=== PATIENT | female | born 1935 | race Caucasian/White ===

== ENCOUNTER 2020-07-12 15:54 | Inpatient (IN) | payer MEDICARE, BC ==
--- NOTE | 2020-07-12 17:02 | ED ---
General Adult HPI - General Chief complaint: Neuro Symptoms/Deficit Stated complaint: slurred speech Time Seen by Provider: 07/12/20 15:54 Source: patient, EMS, RN notes reviewed, old records reviewed Mode of arrival: EMS Limitations: no limitations - History of Present Illness Initial comments: This is an 85-year-old female who was transferred to us from [facility] emergency department. Patient states she had slurred speech for 3 days and went to [facility] after that. She was worked up for stroke there and her CAT scan and lab work came back essentially normal. Patient's family did not want to be admitted to [facility] they wanted her admitted at [facility] so she was closer to home and so she was transferred our facility. Patient states she's had no new symptoms since 3 days ago and she's not having any pain she denies chest pain difficulty breathing shortness of breath per patient denies abdominal pain patient denies nausea vomiting diarrhea. Patient denies any new neurologic deficits. - Related Data Home Medications Medication Instructions Recorded Confirmed Atenolol [Tenormin] 50 mg PO DAILY 07/12/20 07/12/20 Betamethasone Dipropionate 1 applic TOPICAL DAILY 07/12/20 07/12/20 [Diprolene AF 0.05% Cream] Bismuth Subsalicylate 524 mg PO Q4H PRN 07/12/20 07/12/20 [Pepto-Bismol] Calcium Carbonate [Tums] 1,000 mg PO Q6H PRN 07/12/20 07/12/20 Cholecalciferol [Vitamin D3 (25 50 mcg PO DAILY 07/12/20 07/12/20 Mcg = 1000 Iu)] Collagenase [Santyl] 1 applic TOPICAL DAILY 07/12/20 07/12/20 Furosemide [Lasix] 40 mg PO MOTUWETHFR 07/12/20 07/12/20 Heparin 10unit/Ml 50 unit IV DAILY 07/12/20 07/12/20 Insulin Glargine [Lantus] 30 unit SQ HS 07/12/20 07/12/20 Levothyroxine Sodium [Synthroid] 25 mcg PO DAILY 07/12/20 07/12/20 Losartan Potassium [Cozaar] 100 mg PO DAILY 07/12/20 07/12/20 Lovastatin [Mevacor] 10 mg PO HS 07/12/20 07/12/20 Meclizine HCl 12.5 mg PO TID 07/12/20 07/12/20 Nystatin/Triamcin 1 applic TOPICAL BID 07/12/20 07/12/20 [Nystatin-Triamcinolone Ointm] Omeprazole 20 mg PO BID 07/12/20 07/12/20 Ondansetron [Zofran] 4 mg PO Q6H PRN 07/12/20 07/12/20 Potassium Chloride ER [K-Dur 20] 40 meq PO DAILY 07/12/20 07/12/20 Vancomycin 750 mg IV DAILY 07/12/20 07/12/20 cefTRIAXone [Rocephin] 2 gm IV HS 07/12/20 07/12/20 diphenhydrAMINE HCL [Benadryl] 25 mg PO Q8H PRN 07/12/20 07/12/20 metroNIDAZOLE [Flagyl] 500 mg PO TID 07/12/20 07/12/20 Review of Systems ROS Statement: Those systems with pertinent positive or pertinent negative responses have been documented in the HPI. ROS Other: All systems not noted in ROS Statement are negative. Past Medical History History of Any Multi-Drug Resistant Organisms: None Reported Past Psychological History: No Psychological Hx Reported Smoking Status: Former smoker Past Alcohol Use History: None Reported Past Drug Use History: None Reported General Exam - General Exam Comments Initial Comments: GENERAL: Patient is well-developed and well-nourished. Patient is nontoxic and well-hydrated and is in no acute distress. ENT: Neck is soft and supple. No significant lymphadenopathy is noted. Oropharynx is clear. Moist mucous membranes. Neck has full range of motion without eliciting any pain. EYES: The sclera were anicteric and conjunctiva were pink and moist. Extraocular movements were intact and pupils were equal round and reactive to light. Eyelids were unremarkable. PULMONARY: Unlabored respirations. Good breath sounds bilaterally. No audible rales rhonchi or wheezing was noted. CARDIOVASCULAR: There is a regular rate and rhythm without any murmurs gallops or rubs. ABDOMEN: Soft and nontender with normal bowel sounds. SKIN: Skin is clear with no lesions or rashes and otherwise unremarkable. NEUROLOGIC: Patient is alert and oriented x3. Cranial nerves II through XII are grossly intact. Motor and sensory are also intact. Patient has significantly slurred speech and is difficult to understand. Symmetrical smile. MUSCULOSKELETAL: Normal extremities with adequate strength and full range of motion. No lower extremity swelling or edema. No calf tenderness. LYMPHATICS: No significant lymphadenopathy is noted PSYCHIATRIC: Normal psychiatric evaluation. Limitations: no limitations Course Vital Signs 07/12/20 15:55 Temperature 97.4 F L Pulse Rate 60 Respiratory 18 Rate Blood Pressure 140/67 O2 Sat by Pulse 94 L Oximetry Medical Decision Making - Medical Decision Making I spoke with the patient and reviewed the patient's chart from [facility] they did not send along the ER documentation however. I did look at the CAT scan results. With Dr. Pang he agreed to admit the patient admitted the patient I consult the neurology. Disposition Clinical Impression: Cerebrovascular accident (CVA) Disposition: ADMITTED IP TO THIS HOSP Referrals: Isiah Hernandez MD [Primary Care Provider] - 1-2 days Time of Disposition: 17:02
[2020-07-12] MEDS ORDERED: ASPIRIN 325 MG TAB PO STA (17:05)
[2020-07-12 20:30] LABS: Glucose,Whole Blood 122 mg/dL (75-99)
[2020-07-12 22:55] LABS: Albumin 3.4 g/dL (3.5-5.0); Calcium 9.6 mg/dL (8.4-10.2); Potassium 4.9 mmol/L (3.5-5.1); Total Bilirubin 0.9 mg/dL (0.2-1.3); Total Protein 7.3 g/dL (6.3-8.2)
[2020-07-12 22:56] LABS: Anisocytosis Slight; Basophils # (A) 0.1 k/uL (0-0.2); Basophils % (A) 2 %; Eosinophils % (A) 0 %; HCT 46.8 % (34.0-46.0); HGB 15.2 gm/dL (11.4-16.0); Lymphocytes # (A) 0.9 k/uL (1.0-4.8); Lymphocytes % (A) 11 %; MCH 27.3 pg (25.0-35.0); MCHC 32.6 g/dL (31.0-37.0); MCV 83.8 fL (80.0-100.0); Mean Platelet Volume 6.9; Monocytes # (A) 0.7 k/uL (0-1.0); Monocytes % (A) 9 %; Neutrophils # (A) 6.3 k/uL (1.3-7.7); Neutrophils % (A) 77 %; Platelet Count 249 k/uL (150-450); RBC 5.58 m/uL (3.80-5.40); RDW 17.6 % (11.5-15.5); WBC 8.2 k/uL (3.8-10.6)
[2020-07-12] MEDS ORDERED: BISMUTH SUBSALICYLATE 4,192 MG/240 ML BOTTLE PO PRN (23:00)
--- NOTE | 2020-07-12 23:23 | HP ---
HISTORY AND PHYSICAL This is an 85-year-old white female transferred from [facility] with slurred speech for 4 days. She went to [facility] for a stroke. There CT scan and lab work came back essentially normal. Did not go to [facility] after that. They sent her over to [facility]. She was admitted. She can move all 4 extremities. She is giving appropriate answers. She states she had a dry mouth, was having difficulty swallowing. Denied abdominal pain, nausea, vomiting, diarrhea. HOME MEDICINES: 1. Tenormin 50 daily. 2. Betamethasone propionate. 3. Pepto-Bismol 524 mg p.o. q.4. 4. Tums 1000 q.6. 5. Santyl topically daily. 6. Lasix 40 mg daily. 7. Heparin IV daily. She was on vancomycin, Rocephin and Flagyl over at [place]. Mevacor 10 daily, meclizine 12.5 t.i.d., mg daily, Synthroid 25 mcg daily, Lantus 30 units daily. REVIEW OF SYSTEMS: Fourteen-point review of systems negative except for mentioned in HPI. PHYSICAL EXAMINATION: Well-developed, well-nourished white female, nontoxic, well hydrated. NECK: Supple. Full range of motion. Pupils equal, round, reactive. LUNGS: Clear. CARDIOVASCULAR: Regular rate and rhythm. ABDOMEN: Soft. Skin clear. Cranial nerves appear to be intact. PSYCH: Fair mood and affect. Admit blood pressure is 140 over 60s, oxygen saturation 94%, pulse 60, respiratory rate 16-18, temperature 97.4. ASSESSMENT: Cerebrovascular accident. Will contact Neurology, work her up while here. Prognosis guarded. Condition stable. Continue home medicines. MMODL / IJN: [id number] /
[2020-07-12] MEDS: HEPARIN SODIUM,PORCINE 5,000 UNIT/ML 1 ML VIAL SQ SCH (23:37)
[2020-07-13] MEDS ORDERED: CALCIUM CARBONATE 500 MG CHEWABLE PO PRN
[2020-07-13] MEDS ORDERED: ONDANSETRON 4 MG TAB PO PRN
[2020-07-13 01:14] LABS: T4, Free (Free Thyroxine) 1.67 ng/dL (0.78-2.19)
[2020-07-13 06:02] LABS: Appearance,Urine Clear (Clear); Bacteria,Urine Occasional /hpf; Bilirubin,Urine Negative (Negative); Blood,Urine Negative (Negative); Color,Urine Yellow; Glucose,Urine (UA) Negative (Negative); Granular Casts,Urine 1 /lpf (0); Hyaline Casts,Urine 107 /lpf (0-2); Ketones,Urine Trace (Negative); Leukocyte Esterase,Urine Trace (Negative); Mucus,Urine Occasional /hpf; Nitrite,Urine Negative (Negative); PH, Urine 5.5 (5.0-8.0); Protein,Urine Trace (Negative); RBC,Urine <1 /hpf (0-5); Specific Gravity,Urine 1.015 (1.001-1.035); Squamous Epithelial Cell,Urine <1 /hpf (0-4); Urobilinogen,Urine <2.0 mg/dL (<2.0); WBC,Urine 6 /hpf (0-5)
[2020-07-13 06:29] LABS: Glucose,Whole Blood 93 mg/dL (75-99)
[2020-07-13] MEDS: LEVOTHYROXINE 25 MCG TAB PO SCH (06:33)
[2020-07-13 07:02] LABS: Glucose,Whole Blood 99 mg/dL (75-99)
[2020-07-13] MEDS: atenoloL 50 MG TAB PO SCH (08:57)
[2020-07-13] MEDS: PANTOPRAZOLE 40 MG TABLET PO SCH ×2 (08:57→20:55)
[2020-07-13] MEDS: CHOLECALCIFEROL 25 MCG (1000 IU) TABLET PO SCH (08:57)
[2020-07-13] MEDS: ASPIRIN 325 MG TAB PO SCH (08:57)
[2020-07-13] MEDS: BETAMETHASONE DIPROPIONATE 0.05% CREAM 15 GM TUBE TOPICAL SCH (08:57)
[2020-07-13] MEDS: POTASSIUM CHLORIDE ER 20 MEQ TAB.ER PO SCH (08:57)
[2020-07-13] MEDS: LOSARTAN 50 MG TAB PO SCH (08:57)
[2020-07-13] MEDS: HEPARIN SODIUM,PORCINE 5,000 UNIT/ML 1 ML VIAL SQ SCH ×3 (08:58→23:45)
[2020-07-13 09:23] LABS: Albumin 3.4 g/dL (3.5-5.0); Calcium 9.5 mg/dL (8.4-10.2); Potassium 4.9 mmol/L (3.5-5.1); Total Bilirubin 0.9 mg/dL (0.2-1.3); Total Protein 7.1 g/dL (6.3-8.2)
[2020-07-13 09:30] LABS: Anisocytosis Slight; Basophils % (A) 0 %; Eosinophils % (A) 0 %; HCT 45.2 % (34.0-46.0); HGB 14.3 gm/dL (11.4-16.0); Lymphocytes # (A) 1.5 k/uL (1.0-4.8); Lymphocytes % (A) 18 %; MCH 26.5 pg (25.0-35.0); MCHC 31.6 g/dL (31.0-37.0); MCV 83.9 fL (80.0-100.0); Mean Platelet Volume 7.3; Monocytes # (A) 0.8 k/uL (0-1.0); Monocytes % (A) 10 %; Neutrophils # (A) 5.8 k/uL (1.3-7.7); Neutrophils % (A) 70 %; Platelet Count 315 k/uL (150-450); RBC 5.39 m/uL (3.80-5.40); RDW 17.7 % (11.5-15.5); WBC 8.3 k/uL (3.8-10.6)
--- NOTE | 2020-07-13 10:10 | XR ---
EXAMINATION TYPE: XR chest 1V DATE OF EXAM: 07/13/2020 COMPARISON: NONE HISTORY: Dyspnea, shortness of breath TECHNIQUE: Single frontal view of the chest is obtained. FINDINGS: There is a left-sided PICC line, distal tip is overlying the cavoatrial junction, overlying artifacts are present, here clips and leads. There is no evident pneumothorax. Patchy basilar densit y is noted. Aorta is dense. Heart size within normal limits accounting for technique, rotation. No si zable effusion. Arthropathy is noted within the acromioclavicular joints, there may be chondrocalcin osis right shoulder. IMPRESSION: Correlate for basilar pneumonia, atelectasis, follow-up suggested
--- NOTE | 2020-07-13 11:03 | US ---
EXAMINATION TYPE: US carotid duplex BILAT DATE OF EXAM: 07/13/2020 COMPARISON: NONE CLINICAL HISTORY: stroke. EXAM MEASUREMENTS: RIGHT: Peak Systolic Velocity (PSV) cm/sec ----- Right CCA: 67.6 ----- Right ICA: 91.3 ----- Right ECA: 61.5 ICA/CCA ratio: 1.4 RIGHT: End Diastole cm/sec ----- Right CCA: 9.0 ----- Right ICA: 17.7 ----- Right ECA: 0.0 LEFT: Peak Systolic Velocity (PSV) cm/sec ----- Left CCA: 73.2 ----- Left ICA: 75.4 ----- Left ECA: 50.4 ICA/CCA ratio: 1.0 LEFT: End Diastole cm/sec ----- Left CCA: 8.4 ----- Left ICA: 17.9 ----- Left ECA: 0.0 VERTEBRALS (direction of flow): Right Vertebral: Antegrade Left Vertebral: Antegrade Rhythm: Normal Bilateral intimal thickening, no elevated velocities, no significant stenosis. Grayscale, color Doppl er, spectral Doppler imaging performed of the carotid arteries. Waveform analysis does not show signi ficant stenosis of the internal carotid arteries. IMPRESSION: No hemodynamic significant stenosis of the proximal internal carotid arteries by Doppler criteria, an indirect measurement of carotid stenosis Criteria for Assigning % of Stenosis / Diameter reduction (Estimation based on the indirect measurements of the internal carotid artery velocities (ICA PSV). 1. Normal (no stenosis)=ICA PSV < 125 cm/s: ratio < 2.0: ICA EDV<40 cm/s. 2. Less than 50% stenosis=ICA PSV < 125 cm/s: ratio < 2.0: ICA EDV<40 cm/s. 3. 50 to 69% stenosis=ICA PSV of 125 to 230 cm/s: ration 2.0 ? 4.0: ICA EDV 40-100 cm/s. 4. Greater than 70% stenosis to near occlusion= ICA PSV > 230 cm/s: ratio > 4.0: ICA EDV > 100 cm/s. 5. Near occlusion= ICA PSV velocities may be low or undetectable: variable ratio and ICA EDV. 6. Total occlusion=unable to detect flow.
[2020-07-13 11:30] LABS: Glucose,Whole Blood 117 mg/dL (75-99)
--- NOTE | 2020-07-13 11:34 | P.CNNES ---
History of Present Illness Consult date: 07/13/20 Requesting physician: Jesús Espinoza Reason for Consult: slurring speech History of Present Illness: This is a 85-year-old woman that was transferred to [facility] emergency department on 07/12/2020 for slurring the speech for the last 3 days. She denied of any focal weakness. Some of the history was obtained from medical records since patient was unable to provide with all the history. Patient went to [facility] and she was worked up for stroke which she had a CAT scan of head and some blood work which were normal according to the patient. [facility] want to admit the patient but the patient refused and she wanted that to be closer to home and as a result the she was transferred to our facility. She denied of any visual disturbance, any difficulty swallowing. She stated that the regarding her speech difficulty she said that she was jumbled words as well as having difficulty getting her words out. Currently she stated that she is back to baseline. She denies of any history of strokes in the past or TIAs according the patient. Upon asking her if she is on antiplatelets or statin she said that the iron no all my medications. Upon if she is on aspirin she said I don't know. She said that she lives by herself and after getting discharged from a this hospital visit that she is will be moving with her daughter. At home she uses a walker or cane. She did state that the her lower extremities are swollen but mostly it's the right lower extremity as well as red but could not tell me for how long but she stated that it was the recent period. She is hard of hearing and has hearing aid. Upon reviewing the patient's home medication looks like the patient was on lovastatin 10 mg but was not on any antiplatelet or anticoagulation. Workup in our facility consisted of: Vital signs: His blood pressure of 140/67 with a heart rate of 60, respiratory of 18, temperature of 97.4 Fahrenheit oral and pulse ox of 94 L at room air. The pulse ox is 95% room air. Initial POC glucose facility is 122. initial sodium is 1:30 in the repeated is 131. tsh is 11.2 which is high but the free t4 is 1.67 which is considered normal. Lipid panel is a triglyceride is 153, cholesterol is 126, LDL is 66 and HDL is 29. Coronavirus PCR is not detected. Review of Systems Review of system: The 12 point system was reviewed and apparent positive and negative per HPI. Past Medical History Past Medical History: Coronary Artery Disease (CAD), Heart Failure, Diabetes Mellitus, Hyperlipidemia, Hypertension History of Any Multi-Drug Resistant Organisms: None Reported Past Surgical History: Unable to Obtain Past Psychological History: No Psychological Hx Reported Smoking Status: Former smoker Past Alcohol Use History: None Reported Past Drug Use History: None Reported Medications and Allergies Home Medications Medication Instructions Recorded Confirmed Type Atenolol [Tenormin] 50 mg PO DAILY 07/12/20 07/12/20 History Betamethasone Dipropionate 1 applic TOPICAL DAILY 07/12/20 07/12/20 History [Diprolene AF 0.05% Cream] Bismuth Subsalicylate 524 mg PO Q4H PRN 07/12/20 07/12/20 History [Pepto-Bismol] Calcium Carbonate [Tums] 1,000 mg PO Q6H PRN 07/12/20 07/12/20 History Cholecalciferol [Vitamin D3 (25 50 mcg PO DAILY 07/12/20 07/12/20 History Mcg = 1000 Iu)] Collagenase [Santyl] 1 applic TOPICAL DAILY 07/12/20 07/12/20 History Furosemide [Lasix] 40 mg PO MOTUWETHFR 07/12/20 07/12/20 History Heparin 10unit/Ml 50 unit IV DAILY 07/12/20 07/12/20 History Insulin Glargine [Lantus] 30 unit SQ HS 07/12/20 07/12/20 History Levothyroxine Sodium [Synthroid] 25 mcg PO DAILY 07/12/20 07/12/20 History Losartan Potassium [Cozaar] 100 mg PO DAILY 07/12/20 07/12/20 History Lovastatin [Mevacor] 10 mg PO HS 07/12/20 07/12/20 History Meclizine HCl 12.5 mg PO TID 07/12/20 07/12/20 History Nystatin/Triamcin 1 applic TOPICAL BID 07/12/20 07/12/20 History [Nystatin-Triamcinolone Ointm] Omeprazole 20 mg PO BID 07/12/20 07/12/20 History Ondansetron [Zofran] 4 mg PO Q6H PRN 07/12/20 07/12/20 History Potassium Chloride ER [K-Dur 20] 40 meq PO DAILY 07/12/20 07/12/20 History Vancomycin 750 mg IV DAILY 07/12/20 07/12/20 History cefTRIAXone [Rocephin] 2 gm IV HS 07/12/20 07/12/20 History diphenhydrAMINE HCL [Benadryl] 25 mg PO Q8H PRN 07/12/20 07/12/20 History metroNIDAZOLE [Flagyl] 500 mg PO TID 07/12/20 07/12/20 History Allergies Allergy/AdvReac Type Severity Reaction Status Date / Time ampicillin [From Polycillin] Allergy Unknown Verified 07/12/20 19:11 cefaclor [From Ceclor] Allergy Unknown Verified 07/12/20 19:11 hydrocortisone Allergy Unknown Verified 07/12/20 19:11 Iodinated Contrast Media Allergy Unknown Verified 07/12/20 19:11 nitroglycerin Allergy Unknown Verified 07/12/20 19:11 NSAIDS (Non-Steroidal Allergy Unknown Verified 07/12/20 19:11 Anti-Inflamma sulfur dioxide Allergy Unknown Verified 07/12/20 19:11 Physical Examination - Vital Signs Vital Signs: Vital Signs Temp Pulse Pulse Resp BP BP Pulse Ox 07/13/20 04:50 97.7 F 54 L 17 113/56 94 L 07/13/20 00:00 97.3 F L 54 L 18 111/56 96 07/12/20 20:30 59 L 07/12/20 20:01 97.5 F L 59 L 18 114/69 94 L 07/12/20 19:20 61 16 102/87 95 07/12/20 18:46 62 16 119/65 95 07/12/20 17:50 97.5 F L 64 18 142/67 96 07/12/20 17:05 55 L 18 119/65 95 07/12/20 15:55 97.4 F L 60 18 140/67 94 L Intake and Output 07/12/20 07/13/20 07/13/20 22:59 06:59 14:59 Output Total 350 Balance -350 Output: Urine 350 Other: Voiding Method Diaper Diaper Incontinent Incontinent # Voids 1 1 Weight 90.718 kg 83.1 kg GENERAL: The patient is lying in bed and is not in acute distress. CHEST: The heart rate is regular rate rhythm. No murmurs to auscultation. No carotid bruit bilaterally. LUNG: Clear to auscultation bilaterally no wheezing noted throughout. Not labored breathing. ABDOMEN/GI: Bowel sounds present in all 4 quadrants. No tenderness to palpation throughout. INTEGUMENTARY: Bilateral lower extremities lymphedema with eyrthema predominately distal lower extremities. RIght lower extremity is wrapped. NEUROLOGICAL: Higher mental function: The patient is awake, alert, oriented to self, place (with option correctly chose Brian) and time. Patient is following simple commands. No aphasia and no neglect. Cranial nerves: The pupils are round, equal and reactive to light and accommodation. Visual john are full to confrontation throughout. Extraocular movement is intact no nystagmus is noted. Facial sensation is normal to touch throughout. The facial strength is normal throughout. Hearing is moderately decreased bilaterally to hand rub. Tongue is midline and moved [id number] without any difficulty. No dysarthria is noted. Shoulder shrug is normal bilaterally. Motor: Gait is deferred because of patient lower extremity pain and swelling. The strength is hard to assess because of patient cooperation but had no focality on raising both arms and legs. 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 Normal tone and bulk. Cerebellum: Normal finger to nose bilaterally. Sensation: Sensation is normal to touch except tender to touch from mid-calf to all way down to ankles (edema and erythema). . Reflexes (right/left): 2+ bilateral upper extremities while 1+ bilateral lower extremities but limited because of patient pain. Bilateral ankles unable to assess since had her right ankle wrapped in gauge while was in pain in left ankle. Plantars are downgoing bilaterally. Results Urinalysis shows the urine appears clear, nitrates negative, leukocyte esterase is trace, urine white blood cell is 6 and the patient has occasional bacteria. Repeated creatinine is 1.10 and the BUN is 23. - Laboratory Findings CBC and BMP: 07/13/20 08:31 07/13/20 08:31 Abnormal Lab Findings: Abnormal Labs 07/12/20 07/12/20 07/12/20 20:29 22:35 22:35 RBC 5.58 H Hct 46.8 H RDW 17.6 H Lymphocytes # 0.9 L Sodium 130 L Chloride 96 L BUN 19 H Creatinine Glucose 128 H POC Glucose (mg/dL) 122 H Alkaline Phosphatase 182 H Albumin 3.4 L Triglycerides HDL Cholesterol TSH 11.200 H Urine Protein Urine Ketones Ur Leukocyte Esterase Urine WBC Urine Bacteria Hyaline Casts Urine Mucus 07/13/20 07/13/20 07/13/20 05:37 08:31 08:31 RBC Hct RDW 17.7 H Lymphocytes # Sodium 131 L Chloride 93 L BUN 23 H Creatinine 1.10 H Glucose 109 H POC Glucose (mg/dL) Alkaline Phosphatase 182 H Albumin 3.4 L Triglycerides 153 H HDL Cholesterol 29 L TSH Urine Protein Trace H Urine Ketones Trace H Ur Leukocyte Esterase Trace H Urine WBC 6 H Urine Bacteria Occasional H Hyaline Casts 107 H Urine Mucus Occasional H Assessment and Plan Assessment: Transient ischemic attack (broca aphasia symptoms with slurring speech and difficulty getting her words out). Mild hyponatremia Cellulitis of right lower extremity Acute kidney insuffiency Plan: I ordered MRI the brain, 2-D echo, carotid duplex The patient was started on aspirin 325 daily and Lipitor 10 mg daily. Increased Lipitor from 10 mg to 40 mg daily for secondary stroke prophylaxis. Ordered Neuro-checks Q4 hours. Ordered Cardiac monitoring. PT, OT and DEPARTMENTAL SHIPPING CLERK are consulted. Infection disease is consulted for the cellulitis of lower extremity. I will Defer the rest of the medical management to the primary team. Thank you for the consultation. Peyman Ledezma MD Neuro-Hospitalist Time with Patient: Greater than 30
--- NOTE | 2020-07-13 11:55 | ECHOF ---
Referral Reason:stroke MEASUREMENTS -------- HEIGHT: 165.1 cm WEIGHT: 83.0 kg BP: RVIDd: 2.4 cm (< 3.3) IVSd: 1.5 cm (0.6 - 1.1) LVIDd: 3.7 cm (3.9 - 5.3) LVPWd: 1.6 cm (0.6 - 1.1) IVSs: 2.2 cm LVIDs: 1.6 cm LVPWs: 2.0 cm LAESV Index (A-L): 14.39 ml/m Ao Diam: 1.8 cm (2.0 - 3.7) AV Cusp: 0.9 cm (1.5 - 2.6) LA Diam: 2.9 cm (2.7 - 3.8) MV EXCURSION: 15.488 mm (> 18.000) MV EF SLOPE: 41 mm/s (70 - 150) EPSS: 0.8 cm MV E Sterling: 0.61 m/s MV DecT: 244 ms MV A Sterling: 0.57 m/s MV E/A Ratio: 1.08 AV maxP.66 mmHg AV meanP.50 mmHg AR PHT: 726 ms RAP: 5.00 mmHg RVSP: 28.79 mmHg FINDINGS -------- Sinus rhythm. This was a technically adequate study. The left ventricular size is normal. There is moderate concentric left ventricular hypertrophy. O verall left ventricular systolic function is normal with, an EF between 55 - 60 %. The diastolic fi lling pattern is normal for the age of the patient 13.24. The right ventricle is normal in size. Normal LA size by volume 22+/-6 ml/m2. The right atrial size is normal. Aortic valve is trileaflet and is severely thickened. There is [id number] aortic regurgitatio n. There is moderate aortic stenosis present. Peak/mean gradient across the Aortic Valve is 43.66 mmHg / 26.50mmHg. The mitral valve is normal. Mild mitral annular calcification present. Mild mitral regurgitation is present. The tricuspid valve appears structurally normal. Mild tricuspid regurgitation present. Right vent ricular systolic pressure is normal at < 35 mmHg. There is no pulmonic regurgitation present. The aortic root size is normal. Normal inferior vena cava with normal inspiratory collapse consistent with estimated right atrial pre ssure of 5 mmHg. There is no pericardial effusion. CONCLUSIONS -------- 1. There is moderate concentric left ventricular hypertrophy. 2. Overall left ventricular systolic function is normal with, an EF between 55 - 60 %. 3. The diastolic filling pattern is normal for the age of the patient 13.24 4. Aortic valve is trileaflet and is severely thickened. 5. There is [id number] aortic regurgitation. 6. There is moderate aortic stenosis present. 7. Peak/mean gradient across the Aortic Valve is 43.66mmHg / 26.50mmHg. 8. Mild mitral annular calcification present. 9. Mild mitral regurgitation is present. 10. Mild tricuspid regurgitation present. 11. There is no pericardial effusion. ADDICTIONS RECOVERY SPECIALIST: Theresa Rivera RDCS
[2020-07-13] MEDS: COLLAGENASE 250 UNIT/GM OINTMENT 30 GM TUBE TOPICAL SCH ×2 (13:24→17:03)
--- NOTE | 2020-07-13 15:57 | XR ---
Right foot HISTORY: Heel wound, osteomyelitis 3 views of the right foot There is extensive soft tissue swelling. Bone mineralization is reduced which may limit sensitivity. No dislocation. Arthropathy changes are noted in the foot, tarsometatarsal joints, intertarsal joints . There is a healing fracture in the distal metaphyseal right fibula, there is callus formation. Soft t issue calcifications are also present. There is loss of soft tissue at the level of the posterior calcaneus. Suspect there is some bone eros ion. IMPRESSION: Healing fracture distal fibula. Findings a be indicative of osteomyelitis in the posterio r calcaneus. Additional findings above.
[2020-07-13 16:32] LABS: Glucose,Whole Blood 90 mg/dL (75-99)
--- NOTE | 2020-07-13 18:59 | MR ---
EXAMINATION TYPE: MR brain wo con DATE OF EXAM: 07/13/2020 COMPARISON: None HISTORY: Slurred speech, CVA Multiplanar multiecho imaging of the brain was performed without contrast. FINDINGS: There is diffuse cerebral cortical atrophy. There is no mass effect nor midline shift. There is no si gn of intracranial hemorrhage. The diffusion images show no evidence of an acute infarct. There is mild white matter increased signal in multiple small foci in the ascencion that measure less than 5 mm. There is also slight increased signal in the white matter of both cerebral hemispheres. There is patchy abnormal increased signal in the white matter around the lateral ventricles and watkins-white matter junction of both cerebral hemispheres. Sella turcica is intact. Corpus callosum appears intact. IMPRESSION: Cerebral atrophy. White matter signal changes as above are nonspecific. I would consider both chronic small vessel isch emia and demyelinating disease. No evidence of a cortical infarct.
[2020-07-13 20:24] LABS: Glucose,Whole Blood 95 mg/dL (75-99)
[2020-07-13] MEDS: ATORVASTATIN 40 MG TAB PO SCH (20:55)
[2020-07-13] MEDS ORDERED: ATORVASTATIN 10 MG TAB PO SCH (21:00)
--- NOTE | 2020-07-13 22:55 | PN ---
PROGRESS NOTE This patient was transferred here from [place], an 85-year-old, for possible stroke. She is on 3 antibiotics at home for osteomyelitis of the foot which will be started back today. She has had Neurology work her up for stroke today. She is sitting up, giving appropriate answers. She has a hearing aid. Medications will be addressed. Pulse ox 95% on room air, O2 94, temperature 97.4, respiratory rate 16-18, heart rate 80, blood pressure 140 over 70s. Negative coronavirus. Cholesterol 126, LDL 66. Medications were reviewed. Neurologic exam is normal. Psych: Fair mood and affect. ASSESSMENT: 1. Transient ischemic attack, stroke aphasia symptoms, slurred speech, difficulty getting her words out. 2. Hyponatremia. 3. Cellulitis. 4. Acute kidney injury. MRI of the brain, echo, carotid have been ordered. Aspirin been given. Neuro checks q.4 hours. Cardiac monitoring. PT/OT. Start her on antibiotics for osteomyelitis. MMODL / IJN: [id number] /
--- NOTE | 2020-07-13 23:49 | CONS ---
CONSULTATION DATE OF SERVICE: 07/13/2020 REASON FOR CONSULTATION: Right heel ulcer and antibiotic usage. HISTORY OF PRESENT ILLNESS: The patient is an 85-year-old female who was transferred from [facility] for further management in this patient who presented with slurred speech for 3 days. The patient did have a CT of the brain and blood work, which was essentially normal. The patient did not want to be admitted at that facility and the patient was transferred here. The patient currently denies having any headache. The patient's speech has improved. Denies having any chest pain. No shortness of breath or cough. No abdominal pain or diarrhea. The patient did have a chronic nonhealing wound to the right heel area. The patient is not sure exactly for how she has had it. She did have mild dull aching pain to the area 3 to 4 out of 10 with no radiation. Denies any foul smelling drainage. On admission to the hospital, the patient has been afebrile. The patient did have a normal white count. Infectious Disease was consulted for further management for the right heel wound and need for antibiotic therapy. REVIEW OF SYSTEMS: Positive points have been mentioned in HPI. Rest of systems are negative. Her chest x- ray with evidence of some basilar atelectasis versus pneumonia. The patient did not have any respiratory symptoms and no hypoxia. No fever has been noticed. PAST MEDICAL HISTORY: Diabetes mellitus, heart failure, hypertension, hyperlipidemia, coronary disease. PAST SURGICAL HISTORY: No major surgery reported. SOCIAL HISTORY: Remote history of smoking. No drinking or drug use. FAMILY HISTORY: No pertinent findings noticed. ALLERGIES: AMPICILLIN, IODINATED CONTRAST, HYDROCORTISONE. MEDICATIONS: Include the patient is currently on aspirin, Tenormin, Lipitor, , heparin, Synthroid, Zofran and Protonix. K-Dur. PHYSICAL EXAMINATION: Blood pressure 118/61 with a pulse of 74, temperature 96.4. She is 94% on room air. General description is an elderly female lying in bed in no distress. No tachypnea or accessory muscles of respiration use. HEENT: Examination shows no pallor or scleral icterus. Oral mucous membranes dry. No pharyngeal erythema or thrush. NECK: Trachea central. No thyromegaly. LUNGS: Unlabored breathing. Clear to auscultation anteriorly. No wheeze or crackles. HEART S1, S2. Regular rate and rhythm. ABDOMEN: Soft, no tenderness. No guarding. No rigidity. EXTREMITIES: Diffuse swelling of the legs. No significant redness. The patient did have a wound to the right heel area, stage III pressure ulcer with some slough tissue. No significant surrounding swelling and redness noticed or any drainage. NEUROLOGICAL: The patient is awake, alert, oriented times two. Mood and affect normal. LABS: Hemoglobin is 14.2, white count 8.3, BUN of 23, creatinine 1.10. Liver enzymes are normal. DIAGNOSTIC IMPRESSION AND PLAN: Patient admitted to the hospital with slurred speech, mental status changes and concern for possible cerebrovascular accident in this patient also noticed to have pressure ulcer to the right heel, which seemed to have been chronic with some slough tissue at the base. We will need to rule out to make sure no evidence of any underlying osteomyelitis in this patient with underlying diabetes mellitus. PLAN: 1. We will obtain x-rays of the right heel area. 2. We will check a CRP and a sedimentation rate and local wound culture. 3. Local wound care with Santyl followed by moist dressing, keep the area off the pressure. 4. We will follow her clinical condition and recent investigation to further adjust medication if needed. Thank you for this consultation. Will follow this patient along with you. MMODL / IJN: [id number] /
[2020-07-14 06:17] LABS: Glucose,Whole Blood 73 mg/dL (75-99)
[2020-07-14] MEDS: LEVOTHYROXINE 25 MCG TAB PO SCH (06:33)
[2020-07-14] MEDS: ASPIRIN 325 MG TAB PO SCH (09:45)
[2020-07-14] MEDS: POTASSIUM CHLORIDE ER 20 MEQ TAB.ER PO SCH (09:45)
[2020-07-14] MEDS: LOSARTAN 50 MG TAB PO SCH (09:46)
[2020-07-14] MEDS: PANTOPRAZOLE 40 MG TABLET PO SCH ×2 (09:46→20:23)
[2020-07-14] MEDS: HEPARIN SODIUM,PORCINE 5,000 UNIT/ML 1 ML VIAL SQ SCH ×3 (09:46→22:33)
[2020-07-14] MEDS: atenoloL 50 MG TAB PO SCH (09:46)
[2020-07-14] MEDS: CHOLECALCIFEROL 25 MCG (1000 IU) TABLET PO SCH (09:46)
[2020-07-14] MEDS: COLLAGENASE 250 UNIT/GM OINTMENT 30 GM TUBE TOPICAL SCH ×2 (10:36→14:29)
[2020-07-14 11:54] LABS: Glucose,Whole Blood 123 mg/dL (75-99)
[2020-07-14] MEDS ORDERED: VANCOMYCIN IV PER PHARMACY 1 EACH MISC MISCELLANE PRN (13:29)
[2020-07-14] MEDS ORDERED: VANCOMYCIN 1,500 MG in SODIUM CHLORIDE 0.9% 250 ML IVPB ONE (14:15)
[2020-07-14] MEDS: BETAMETHASONE DIPROPIONATE 0.05% CREAM 15 GM TUBE TOPICAL SCH (14:29)
[2020-07-14] MEDS ORDERED: VANCOMYCIN 1,000 MG in SODIUM CHLORIDE 0.9% 250 ML IVPB ONE (14:30)
[2020-07-14 16:45] LABS: Glucose,Whole Blood 178 mg/dL (75-99)
--- NOTE | 2020-07-14 17:05 | CDI ---
Documentation Clarification Form Date: 07/14/2020 04:43:56 PM From: Trna Escobar RN CCDS Admit Date: 07/13/2020 10:51:00 AM Patient Name: Rachel Wilson Visit Number: [id number] Discharge Date: ATTENTION: The Clinical Documentation Specialists (CDI) and [facility] Coding Staff appreciate your assistance in clarifying documentation. Please respond to the clarification below the line at the bottom and electronically sign. The CDI & [facility] Coding staff will review the response and follow-up if needed. Please note: Queries are made part of the Legal Health Record. If you have any questions, please contact the author of this message via ITS. Dr. Sari Flores A pressure ulcer to the right heel was documented in the infectious disease consult 07/13. History/Risk Factors: 85-year-old female presents to the ED as a transfer from [facility] with slurred speech for three days. She was worked up for a stroke and the CT and lab work came back essentially normal. Medical history: Osteomyelitis, CAD, Heart Failure, DM, HTN and HLD. Clinical Indicators: Location: Right heel Wound description: some slough tissue at the base. 07/13 Right foot Xray: Healing fracture distal fibular findings a be indicative of osteomyelitis in the posterior calcaneus. Treatment: 07/14 Rocephin Ivpb Q24HR; 07/14 Vancomycin IVPB x1; 07/15 Vancomycin IVPB Q24HR; Elements for accurate and compliant documentation of an ulcer: *The location/laterality of the ulcer *Etiology (decubitus/pressure, diabetic, PVD) *Stage I-IV, Unstageable, Suspected Deep Tissue Injury (To the deepest stage) *If the ulcer was present at admission (POA) or occurred after admission In your professional opinion, can you please clarify the diagnosis, location, laterality and whether present on admission (POA): Stage 1 Pressure/Decubitus Ulcer (intact skin, non-blanching redness of local area) Stage 2 Pressure/Decubitus Ulcer (Partial thickness, loss of dermis, pink wound bed) Stage 3 Pressure/Decubitus Ulcer (Full thickness tissue loss) Stage 4 Pressure/Decubitus Ulcer (Full thickness tissue loss with exposed bone, tendon, or muscle. May have slough or eschar present) Unstageable Other condition, please specify Unable to determine Please indicate etiology of pressure ulcer (if known). Stage IV right heel pressure ulcer (Last Revision: March 2017) MTDD
--- NOTE | 2020-07-14 17:15 | CDI ---
Documentation Clarification Form Date: 07/14/2020 05:07:29 PM From: Tran Escobar Admit Date: 07/13/2020 10:51:00 AM Patient Name: Rachel Wilson Visit Number: [id number] Discharge Date: ATTENTION: The Clinical Documentation Specialists (CDI) and [facility] Coding Staff appreciate your assistance in clarifying documentation. Please respond to the clarification below the line at the bottom and electronically sign. The CDI & [facility] Coding staff will review the response and follow-up if needed. Please note: Queries are made part of the Legal Health Record. If you have any questions, please contact the author of this message via ITS. Dr. Sari Flores Bilateral Buttock Stage II pressure ulcer is documented in the Nursing Physical Assessment 07/13. History/Risk Factors: 85-year-old female presents to the ED as a transfer from [facility] with slurred speech for three days. She was worked up for a stroke and the CT and lab work came back essentially normal. Medical history: Osteomyelitis, CAD, Heart Failure, DM, HTN and HLD. Clinical Indicators: Location: Bilateral Buttock Wound description: Warm, Fragile, Erythema. Area is erythematous: non blanchable. Treatment: Collagenase Ointment Topical Daily Elements for accurate and compliant documentation of an ulcer: *The location/laterality of the ulcer *Etiology (decubitus/pressure, diabetic, PVD) *Stage I-IV, Unstageable, Suspected Deep Tissue Injury (To the deepest stage) *If the ulcer was present at admission (POA) or occurred after admission In your professional opinion, can you please clarify the diagnosis, location, laterality and whether present on admission (POA): Stage 1 Pressure/Decubitus Ulcer (intact skin, non-blanching redness of local area) Stage 2 Pressure/Decubitus Ulcer (Partial thickness, loss of dermis, pink wound bed) Unstageable Other condition, please specify Unable to determine Please indicate etiology of pressure ulcer (if known). Stage II bilateral gluteal pressure ulcer (Last Revision: March 2017) MTDD
--- NOTE | 2020-07-14 18:23 | P.PN ---
Subjective Progress Note Date: 07/14/20 The patient was seen at bedside and she stated that she's doing well and she feels about the same as yesterday. She has no further episodes of weakness, numbness or difficulty getting words out. Per the patient's nurse she has been at baseline. Objective - Vital Signs Vital signs: Vital Signs Temp 97.1 F L 07/14/20 16:00 Pulse 52 L 07/14/20 16:00 Resp 18 07/14/20 16:00 BP 107/56 07/14/20 16:00 Pulse Ox 98 07/14/20 16:00 Intake & Output 07/13/20 07/14/20 07/14/20 18:59 06:59 18:59 Intake Total 480 Balance 480 Weight 83.1 kg 86.4 kg Intake: Oral 480 Other: Voiding Method Diaper Diaper Diaper Incontinent Incontinent Incontinent # Voids 2 1 1 - Exam GENERAL: The patient is lying in bed and is not in acute distress. NEUROLOGICAL: Higher mental function: The patient is awake, alert, oriented to self, place and time. Patient is following simple commands. No aphasia and no neglect. Cranial nerves: The pupils are round, equal and reactive to light and accommodation. Visual john are full to confrontation throughout. Extraocular movement is intact no nystagmus is noted. Facial sensation is normal to touch throughout. The facial strength is normal throughout. Hearing is moderately decreased bilaterally to hand rub. Tongue is midline and moved [id number] without any difficulty. No dysarthria is noted. Shoulder shrug is normal bilaterally. Motor: Gait is deferred because of patient lower extremity pain and swelling. The strength is hard to assess because of patient cooperation but had no focality on raising both arms and legs. Bilateral hand sagger maker are 5/5. Normal tone and bulk. Cerebellum: Normal finger to nose bilaterally. Sensation: Sensation is normal to touch except tender to touch from mid-calf to all way down to ankles (edema and erythema). . Reflexes (right/left): 2+ bilateral upper extremities while 1+ bilateral lower extremities but limited because of patient pain. Bilateral ankles unable to assess since had her right ankle wrapped in gauge while was in pain in left ankle. Plantars are downgoing bilaterally. - Labs CBC & Chem 7: 07/13/20 08:31 07/13/20 08:31 Labs: Abnormal Lab Results - Last 24 Hours (Table) 07/13/20 07/14/20 07/14/20 Range/Units 15:43 06:15 11:53 ESR 22 H (0-20) mm/hr POC Glucose (mg/dL) 73 L 123 H (75-99) mg/dL 07/14/20 Range/Units 16:43 ESR (0-20) mm/hr POC Glucose (mg/dL) 178 H (75-99) mg/dL Assessment and Plan Assessment: Transient ischemic attack (broca aphasia symptoms with slurring speech and difficulty getting her words out). Mild hyponatremia Cellulitis of right lower extremity Acute kidney insuffiency Plan: MRI the brain: It is reported as cerebral atrophy. White matter signal changes as above are nonspecific. I would consider both chronic small vessel ischemia and the mind disease. No evidence of focal cortical infarct. I reviewed the MRI the brain and I do agree there is no acute ischemia. Also elect the patient has more small vessel disease. 2-D echo: Was reported as overall left ventricular systolic function is normal with ejection fraction 55-60%. There is mild to moderate aortic regurgitation. There is a moderate aortic stenosis present. Normal left atrial size by volume. carotid duplex: Is reported as no hemodynamic significant stenosis of the proximal internal carotid arteries by Doppler criteria, and in direct measurement of carotid stenosis. Lipid profile is cholesterol is 126, triglycerides 53, LDL 66 and HDL is 29. For strokes the LDL goal is less than 970 which she's within the goal of. The patient was started on aspirin 325 daily (was not on ASA or Plavix at home). Conintue Lipitor 40 mg daily for secondary stroke prophylaxis. Ordered Neuro-checks Q4 hours. Ordered Cardiac monitoring. PT, OT and APARTMENT COORDINATOR are consulted. Infection disease is consulted for the cellulitis of lower extremity. I will Defer the rest of the medical management to the primary team. The patient needs to follow-up with a neurologist within 2 weeks as an outpatient upon discharge. Patient stated that she be living with her daughter upon discharge. There is no further neurological work-up. Peyman Ledezma MD Neuro-Hospitalist Time with Patient: Less than 30
[2020-07-14] MEDS: ATORVASTATIN 40 MG TAB PO SCH (20:23)
[2020-07-14 20:36] LABS: Glucose,Whole Blood 138 mg/dL (75-99)
--- NOTE | 2020-07-14 21:54 | PN ---
PROGRESS NOTE DATE OF SERVICE: 07/14/2020 REASON FOR FOLLOWUP: Right heel infected pressure ulcer with underlying osteomyelitis. INTERVAL HISTORY: The patient is currently afebrile. The patient is breathing comfortably. She seems to be more awake and alert. The patient denies having any chest pain or cough. No abdominal pain or pain to the right lower extremity. PHYSICAL EXAMINATION: Blood pressure 127/59, pulse of 54, temperature 97. She is 98% on 2 L nasal cannula. General description is an elderly female up in the chair in no distress. RESPIRATORY SYSTEM: Unlabored breathing. Clear to auscultation anteriorly. HEART: S1, S2. Regular rate and rhythm. ABDOMEN: Soft. No tenderness. LABS: No new labs have been obtained today. DIAGNOSTIC IMPRESSION AND PLAN: Patient with right heel pressure ulcer with underlying osteomyelitis in this patient who apparently did have a history of and was getting treatment with Rocephin and vancomycin that has been restarted. We will try to obtain culture data from her previous admission. Patient to continue with Rocephin and vancomycin and continue with supportive care. MMODL / IJN: [id number] /
[2020-07-15 05:12] VITALS: RESP 18
[2020-07-15 06:09] LABS: Glucose,Whole Blood 95 mg/dL (75-99)
[2020-07-15] MEDS: LEVOTHYROXINE 25 MCG TAB PO SCH (06:35)
[2020-07-15] MEDS: ASPIRIN 325 MG TAB PO SCH (09:00)
[2020-07-15] MEDS: POTASSIUM CHLORIDE ER 20 MEQ TAB.ER PO SCH (09:00)
[2020-07-15] MEDS ORDERED: VANCOMYCIN 750 MG in SODIUM CHLORIDE 0.9% 250 ML IVPB SCH (09:00)
[2020-07-15] MEDS: CHOLECALCIFEROL 25 MCG (1000 IU) TABLET PO SCH (09:00)
[2020-07-15] MEDS ORDERED: VANCOMYCIN 1,500 MG in SODIUM CHLORIDE 0.9% 250 ML IVPB SCH (09:00)
[2020-07-15] MEDS: PANTOPRAZOLE 40 MG TABLET PO SCH (09:00)
[2020-07-15] MEDS: atenoloL 50 MG TAB PO SCH (09:00)
[2020-07-15] MEDS: HEPARIN SODIUM,PORCINE 5,000 UNIT/ML 1 ML VIAL SQ SCH ×2 (09:00→15:21)
[2020-07-15] MEDS: LOSARTAN 50 MG TAB PO SCH (09:00)
[2020-07-15] MEDS: COLLAGENASE 250 UNIT/GM OINTMENT 30 GM TUBE TOPICAL SCH ×2 (09:06→15:21)
[2020-07-15 11:55] LABS: Glucose,Whole Blood 116 mg/dL (75-99)
[2020-07-15 12:55] VITALS: BMI 32.2
[2020-07-15 13:51] VITALS: PULSE 56; TEMP 96.8
[2020-07-15] MEDS: BETAMETHASONE DIPROPIONATE 0.05% CREAM 15 GM TUBE TOPICAL SCH (15:21)
--- NOTE | 2020-07-15 15:38 | P.DS ---
Providers Date of admission: 07/13/20 10:51 Expected date of discharge: 07/15/20 Attending physician: Jackson Benjamin Consults: 07/12/20 17:06 Consult Physician Routine Consulting Provider: Peyman Ledezma Consult Reason/Comments: CVA Do you want consulting provider notified?: Yes 07/12/20 22:21 Consult Physician Routine Consulting Provider: Sari Flores Consult Reason/Comments: antibiotic uysage Do you want consulting provider notified?: Yes Primary care physician: Isiah Hernandez MD Plan - Discharge Summary Discharge Rx Participant: No New Discharge Prescriptions: New Aspirin 325 mg PO DAILY tab Continue Vancomycin 750 mg IV DAILY Ondansetron [Zofran] 4 mg PO Q6H PRN PRN Reason: Nausea Collagenase [Santyl] 1 applic TOPICAL DAILY Calcium Carbonate [Tums] 1,000 mg PO Q6H PRN PRN Reason: Gi Upset Potassium Chloride ER [K-Dur 20] 40 meq PO DAILY Bismuth Subsalicylate [Pepto-Bismol] 524 mg PO Q4H PRN PRN Reason: Gi Upset Omeprazole 20 mg PO BID Nystatin/Triamcin [Nystatin-Triamcinolone Ointm] 1 applic TOPICAL BID metroNIDAZOLE [Flagyl] 500 mg PO TID Meclizine HCl 12.5 mg PO TID Lovastatin [Mevacor] 10 mg PO HS Losartan Potassium [Cozaar] 100 mg PO DAILY Levothyroxine Sodium [Synthroid] 25 mcg PO DAILY Heparin 10unit/Ml 50 unit IV DAILY Furosemide [Lasix] 40 mg PO MOTUWETHFR Betamethasone Dipropionate [Diprolene AF 0.05% Cream] 1 applic TOPICAL DAILY cefTRIAXone [Rocephin] 2 gm IV HS Cholecalciferol [Vitamin D3 (25 Mcg = 1000 Iu)] 50 mcg PO DAILY diphenhydrAMINE HCL [Benadryl] 25 mg PO Q8H PRN PRN Reason: Itching Atenolol [Tenormin] 50 mg PO DAILY Discontinued Insulin Glargine [Lantus] 30 unit SQ HS Discharge Medication List Atenolol [Tenormin] 50 mg PO DAILY 07/12/20 [History] Betamethasone Dipropionate [Diprolene AF 0.05% Cream] 1 applic TOPICAL DAILY 07/12/20 [History] Bismuth Subsalicylate [Pepto-Bismol] 524 mg PO Q4H PRN 07/12/20 [History] Calcium Carbonate [Tums] 1,000 mg PO Q6H PRN 07/12/20 [History] Cholecalciferol [Vitamin D3 (25 Mcg = 1000 Iu)] 50 mcg PO DAILY 07/12/20 [History] Collagenase [Santyl] 1 applic TOPICAL DAILY 07/12/20 [History] Furosemide [Lasix] 40 mg PO MOTUWETHFR 07/12/20 [History] Heparin 10unit/Ml 50 unit IV DAILY 07/12/20 [History] Levothyroxine Sodium [Synthroid] 25 mcg PO DAILY 07/12/20 [History] Losartan Potassium [Cozaar] 100 mg PO DAILY 07/12/20 [History] Lovastatin [Mevacor] 10 mg PO HS 07/12/20 [History] Meclizine HCl 12.5 mg PO TID 07/12/20 [History] Nystatin/Triamcin [Nystatin-Triamcinolone Ointm] 1 applic TOPICAL BID 07/12/20 [History] Omeprazole 20 mg PO BID 07/12/20 [History] Ondansetron [Zofran] 4 mg PO Q6H PRN 07/12/20 [History] Potassium Chloride ER [K-Dur 20] 40 meq PO DAILY 07/12/20 [History] Vancomycin 750 mg IV DAILY 07/12/20 [History] cefTRIAXone [Rocephin] 2 gm IV HS 07/12/20 [History] diphenhydrAMINE HCL [Benadryl] 25 mg PO Q8H PRN 07/12/20 [History] metroNIDAZOLE [Flagyl] 500 mg PO TID 07/12/20 [History] Aspirin 325 mg PO DAILY tab 07/15/20 [Rx] Follow up Appointment(s)/Referral(s): Fior Chamberlain MD [REFERRING] - 1 Week Isiah Hernandez MD [Primary Care Provider] - 1 Week () Activity/Diet/Wound Care/Special Instructions: [place] Discharge Disposition: TRANSFER TO SNF/F
[2020-07-15 15:57] VITALS: BP 109/54
--- NOTE | 2020-07-15 16:43 | PN ---
PROGRESS NOTE DATE OF SERVICE: 07/15/2020 REASON FOR FOLLOWUP: Right heel osteomyelitis. INTERVAL HISTORY: The patient is currently afebrile. She has been complaining of feeling nauseous after eating her lunch. No vomiting. No chest pain. No shortness of breath or cough and no worsening pain to the right heel area. PHYSICAL EXAMINATION: Blood pressure 109/54 with a pulse of 55, temperature 96.8. She is 98% on 2 L nasal cannula. General description is an elderly female lying in bed in no distress. RESPIRATORY SYSTEM: Unlabored breathing. Clear to auscultation anteriorly. HEART: S1, S2. Regular rate and rhythm. ABDOMEN: Soft. No tenderness. Right heel is currently dressed. LABS: Creatinine is 1.12. Local cultures are currently pending. DIAGNOSTIC IMPRESSION AND PLAN: Patient with right heel osteomyelitis in this patient who apparently was getting vancomycin and Rocephin in the outpatient setting. Culture her so far pending. Patient to continue current antibiotic, local wound care with Santyl. Keep the area off pressure. Continue supportive care. MMODL / IJN: [id number] /
== END 2020-07-15 16:41 | DRG 69 ==
LOC: EC 15:54 → 3SCARD 17:06 → OBSVTOIN 07-13 10:51
PROVIDERS: ADMIT Internal Medicine; ATTEND Internal Medicine
DX: G45.9 Transient cerebral ischemic attack, unspecified (principal); L89.614 Pressure ulcer of right heel, stage 4; M86.9 Osteomyelitis, unspecified; E87.1 Hypo-osmolality and hyponatremia; L03.115 Cellulitis of right lower limb; N17.9 Acute kidney failure, unspecified; R47.01 Aphasia; E11.69 Type 2 diabetes mellitus with other specified complication; E78.5 Hyperlipidemia, unspecified; H91.90 Unspecified hearing loss, unspecified ear; Z97.4 Presence of external hearing-aid; I11.0 Hypertensive heart disease with heart failure; I25.10 Atherosclerotic heart disease of native coronary artery without angina pectoris; L89.322 Pressure ulcer of left buttock, stage 2; L89.312 Pressure ulcer of right buttock, stage 2; I50.9 Heart failure, unspecified; Z79.4 Long term (current) use of insulin; Z79.890 Hormone replacement therapy; Z79.899 Other long term (current) drug therapy; Z87.891 Personal history of nicotine dependence; Z20.822 Contact with and (suspected) exposure to COVID-19; Z88.5 Allergy status to narcotic agent; Z88.0 Allergy status to penicillin; Z88.8 Allergy status to other drugs, medicaments and biological substances; Z88.6 Allergy status to analgesic agent; Z88.1 Allergy status to other antibiotic agents; Z91.041 Radiographic dye allergy status
CPT/HCPCS: 70551; 71045; 80053; 80061; 81001; 82565; 83605; 84439; 84443; 85025; 85652; 86140; 87040; 87070; 87075; 87077; 87186; 87205; 87635; 93306; 93880; 99285

== ENCOUNTER 2021-03-19 09:19 | Inpatient (IN) | payer MEDICARE, BC ==
--- NOTE | 2021-03-19 09:51 | ED ---
General Adult HPI - General Chief complaint: Chest Pain Stated complaint: chest discomfort Time Seen by Provider: 03/19/21 09:21 Source: EMS Mode of arrival: EMS Limitations: no limitations - History of Present Illness Initial comments: Dictation was produced using [employer] dictation software. please excuse any grammatical, word or spelling errors. Chief Complaint: Patient is a 85-year-old female she presents to the emergency department for episode of chest pain and palpitations. History of Present Illness: Patient is an 85-year-old female she has no history of coronary artery disease per she has a history of angina. Patient states that this morning she woke up around 6 AM started having feelings of palpitations. Shortly after she had some chest pain. She states that she felt like she had to belch. She was given a dose of atenolol by the daughter for the palpitations. She also takes 81 mg of aspirin. No associated shortness of breath. The ROS documented in this emergency department record has been reviewed and con firmed by me. Those systems with pertinent positive or negative responses have been documented in the HPI. All other systems are other negative and/or noncontributory. PHYSICAL EXAM: General Impression: Alert and oriented x3, not in acute distress HEENT: Normocephalic atraumatic, extra-ocular movements intact, pupils equal and reactive to light bilaterally, mucous membranes moist. Cardiovascular: Heart regular rate and rhythm Chest: Able to complete full sentences, no retractions, no tachypnea Abdomen: abdomen soft, non-tender, non-distended, no organomegaly Musculoskeletal: Pulses present and equal in all extremities, no peripheral edema Motor: no focal deficits noted Neurological: CN II-XII grossly intact, no focal motor or sensory deficits noted Skin: Intact with no visualized rashes Psych: Normal affect and mood ED course: 85-year-old female presents to the emergency department for chest pain. Vital signs upon arrival are within acceptable limits. Patient is well- appearing at bedside. She reports no symptoms currently. EKG interpretation: Ventricular rate 55, sinus bradycardia, CA interval 212, QRS 92, QTc 441. No CA prolongation, no QTC prolongation. No old EKG for comparison. There are T-wave inversions in lateral leads. Overall This EKG is nonspecific. EKG was performed at 1008 which is approximately 40 minutes after initial EKG. There is dynamic changes noted showing deeper T waves and T-wave spreading to V2 to V3. Patient reevaluated at bedside she is having some fairly mild chest discomfort and she denies any associated clamminess or diaphoresis patient is well-appearing at the bedside. There is concern of unstable angina versus non- ST segment elevation MO. Patient given full dose of aspirin and started on heparin. Third EKG was obtained showing stable findings. Patient reports no symptoms at 10:35 AM. She was evaluated at bedside by Dr. Ortiz at 10:40 AM. Did not recommend slabber light activation at this time. At the time of his evaluation patient was asymptomatic. Recommends medical treatment. 12:25 PM: patient found to be in stable medical condition. She denies any active symptoms at this time.He is resting of vital at the bedside and does not appear to be in any acute distress. Laboratory evaluation obtained. Findings within acceptable limits. Troponin is 0.027. Chest x-ray shows tiny effusion. Patient will be admitted for serial troponins, cardiac monitoring. - Related Data Home Medications Medication Instructions Recorded Confirmed Levothyroxine Sodium [Synthroid] 25 mcg PO DAILY 07/12/20 03/19/21 Lovastatin [Mevacor] 10 mg PO HS 07/12/20 03/19/21 Ammonium Lactate Lotion 1 applic TOPICAL BID PRN 03/19/21 03/19/21 [Lac-Hydrin 12% Lotion] Apixaban [Eliquis] 5 mg PO DAILY 03/19/21 03/19/21 Dapagliflozin Propanediol [Farxiga] 5 mg PO DAILY 03/19/21 03/19/21 Losartan Potassium [Cozaar] 25 mg PO DAILY 03/19/21 03/19/21 Metoclopramide [Reglan] 10 mg PO TID PRN 03/19/21 03/19/21 Omeprazole [PriLOSEC] 20 mg PO BID 03/19/21 03/19/21 atenoloL [Tenormin] 25 mg PO DAILY 03/19/21 03/19/21 Previous Rx's Medication Instructions Recorded Aspirin 325 mg PO DAILY tab 07/15/20 Allergies Allergy/AdvReac Type Severity Reaction Status Date / Time ampicillin [From Polycillin] Allergy Unknown Verified 03/19/21 10:42 cefaclor [From Ceclor] Allergy Unknown Verified 03/19/21 10:42 hydrocortisone Allergy Unknown Verified 03/19/21 10:42 Iodinated Contrast Media Allergy Unknown Verified 03/19/21 10:42 nitroglycerin Allergy Unknown Verified 03/19/21 10:42 NSAIDS (Non-Steroidal Allergy Unknown Verified 03/19/21 10:42 Anti-Inflamma sulfur dioxide Allergy Unknown Verified 03/19/21 10:42 Review of Systems ROS Statement: Those systems with pertinent positive or pertinent negative responses have been documented in the HPI. ROS Other: All systems not noted in ROS Statement are negative. Past Medical History Past Medical History: Coronary Artery Disease (CAD), Heart Failure, Diabetes Mellitus, Hyperlipidemia, Hypertension History of Any Multi-Drug Resistant Organisms: MRSA Date of last positivie culture/infection: 07/14/20 MDRO Source:: RIGHT FOOT Past Surgical History: Unable to Obtain Past Psychological History: No Psychological Hx Reported Smoking Status: Former smoker Past Alcohol Use History: None Reported Past Drug Use History: None Reported General Exam Limitations: no limitations Course Vital Signs 03/19/21 03/19/21 03/19/21 09:20 10:16 11:15 Temperature 97.4 F L Pulse Rate 60 55 L 62 Respiratory 18 18 18 Rate Blood Pressure 119/55 123/57 O2 Sat by Pulse 93 L 97 98 Oximetry 03/19/21 11:16 Temperature Pulse Rate Respiratory Rate Blood Pressure 114/51 O2 Sat by Pulse Oximetry Medical Decision Making - Lab Data Result diagrams: 03/19/21 09:35 03/19/21 09:35 Lab Results 03/19/21 03/19/21 03/19/21 Range/Units 09:35 09:35 09:35 WBC 5.6 (3.8-10.6) k/uL RBC 4.44 (3.80-5.40) m/uL Hgb 12.4 (11.4-16.0) gm/dL Hct 39.4 (34.0-46.0) % MCV 88.6 (80.0-100.0) fL MCH 28.0 (25.0-35.0) pg MCHC 31.6 (31.0-37.0) g/dL RDW 15.6 H (11.5-15.5) % Plt Count 247 (150-450) k/uL MPV 6.9 Neutrophils % 54 % Lymphocytes % 36 % Monocytes % 5 % Eosinophils % 3 % Basophils % 1 % Neutrophils # 3.0 (1.3-7.7) k/uL Lymphocytes # 2.0 (1.0-4.8) k/uL Monocytes # 0.3 (0-1.0) k/uL Eosinophils # 0.1 (0-0.7) k/uL Basophils # 0.0 (0-0.2) k/uL PT 10.5 (9.0-12.0) sec INR 1.0 (<1.2) APTT 18.8 L (22.0-30.0) sec Sodium 136 L (137-145) mmol/L Potassium 3.9 (3.5-5.1) mmol/L Chloride 105 (98-107) mmol/L Carbon Dioxide 22 (22-30) mmol/L Anion Gap 9 mmol/L BUN 20 H (7-17) mg/dL Creatinine 1.12 H (0.52-1.04) mg/dL Est GFR (CKD-EPI)AfAm 51 (>60 ml/min/1.73 sqM) Est GFR (CKD-EPI)NonAf 45 (>60 ml/min/1.73 sqM) Glucose 206 H (74-99) mg/dL Calcium 9.4 (8.4-10.2) mg/dL Magnesium 1.6 (1.6-2.3) mg/dL Total Bilirubin 0.6 (0.2-1.3) mg/dL AST 36 (14-36) U/L ALT 17 (4-34) U/L Alkaline Phosphatase 122 (38-126) U/L Troponin I (0.000-0.034) ng/mL Total Protein 6.9 (6.3-8.2) g/dL Albumin 3.4 L (3.5-5.0) g/dL TSH (0.465-4.680) mIU/L 03/19/21 03/19/21 Range/Units 09:35 09:35 WBC (3.8-10.6) k/uL RBC (3.80-5.40) m/uL Hgb (11.4-16.0) gm/dL Hct (34.0-46.0) % MCV (80.0-100.0) fL MCH (25.0-35.0) pg MCHC (31.0-37.0) g/dL RDW (11.5-15.5) % Plt Count (150-450) k/uL MPV Neutrophils % % Lymphocytes % % Monocytes % % Eosinophils % % Basophils % % Neutrophils # (1.3-7.7) k/uL Lymphocytes # (1.0-4.8) k/uL Monocytes # (0-1.0) k/uL Eosinophils # (0-0.7) k/uL Basophils # (0-0.2) k/uL PT (9.0-12.0) sec INR (<1.2) APTT (22.0-30.0) sec Sodium (137-145) mmol/L Potassium (3.5-5.1) mmol/L Chloride (98-107) mmol/L Carbon Dioxide (22-30) mmol/L Anion Gap mmol/L BUN (7-17) mg/dL Creatinine (0.52-1.04) mg/dL Est GFR (CKD-EPI)AfAm (>60 ml/min/1.73 sqM) Est GFR (CKD-EPI)NonAf (>60 ml/min/1.73 sqM) Glucose (74-99) mg/dL Calcium (8.4-10.2) mg/dL Magnesium (1.6-2.3) mg/dL Total Bilirubin (0.2-1.3) mg/dL AST (14-36) U/L ALT (4-34) U/L Alkaline Phosphatase (38-126) U/L Troponin I 0.027 (0.000-0.034) ng/mL Total Protein (6.3-8.2) g/dL Albumin (3.5-5.0) g/dL TSH 21.500 H (0.465-4.680) mIU/L Disposition Clinical Impression: Unstable angina Disposition: ADMITTED IP TO THIS HOSP Condition: Fair Referrals: Jackson Benjamin MD [Primary Care Provider] - 1-2 days
--- NOTE | 2021-03-19 09:59 | XR ---
EXAMINATION TYPE: XR chest 2V DATE OF EXAM: 03/19/2021 COMPARISON: 07/13/2020 HISTORY: Chest pain TECHNIQUE: Frontal and lateral views of the chest are obtained. FINDINGS: The lungs are clear of consolidative, interstitial or masslike opacity. There is no pneumothorax. The heart and pulmonary vasculature are normal. There is blunting of the left costophrenic angle on the lateral view. IMPRESSION: Pleural parenchymal scarring in the left lung base versus tiny effusion with no other significant abn ormality seen. I
[2021-03-19 10:08] LABS: Basophils % (A) 1 %; Eosinophils # (A) 0.1 k/uL (0-0.7); Eosinophils % (A) 3 %; HCT 39.4 % (34.0-46.0); HGB 12.4 gm/dL (11.4-16.0); Lymphocytes % (A) 36 %; MCHC 31.6 g/dL (31.0-37.0); MCV 88.6 fL (80.0-100.0); Mean Platelet Volume 6.9; Monocytes # (A) 0.3 k/uL (0-1.0); Monocytes % (A) 5 %; Neutrophils % (A) 54 %; Platelet Count 247 k/uL (150-450); RBC 4.44 m/uL (3.80-5.40); RDW 15.6 % (11.5-15.5); WBC 5.6 k/uL (3.8-10.6)
[2021-03-19] MEDS ORDERED: ASPIRIN 81 MG PO STA (10:14)
[2021-03-19] MEDS ORDERED: HEPARIN SODIUM 1,000 UN/ML (10ML VL) IV ONE (10:14)
[2021-03-19] MEDS ORDERED: HEPARIN SODIUM 1,000 UN/ML (10ML VL) IV PRN (10:14)
[2021-03-19 10:19] LABS: Prothrombin Time 10.5 sec (9.0-12.0)
[2021-03-19 10:22] LABS: Albumin 3.4 g/dL (3.5-5.0); Calcium 9.4 mg/dL (8.4-10.2); Magnesium 1.6 mg/dL (1.6-2.3); Potassium 3.9 mmol/L (3.5-5.1); Total Bilirubin 0.6 mg/dL (0.2-1.3); Total Protein 6.9 g/dL (6.3-8.2)
[2021-03-19 10:44] LABS: Partial Thromboplastin Time 18.8 sec (22.0-30.0)
[2021-03-19] MEDS ORDERED: METOPROLOL TARTRATE 12.5 MG TAB PO STA (10:47)
[2021-03-19] MEDS: HEPARIN SOD,PORK IN 0.45% NACL 25,000 UNIT in 0.45% NACL 1 250ML.BAG IV SCH (11:10)
[2021-03-19] MEDS ORDERED: NITROGLYCERIN SL TABS 0.4 MG TAB SUBLINGUAL PRN (12:23)
[2021-03-19 12:32] LABS: T4, Free (Free Thyroxine) 1.08 ng/dL (0.78-2.19)
[2021-03-19] MEDS ORDERED: AMMONIUM LACTATE 12% LOTION 225 GM BTL TOPICAL PRN (13:09)
[2021-03-19] MEDS ORDERED: METOCLOPRAMIDE 10 MG TAB PO PRN (13:09)
--- NOTE | 2021-03-19 13:09 | P.HPIM ---
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 that was treated in June of this year, patient was in her usual state of health until about yesterday when she developed to have a significant jaw aches for about an hour and a half while she was laying down in bed, she didn't do anything about it, she went to bed and woke up in the morning and she developed to have a significant palpitation in her chest associated with increased shortness of breath, and right-sided chest pain this was followed by increased jaw pain that lasted for longer period of time, patient was burping quite a bit she felt nauseated, she thought that she is having and indigestion, she burped a bit but she did not get better so EMS was called and the patient was brought into the emergency department at [facility] where she had a twelve-lead EKG that showed significant ST wave depression in the anterolateral leads suggestive of ischemia her troponin was 0.027 but because of the presentation patient was admitted to the hospital she was started on aspirin 325 mg once every day, heparin drip, cardiology consul tation will be obtained for possible left heart catheterization tomorrow morning. REVIEW OF SYSTEMS: Constitutional: No documented fever, no chills, no night sweats. No weight change. No weakness, fatigue or lethargy. No daytime sleepiness. HEENT: No headache. No blurred vision or double vision, no loss of vision. No loss of Hearing, no ringing in the ears, no dizziness. No nasal drainage or congestion. No epistaxis. No sore throat. Lungs: positive for shortness of breath, no cough, no sputum production. No wheezing. Reports dyspnea with activity. Cardiovascular: positive for right sided chest pain, no lower extremity edema. positive for palpitations. No paroxysmal nocturnal dyspnea. No orthopnea. No lightheadedness or dizziness. No syncopal episodes. Abdominal: Reports abdominal pain. positive for nausea, no vomiting. No diarrhea. No constipation. No bloody or tarry stools reports loss of appetite. Genitourinary: No dysuria, increased frequency, urgency. No urinary retention. Musculoskeletal: No myalgias. No muscle weakness, gait dysfunction, no frequent falls. No back pain. No neck pain. Integumentary: Right heel scab and dry skin in both legs and feet, no lesions. No rash or pruritus. No unusual bruising. No change in hair or nails. Neurologic: No aphasia. No facial droop. No change in mentation. No head injury. No headache. No paralysis. No paresthesia. Psychiatric: No depression. No anxiety. No mood swings. Endocrine: No abnormal blood sugars. No weight change. PAST MEDICAL HISTORY: Coronary artery disease. Hypertension and hypertensive cardiovascular disease. Hyperlipidemia. Diabetes mellitus type 2. Osteoarthritis. Aortic valve stenosis. Aortic regurgitation. Chronic diastolic heart failure. History of osteomyelitis of the right heel Hypothyroidism. Paroxysmal atrial fibrillation. PAST SURGICAL HISTORY: Bilateral cataract surgery. SOCIAL HISTORY: Patient used to smoke about pack every day but she quit many years ago, she denies any drug use or abuse, she has no alcohol ingestion, she lives with her daughter. FAMILY HISTORY: Mother at age of 77 from myocardial infarction, father at age 44 from a massive heart attack, patient had 4 brothers her oldest brothers at the age of 87 after coronary artery bypass graft the other one at age of 86 from Alzheimer dementia, she still have 2 living brothers one of them with coronary artery bypass graft as well as [place] status post PCI with idiopathic pul monary fibrosis of diabetes mellitus type 2 her fourth brother is healthy patient also had 6 sisters one of them from the pulmonary medicine and significant blood clots the other one in the hospital after she did have a shoulder surgery and she ended up with sepsis, patient also has one sister with TIA without CVA 1 is bedridden about 89-year-old she is bed ridden due to multiple strokes, and one is alive with Alzheimer PHYSICAL EXAMINATION: General: 85-year-old female who is laying down in bed in no acute distress. HEENT: Head is atraumatic, normocephalic, pupils were equal round reactive to light and recommendation, extraocular muscle movement were intact, sclera n onicteric, conjunctivae were pale, mucous membranes of the mouth are somewhat dry. Neck: Supple, no JVP, normal carotid upstroke bilaterally, no lymphadenopathy. Chest: Decreased breath sounds at the bases, few rhonchi, no expiratory wheezes, no chest wall tenderness, no intercostal retractions. Heart: First heart sound is normal, second heart sounds normal there is systolic ejection murmur 3/6 located in the right second intercostal space related to the base of the neck Abdomen: Soft, nontender, nondistended, positive bowel sounds, there is no hepatosplenomegaly. Extremities: There is no edema no calf tenderness DP +1 bilaterally, chronic skin changes with thick skin to the feet and a scab to the right heel Neurologic examination: Patient is awake alert and oriented X 3, cranial nerves II-12 appear grossly intact, muscle power were 5 out of 5 in upper extremities and 5 out of 5 in bilateral lower extremities, deep tendon reflexes normal bilaterally. ASSESSMENT AND PLAN: 1. Unstable angina with possible acute coronary syndrome. Start the patient on aspirin 325 g once every day, start the patient on heparin drip, continue atenolol 25 mg once every day, continue atorvastatin 10 mg orally once every day,cardiac enzymes every 4 hours 2, cardiology consultation, patient did have an echocardiogram at the beginning of the year that showed normal ejection fraction with moderate aortic stenosis and moderate aortic regurgitation. Patient will likely need to go for left heart catheterization in AM. 2. Hypertension and hypertensive cardiovascular disease. Continue patient on losartan 25 mg once every day, continue with atenolol 25 mg orally once every day, monitor the patient blood pressure very closely. 3. Hyperlipidemia. Start the patient on atorvastatin 10 mg orally once every day. 4. Hypothyroidism. Continue patient on Synthroid 25 MCG orally once every day. 5. Diabetes mellitus type 2. Continue patient on Farxiga 5 mg orally once every day. 6. Paroxysmal atrial for ablation. Currently on Eliquis will discontinue that start the patient on heparin drip 7. Osteoarthritis. Clinically stable. 8. GERD. Continue with Protonix 40 mg orally once every day. 9. history of CVA in the past. Continue aspirin as well as atorvastatin for secondary prevention. 10. DVT prophylaxis. Continue heparin drip. 11. GI prophylaxis. Continue Protonix 40 mg orally once every day. 12. Admit to inpatient. Estimate a length of stay 2 midnights. 13. Full code. Past Medical History Past Medical History: Coronary Artery Disease (CAD), Heart Failure, Diabetes Mellitus, Hyperlipidemia, Hypertension History of Any Multi-Drug Resistant Organisms: MRSA Date of last positivie culture/infection: 07/14/20 MDRO Source:: RIGHT FOOT Past Surgical History: Unable to Obtain Past Psychological History: No Psychological Hx Reported Smoking Status: Former smoker Past Alcohol Use History: None Reported Past Drug Use History: None Reported Medications and Allergies Home Medications Medication Instructions Recorded Confirmed Type Levothyroxine Sodium [Synthroid] 25 mcg PO DAILY 07/12/20 03/19/21 History Lovastatin [Mevacor] 10 mg PO HS 07/12/20 03/19/21 History Aspirin 325 mg PO DAILY tab 07/15/20 03/19/21 Rx Ammonium Lactate Lotion 1 applic TOPICAL BID PRN 03/19/21 03/19/21 History [Lac-Hydrin 12% Lotion] Apixaban [Eliquis] 5 mg PO DAILY 03/19/21 03/19/21 History Dapagliflozin Propanediol [Farxiga] 5 mg PO DAILY 03/19/21 03/19/21 History Losartan Potassium [Cozaar] 25 mg PO DAILY 03/19/21 03/19/21 History Metoclopramide [Reglan] 10 mg PO TID PRN 03/19/21 03/19/21 History Omeprazole [PriLOSEC] 20 mg PO BID 03/19/21 03/19/21 History atenoloL [Tenormin] 25 mg PO DAILY 03/19/21 03/19/21 History Allergies Allergy/AdvReac Type Severity Reaction Status Date / Time ampicillin [From Polycillin] Allergy Unknown Verified 03/19/21 10:42 cefaclor [From Ceclor] Allergy Unknown Verified 03/19/21 10:42 hydrocortisone Allergy Unknown Verified 03/19/21 10:42 Iodinated Contrast Media Allergy Unknown Verified 03/19/21 10:42 nitroglycerin Allergy Unknown Verified 03/19/21 10:42 NSAIDS (Non-Steroidal Allergy Unknown Verified 03/19/21 10:42 Anti-Inflamma sulfur dioxide Allergy Unknown Verified 03/19/21 10:42 Physical Exam Vitals: Vital Signs Temp Pulse Resp BP Pulse Ox 03/19/21 11:16 114/51 03/19/21 11:15 62 18 98 03/19/21 10:16 55 L 18 123/57 97 03/19/21 09:20 97.4 F L 60 18 119/55 93 L Intake and Output 03/18/21 03/19/21 03/19/21 22:59 06:59 14:59 Other: Weight 72.575 kg Results CBC & Chem 7: 03/19/21 09:35 03/19/21 09:35 Labs: Abnormal Lab Results - Last 24 Hours (Table) 03/19/21 03/19/21 03/19/21 Range/Units 09:35 09:35 09:35 RDW 15.6 H (11.5-15.5) % APTT 18.8 L (22.0-30.0) sec Sodium 136 L (137-145) mmol/L BUN 20 H (7-17) mg/dL Creatinine 1.12 H (0.52-1.04) mg/dL Glucose 206 H (74-99) mg/dL Albumin 3.4 L (3.5-5.0) g/dL TSH (0.465-4.680) mIU/L 03/19/21 Range/Units 09:35 RDW (11.5-15.5) % APTT (22.0-30.0) sec Sodium (137-145) mmol/L BUN (7-17) mg/dL Creatinine (0.52-1.04) mg/dL Glucose (74-99) mg/dL Albumin (3.5-5.0) g/dL TSH 21.500 H (0.465-4.680) mIU/L
--- NOTE | 2021-03-19 13:09 | P.CRDCN ---
History of Present Illness Consult date: 03/19/21 History of present illness: This is a 85-year-old female with history of diabetes, hypertension and also possibly coronary artery disease who is to be followed by a marine service manager out of town. About several months ago patient moved to the town to be close to her daughter. Patient has history of angina. Around 6:00 this morning patient started having some palpitations followed by a feeling of indigestion. This followed by some tight feeling in the middle of the chest. No psoas or nausea or vomiting. In view of ongoing symptoms patient came to the emergency room. Her EKG showed sinus rhythm, some T-wave inversions in the anterolateral leads. We don't have any old EKGs to compare. In June of this year. Patient was admitted to this hospital with symptoms of TIA. At the time. She had an echocardiogram which showed evidence of moderate aortic stenosis. Clinically patient does have systolic murmur consistent with aortic stenosis. By the time I examined the patient, patient's symptoms have abated and she seemed to be comfortable. She is on nasal oxygen. Apparently she is ALLERGIC to nitrates. We'll going to treat her with small dose of beta yasir. Will get echocardiogram and continue to monitor her troponins. First troponin is within normal limits. Review of Systems As per the chart Past Medical History Past Medical History: Coronary Artery Disease (CAD), Heart Failure, Diabetes Mellitus, Hyperlipidemia, Hypertension History of Any Multi-Drug Resistant Organisms: MRSA Date of last positivie culture/infection: 07/14/20 MDRO Source:: RIGHT FOOT Past Surgical History: Unable to Obtain Past Psychological History: No Psychological Hx Reported Smoking Status: Former smoker Past Alcohol Use History: None Reported Past Drug Use History: None Reported Medications and Allergies Home Medications Medication Instructions Recorded Confirmed Type Levothyroxine Sodium [Synthroid] 25 mcg PO DAILY 07/12/20 03/19/21 History Lovastatin [Mevacor] 10 mg PO HS 07/12/20 03/19/21 History Aspirin 325 mg PO DAILY tab 07/15/20 03/19/21 Rx Ammonium Lactate Lotion 1 applic TOPICAL BID PRN 03/19/21 03/19/21 History [Lac-Hydrin 12% Lotion] Apixaban [Eliquis] 5 mg PO DAILY 03/19/21 03/19/21 History Dapagliflozin Propanediol [Farxiga] 5 mg PO DAILY 03/19/21 03/19/21 History Losartan Potassium [Cozaar] 25 mg PO DAILY 03/19/21 03/19/21 History Metoclopramide [Reglan] 10 mg PO TID PRN 03/19/21 03/19/21 History Omeprazole [PriLOSEC] 20 mg PO BID 03/19/21 03/19/21 History atenoloL [Tenormin] 25 mg PO DAILY 03/19/21 03/19/21 History Allergies Allergy/AdvReac Type Severity Reaction Status Date / Time ampicillin [From Polycillin] Allergy Unknown Verified 03/19/21 10:42 cefaclor [From Ceclor] Allergy Unknown Verified 03/19/21 10:42 hydrocortisone Allergy Unknown Verified 03/19/21 10:42 Iodinated Contrast Media Allergy Unknown Verified 03/19/21 10:42 nitroglycerin Allergy Unknown Verified 03/19/21 10:42 NSAIDS (Non-Steroidal Allergy Unknown Verified 03/19/21 10:42 Anti-Inflamma sulfur dioxide Allergy Unknown Verified 03/19/21 10:42 Physical Exam Vitals: Vital Signs Temp Pulse Resp BP Pulse Ox 03/19/21 11:16 114/51 03/19/21 11:15 62 18 98 03/19/21 10:16 55 L 18 123/57 97 03/19/21 09:20 97.4 F L 60 18 119/55 93 L Intake and Output 03/18/21 03/19/21 03/19/21 22:59 06:59 14:59 Other: Weight 72.575 kg GENERAL EXAM: Patient is alert and oriented and doesn't appear to be in any acute distress HEENT: Normocephalic. Normal reaction of pupils, equal size, normal range of extraocular motion. No erythema or exudates in the throat. NECK: No masses, no nuchal rigidity. CHEST: No chest wall deformity. LUNGS: Equal air entry with no crackles or wheeze. HEART: S1 and S2 normal . Systolic murmur in the aortic area consistent with aortic stenosis ABDOMEN: No hepatosplenomegaly, normal bowel sounds, no guarding or rigidity. SKIN: No rashes CENTRAL NERVOUS SYSTEM: No focal deficits. EXTREMITIES: No cyanosis, clubbing or edema. Results 03/19/21 09:35 09/26/21 09:35 Cardiac Enzymes 03/19/21 03/19/21 Range/Units 09:35 09:35 AST 36 (14-36) U/L Troponin I 0.027 (0.000-0.034) ng/mL Coagulation 03/19/21 Range/Units 09:35 PT 10.5 (9.0-12.0) sec APTT 18.8 L (22.0-30.0) sec CBC 03/19/21 Range/Units 09:35 WBC 5.6 (3.8-10.6) k/uL RBC 4.44 (3.80-5.40) m/uL Hgb 12.4 (11.4-16.0) gm/dL Hct 39.4 (34.0-46.0) % Plt Count 247 (150-450) k/uL Comprehensive Metabolic Panel 03/19/21 Range/Units 09:35 Sodium 136 L (137-145) mmol/L Potassium 3.9 (3.5-5.1) mmol/L Chloride 105 (98-107) mmol/L Carbon Dioxide 22 (22-30) mmol/L BUN 20 H (7-17) mg/dL Creatinine 1.12 H (0.52-1.04) mg/dL Glucose 206 H (74-99) mg/dL Calcium 9.4 (8.4-10.2) mg/dL AST 36 (14-36) U/L ALT 17 (4-34) U/L Alkaline Phosphatase 122 (38-126) U/L Total Protein 6.9 (6.3-8.2) g/dL Albumin 3.4 L (3.5-5.0) g/dL Current Medications Generic Name Dose Route Start Last Admin Trade Name Freq PRN Reason Stop Dose Admin Aspirin 325 mg 03/20/21 09:00 Aspirin 325 Mg Tab PO DAILY [facility] Atorvastatin Calcium 10 mg 03/19/21 21:00 Atorvastatin 10 Mg Tab PO HS [facility] Heparin Sodium (Porcine) 0 unit 03/19/21 10:14 Heparin Sodium 1,000 Un/Ml (10ml Vl) IV PER PROTOCOL PRN Low PTT Protocol Heparin Sodium/Sodium Chloride 250 mls @ 8.709 mls/hr 03/19/21 10:15 03/19/21 11:10 25,000 unit/ Sodium Chloride IV 12 units/kg/hr .Q24H OSIEL 8.709 mls/hr Administration Protocol 12 UNITS/KG/HR Levothyroxine Sodium 25 mcg 03/20/21 06:30 Levothyroxine 25 Mcg Tab PO DAILY@0630 [facility] Nitroglycerin 0.4 mg 03/19/21 12:23 Nitroglycerin Sl Tabs 0.4 Mg Tab SUBLINGUAL Q5M PRN Chest Pain Intake and Output 03/18/21 03/19/21 03/19/21 22:59 06:59 14:59 Other: Weight 72.575 kg Patient Weight 03/20/21 06:59 Weight 72.575 kg 03/19/21 09:35 03/19/21 09:35 EKG Interpretations (text) Sinus rhythm with T-wave inversions in anterolateral leads Assessment and Plan Assessment: This patient is admitted with symptoms of palpitations and chest pain. EKG shows some T-wave inversions but the first troponin is normal. The symptoms have abated by the time we saw the patient. We'll continue to monitor her. Patient is on heparin and beta yasir. She is intolerant of nitrates. We will repeat the echocardiogram. Further recommendations depend upon the clinical course. Patient had a cardiac catheterization several years ago and had ALLERGIC serious reaction. This seemed to be some reluctance for cardiac cath. Further recommendations will depend upon the clinical course
[2021-03-19] MEDS ORDERED: ATORVASTATIN 10 MG TAB PO SCH (21:00)
[2021-03-20] MEDS ORDERED: LEVOTHYROXINE 25 MCG TAB PO SCH (06:30)
[2021-03-20] MEDS ORDERED: LOSARTAN 25 MG TAB PO SCH (09:00)
[2021-03-20] MEDS ORDERED: ASPIRIN 325 MG TAB PO SCH (09:00)
[2021-03-20] MEDS ORDERED: FAMOTIDINE 20 MG TAB PO SCH (09:15)
[2021-03-20] MEDS: NON FORMULARY DRUG (Dapagliflozin Propanediol [Farxiga] 5 MG Tablet) PO SCH (09:33)
[2021-03-20] MEDS ORDERED: ALPRAZolam 0.5 MG TAB PO PRN (09:39)
[2021-03-20] MEDS ORDERED: NITROGLYCERIN SL TABS 0.4 MG TAB SUBLINGUAL PRN (09:39)
[2021-03-20] MEDS ORDERED: ALPRAZolam 0.25 MG TAB PO PRN (09:39)
[2021-03-20] MEDS: LEVOTHYROXINE 50 MCG TAB PO SCH (09:44)
[2021-03-20] MEDS: PANTOPRAZOLE 40 MG TABLET PO SCH (09:44)
[2021-03-20] MEDS: ASPIRIN 81 MG PO SCH (09:44)
[2021-03-20] MEDS: diphenhydrAMINE 25 MG CAP PO SCH ×2 (09:45→20:51)
[2021-03-20] MEDS: atenoloL 25 MG TAB PO SCH (09:45)
[2021-03-20] MEDS: predniSONE 20 MG TAB PO SCH ×3 (09:45→20:51)
[2021-03-20 10:51] LABS: Chol/HDL Ratio 4.11
--- NOTE | 2021-03-20 12:19 | ECHOF ---
Referral Reason: MEASUREMENTS -------- HEIGHT: 175.3 cm WEIGHT: 72.6 kg BP: RVIDd: 2.0 cm (< 3.3) IVSd: 1.5 cm (0.6 - 1.1) LVIDd: 3.7 cm (3.9 - 5.3) LVPWd: 1.5 cm (0.6 - 1.1) IVSs: 2.6 cm LVIDs: 1.3 cm LVPWs: 1.8 cm LAESV Index (A-L): 20.84 ml/m Ao Diam: 2.5 cm (2.0 - 3.7) AV Cusp: 1.0 cm (1.5 - 2.6) LA Diam: 3.8 cm (2.7 - 3.8) MV EXCURSION: 9.718 mm (> 18.000) MV EF SLOPE: 50 mm/s (70 - 150) EPSS: 0.3 cm MV E Sterling: 0.70 m/s MV DecT: 229 ms MV A Sterling: 0.62 m/s MV E/A Ratio: 1.13 AV maxP.20 mmHg AV meanP.02 mmHg AR PHT: 760 ms RAP: 5.00 mmHg RVSP: 35.26 mmHg FINDINGS -------- This was a technically good study. The left ventricular size is normal. There is moderate concentric left ventricular hypertrophy. O verall left ventricular systolic function is normal with, an EF between 55 - 60 %. The diastolic fi lling pattern is normal for the age of the patient 12.07. The right ventricle is normal in size. The left atrial size is normal. Normal LA size by volume 22+/-6 ml/m2. The right atrial size is normal. Aortic valve is trileaflet and is severely thickened. There is tauf-ux-cmlbkery aortic regurgitatio n. There is severe aortic stenosis present. Peak/mean gradient across the Aortic Valve is 65.20mm Hg / 40.02mmHg. The mitral valve is normal. The mitral valve leaflets are mildly thickened. Mild mitral regurgita tion is present. The tricuspid valve appears structurally normal. Mild tricuspid regurgitation present. There is b orderline pulmonary hypertension. The right ventricular systolic pressure, as measured by Doppler, is 35.26mmHg. There is no pulmonic regurgitation present. The aortic root size is normal. Normal inferior vena cava with normal inspiratory collapse consistent with estimated right atrial pre ssure of 5 mmHg. There is no pericardial effusion. CONCLUSIONS -------- 1. The left ventricular size is normal. 2. There is moderate concentric left ventricular hypertrophy. 3. Overall left ventricular systolic function is normal with, an EF between 55 - 60 %. 4. The diastolic filling pattern is normal for the age of the patient 12.07 5. Aortic valve is trileaflet and is severely thickened. 6. There is rjog-mj-dultsyen aortic regurgitation. 7. There is severe aortic stenosis present. 8. Peak/mean gradient across the Aortic Valve is 65.20mmHg / 40.02mmHg. 9. The mitral valve leaflets are mildly thickened. 10. Mild mitral regurgitation is present. 11. Mild tricuspid regurgitation present. 12. There is borderline pulmonary hypertension. 13. The right ventricular systolic pressure, as measured by Doppler, is 35.26mmHg. 14. There is no pericardial effusion. [employer] COUNSEL: Theresa Rivera RDCS
--- NOTE | 2021-03-20 12:19 | PN ---
PROGRESS NOTE Mrs. Wilson came in yesterday with chest pain. She has history of paroxysmal atrial fibrillation, on Eliquis. She had chest pain and troponin elevation and EKG changes to suggest vyc-IV-ljobxjpxq SC. However, she had some issues with contrast allergy. I will continue IV heparin for now, hold Eliquis and pre-treat her for contrast allergy with Pepcid, Benadryl and prednisone. I explained to her the rationale, risks and benefits related to cardiac cath. Procedure will be performed by Dr. Ortiz and I will speak to him. Vitals are stable. No JVD. S1, S2 with ejection systolic murmur audible. Second heart sound is preserved. Lungs are clear. Abdomen is soft, non-tender. Lower extremities reveal diminished pulses. Central nervous system is grossly within normal limits. IMPRESSION: 1. Ief-HU-izedqowje myocardial infarction. 2. Probable mild to moderate aortic stenosis. 3. Paroxysmal atrial fibrillation, maintaining sinus rhythm. RECOMMENDATIONS: Same medical regimen. IV heparin. Hold Eliquis. Proceed with cardiac cath tomorrow. Assess the LV function by echo. Same medical regimen. MMODL / IJN: [id number] /
[2021-03-20] MEDS: HEPARIN SOD,PORK IN 0.45% NACL 25,000 UNIT in 0.45% NACL 1 250ML.BAG IV SCH (17:02)
[2021-03-20 17:21] LABS: Glucose,Whole Blood 218 mg/dL (75-99)
[2021-03-20 20:12] LABS: Glucose,Whole Blood 241 mg/dL (75-99)
[2021-03-20] MEDS: ATORVASTATIN 40 MG TAB PO SCH (20:51)
[2021-03-20] MEDS: LOSARTAN 50 MG TAB PO SCH (20:51)
[2021-03-20] MEDS ORDERED: SODIUM CHLORIDE 0.9% 1,000 ML in EMPTY BAG 1 BAG IV ONE (23:00)
[2021-03-21] MEDS: ASPIRIN 81 MG PO SCH (04:49)
[2021-03-21] MEDS: atenoloL 25 MG TAB PO SCH (05:50)
[2021-03-21] MEDS: LEVOTHYROXINE 50 MCG TAB PO SCH (05:52)
[2021-03-21 06:23] LABS: Glucose,Whole Blood 242 mg/dL (75-99)
[2021-03-21] MEDS ORDERED: ASPIRIN 325 MG TAB PO ONE (07:00)
[2021-03-21] MEDS ORDERED: HEPARIN SODIUM,PORCINE 10,000 UNIT in SODIUM CHLORIDE 0.9% 1,000 ML IRRIGATION PRN (07:00)
[2021-03-21] MEDS ORDERED: HEPARIN SODIUM,PORCINE 2,500 UNIT in SODIUM CHLORIDE 0.9% 250 ML IRRIGATION PRN (07:00)
[2021-03-21] MEDS ORDERED: ATORVASTATIN 80 MG TAB PO ONE (07:00)
[2021-03-21] MEDS ORDERED: MENTHOL-ZINC OXIDE OINT 113 GM TUBE TOPICAL PRN ×2 (08:14→14:34)
[2021-03-21] MEDS: NON FORMULARY DRUG (Dapagliflozin Propanediol [Farxiga] 5 MG Tablet) PO SCH (08:57)
[2021-03-21] MEDS ORDERED: FAMOTIDINE 20 MG TAB PO SCH (09:00)
[2021-03-21] MEDS: predniSONE 20 MG TAB PO SCH ×3 (10:52→21:07)
[2021-03-21] MEDS: FAMOTIDINE 20 MG TAB PO SCH ×2 (10:53→20:59)
[2021-03-21] MEDS: PANTOPRAZOLE 40 MG TABLET PO SCH (10:53)
[2021-03-21] MEDS: diphenhydrAMINE 25 MG CAP PO SCH ×2 (10:53→21:00)
[2021-03-21 11:48] LABS: Glucose,Whole Blood 223 mg/dL (75-99)
[2021-03-21] MEDS ORDERED: fentaNYL (PF) 50 MCG/ML 2 ML AMP ONE (12:07)
[2021-03-21] MEDS ORDERED: LIDOCAINE 1% INJ 10MG/ML (20 ML MDV) SQ ONE (12:13)
[2021-03-21] MEDS ORDERED: fentaNYL (PF) 50 MCG/ML 2 ML AMP IV ONE (12:15)
[2021-03-21] MEDS ORDERED: MIDAZOLAM 2 MG/2 ML VIAL IV ONE (12:15)
[2021-03-21] MEDS ORDERED: SODIUM CHLORIDE 0.9% 500 ML 500 ML IV ONE (12:16)
[2021-03-21] MEDS ORDERED: HEPARIN SODIUM 1,000 UN/ML (10ML VL) ONE (12:28)
[2021-03-21] MEDS ORDERED: HEPARIN SODIUM 1,000 UN/ML (10ML VL) IV ONE (12:34)
[2021-03-21] MEDS ORDERED: HYDROmorphone 0.5 MG/0.5 ML SYRINGE IVP ONE (12:55)
[2021-03-21] MEDS ORDERED: IOPAMIDOL-370 125ML BTL INJ ONE ×2 (13:05)
[2021-03-21] MEDS ORDERED: niCARdipine 25 MG/10 ML VIAL ONE (13:06)
[2021-03-21] MEDS ORDERED: CLOPIDOGREL 75 MG TAB ONE (13:19)
[2021-03-21] MEDS: NITROGLYCERIN 1000MCG/10ML SYRINGE INTRACORON ONE ×2 (13:24→13:52)
[2021-03-21] MEDS ORDERED: niCARdipine Syringe (1,000 mcg/10 mL) INTRACORON ONE (13:24)
[2021-03-21] MEDS ORDERED: SODIUM CHLORIDE 0.9% 1,000 ML IV ONE (13:44)
[2021-03-21] MEDS ORDERED: IOPAMIDOL-370 100ML BTL INJ ONE ×2 (13:53)
[2021-03-21] MEDS ORDERED: CLOPIDOGREL 75 MG TAB PO ONE (13:53)
[2021-03-21] MEDS ORDERED: ATROPINE SULFATE 0.1 MG/ML 10ML SYRINGE IV PRN (14:00)
[2021-03-21] MEDS ORDERED: MAG HYDROX/AL HYDROX/SIMETH 30 ML CUP PO PRN (14:00)
[2021-03-21] MEDS ORDERED: RX INFO: IV CONTRAST WAS GIVEN 1 EACH MISC MISCELLANE PRN (14:00)
[2021-03-21] MEDS ORDERED: ZOLPIDEM 5 MG TAB PO PRN (14:00)
[2021-03-21] MEDS: HEPARIN SOD,PORK IN 0.45% NACL 25,000 UNIT in 0.45% NACL 1 250ML.BAG IV SCH (14:38)
[2021-03-21] MEDS: SODIUM CHLORIDE 0.9% 1,000 ML IV SCH (14:38)
--- NOTE | 2021-03-21 14:51 | P.PN ---
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 that was treated in June of this year, patient was in her usual state of health until about yesterday when she developed to have a significant jaw aches for about an hour and a half while she was laying down in bed, she didn't do anything about it, she went to bed and woke up in the morning and she developed to have a significant palpitation in her chest associated with increased shortness of breath, and right-sided chest pain this was followed by increased jaw pain that lasted for longer period of time, patient was burping quite a bit she felt nauseated, she thought that she is having and indigestion, she burped a bit but she did not get better so EMS was called and the patient was brought into the emergency department at [facility] where she had a twelve-lead EKG that showed significant ST wave depression in the anterolateral leads suggestive of ischemia her troponin was 0.027 but because of the presentation patient was admitted to the hospital she was started on aspirin 325 mg once every day, heparin drip, cardiology consultation will be obtained for possible left heart catheterization tomorrow morning. 03/20: Patient has been seen by cardiology with plan to continue medical management, IV heparin, hold Ahlquist and she is scheduled for heart catheterization tomorrow, catheterization postponed due to contrast ALLERGY and need for pretreatment. Echocardiogram reveals EF of 55-60% with moderate concentric left ventricular hypertrophy, mild to moderate aortic regurgitation, severe aortic stenosis, mild mitral regurgitation, mild tricuspid regurgitation, borderline pulmonary hypertension. REVIEW OF SYSTEMS: Constitutional: No documented fever, no chills, no night sweats. No weight [place]. No weakness, fatigue or lethargy. No daytime sleepiness. HEENT: No headache. No blurred vision or double vision, no loss of vision. No dizziness. No nasal drainage or congestion. No epistaxis. No sore throat. Lungs: positive for shortness of breath, no cough, no sputum production. No wh eezing. Reports dyspnea with activity. Cardiovascular: Reports for right sided chest pain, no lower extremity edema. positive for palpitations. No paroxysmal nocturnal dyspnea. No orthopnea. No lightheadedness or dizziness. No syncopal episodes. Abdominal: Reports abdominal pain. positive for nausea, no vomiting. No diarrhea. No constipation. No bloody or tarry stools reports loss of appetite. Genitourinary: No dysuria, increased frequency, urgency. No urinary retention. Musculoskeletal: No myalgias. No muscle weakness, gait dysfunction, no frequent falls. No back pain. No neck pain. Integumentary: Right heel scab and dry skin in both legs and feet, no lesions. No rash or pruritus. No unusual bruising. No change in hair or nails. Neurologic: No aphasia. No facial droop. No change in mentation. No head injury. No headache. No paralysis. No paresthesia. Psychiatric: No depression. No anxiety. No mood swings. Endocrine: No abnormal blood sugars. No weight change. PHYSICAL EXAMINATION: General: 85-year-old female who is laying down in bed in no acute distress. HEENT: Head is atraumatic, normocephalic, pupils were equal round reactive to light and recommendation, extraocular muscle movement were intact, sclera nonicteric, conjunctivae were pale, mucous membranes of the mouth are somewhat dry. Neck: Supple, no JVP, normal carotid upstroke bilaterally, no lymphadenopathy. Chest: Decreased breath sounds at the bases, few rhonchi, no expiratory wheezes, no chest wall tenderness, no intercostal retractions. Heart: First heart sound is normal, second heart sounds normal there is systolic ejection murmur 3/6 located in the right second intercostal space related to the base of the neck Abdomen: Soft, nontender, nondistended, positive bowel sounds, there is no hepatosplenomegaly. Extremities: There is no edema no calf tenderness DP +1 bilaterally, chronic skin changes with thick skin to the feet and a scab to the right heel Neurologic examination: Patient is awake alert and oriented X 3, cranial nerves II-12 appear grossly intact, muscle power were 5 out of 5 in upper extremities and 5 out of 5 in bilateral lower extremities. ASSESSMENT AND PLAN: 1. Non-ST elevated myocardial infarction. Continue patient on aspirin 81 mg once every day, start the patient on heparin drip, continue atenolol 25 mg once every day, continue atorvastatin 40 mg orally once every day, cardiology consultation appreciated, patient did have an echocardiogram at the beginning of the year that showed normal ejection fraction with moderate aortic stenosis and moderate aortic regurgitation. Left heart catheterization in AM. 2. Hypertension and hypertensive cardiovascular disease. Continue patient on losartan 50 mg once every day, continue with atenolol 25 mg orally once every day, monitor the patient blood pressure very closely. 3. Hyperlipidemia. Start the patient on atorvastatin 40 mg orally once every day. 4. Hypothyroidism. Continue patient on Synthroid 50 MCG orally once every day. 5. Diabetes mellitus type 2. Continue patient on Farxiga 5 mg orally once every day. 6. Paroxysmal atrial fibrillation. Currently on Eliquis will discontinue that start the patient on heparin drip 7. Osteoarthritis. Clinically stable. 8. GERD. Continue with Protonix 40 mg orally once every day. 9. history of CVA in the past. Continue aspirin as well as atorvastatin for secondary prevention. 10. DVT prophylaxis. Continue heparin drip. 11. GI prophylaxis. Continue Protonix 40 mg orally once every day. Objective - Vital Signs Vital signs: Vital Signs Temp 99.0 F 03/19/21 23:56 Pulse 61 03/20/21 09:45 Resp 18 03/20/21 09:45 BP 135/52 03/20/21 09:45 Pulse Ox 97 03/20/21 09:45 Intake & Output 03/19/21 03/20/21 03/20/21 18:59 06:59 18:59 Intake Total 94.057 Balance 94.057 Weight 72.575 kg Intake: Intake, IV Titration 94.057 Amount Heparin Sod,Pork in 0.45% 94.057 NaCl 25,000 unit In 0.45 % NaCl 1 250ml.bag @ 12 UNITS/KG/HR 8.709 mls/hr IV .Q24H [facility] Rx#: [id number] - Labs CBC & Chem 7: 03/19/21 09:35 03/19/21 09:35 Labs: Abnormal Lab Results - Last 24 Hours (Table) 03/19/21 03/19/21 03/19/21 Range/Units 13:00 16:01 20:32 APTT >200.0 H* (22.0-30.0) sec Troponin I 0.125 H* 0.189 H* (0.000-0.034) ng/mL Triglycerides (0.0-149.0) mg/dL VLDL Cholesterol, Calc (5.00-40.00) mg/dL HDL Cholesterol (40.0-60.0) mg/dL 03/20/21 03/20/21 Range/Units 04:40 04:40 APTT 58.5 H (22.0-30.0) sec Troponin I (0.000-0.034) ng/mL Triglycerides 205.0 H (0.0-149.0) mg/dL VLDL Cholesterol, Calc 41.00 H (5.00-40.00) mg/dL HDL Cholesterol 38.0 L (40.0-60.0) mg/dL
[2021-03-21 17:02] LABS: Glucose,Whole Blood 173 mg/dL (75-99)
[2021-03-21] MEDS: INSULIN ASPART (NovoLOG) 100 UNIT/ML VIAL SQ SCH ×2 (17:35→21:00)
--- NOTE | 2021-03-21 19:14 | PTCA ---
PERCUTANEOUSTRANS CORORONARY ANGIOGRAPHY DATE OF SERVICE: March 19, 2021. PERFORMING PHYSICIAN: Atilio Montelongo MD. PROCEDURE PERFORMED: 1. Atherectomy of the left anterior descending artery using the orbital atherectomy device and using the standard coronary catheter. 2. Successful stenting of the mid left anterior descending artery using 2.75 x 28 mm Xience EUGENIA with an excellent angiographic results. 3. Successful stenting of the distal left anterior descending artery using 2.5 x 12 mm Xience EUGENIA with an excellent angiographic results. 4. Successful stenting of the proximal left anterior descending artery using 3.75 x 12 mm Xience EUGENIA with excellent angiographic results. INDICATION: This is a pleasant 85-year-old female patient who was admitted to the hospital with chest discomfort and ruled in for acute coronary syndrome. She underwent a heart catheterization by Dr. Ortiz and was found to have extremely calcified left coronary system with critical disease involving the mid LAD and intermediate disease involving the proximal LAD. APPROACH: Right common femoral artery. COMPLICATION: None. LEVEL OF SEDATION: Moderate with sedation length of 85 minutes. Please note that the procedure was extremely complex. PROCEDURE DESCRIPTION: Please refer to the diagnostic heart catheterization that was performed by Dr. Ortiz earlier today. Anticoagulation was achieved using heparin with continuous ACT monitoring throughout the procedure. Given the above anatomy and the extremely calcified and tortuous LAD, I started with extra backup support guide. I engaged the left main using an EBU 0.75 guiding catheter. I wired the LAD using 2 wires from the get go and that was a run-through wire and whisper wire. Attempting advancing 2.5 mm balloon by 12 mm balloon was unsuccessful because the balloon will not make the turn to the mid LAD. Attempting advancing 2.0 balloon was unsuccessful and attempting advancing 1.5 and then 1.0 balloon was unsuccessful. At that point, I decided to perform an atherectomy of the LAD. Please note that before the atherectomy, I attempted advancing the balloon using adjunctive use of GuideLiner and that was also unsuccessful. I did exchange my whisper wire into ViperWire using Super Cross catheter. Atherectomy of the LAD was performed and the catheter was run at least 12 times to cross the lesion in the LAD. During the procedure, the patient was experiencing chest discomfort and ST changes concerning for ischemia. By the end, I was able to cross the lesion with the atherectomy. Subsequently, I did balloon angioplasty and that was using 2.5 x 12 mm balloon. I did atherectomy of the mid and proximal left anterior descending artery. Finally, I was able to get 2.5 x 28 mm Xience drug-eluting stent to the mid LAD. The stent was positioned under fluoroscopy guidance and deployed under 12 atmospheres for 20 seconds. The following angiogram showed the lesion just distal to the stent seems to be concerning for edge dissection. I decided to cover the lesion with another stent because giving nitroglycerin intracoronary was unsuccessful in opening the artery up. So I attempted to advance two 5 x 12 mm Xience stent but the stent will not go inside the old stent. Double wire did not help. At that point, I decided to post-dilate the old stent, so I postdilated the stent using 3.5 mm balloon. With that, I was able to get the second stent just distal to the old one with about 2 mm overlap between the two. The second stent was deployed under 12 atmospheres for 20 seconds and the area of overlap was dilated using the stent balloon. Finally, an NOE caudal view was performed and showed that the lesion in the proximal LAD was concerning, so I decided to cover that with a stent so I deployed a 3.5 x 12 mm another Xience EUGENIA. The last stent was deployed with about 1 mm between this stent and the first stent. The stent was deployed under 16 atmospheres for 20 seconds with the following angiogram was performed after giving the patient nitroglycerin showed ELIU-3 flow with excellent angiographic results and without any complication. Finally, right common femoral artery angiogram was performed and the Angio-Seal device was deployed successfully. POSTPROCEDURE MANAGEMENT: 1. Dual anti-platelet therapy. 2. Aggressive cholesterol control. 3. Risk factor modifications. 4. Follow up with the patient. MMODL / IJN: [id number] /
[2021-03-21 19:40] LABS: Glucose,Whole Blood 214 mg/dL (75-99)
[2021-03-21] MEDS: LOSARTAN 50 MG TAB PO SCH (21:00)
[2021-03-21] MEDS: ATORVASTATIN 40 MG TAB PO SCH (21:00)
[2021-03-22] MEDS: SODIUM CHLORIDE 0.9% 1,000 ML IV SCH (05:11)
[2021-03-22 06:08] LABS: Glucose,Whole Blood 204 mg/dL (75-99)
[2021-03-22] MEDS: INSULIN ASPART (NovoLOG) 100 UNIT/ML VIAL SQ SCH ×6 (06:27→21:45)
[2021-03-22] MEDS: LEVOTHYROXINE 50 MCG TAB PO SCH (06:27)
[2021-03-22 07:48] LABS: Basophils % (A) 0 %; Eosinophils % (A) 0 %; HCT 36.2 % (34.0-46.0); HGB 11.3 gm/dL (11.4-16.0); Lymphocytes # (A) 1.4 k/uL (1.0-4.8); Lymphocytes % (A) 13 %; MCH 27.6 pg (25.0-35.0); MCHC 31.3 g/dL (31.0-37.0); MCV 88.3 fL (80.0-100.0); Mean Platelet Volume 7.3; Monocytes # (A) 0.3 k/uL (0-1.0); Monocytes % (A) 3 %; Neutrophils # (A) 8.6 k/uL (1.3-7.7); Neutrophils % (A) 83 %; Platelet Count 266 k/uL (150-450); RDW 15.8 % (11.5-15.5); WBC 10.4 k/uL (3.8-10.6)
[2021-03-22] MEDS: atenoloL 25 MG TAB PO SCH (08:13)
[2021-03-22 08:16] LABS: Calcium 9.6 mg/dL (8.4-10.2); Potassium 4.4 mmol/L (3.5-5.1)
[2021-03-22] MEDS: ASPIRIN 81 MG PO SCH (08:16)
[2021-03-22] MEDS: FAMOTIDINE 20 MG TAB PO SCH ×2 (08:17→21:44)
[2021-03-22] MEDS: CLOPIDOGREL 75 MG TAB PO SCH (08:17)
[2021-03-22] MEDS: NON FORMULARY DRUG (Dapagliflozin Propanediol [Farxiga] 5 MG Tablet) PO SCH (08:17)
[2021-03-22] MEDS: PANTOPRAZOLE 40 MG TABLET PO SCH (08:17)
[2021-03-22] MEDS: predniSONE 20 MG TAB PO SCH ×3 (08:17→21:45)
[2021-03-22] MEDS: diphenhydrAMINE 25 MG CAP PO SCH ×2 (08:17→21:45)
--- NOTE | 2021-03-22 09:00 | P.PN ---
Subjective Progress Note Date: 03/21/21 HISTORY OF PRESENT ILLNESS: This is an 85-year-old female one of my patient with a previous [facility] history significant for hypertension and hypertensive cardiovascular disease, hyperlipidemia, diabetes mellitus type 2, osteoarthritis, coronary artery disease, history of CVA, history of 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 that was treated in June of this year, patient was in her usual state of health until about yesterday when she developed to have a significant jaw aches for about an hour and a half while she was laying down in bed, she didn't do anything about it, she went to bed and woke up in the morning and she developed to have a significant palpitation in her chest associated with increased shortness of breath, and right-sided chest pain this was followed by increased jaw pain that lasted for longer period of time, patient was burping quite a bit she felt nauseated, she thought that she is having and indigestion, she burped a bit but she did not get better so EMS was called and the patient was brought into the emergency department at [facility] where she had a twelve-lead EKG that showed significant ST wave depression in the anterolateral leads suggestive of ischemia her troponin was 0.027 but because of the presentation patient was admitted to the hospital she was started on aspirin 325 mg once every day, heparin drip, cardiology consultation will be obtained for possible left heart catheterization tomorrow morning. 03/20: Patient has been seen by cardiology with plan to continue medical management, IV heparin, hold Ahlquist and she is scheduled for heart catheterization tomorrow, catheterization postponed due to contrast ALLERGY and need for pretreatment. Echocardiogram reveals EF of 55-60% with moderate concentric left ventricular hypertrophy, mild to moderate aortic regurgitation, severe aortic stenosis, mild mitral regurgitation, mild tricuspid regurgitation, borderline pulmonary hypertension. 03/21: Patient states that she is feeling well today. She still has cough with a little phlegm production but lungs are clear. She denies having any fever or chills. She is complaining of some sinus drainage. Patient is scheduled for heart catheterization today. She does have excoriation on bilateral buttocks and calmoseptine ointment added. Her last bowel movement was either Saturday or Saturday the patient denies constipation. Patient is afebrile, heart rate in the 50s, blood pressure 139/65, pulse ox 95% on room air. Monitor is sinus bradycardia. Blood sugars are running in the low 200s. REVIEW OF SYSTEMS: Constitutional: No documented fever, no chills, no night sweats. No weight ch natalie. No weakness, fatigue or lethargy. No daytime sleepiness. HEENT: No headache. No blurred vision or double vision, no loss of vision. No dizziness. No nasal drainage or congestion. No epistaxis. No sore throat. Lungs: positive for shortness of breath, no cough, no sputum production. No wheezing. Reports dyspnea with activity. Cardiovascular: Reports for right sided chest pain, no lower extremity edema. positive for palpitations. No paroxysmal nocturnal dyspnea. No orthopnea. No lightheadedness or dizziness. No syncopal episodes. Abdominal: Reports abdominal pain. positive for nausea, no vomiting. No diarrhea. No constipation. No bloody or tarry stools reports loss of appetite. Genitourinary: No dysuria, increased frequency, urgency. No urinary retention. Musculoskeletal: No myalgias. No muscle weakness, gait dysfunction, no frequent falls. No back pain. No neck pain. Integumentary: Right heel scab and dry skin in both legs and feet, no lesions. No rash or pruritus. No unusual bruising. No change in hair or nails. Neurologic: No aphasia. No facial droop. No change in mentation. No head injury. No headache. No paralysis. No paresthesia. Psychiatric: No depression. No anxiety. No mood swings. Endocrine: Noted abnormal blood sugars. No weight change. PHYSICAL EXAMINATION: General: 85-year-old female who is laying down in bed in no acute distress. HEENT: Head is atraumatic, normocephalic, pupils were equal round reactive to light and recommendation, extraocular muscle movement were intact, sclera nonicteric, conjunctivae were pale. Neck: Supple, no JVP, normal carotid upstroke bilaterally, no lymphadenopathy. Chest: Decreased breath sounds at the bases, few rhonchi, no expiratory wheezes, no chest wall tenderness, no intercostal retractions. Heart: First heart sound is normal, second heart sounds normal there is systolic ejection murmur 3/6 located in the right second intercostal space related to the base of the neck Abdomen: Soft, nontender, nondistended, positive bowel sounds, there is no hepatosplenomegaly. Extremities: There is no edema no calf tenderness DP +1 bilaterally, chronic skin changes with thick skin to the feet and a scab to the right heel Neurologic examination: Patient is awake alert and oriented X 3, cranial nerves II-12 appear grossly intact, muscle power were 5 out of 5 in upper extremities and 5 out of 5 in bilateral lower extremities. ASSESSMENT AND PLAN: 1. Non-ST elevated myocardial infarction. Continue patient on aspirin 81 mg once every day, start the patient on heparin drip, continue atenolol 25 mg once every day, continue atorvastatin 40 mg orally once every day, cardiology consultation appreciated, patient did have an echocardiogram at the beginning of the year that showed normal ejection fraction with moderate aortic stenosis and moderate aortic regurgitation. Left heart catheterization today. 2. Hypertension and hypertensive cardiovascular disease. Continue patient on losartan 50 mg once every day, continue with atenolol 25 mg orally once every day, monitor the patient blood pressure very closely. 3. Hyperlipidemia. Start the patient on atorvastatin 40 mg orally once every day. 4. Hypothyroidism. Continue patient on Synthroid 50 MCG orally once every day. 5. Diabetes mellitus type 2. Continue patient on Farxiga 5 mg orally once every day. 6. Paroxysmal atrial fibrillation. Currently on Eliquis will discontinue that start the patient on heparin drip and resume eliquis after heart catheterization. 7. Osteoarthritis. Clinically stable. 8. GERD. Continue with Protonix 40 mg orally once every day. 9. history of CVA in the past. Continue aspirin as well as atorvastatin for secondary prevention. 10. DVT prophylaxis. Continue heparin drip. 11. GI prophylaxis. Continue Protonix 40 mg orally once every day. DISCHARGE PLAN Home Impression and plan of care have been directed as dictated by the signing physician. Esther Limon nurse practitioner acting as scribe for signing physician. Objective - Vital Signs Vital signs: Vital Signs Temp 97.7 F 03/21/21 07:42 Pulse 51 L 03/21/21 07:42 Resp 18 03/21/21 07:42 BP 139/65 03/21/21 07:42 Pulse Ox 95 03/21/21 07:42 Intake & Output 03/20/21 03/21/21 03/21/21 18:59 06:59 18:59 Intake Total 234.923 Balance 234.923 Weight 72.575 kg 69.3 kg Intake: Intake, IV Titration 116.923 Amount Heparin Sod,Pork in 0.45% 116.923 NaCl 25,000 unit In 0.45 % NaCl 1 250ml.bag @ 12 UNITS/KG/HR 8.709 mls/hr IV .[facility]H [facility] Rx#: [id number] Oral 118 Other: Voiding Method Toilet Toilet # Voids 1 - Labs CBC & Chem 7: 03/22/21 07:06 03/22/21 07:06 Labs: Abnormal Lab Results - Last 24 Hours (Table) 03/20/21 03/20/21 03/20/21 Range/Units 04:40 17:16 20:11 APTT (22.0-30.0) sec POC Glucose (mg/dL) 218 H 241 H (75-99) mg/dL Triglycerides 205.0 H (0.0-149.0) mg/dL VLDL Cholesterol, Calc 41.00 H (5.00-40.00) mg/dL HDL Cholesterol 38.0 L (40.0-60.0) mg/dL 03/21/21 03/21/21 Range/Units 06:22 07:23 APTT 44.6 H (22.0-30.0) sec POC Glucose (mg/dL) 242 H (75-99) mg/dL Triglycerides (0.0-149.0) mg/dL VLDL Cholesterol, Calc (5.00-40.00) mg/dL HDL Cholesterol (40.0-60.0) mg/dL
--- NOTE | 2021-03-22 09:08 | P.PN ---
Subjective Progress Note Date: 03/22/21 HISTORY OF PRESENT ILLNESS: This is an 85-year-old female one of my patient with a previous [facility] history significant for hypertension and hypertensive cardiovascular disease, hyperlipidemia, diabetes mellitus type 2, osteoarthritis, coronary artery disease, history of CVA, history of 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 that was treated in June of this year, patient was in her usual state of health until about yesterday when she developed to have a significant jaw aches for about an hour and a half while she was laying down in bed, she didn't do anything about it, she went to bed and woke up in the morning and she developed to have a significant palpitation in her chest associated with increased shortness of breath, and right-sided chest pain this was followed by increased jaw pain that lasted for longer period of time, patient was burping quite a bit she felt nauseated, she thought that she is having and indigestion, she burped a bit but she did not get better so EMS was called and the patient was brought into the emergency department at [facility] where she had a twelve-lead EKG that showed significant ST wave depression in the anterolateral leads suggestive of ischemia her troponin was 0.027 but because of the presentation patient was admitted to the hospital she was started on aspirin 325 mg once every day, heparin drip, cardiology consultation will be obtained for possible left heart catheterization tomorrow morning. 03/20: Patient has been seen by cardiology with plan to continue medical management, IV heparin, hold Ahlquist and she is scheduled for heart catheterization tomorrow, catheterization postponed due to contrast ALLERGY and need for pretreatment. Echocardiogram reveals EF of 55-60% with moderate concentric left ventricular hypertrophy, mild to moderate aortic regurgitation, severe aortic stenosis, mild mitral regurgitation, mild tricuspid regurgitation, borderline pulmonary hypertension. 03/21: Patient states that she is feeling well today. She still has cough with a little phlegm production but lungs are clear. She denies having any fever or chills. She is complaining of some sinus drainage. Patient is scheduled for heart catheterization today. She does have excoriation on bilateral buttocks and calmoseptine ointment added. Her last bowel movement was either Saturday or Saturday the patient denies constipation. Patient is afebrile, heart rate in the 50s, blood pressure 139/65, pulse ox 95% on room air. Monitor is sinus bradycardia. Blood sugars are running in the low 200s. 03/22: Patient underwent heart catheterization with Dr. Ortiz that found extremely calcified left coronary artery system with critical disease in the mid LAD and intermediate disease involving the proximal LAD. She subsequently underwent successful stenting of the mid LAD, distal LAD, proximal LAD with Dr. Montelongo with recommendations for dual antiplatelet therapy, aggressive cholesterol control, risk factor modification. Patient denies having any chest pain or shortness of breath. She continues to have cough with phlegm production. Right groin is soft. Blood sugars remain elevated and scheduled NovoLog added. Consult with PT added. Patient is normally ambulatory with walker at home. Discharge plan is to return home, plan to monitor patient overnight and discharge home tomorrow. REVIEW OF SYSTEMS: Constitutional: No documented fever, no chills, no night sweats. No weight c hange. No weakness, fatigue or lethargy. No daytime sleepiness. HEENT: No headache. No blurred vision or double vision, no loss of vision. No dizziness. No nasal drainage or congestion. No epistaxis. No sore throat. Lungs: Denies shortness of breath, reports cough, reports sputum production. No wheezing. Reports dyspnea with activity. Cardiovascular: Denies chest pain, no lower extremity edema. positive for palpitations. No paroxysmal nocturnal dyspnea. No orthopnea. No lightheadedn ess or dizziness. No syncopal episodes. Abdominal: Denies abdominal pain. positive for nausea, no vomiting. No diarrhea. No constipation. No bloody or tarry stools reports loss of appetite. Genitourinary: No dysuria, increased frequency, urgency. No urinary retention. Musculoskeletal: No myalgias. No muscle weakness, gait dysfunction, no frequent falls. No back pain. No neck pain. Integumentary: Right heel scab and dry skin in both legs and feet, no lesions. No rash or pruritus. No unusual bruising. No change in hair or nails. Neurologic: No aphasia. No facial droop. No change in mentation. No head injury. No headache. No paralysis. No paresthesia. Psychiatric: No depression. No anxiety. No mood swings. Endocrine: Noted abnormal blood sugars. No weight change. PHYSICAL EXAMINATION: General: 85-year-old female who is laying down in bed in no acute distress. HEENT: Head is atraumatic, normocephalic, pupils were equal round reactive to light and recommendation, extraocular muscle movement were intact, sclera nonicteric, conjunctivae were pale. Neck: Supple, no JVP, normal carotid upstroke bilaterally, no lymphadenopathy. Chest: Decreased breath sounds at the bases, few rhonchi, no expiratory wheezes, no chest wall tenderness, no intercostal retractions. Heart: First heart sound is normal, second heart sounds normal there is systolic ejection murmur 3/6 located in the right second intercostal space related to the base of the neck Abdomen: Soft, nontender, nondistended, positive bowel sounds, there is no hepatosplenomegaly. Extremities: There is no edema no calf tenderness DP +1 bilaterally, chronic skin changes with thick skin to the feet and a scab to the right heel. Right groin soft. Neurologic examination: Patient is awake alert and oriented X 3, cranial nerves II-12 appear grossly intact, muscle power were 5 out of 5 in upper extremities and 5 out of 5 in bilateral lower extremities. ASSESSMENT AND PLAN: 1. Non-ST elevated myocardial infarction status post heart catheterization and stenting of the mid LAD, distal LAD and proximal LAD, 03/21. Continue patient on aspirin 81 mg once every day, continue atenolol 25 mg once every day, continue atorvastatin 40 mg orally once every day, cardiology consultation appreciated. 2. Hypertension and hypertensive cardiovascular disease. Continue patient on losartan 50 mg once every day, continue with atenolol 25 mg orally once every day, monitor the patient blood pressure very closely. 3. Hyperlipidemia. Start the patient on atorvastatin 40 mg orally once every day. 4. Hypothyroidism. Continue patient on Synthroid 50 MCG orally once every day. 5. Diabetes mellitus type 2. Continue patient on Farxiga 5 mg orally once every day. 6. Paroxysmal atrial fibrillation. Currently on Eliquis will be resumed. 7. Osteoarthritis. Clinically stable. 8. GERD. Continue with Protonix 40 mg orally once every day. 9. history of CVA in the past. Continue aspirin as well as atorvastatin for secondary prevention. 10. DVT prophylaxis. Eliquis 5 mg twice daily. 11. GI prophylaxis. Continue Protonix 40 mg orally once every day. DISCHARGE PLAN Home on Impression and plan of care have been directed as dictated by the signing physician. Esther Limon nurse practitioner acting as scribe for signing physician. Objective - Vital Signs Vital signs: Vital Signs Temp 97.5 F L 03/22/21 04:00 Pulse 53 L 03/22/21 04:00 Resp 16 03/22/21 04:00 BP 125/63 03/22/21 04:00 Pulse Ox 95 03/22/21 07:24 Intake & Output 03/21/21 03/22/21 03/22/21 18:59 06:59 18:59 Intake Total 1316.596 20 Output Total 400 Balance 916.596 20 Weight 70 kg Intake: IV 500 20 Invasive Line 2 20 Intake, IV Titration 816.596 Amount Heparin Sod,Pork in 0.45% 116.596 NaCl 25,000 unit In 0.45 % NaCl 1 250ml.bag @ 12 UNITS/KG/HR 8.709 mls/hr IV .Q24H [facility] Rx#: [id number] Sodium Chloride 0.9% 1, 700 000 ml In Empty Bag 1 bag @ 1 ML/KG/HR 72.575 mls/ hr IV .[id number] ONE Rx#: [id number] Output: Urine 400 Other: Voiding Method Toilet Toilet # Voids 1 1 - Labs CBC & Chem 7: 03/22/21 07:06 03/22/21 07:06 Labs: Abnormal Lab Results - Last 24 Hours (Table) 03/21/21 03/21/21 03/21/21 Range/Units 11:46 17:01 19:37 Hgb (11.4-16.0) gm/dL RDW (11.5-15.5) % Neutrophils # (1.3-7.7) k/uL POC Glucose (mg/dL) 223 H 173 H 214 H (75-99) mg/dL 03/22/21 03/22/21 Range/Units 06:07 07:06 Hgb 11.3 L (11.4-16.0) gm/dL RDW 15.8 H (11.5-15.5) % Neutrophils # 8.6 H (1.3-7.7) k/uL POC Glucose (mg/dL) 204 H (75-99) mg/dL
--- NOTE | 2021-03-22 10:23 | P.PN ---
Subjective This is a pleasant 85 showed female past medical history significant for diabetes mellitus, hypertension, dyslipidemia and coronary artery disease. She underwent cardiac catheterization yesterday revealing extremely calcified left coronary system with critical disease involving the mid LAD and intermediate disease involving the proximal LAD. She underwent successful atherectomy of the LAD, PCI of the mid LAD, PCI of the distal LAD and PCI of the proximal LAD. She is seen and examined sitting up in bed in no acute distress. She has no symptoms of chest discomfort, shortness of breath, dizziness or palpitations. Blood pressure 129/58 heart rate 95 afebrile maintaining oxygen saturation on room air. Laboratory data reviewed, WBC 10.4, hemoglobin 11.3, platelets 266, sodium 136, potassium 4.4 and creatinine 1.10. Telemetry tracings reviewed, she is maintaining sinus rhythm heart rate in the 50s. Currently maintained on aspirin 81 mg daily, atenolol 25 mg daily, atorvastatin 40 mg daily, Plavix 75 mg daily and losartan 50 mg at bedtime. GENERAL: Well-appearing, well-nourished and in no acute distress. NECK: Supple without JVD or thyromegaly. LUNGS: Breath sounds clear to auscultation bilaterally. Respiration equal and unlabored. No wheezes, rales or rhonchi. HEART: Regular rate and rhythm with systolic ejection murmur at the base, no rubs or gallops. S1 and S2 heard. EXTREMITIES: Normal range of motion, no edema. No clubbing or cyanosis. Peripheral pulses intact. Right femoral access site soft, nontender with ecchymosis noted. There is a small hard nodule noted at the site of injection. Nontender. ASSESSMENT Unstable angina NSTEMI Hypertension Dyslipidemia Diabetes mellitus Paroxysmal atrial fibrillation, currently in sinus rhythm maintained on Eliquis Aortic stenosis Coronary artery disease PLAN Continue triple therapy for one month. Then aspirin can be discontinued and she'll be continued on Eliquis and Plavix for 1 year. Increase activity and ambulation. If she remains stable she can likely be discharged this evening. Nurse Practitioner note has been reviewed, I agree with a documented findings and plan of care. Patient was seen and examined. Objective - Vital Signs Vital signs: Vital Signs Temp 97.7 F 03/22/21 08:00 Pulse 95 03/22/21 08:00 Resp 16 03/22/21 08:00 BP 129/58 03/22/21 08:00 Pulse Ox 95 03/22/21 08:00 Intake & Output 03/21/21 03/22/21 03/22/21 18:59 06:59 18:59 Intake Total 1316.596 20 236 Output Total 400 Balance 916.596 20 236 Weight 70 kg Intake: IV 500 20 Invasive Line 2 20 Intake, IV Titration 816.596 Amount Heparin Sod,Pork in 0.45% 116.596 NaCl 25,000 unit In 0.45 % NaCl 1 250ml.bag @ 12 UNITS/KG/HR 8.709 mls/hr IV .Q24H COUNTS [facility]CLUDE 234 BEDS AT [facility] Rx#: [id number] Sodium Chloride 0.9% 1, 700 000 ml In Empty Bag 1 bag @ 1 ML/KG/HR 72.575 mls/ hr IV .[id number] ONE Rx#: [id number] Oral 236 Output: Urine 400 Other: Voiding Method Toilet Toilet Toilet # Voids 1 1 - Labs CBC & Chem 7: 03/22/21 07:06 03/22/21 07:06 Labs: Abnormal Lab Results - Last 24 Hours (Table) 03/21/21 03/21/21 03/21/21 Range/Units 11:46 17:01 19:37 Hgb (11.4-16.0) gm/dL RDW (11.5-15.5) % Neutrophils # (1.3-7.7) k/uL Sodium (137-145) mmol/L BUN (7-17) mg/dL Creatinine (0.52-1.04) mg/dL Glucose (74-99) mg/dL POC Glucose (mg/dL) 223 H 173 H 214 H (75-99) mg/dL 03/22/21 03/22/21 03/22/21 Range/Units 06:07 07:06 07:06 Hgb 11.3 L (11.4-16.0) gm/dL RDW 15.8 H (11.5-15.5) % Neutrophils # 8.6 H (1.3-7.7) k/uL Sodium 136 L (137-145) mmol/L BUN 22 H (7-17) mg/dL Creatinine 1.10 H (0.52-1.04) mg/dL Glucose 197 H (74-99) mg/dL POC Glucose (mg/dL) 204 H (75-99) mg/dL
[2021-03-22 12:05] LABS: Glucose,Whole Blood 218 mg/dL (75-99)
[2021-03-22 13:39] VITALS: BMI 33.3
[2021-03-22 16:25] LABS: Glucose,Whole Blood 243 mg/dL (75-99)
[2021-03-22] MEDS: FUROSEMIDE 20 MG TAB PO SCH (16:45)
[2021-03-22 19:59] LABS: Glucose,Whole Blood 203 mg/dL (75-99)
[2021-03-22] MEDS ORDERED: APIXABAN 5 MG TAB PO SCH (21:00)
[2021-03-22] MEDS: LOSARTAN 50 MG TAB PO SCH (21:44)
[2021-03-22] MEDS: ATORVASTATIN 40 MG TAB PO SCH (21:45)
[2021-03-23 07:02] LABS: Glucose,Whole Blood 242 mg/dL (75-99)
[2021-03-23] MEDS: INSULIN ASPART (NovoLOG) 100 UNIT/ML VIAL SQ SCH ×6 (07:07→17:23)
[2021-03-23] MEDS: LEVOTHYROXINE 50 MCG TAB PO SCH (07:07)
--- NOTE | 2021-03-23 08:17 | P.DS ---
Providers Date of admission: 03/20/21 13:44 Expected date of discharge: 03/23/21 Attending physician: Jackson Benjamin Consults: 03/19/21 10:40 Consult Physician Routine Consulting Provider: Mary Ortiz Consult Reason/Comments: chest pain, ekg changes Do you want consulting provider notified?: Already Contacted 03/21/21 14:00 Consult Physician Routine Consulting Provider: [facility] Consult Reason/Comments: Post Interventional patient Do you want consulting provider notified?: Already Contacted Primary care physician: Jackson Benjamin Hospital Course: HISTORY OF PRESENT ILLNESS: This is an 85-year-old female one of my patient with a previous medical history significant for hypertension and hypertensive cardiovascular disease, hyperlipidemia, diabetes mellitus type 2, osteoarthritis, coronary artery disease, history of CVA, history of 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 that was treated in June of this year, patient was in her usual state of health until about yesterday when she developed to have a significant jaw aches for about an hour and a half while she was laying down in bed, she didn't do anything about it, she went to bed and woke up in the morning and she developed to have a significant palpitation in her chest associated with increased shortness of breath, and right-sided chest pain this was followed by increased jaw pain that lasted for longer period of time, patient was burping quite a bit she felt nauseated, she thought that she is having and indigestion, she burped a bit but she did not get better so EMS was called and the patient was brought into the emergency department at [facility] where she had a twelve-lead EKG that showed significant ST wave depression in the anterolateral leads suggestive of ischemia her troponin was 0.027 but because of the presentation patient was admitted to the hospital she was started on aspirin 325 mg once every day, heparin drip, cardiology consultation will be obtained for possible left heart catheterization tomorrow morning. 03/20: Patient has been seen by cardiology with plan to continue medical management, IV heparin, hold Ahlquist and she is scheduled for heart catheterization tomorrow, catheterization postponed due to contrast ALLERGY and need for pretreatment. Echocardiogram reveals EF of 55-60% with moderate concentric left ventricular hypertrophy, mild to moderate aortic regurgitation, severe aortic stenosis, mild mitral regurgitation, mild tricuspid regurgitation, borderline pulmonary hypertension. 03/21: Patient states that she is feeling well today. She still has cough with a little phlegm production but lungs are clear. She denies having any fever or chills. She is complaining of some sinus drainage. Patient is scheduled for heart catheterization today. She does have excoriation on bilateral buttocks and calmoseptine ointment added. Her last bowel movement was either Saturday or Saturday the patient denies constipation. Patient is afebrile, heart rate in the 50s, blood pressure 139/65, pulse ox 95% on room air. Monitor is sinus bradycardia. Blood sugars are running in the low 200s. 03/22: Patient underwent heart catheterization with Dr. Ortiz that found extremely calcified left coronary artery system with critical disease in the mid LAD and intermediate disease involving the proximal LAD. She subsequently underwent successful stenting of the mid LAD, distal LAD, proximal LAD with Dr. Montelongo with recommendations for dual antiplatelet therapy, aggressive cholesterol control, risk factor modification. Patient denies having any chest pain or shortness of breath. She continues to have cough with phlegm production. Right groin is soft. Blood sugars remain elevated and scheduled NovoLog added. Consult with PT added. Patient is normally ambulatory with walker at home. Discharge plan is to return home, plan to monitor patient overnight and discharge home tomorrow. 03/23: She states that she is feeling much better today. Heart rate was running in the 40s to 50s overnight and cardiology has decreased atenolol to 12.5 mg daily. Patient is cleared for discharge today. She denies having any chest pain or shortness of breath. She has been afebrile, heart rate 55, blood pressure 120/69, pulse ox 96% on room air. Capillary blood glucose running between 203 and 243. Patient will be discharged today in stable condition. ASSESSMENT AND PLAN: 1. Non-ST elevated myocardial infarction status post heart catheterization and stenting of the mid LAD, distal LAD and proximal LAD, 03/21. 2. Hypertension and hypertensive cardiovascular disease. 3. Hyperlipidemia. 4. Hypothyroidism. 5. Diabetes mellitus type 2, uncontrolled with hyperglycemia. 6. Paroxysmal atrial fibrillation. 7. Osteoarthritis, generalized. 8. GERD. 9. history of CVA in the past. DISCHARGE PLAN Home Impression and plan of care have been directed as dictated by the signing physician. Esther Limon nurse practitioner acting as scribe for signing physician. Patient Condition at Discharge: Good Plan - Discharge Summary Discharge Rx Participant: Yes New Discharge Prescriptions: New Clopidogrel [Plavix] 75 mg PO DAILY #90 tab Nitroglycerin Sl Tabs [Nitrostat] 0.4 mg SUBLINGUAL Q5M PRN #25 tab PRN Reason: Chest Pain Atorvastatin [Lipitor] 40 mg PO HS #90 tab Losartan [Cozaar] 50 mg PO HS #30 tab Furosemide [Lasix] 20 mg PO DAILY #30 tab Continue Levothyroxine Sodium [Synthroid] 25 mcg PO DAILY Dapagliflozin Propanediol [Farxiga] 5 mg PO DAILY Apixaban [Eliquis] 5 mg PO DAILY Omeprazole [PriLOSEC] 20 mg PO BID Metoclopramide [Reglan] 10 mg PO TID PRN PRN Reason: Nausea Ammonium Lactate Lotion [Lac-Hydrin 12% Lotion] 1 applic TOPICAL BID PRN PRN Reason: Dry Skin Changed atenoloL [Tenormin] 12.5 mg PO DAILY #0 Discontinued Lovastatin [Mevacor] 10 mg PO HS Aspirin 325 mg PO DAILY tab Losartan Potassium [Cozaar] 25 mg PO DAILY Discharge Medication List Levothyroxine Sodium [Synthroid] 25 mcg PO DAILY 07/12/20 [History] Ammonium Lactate Lotion [Lac-Hydrin 12% Lotion] 1 applic TOPICAL BID PRN 03/19/21 [History] Apixaban [Eliquis] 5 mg PO DAILY 03/19/21 [History] Dapagliflozin Propanediol [Farxiga] 5 mg PO DAILY 03/19/21 [History] Metoclopramide [Reglan] 10 mg PO TID PRN 03/19/21 [History] Omeprazole [PriLOSEC] 20 mg PO BID 03/19/21 [History] Atorvastatin [Lipitor] 40 mg PO HS #90 tab 03/22/21 [Rx] Clopidogrel [Plavix] 75 mg PO DAILY #90 tab 03/22/21 [Rx] Furosemide [Lasix] 20 mg PO DAILY #30 tab 03/23/21 [Rx] Losartan [Cozaar] 50 mg PO HS #30 tab 03/23/21 [Rx] Nitroglycerin Sl Tabs [Nitrostat] 0.4 mg SUBLINGUAL Q5M PRN #25 tab 03/23/21 [Rx] atenoloL [Tenormin] 12.5 mg PO DAILY #0 03/23/21 [Rx] Follow up Appointment(s)/Referral(s): Mary Ortiz MD [STAFF PHYSICIAN] - 1 Week Jackson Benjamin MD [Primary Care Provider] - 1 Week Patient Instructions/Handouts: Acute Coronary Syndrome (DC), Safe Use of Antiplatelet Medication (DC), Heart Catheterization (DC), Angio-Seal (DC) Activity/Diet/Wound Care/Special Instructions: CARDIAC CATH Support your puncture site by applying firm, steady pressure whenever you cough, laugh, sneeze or bear down to have a bowel movement (2-day restriction). Watch for any excessive bruising, active bleeding, a firm knot forming under your skin, extreme tenderness and signs of infection (redness, swelling, fever). Shower daily, do not soak puncture in a tub bath, jacuzzi, pool, [place] etc. for 1 week. This is to prevent risk of infection. Drink plenty of fluids the day of and day after your procedure to flush contrast dye out of your kidneys. Take all medications as directed. Never stop any new medication without your physicians OK. No driving for 2 days after procedure. 10- pound weight lifting restriction for 1 week. Low sodium/low fat diet. Activity limited until follow up appointment with your textile colorist dyer. In case of any problems, please call [facility] [place] @ [phone]
[2021-03-23] MEDS: FAMOTIDINE 20 MG TAB PO SCH (08:34)
[2021-03-23] MEDS: PANTOPRAZOLE 40 MG TABLET PO SCH (08:34)
[2021-03-23] MEDS: diphenhydrAMINE 25 MG CAP PO SCH (08:35)
[2021-03-23] MEDS: CLOPIDOGREL 75 MG TAB PO SCH (08:35)
[2021-03-23] MEDS: predniSONE 20 MG TAB PO SCH ×2 (08:35→17:23)
[2021-03-23 08:41] VITALS: RESP 17
[2021-03-23] MEDS: NON FORMULARY DRUG (Dapagliflozin Propanediol [Farxiga] 5 MG Tablet) PO SCH (08:47)
[2021-03-23 12:03] LABS: Glucose,Whole Blood 189 mg/dL (75-99)
--- NOTE | 2021-03-23 12:58 | P.PN ---
Subjective This is a pleasant 85 showed female past medical history significant for diabetes mellitus, hypertension, dyslipidemia and coronary artery disease. She underwent cardiac catheterization yesterday revealing extremely calcified left coronary system with critical disease involving the mid LAD and intermediate disease involving the proximal LAD. She underwent successful atherectomy of the LAD, PCI of the mid LAD, PCI of the distal LAD and PCI of the proximal LAD. She is seen and examined sitting up in bed in no acute distress. She has no symptoms of chest discomfort, shortness of breath, dizziness or palpitations. Blood pressure 129/58 heart rate 95 afebrile maintaining oxygen saturation on room air. Laboratory data reviewed, WBC 10.4, hemoglobin 11.3, platelets 266, sodium 136, potassium 4.4 and creatinine 1.10. Telemetry tracings reviewed, she is maintaining sinus rhythm heart rate in the 50s. Currently maintained on aspirin 81 mg daily, atenolol 25 mg daily, atorvastatin 40 mg daily, Plavix 75 mg daily and losartan 50 mg at bedtime. Repeat EKG reveals SR with no ischemic changes. 03/23/2021 Pt seen and examined getting up working with physical therapy. She has no symptoms of chest pain or shortness of breath. Blood pressure 128/69 heart rate 55 afebrile and maintaining oxygen saturation on room air. Nursing has been holding her atenolol due to heart rate in the low 50s. Telemetry tracings reviewed, she contniues to have intermittent pauses around 2 seconds in length. Her last dose of atenolol was yesterday morning. GENERAL: Well-appearing, well-nourished and in no acute distress. NECK: Supple without JVD or thyromegaly. LUNGS: Breath sounds clear to auscultation bilaterally. Respiration equal and u nlabored. No wheezes, rales or rhonchi. HEART: Regular rate and rhythm with systolic ejection murmur at the base, no rubs or gallops. S1 and S2 heard. EXTREMITIES: Normal range of motion, no edema. No clubbing or cyanosis. Peripheral pulses intact. Right femoral access site soft, nontender with ecchymosis noted. There is a small hard nodule noted at the site of injection. Nontender. ASSESSMENT Unstable angina NSTEMI Hypertension Dyslipidemia Diabetes mellitus Paroxysmal atrial fibrillation, currently in sinus rhythm maintained on Eliquis Aortic stenosis Coronary artery disease PLAN Discontinue atenolol secondary to persistent bradycardia. Stable for discharge home on current medical regimen. No aspirin, only plavix and eliquis. Follow up with Dr. Ortiz in 1 week. Nurse Practitioner note has been reviewed, I agree with a documented findings and plan of care. Patient was seen and examined. Objective - Vital Signs Vital signs: Vital Signs Temp 98.0 F 03/23/21 08:00 Pulse 55 L 03/23/21 08:00 Resp 17 03/23/21 08:00 BP 128/69 03/23/21 08:00 Pulse Ox 96 03/23/21 08:00 Intake & Output 03/22/21 03/23/21 03/23/21 18:59 06:59 18:59 Intake Total 476 10 240 Balance 476 10 240 Weight 70 kg 70 kg Intake: IV 10 Invasive Line 2 10 Oral 476 240 Other: Voiding Method Toilet Toilet Toilet # Voids 1 1 1 - Labs CBC & Chem 7: 03/22/21 07:06 03/22/21 07:06 Labs: Abnormal Lab Results - Last 24 Hours (Table) 03/22/21 03/22/21 03/23/21 Range/Units 16:22 19:57 07:00 POC Glucose (mg/dL) 243 H 203 H 242 H (75-99) mg/dL 03/23/21 Range/Units 12:01 POC Glucose (mg/dL) 189 H (75-99) mg/dL
[2021-03-23 16:03] VITALS: BP 133/67; PULSE 51; TEMP 98
[2021-03-23 16:29] LABS: Glucose,Whole Blood 235 mg/dL (75-99)
[2021-03-23] MEDS: FUROSEMIDE 20 MG TAB PO SCH (17:23)
[2021-03-24] MEDS ORDERED: FAMOTIDINE 20 MG TAB PO SCH (09:00)
== END 2021-03-23 17:25 | disposition home or self-care (01) | DRG 247 ==
LOC: EC 09:19 → 3SCARD 12:23 → OBSVTOIN 03-20 13:44 → 3SCARD 03-20 15:22
PROVIDERS: ADMIT Internal Medicine; ATTEND Internal Medicine
PROC: 4A023N7 Measurement of Cardiac Sampling and Pressure, Left Heart, Percutaneous Approach (ICD-10-PCS; 2021-03-21)
PROC: B2111ZZ Fluoroscopy of Multiple Coronary Arteries using Low Osmolar Contrast (ICD-10-PCS; 2021-03-21)
PROC: 027036Z Dilation of Coronary Artery, One Artery with Three Drug-eluting Intraluminal Devices, Percutaneous Approach (ICD-10-PCS; principal; 2021-03-21 12:00)
PROC: 02C03ZZ Extirpation of Matter from Coronary Artery, One Artery, Percutaneous Approach (ICD-10-PCS; 2021-03-21 12:00)
DX: I21.4 Non-ST elevation (NSTEMI) myocardial infarction (principal); I50.32 Chronic diastolic (congestive) heart failure; E03.9 Hypothyroidism, unspecified; E11.65 Type 2 diabetes mellitus with hyperglycemia; E78.5 Hyperlipidemia, unspecified; I11.0 Hypertensive heart disease with heart failure; I25.110 Atherosclerotic heart disease of native coronary artery with unstable angina pectoris; I27.20 Pulmonary hypertension, unspecified; I35.2 Nonrheumatic aortic (valve) stenosis with insufficiency; I48.0 Paroxysmal atrial fibrillation; K21.9 Gastro-esophageal reflux disease without esophagitis; M19.90 Unspecified osteoarthritis, unspecified site; Z20.822 Contact with and (suspected) exposure to COVID-19; R05 Cough; Z79.01 Long term (current) use of anticoagulants; Z79.02 Long term (current) use of antithrombotics/antiplatelets; Z79.82 Long term (current) use of aspirin; Z79.84 Long term (current) use of oral hypoglycemic drugs; Z79.890 Hormone replacement therapy; Z79.899 Other long term (current) drug therapy; Z82.0 Family history of epilepsy and other diseases of the nervous system; Z82.49 Family history of ischemic heart disease and other diseases of the circulatory system; Z83.3 Family history of diabetes mellitus; Z86.73 Personal history of transient ischemic attack (TIA), and cerebral infarction without residual deficits; Z87.891 Personal history of nicotine dependence; Z91.041 Radiographic dye allergy status; Z74.01 Bed confinement status
CPT/HCPCS: 36415; 71046; 80048; 80053; 80061; 83735; 84439; 84443; 84484; 85025; 85610; 85730; 87635; 93005; 93306; 93458; 94760; 96374; 99285

== ENCOUNTER 2021-04-26 15:37 | Inpatient (IN) | payer MEDICARE, BC ==
--- NOTE | 2021-04-26 16:45 | ED ---
General Adult HPI - General Chief complaint: Shortness of Breath Stated complaint: VLAD Time Seen by Provider: 04/26/21 15:44 Source: patient, EMS, RN notes reviewed Mode of arrival: EMS Limitations: no limitations - History of Present Illness Initial comments: 85-year-old female presents to the emergency department via EMS from home, where she lives with her daughter, for evaluation of increasing shortness of breath that worsens with activity. Patient states she was seen by her primary care provider yesterday who ordered outpatient labs, then called her today encouraging her to go to the ER for oxygen therapy and further evaluation. Patient states she has had a congested, productive cough for the past 2 weeks. Reports that her daughter was tested for Covid yesterday, however the result is pending. Also states she was hospitalized a month ago related to chest pain and had a heart catheterization with 3 stents placed. States she has had a decreased appetite and increasing weakness since then. Patient denies fever, chills, headache, chest pain, abdominal pain, nausea, vomiting, constipation, diarrhea, dysuria, hematuria, and lower extremity edema. - Related Data Home Medications Medication Instructions Recorded Confirmed Levothyroxine Sodium [Synthroid] 25 mcg PO DAILY 07/12/20 04/26/21 Dapagliflozin Propanediol [Farxiga] 5 mg PO DAILY 03/19/21 04/26/21 Omeprazole [PriLOSEC] 20 mg PO BID 03/19/21 04/26/21 atenoloL [Tenormin] 25 mg PO DAILY 04/26/21 04/26/21 Previous Rx's Medication Instructions Recorded Atorvastatin [Lipitor] 40 mg PO HS #90 tab 03/22/21 Clopidogrel [Plavix] 75 mg PO DAILY #90 tab 03/22/21 Furosemide [Lasix] 20 mg PO DAILY #30 tab 03/23/21 Losartan [Cozaar] 50 mg PO HS #30 tab 03/23/21 Nitroglycerin Sl Tabs [Nitrostat] 0.4 mg SUBLINGUAL Q5M PRN #25 tab 03/23/21 Apixaban [Eliquis] 5 mg PO BID #60 tab 03/24/21 Allergies Allergy/AdvReac Type Severity Reaction Status Date / Time Iodinated Contrast Media Allergy Severe Rash/Hives Verified 04/26/21 16:11 hydrocortisone Allergy Intermediate Rash/Hives Verified 04/26/21 16:11 ampicillin [From Polycillin] Allergy Mild Rash/Hives Verified 04/26/21 16:11 cefaclor [From Ceclor] Allergy Mild Rash/Hives Verified 04/26/21 16:11 nitroglycerin Allergy Mild Unknown Verified 04/26/21 16:11 NSAIDS (Non-Steroidal Allergy Mild Unknown Verified 04/26/21 16:11 Anti-Inflamma sulfur dioxide Allergy Mild Unknown Verified 04/26/21 16:11 Review of Systems ROS Statement: Those systems with pertinent positive or pertinent negative responses have been documented in the HPI. ROS Other: All systems not noted in ROS Statement are negative. Past Medical History Past Medical History: Coronary Artery Disease (CAD), Heart Failure, Diabetes Mellitus, Hyperlipidemia, Hypertension Additional Past Medical History / Comment(s): LYMPHEDEMA History of Any Multi-Drug Resistant Organisms: MRSA Date of last positivie culture/infection: 07/14/20 MDRO Source:: RIGHT FOOT Past Surgical History: Unable to Obtain Past Anesthesia/Blood Transfusion Reactions: No Reported Reaction Additional Past Anesthesia/Blood Transfusion Reaction / Comment(s): PATIENT STATES THAT LAST HEART CATH SHE HAD A REACTION-SWOLLEN FACE-RED FACE-ITCHY SKIN Past Psychological History: No Psychological Hx Reported Smoking Status: Former smoker Past Alcohol Use History: None Reported Past Drug Use History: None Reported - Past Family History Father Family Medical History: Myocardial Infarction ([place]) Additional Family Medical History / Comment(s): AT 45 OF HEART ATTACK Mother Family Medical History: Congestive Heart Failure (CHF) Additional Family Medical History / Comment(s): MOTHER IN 1985 FOUR MONTHS WITH THE 11TH CHILD. CARDIOMYOPATHY General Exam Limitations: no limitations General appearance: alert, in no apparent distress, other (Patient appears to be resting comfortably on 3 L via nasal cannula; no acute distress. Initial temperature 100.1, pulse 65, respirations 18, blood pressure 107/59, pulse ox 90% on room air (oxygen via NC resumed after room air sat obtained).) Eye exam: Present: normal appearance, PERRL, EOMI ENT exam: Present: normal exam, normal oropharynx, mucous membranes moist Neck exam: Present: normal inspection. Absent: tenderness, meningismus, l ymphadenopathy Respiratory exam: Present: normal lung sounds bilaterally, other (Able to converse without shortness of breath- oxygen via nasal cannula at 3 L.). Absent: respiratory distress, wheezes, rales, rhonchi, chest wall tenderness Cardiovascular Exam: Present: regular rate, normal rhythm, systolic murmur GI/Abdominal exam: Present: soft, normal bowel sounds. Absent: distended, tenderness, guarding, rebound Left Lower Leg exam: Present: swelling (Trace pitting edema). Absent: tenderness, erythema Neurovascular tendon exam: Present: no vascular compromise Right Lower Leg exam: Present: swelling (Trace pitting edema). Absent: tenderness, erythema Neurovascular tendon exam: Present: no vascular compromise Neurological exam: Present: alert, oriented X3, CN II-XII intact Psychiatric exam: Present: normal affect, normal mood Skin exam: Present: warm, dry, intact, pallor. Absent: rash Course Vital Signs 04/26/21 04/26/21 04/26/21 16:07 17:09 18:25 Temperature 100.1 F H Pulse Rate 65 72 Pulse Rate [ Pulse Oximetery ] Respiratory 18 18 18 Rate Blood Pressure 107/59 130/82 Blood Pressure [Right Arm] O2 Sat by Pulse 90 L 96 Oximetry 04/26/21 04/26/21 21:00 23:07 Temperature 98.2 F 97.0 F L Pulse Rate 61 Pulse Rate [ 60 Pulse Oximetery ] Respiratory 18 18 Rate Blood Pressure 100/61 Blood Pressure 93/58 [Right Arm] O2 Sat by Pulse 96 97 Oximetry - Reevaluation(s) Reevaluation #1: 04/26/21 17:16 Patient resting comfortably at this time. Continues on 3 L oxygen via nasal cannula with no distress. SpO2 maintains in the mid 90s. Recheck of temperature is 99. Patient updated on plan of care including pending labs. Medical Decision Making - Medical Decision Making 85-year-old female with a history of heart disease and diabetes presents to the emergency room for evaluation of increasing shortness of breath, weakness, and congested cough. Upon exam, patient is slightly pale with a congested cough but is in no acute distress. Initial room air sat was 90%, which improved to 95% with 3 L oxygen via nasal cannula. Initial temperature was elevated at 100.1 and has since come down to 99. Laboratory studies were reviewed. Patient is mildly dehydrated with sodium 136, potassium 3.4, creatinine 1.16. Evidence of hypomagnesemia-magnesium 1.4. Initial troponin is elevated at 0.068 which is somewhat elevated from discharge a month ago, though could also be reactive. Patient denies any chest pain at this time. Covid test is positive; she does not meet criteria for monoclonal antibody infusion nor antiviral therapy. Chest x- ray shows mild cardiomegaly and small pleural effusion. Spoke with Dr. Benjamin regarding hospital admission for further evaluation and treatment of this patient. This patient's case was also discussed with my attending Dr. Amaya. Patient is agreeable to admission. - Lab Data Result diagrams: 04/26/21 16:21 04/26/21 16:21 Lab Results 04/26/21 04/26/21 04/26/21 Range/Units 16: 16: 16:21 WBC 3.6 L (3.8-10.6) k/uL RBC 5.03 (3.80-5.40) m/uL Hgb 14.0 (11.4-16.0) gm/dL Hct 41.8 (34.0-46.0) % MCV 83.1 (80.0-100.0) fL MCH 27.9 (25.0-35.0) pg MCHC 33.6 (31.0-37.0) g/dL RDW 15.1 (11.5-15.5) % Plt Count 156 (150-450) k/uL MPV 7.4 Neutrophils % 62 % Lymphocytes % 31 % Monocytes % 3 % Eosinophils % 0 % Basophils % 1 % Neutrophils # 2.3 (1.3-7.7) k/uL Lymphocytes # 1.1 (1.0-4.8) k/uL Monocytes # 0.1 (0-1.0) k/uL Eosinophils # 0.0 (0-0.7) k/uL Basophils # 0.0 (0-0.2) k/uL Poikilocytosis Slight PT 11.2 (9.0-12.0) sec INR 1.1 (<1.2) APTT 29.8 (22.0-30.0) sec Sodium 136 L (137-145) mmol/L Potassium 3.4 L (3.5-5.1) mmol/L Chloride 103 (98-107) mmol/L Carbon Dioxide 24 (22-30) mmol/L Anion Gap 9 mmol/L BUN 17 (7-17) mg/dL Creatinine 1.16 H (0.52-1.04) mg/dL Est GFR (CKD-EPI)AfAm 50 (>60 ml/min/1.73 sqM) Est GFR (CKD-EPI)NonAf 43 (>60 ml/min/1.73 sqM) Glucose 180 H (74-99) mg/dL Calcium 9.0 (8.4-10.2) mg/dL Magnesium 1.4 L (1.6-2.3) mg/dL Total Bilirubin 0.7 (0.2-1.3) mg/dL AST 47 H (14-36) U/L ALT 17 (4-34) U/L Alkaline Phosphatase 100 (38-126) U/L Troponin I (0.000-0.034) ng/mL NT-Pro-B Natriuret Pep pg/mL Total Protein 7.1 (6.3-8.2) g/dL Albumin 3.5 (3.5-5.0) g/dL Urine Color Urine Appearance (Clear) Urine pH (5.0-8.0) Ur Specific [place] (1.001-1.035) Urine Protein (Negative) Urine Glucose (UA) (Negative) Urine Ketones (Negative) Urine Blood (Negative) Urine Nitrite (Negative) Urine Bilirubin (Negative) Urine Urobilinogen (<2.0) mg/dL Ur Leukocyte Esterase (Negative) Urine RBC (0-5) /hpf Urine WBC (0-5) /hpf Ur Squamous Epith Cells (0-4) /hpf Hyaline Casts (0-2) /lpf Urine Mucus (None) /hpf Coronavirus (PCR) (Not Detectd) 04/26/21 04/26/21 04/26/21 Range/Units 16:21 16:21 16:21 WBC (3.8-10.6) k/uL RBC (3.80-5.40) m/uL Hgb (11.4-16.0) gm/dL Hct (34.0-46.0) % MCV (80.0-100.0) fL MCH (25.0-35.0) pg MCHC (31.0-37.0) g/dL RDW (11.5-15.5) % Plt Count (150-450) k/uL MPV Neutrophils % % Lymphocytes % % Monocytes % % Eosinophils % % Basophils % % Neutrophils # (1.3-7.7) k/uL Lymphocytes # (1.0-4.8) k/uL Monocytes # (0-1.0) k/uL Eosinophils # (0-0.7) k/uL Basophils # (0-0.2) k/uL Poikilocytosis PT (9.0-12.0) sec INR (<1.2) APTT (22.0-30.0) sec Sodium (137-145) mmol/L Potassium (3.5-5.1) mmol/L Chloride (98-107) mmol/L Carbon Dioxide (22-30) mmol/L Anion Gap mmol/L BUN (7-17) mg/dL Creatinine (0.52-1.04) mg/dL Est GFR (CKD-EPI)AfAm (>60 ml/min/1.73 sqM) Est GFR (CKD-EPI)NonAf (>60 ml/min/1.73 sqM) Glucose (74-99) mg/dL Calcium (8.4-10.2) mg/dL Magnesium (1.6-2.3) mg/dL Total Bilirubin (0.2-1.3) mg/dL AST (14-36) U/L ALT (4-34) U/L Alkaline Phosphatase (38-126) U/L Troponin I 0.068 H* (0.000-0.034) ng/mL NT-Pro-B Natriuret Pep 391 pg/mL Total Protein (6.3-8.2) g/dL Albumin (3.5-5.0) g/dL Urine Color Yellow Urine Appearance Clear (Clear) Urine pH 5.5 (5.0-8.0) Ur Specific [place] 1.029 (1.001-1.035) Urine Protein 1+ H (Negative) Urine Glucose (UA) 4+ H (Negative) Urine Ketones Negative (Negative) Urine Blood Negative (Negative) Urine Nitrite Negative (Negative) Urine Bilirubin Negative (Negative) Urine Urobilinogen <2.0 (<2.0) mg/dL Ur Leukocyte Esterase Small H (Negative) Urine RBC 5 (0-5) /hpf Urine WBC 15 H (0-5) /hpf Ur Squamous Epith Cells 4 (0-4) /hpf Hyaline Casts 3 H (0-2) /lpf Urine Mucus Rare H (None) /hpf Coronavirus (PCR) (Not Detectd) 04/26/21 Range/Units 16:21 WBC (3.8-10.6) k/uL RBC (3.80-5.40) m/uL Hgb (11.4-16.0) gm/dL Hct (34.0-46.0) % MCV (80.0-100.0) fL MCH (25.0-35.0) pg MCHC (31.0-37.0) g/dL RDW (11.5-15.5) % Plt Count (150-450) k/uL MPV Neutrophils % % Lymphocytes % % Monocytes % % Eosinophils % % Basophils % % Neutrophils # (1.3-7.7) k/uL Lymphocytes # (1.0-4.8) k/uL Monocytes # (0-1.0) k/uL Eosinophils # (0-0.7) k/uL Basophils # (0-0.2) k/uL Poikilocytosis PT (9.0-12.0) sec INR (<1.2) APTT (22.0-30.0) sec Sodium (137-145) mmol/L Potassium (3.5-5.1) mmol/L Chloride (98-107) mmol/L Carbon Dioxide (22-30) mmol/L Anion Gap mmol/L BUN (7-17) mg/dL Creatinine (0.52-1.04) mg/dL Est GFR (CKD-EPI)AfAm (>60 ml/min/1.73 sqM) Est GFR (CKD-EPI)NonAf (>60 ml/min/1.73 sqM) Glucose (74-99) mg/dL Calcium (8.4-10.2) mg/dL Magnesium (1.6-2.3) mg/dL Total Bilirubin (0.2-1.3) mg/dL AST (14-36) U/L ALT (4-34) U/L Alkaline Phosphatase (38-126) U/L Troponin I (0.000-0.034) ng/mL NT-Pro-B Natriuret Pep pg/mL Total Protein (6.3-8.2) g/dL Albumin (3.5-5.0) g/dL Urine Color Urine Appearance (Clear) Urine pH (5.0-8.0) Ur Specific [place] (1.001-1.035) Urine Protein (Negative) Urine Glucose (UA) (Negative) Urine Ketones (Negative) Urine Blood (Negative) Urine Nitrite (Negative) Urine Bilirubin (Negative) Urine Urobilinogen (<2.0) mg/dL Ur Leukocyte Esterase (Negative) Urine RBC (0-5) /hpf Urine WBC (0-5) /hpf Ur Squamous Epith Cells (0-4) /hpf Hyaline Casts (0-2) /lpf Urine Mucus (None) /hpf Coronavirus (PCR) Detected A (Not Detectd) - EKG Data EKG shows normal: sinus rhythm Rate: normal EKG Comments: EKG was obtained at 1621 and shows normal sinus rhythm with sinus arrhythmia. Ventricular rate 65, VA interval 186, QRS duration 88, QT/QTC 426/443. ST and T-wave abnormalities noted. - Radiology Data Radiology results: report reviewed, image reviewed Two-view chest x-ray was obtained. Report was reviewed in its entirety. Impression per Dr. Austin is mild cardiomegaly and small posterior pleural effusion Disposition Clinical Impression: COVID-19, Elevated troponin, Hypoxia, Hypomagnesemia Disposition: ADMITTED IP TO THIS HOSP Condition: Serious Decision Date: 04/26/21
--- NOTE | 2021-04-26 16:55 | XR ---
EXAMINATION TYPE: XR chest 2V DATE OF EXAM: 04/26/2021 COMPARISON: 03/19/2021 INDICATION: Dyspnea with exertion TECHNIQUE: Frontal and lateral views of the chest are obtained. FINDINGS: The heart size is slightly prominent. The pulmonary vasculature is normal. Small posterior pleural effusion is present.. IMPRESSION: 1. Mild cardiomegaly. 2. Small posterior pleural effusion
[2021-04-26 16:59] LABS: Basophils % (A) 1 %; Eosinophils % (A) 0 %; HCT 41.8 % (34.0-46.0); INR 1.1 (<1.2); Lymphocytes # (A) 1.1 k/uL (1.0-4.8); Lymphocytes % (A) 31 %; MCH 27.9 pg (25.0-35.0); MCHC 33.6 g/dL (31.0-37.0); MCV 83.1 fL (80.0-100.0); Mean Platelet Volume 7.4; Monocytes # (A) 0.1 k/uL (0-1.0); Monocytes % (A) 3 %; Neutrophils # (A) 2.3 k/uL (1.3-7.7); Neutrophils % (A) 62 %; Partial Thromboplastin Time 29.8 sec (22.0-30.0); Platelet Count 156 k/uL (150-450); Poikilocytosis Slight; Prothrombin Time 11.2 sec (9.0-12.0); RBC 5.03 m/uL (3.80-5.40); RDW 15.1 % (11.5-15.5); WBC 3.6 k/uL (3.8-10.6)
[2021-04-26 17:02] LABS: Albumin 3.5 g/dL (3.5-5.0); Magnesium 1.4 mg/dL (1.6-2.3); Potassium 3.4 mmol/L (3.5-5.1); Total Bilirubin 0.7 mg/dL (0.2-1.3); Total Protein 7.1 g/dL (6.3-8.2)
[2021-04-26] MEDS ORDERED: ACETAMINOPHEN TAB 325 MG TAB PO STA (18:03)
[2021-04-26] MEDS ORDERED: ACETAMINOPHEN TAB 325 MG TAB PO PRN (18:09)
[2021-04-26] MEDS ORDERED: MAGNESIUM OXIDE 400 MG TAB PO STA (18:16)
[2021-04-26] MEDS: SODIUM CHLORIDE 0.9% 1,000 ML IV SCH (18:19)
[2021-04-26] MEDS: DEXAMETHASONE SOD PHOSPHATE 10 MG/ML 1 ML VIAL IVP SCH (18:51)
[2021-04-26] MEDS ORDERED: NITROGLYCERIN SL TABS 0.4 MG TAB SUBLINGUAL PRN (19:14)
[2021-04-26] MEDS ORDERED: POTASSIUM CHLORIDE ER 20 MEQ TAB.ER PO STA (20:04)
[2021-04-26 22:14] LABS: Appearance,Urine Clear (Clear); Bilirubin,Urine Negative (Negative); Blood,Urine Negative (Negative); Color,Urine Yellow; Glucose,Urine (UA) 4+ (Negative); Hyaline Casts,Urine 3 /lpf (0-2); Ketones,Urine Negative (Negative); Leukocyte Esterase,Urine Small (Negative); Mucus,Urine Rare /hpf; Nitrite,Urine Negative (Negative); PH, Urine 5.5 (5.0-8.0); Protein,Urine 1+ (Negative); RBC,Urine 5 /hpf (0-5); Specific Gravity,Urine 1.029 (1.001-1.035); Squamous Epithelial Cell,Urine 4 /hpf (0-4); Urobilinogen,Urine <2.0 mg/dL (<2.0); WBC,Urine 15 /hpf (0-5)
[2021-04-26] MEDS: ATORVASTATIN 40 MG TAB PO SCH (22:30)
[2021-04-26] MEDS: APIXABAN 5 MG TAB PO SCH (22:30)
[2021-04-26] MEDS: LOSARTAN 25 MG TAB PO SCH (22:30)
[2021-04-26] MEDS: PANTOPRAZOLE 40 MG TABLET PO SCH (22:30)
[2021-04-27] MEDS ORDERED: LEVOTHYROXINE 25 MCG TAB PO SCH (06:30)
[2021-04-27] MEDS: SODIUM CHLORIDE 0.9% 1,000 ML IV SCH ×2 (06:57→20:31)
[2021-04-27 07:00] LABS: Glucose,Whole Blood 185 mg/dL (75-99)
[2021-04-27] MEDS: NON FORMULARY DRUG (Dapagliflozin Propanediol [Farxiga] 5 MG Tablet) PO SCH (09:02)
[2021-04-27] MEDS: atenoloL 25 MG TAB PO SCH (09:21)
[2021-04-27] MEDS: CHOLECALCIFEROL 25 MCG (1000 IU) TABLET PO SCH (09:21)
[2021-04-27] MEDS: ZINC SULFATE 220 MG CAP PO SCH (09:22)
[2021-04-27] MEDS: CLOPIDOGREL 75 MG TAB PO SCH (09:22)
[2021-04-27] MEDS: ASCORBIC ACID 500 MG TAB PO SCH (09:22)
[2021-04-27] MEDS: DEXAMETHASONE SOD PHOSPHATE 10 MG/ML 1 ML VIAL IVP SCH (09:22)
[2021-04-27] MEDS: APIXABAN 5 MG TAB PO SCH ×2 (09:22→20:31)
[2021-04-27] MEDS: DOXYCYCLINE 100 MG CAP PO SCH (10:16)
[2021-04-27] MEDS: PANTOPRAZOLE 40 MG TABLET PO SCH (10:17)
[2021-04-27 10:31] LABS: C Reactive Protein 4.3 mg/dL (<1.0)
--- NOTE | 2021-04-27 11:34 | P.CNPUL ---
History of Present Illness Consult date: 04/27/21 Requesting physician: Jackson Benjamin Reason for consult: dyspnea, cough, hypoxemia, pneumonia, abnormal CXR/CT Chief complaint: Shortness of breath. History of present illness: Pulmonary/critical care consult, 04/27/2021. 85-year-old female, poor historian, seen in the emergency department. The pa krystian is in room 19. The patient apparently presented to the emergency department, via EMS, from home, for increasing shortness of breath, and congested cough. The patient hasn't been feeling well for about 2 weeks according to the ER cyn. The patient was hospitalized 1 month ago for chest pain, and had a heart catheterization, with 3 stents being placed. Also, she had decreased appetite, and weakness. There is no fever or chills or headache. No nausea, vomiting, diarrhea, or abdominal pain. The patient's on 3 L nasal cannula. The patient is not receiving any IV fluids. The patient is very frail appearing. No francheska respiratory distress at this time. Labs are reviewed. White count 3.6, hemoglobin 14, hematocrit 41.8, platelet count 156,000. PT, INR, PTT, and d-dimer were all normal. Sodium 136, potassium 3.4, chlorides 103, CO2 24, anion gap 9, BUN 17, creatinine 1.16. Troponins were 0.068 and 0.076. Chest x-ray shows some cardiomegaly, small effusions, and minimal bila teral infiltrates. Review of Systems REVIEW OF SYSTEMS: CONSTITUTIONAL: Weakness, with decreased appetite. NEUROLOGIC: [ Negative.] HEENT: [ Negative.] CARDIAC: [Negative.] PULMONARY: Shortness of breath, chest congestion, and cough. GI: [Negative.] : [Negative.] RHEUMATOLOGIC: [ Negative.] IMMUNOLOGIC: [ Negative.] ENDOCRINE: [Negative. ] DERMATOLOGIC: [Negative.] Past Medical History Past Medical History: Coronary Artery Disease (CAD), Heart Failure, Diabetes Mellitus, Hyperlipidemia, Hypertension Additional Past Medical History / Comment(s): LYMPHEDEMA History of Any Multi-Drug Resistant Organisms: MRSA Date of last positivie culture/infection: 07/14/20 MDRO Source:: RIGHT FOOT Past Surgical History: Unable to Obtain Additional Past Surgical History / Comment(s): Heart cath x3 stents Past Anesthesia/Blood Transfusion Reactions: No Reported Reaction Additional Past Anesthesia/Blood Transfusion Reaction / Comment(s): PATIENT STATES THAT LAST HEART CATH SHE HAD A REACTION-SWOLLEN FACE-RED FACE-ITCHY SKIN Date of Last Stent Placement:: 03/2021 Past Psychological History: No Psychological Hx Reported Smoking Status: Former smoker Past Alcohol Use History: None Reported Past Drug Use History: None Reported - Past Family History Father Family Medical History: Myocardial Infarction ([place]) Additional Family Medical History / Comment(s): AT 45 OF HEART ATTACK Mother Family Medical History: Congestive Heart Failure (CHF) Additional Family Medical History / Comment(s): MOTHER IN 1985 FOUR MONTHS WITH THE 11TH CHILD. CARDIOMYOPATHY Medications and Allergies Home Medications Medication Instructions Recorded Confirmed Type Levothyroxine Sodium [Synthroid] 25 mcg PO DAILY 07/12/20 04/26/21 History Dapagliflozin Propanediol [Farxiga] 5 mg PO DAILY 03/19/21 04/26/21 History Omeprazole [PriLOSEC] 20 mg PO BID 03/19/21 04/26/21 History Atorvastatin [Lipitor] 40 mg PO HS #90 tab 03/22/21 04/26/21 Rx Clopidogrel [Plavix] 75 mg PO DAILY #90 tab 03/22/21 04/26/21 Rx Furosemide [Lasix] 20 mg PO DAILY #30 tab 03/23/21 04/26/21 Rx Losartan [Cozaar] 50 mg PO HS #30 tab 03/23/21 04/26/21 Rx Nitroglycerin Sl Tabs [Nitrostat] 0.4 mg SUBLINGUAL Q5M PRN #25 tab 03/23/21 04/26/21 Rx Apixaban [Eliquis] 5 mg PO BID #60 tab 03/24/21 04/26/21 Rx atenoloL [Tenormin] 25 mg PO DAILY 04/26/21 04/26/21 History Allergies Allergy/AdvReac Type Severity Reaction Status Date / Time Iodinated Contrast Media Allergy Severe Rash/Hives Verified 04/26/21 16:11 hydrocortisone Allergy Intermediate Rash/Hives Verified 04/26/21 16:11 ampicillin [From Polycillin] Allergy Mild Rash/Hives Verified 04/26/21 16:11 cefaclor [From Ceclor] Allergy Mild Rash/Hives Verified 04/26/21 16:11 nitroglycerin Allergy Mild Unknown Verified 04/26/21 16:11 NSAIDS (Non-Steroidal Allergy Mild Unknown Verified 04/26/21 16:11 Anti-Inflamma sulfur dioxide Allergy Mild Unknown Verified 04/26/21 16:11 Physical Exam Osteopathic Statement: *. No significant issues noted on an osteopathic structural exam other than those noted in the History and Physical/Consult. Vitals: Vital Signs Temp Pulse Pulse Resp BP BP Pulse Ox 04/27/21 09:18 51 L 16 117/58 98 04/27/21 04:00 97.4 F L 51 L 16 104/45 96 04/26/21 23:07 97.0 F L 60 18 93/58 97 04/26/21 21:00 98.2 F 61 18 100/61 96 04/26/21 18:25 72 18 130/82 96 04/26/21 17:09 18 04/26/21 16:07 100.1 F H 65 18 107/59 90 L Intake and Output 04/26/21 04/27/21 04/27/21 22:59 06:59 14:59 Other: Voiding Method Bedside Commode Bedside Commode # Voids 2 Weight 68.039 kg Mild tachypnea, currently on nasal O2 at 3 L. Patient is a very poor historian. HEENT examination is grossly unremarkable. Neck supple. Full range of motion. No adenopathy thyromegaly or neck vein distention. Cardiovascular examination reveals regular rhythm rate. S1-S2 normal. No S3 or S4. No discernible murmur noted. Heart sounds distant. Heart rate 61 bpm. Lungs reveal scattered bilateral rhonchi. No crackles. No wheezes. Breath sounds equal bilaterally. Abdomen soft bowel sounds are heard. No masses or tenderness. Extremities are intact. No cyanosis clubbing or edema. Skin is without rash or lesion. Neurologic examination is brief but nonfocal. Results - Laboratory Findings CBC and BMP: 04/26/21 16:21 04/26/21 16:21 PT/INR, D-dimer PT 11.2 sec (9.0-12.0) 04/26/21 16:21 INR 1.1 (<1.2) 04/26/21 16:21 D-Dimer 0.54 mg/L FEU (<0.60) 04/27/21 09:19 Abnormal lab findings: Abnormal Labs 04/26/21 04/26/21 04/26/21 16:21 16:21 16:21 WBC 3.6 L Sodium 136 L Potassium 3.4 L Creatinine 1.16 H Glucose 180 H POC Glucose (mg/dL) Magnesium 1.4 L AST 47 H Troponin I 0.068 H* C-Reactive Protein Urine Protein Urine Glucose (UA) Ur Leukocyte Esterase Urine WBC Hyaline Casts Urine Mucus Coronavirus (PCR) 04/26/21 04/26/21 04/26/21 16:21 16:21 21:17 WBC Sodium Potassium Creatinine Glucose POC Glucose (mg/dL) Magnesium AST Troponin I 0.076 H* C-Reactive Protein Urine Protein 1+ H Urine Glucose (UA) 4+ H Ur Leukocyte Esterase Small H Urine WBC 15 H Hyaline Casts 3 H Urine Mucus Rare H Coronavirus (PCR) Detected A 04/27/21 04/27/21 06:56 09:19 WBC Sodium Potassium Creatinine Glucose POC Glucose (mg/dL) 185 H Magnesium AST Troponin I C-Reactive Protein 4.3 H Urine Protein Urine Glucose (UA) Ur Leukocyte Esterase Urine WBC Hyaline Casts Urine Mucus Coronavirus (PCR) - Diagnostic Findings Chest x-ray: image reviewed Assessment and Plan Assessment: Acute hypoxemic respiratory failure secondary to coronavirus associated pneumonia. Recent admission to hospital for chest pain, status post PCI with 3 stents. History of hypothyroidism. History of diabetes mellitus. History of congestive heart failure. History of CAD. Hyperlipidemia. History of hypertension. Prior history of methicillin-resistant staph aureus infection. History of gastroesophageal reflux disease. Plan: Plan dated 04/27/2021. The patient will get Decadron 6 mg a day, vitamin C, vitamin D3, and zinc, and the patient is ready on Eliquis, as per her recent cardiovascular issues. The patient is a very poor historian, but apparently was having significant shortness of breath at home, as well as productive cough, chest congestion. We will continue to follow make recommendations where appropriate. Has been having symptoms for about 2 weeks, and therefore, is not a candidate for REM. Prognosis is very guarded. The patient is very frail appearing. Time with Patient: Greater than 30
[2021-04-27 12:11] LABS: Glucose,Whole Blood 191 mg/dL (75-99)
[2021-04-27] MEDS: INSULIN ASPART (NovoLOG) 100 UNIT/ML VIAL SQ SCH ×3 (12:17→21:56)
--- NOTE | 2021-04-27 13:01 | P.CRDCN ---
History of Present Illness Consult date: 04/27/21 History of present illness: CHIEF COMPLAINT: Abnormal troponins HISTORY OF PRESENT ILLNESS: This is a 85 year old female with a past medical history significant for hypertension, hyperlipidemia, former nicotine use, paroxysmal atrial fibrillation, diabetes, and coronary artery disease with previous stent placement to the LAD 3 in February 2021. Patient follows in the office with Dr. Ortiz. We have been asked to see the patient in consultation for abnormal troponins. Patient presented to the hospital with a chief complaint of shortness of breath. The patient denied having any chest pain or pressure. The patient was found to be positive for Covid. The patient is currently on 3 L nasal cannula with oxygen saturations greater than 92%. Blood pressure 114/62. The patient is afebrile. DIAGNOSTICS: EKG reveals sinus mechanism with diffuse T-wave inversions. T-wave inversions inferiorly appear to be new compared to old EKG Chest xray mild cardiomegaly. Small posterior pleural effusion. Laboratory data: WBC 3.6. Hemoglobin 14.0. Platelet count 156. D-dimer 0.54. Sodium 136. Potassium 3.4. BUN 17. Creatinine 1.16. Troponin 0.068. 0.076. ProBNP 391. Current home cardiac medications include atenolol 25 mg daily, losartan 50 mg daily, Lasix 20 mg daily, Plavix any 5 mg daily, Lipitor 40 mg daily, and Eliquis 5mg twice a day Echocardiogram completed in February 2021 revealed ejection fraction 55-60%, [id number] aortic regurgitation, severe aortic stenosis, mild mitral regurgitation, mild tricuspid regurgitation, and borderline pulmonary hypertension REVIEW OF SYSTEMS: Thorough review of systems not completed secondary to limited evaluat ion/examination due to Covid19 PHYSICAL EXAM: Thorough physical exam not completed secondary to limited evaluation/examination due to Covid19 ASSESSMENT: Covid 19 Abnormal troponins, secondary to above, no evidence of acute coronary syndrome Acute hypoxic respiratory failure Coronary artery disease with PCI to LAD x 3, February 2021 Paroxysmal atrial fibrillation Hypertension Hyperlipidemia Diabetes Valvular heart disease PLAN: No need to repeat echocardiogram as this was performed in February 2021 Resume home cardiac medications Continue anticoagulation with Eliquis No further inpatient recommendations from a cardiac standpoint We will sign off. Please reconsult if needed. Nurse practitioner note has been reviewed by physician. Signing provider agrees with the documented findings, assessment, and plan of care. Past Medical History Past Medical History: Coronary Artery Disease (CAD), Heart Failure, Diabetes Mellitus, Hyperlipidemia, Hypertension Additional Past Medical History / Comment(s): LYMPHEDEMA History of Any Multi-Drug Resistant Organisms: MRSA Date of last positivie culture/infection: 07/14/20 MDRO Source:: RIGHT FOOT Past Surgical History: Unable to Obtain Additional Past Surgical History / Comment(s): Heart cath x3 stents Past Anesthesia/Blood Transfusion Reactions: No Reported Reaction Additional Past Anesthesia/Blood Transfusion Reaction / Comment(s): PATIENT STATES THAT LAST HEART CATH SHE HAD A REACTION-SWOLLEN FACE-RED FACE-ITCHY SKIN Date of Last Stent Placement:: 03/2021 Past Psychological History: No Psychological Hx Reported Smoking Status: Former smoker Past Alcohol Use History: None Reported Past Drug Use History: None Reported - Past Family History Father Family Medical History: Myocardial Infarction ([place]) Additional Family Medical History / Comment(s): AT 45 OF HEART ATTACK Mother Family Medical History: Congestive Heart Failure (CHF) Additional Family Medical History / Comment(s): MOTHER IN 1985 FOUR MONTHS WITH THE 11TH CHILD. CARDIOMYOPATHY Medications and Allergies Home Medications Medication Instructions Recorded Confirmed Type Levothyroxine Sodium [Synthroid] 25 mcg PO DAILY 07/12/20 04/26/21 History Dapagliflozin Propanediol [Farxiga] 5 mg PO DAILY 03/19/21 04/26/21 History Omeprazole [PriLOSEC] 20 mg PO BID 03/19/21 04/26/21 History Atorvastatin [Lipitor] 40 mg PO HS #90 tab 03/22/21 04/26/21 Rx Clopidogrel [Plavix] 75 mg PO DAILY #90 tab 03/22/21 04/26/21 Rx Furosemide [Lasix] 20 mg PO DAILY #30 tab 03/23/21 04/26/21 Rx Losartan [Cozaar] 50 mg PO HS #30 tab 03/23/21 04/26/21 Rx Nitroglycerin Sl Tabs [Nitrostat] 0.4 mg SUBLINGUAL Q5M PRN #25 tab 03/23/21 04/26/21 Rx Apixaban [Eliquis] 5 mg PO BID #60 tab 03/24/21 04/26/21 Rx atenoloL [Tenormin] 25 mg PO DAILY 04/26/21 04/26/21 History Allergies Allergy/AdvReac Type Severity Reaction Status Date / Time Iodinated Contrast Media Allergy Severe Rash/Hives Verified 04/26/21 16:11 hydrocortisone Allergy Intermediate Rash/Hives Verified 04/26/21 16:11 ampicillin [From Polycillin] Allergy Mild Rash/Hives Verified 04/26/21 16:11 cefaclor [From Ceclor] Allergy Mild Rash/Hives Verified 04/26/21 16:11 nitroglycerin Allergy Mild Unknown Verified 04/26/21 16:11 NSAIDS (Non-Steroidal Allergy Mild Unknown Verified 04/26/21 16:11 Anti-Inflamma sulfur dioxide Allergy Mild Unknown Verified 04/26/21 16:11 Physical Exam Vitals: Vital Signs Temp Pulse Pulse Resp BP BP Pulse Ox 04/27/21 12:07 50 L 16 114/62 98 04/27/21 09:18 51 L 16 117/58 98 04/27/21 04:00 97.4 F L 51 L 16 104/45 96 04/26/21 23:07 97.0 F L 60 18 93/58 97 04/26/21 21:00 98.2 F 61 18 100/61 96 04/26/21 18:25 72 18 130/82 96 04/26/21 17:09 18 04/26/21 16:07 100.1 F H 65 18 107/59 90 L Intake and Output 04/26/21 04/27/21 04/27/21 22:59 06:59 14:59 Other: Voiding Method Bedside Commode Bedside Commode # Voids 2 Weight 68.039 kg Results 04/26/21 16:21 04/26/21 16:21 Cardiac Enzymes 04/26/21 04/26/21 04/26/21 Range/Units 16:21 16:21 21:17 AST 47 H (14-36) U/L Lactate Dehydrogenase (313-618) U/L Troponin I 0.068 H* 0.076 H* (0.000-0.034) ng/mL 04/27/21 Range/Units 09:19 AST (14-36) U/L Lactate Dehydrogenase 572 (313-618) U/L Troponin I (0.000-0.034) ng/mL Coagulation 04/26/21 Range/Units 16:21 PT 11.2 (9.0-12.0) sec APTT 29.8 (22.0-30.0) sec CBC 04/26/21 Range/Units 16:21 WBC 3.6 L (3.8-10.6) k/uL RBC 5.03 (3.80-5.40) m/uL Hgb 14.0 (11.4-16.0) gm/dL Hct 41.8 (34.0-46.0) % Plt Count 156 (150-450) k/uL Comprehensive Metabolic Panel 04/26/21 Range/Units 16:21 Sodium 136 L (137-145) mmol/L Potassium 3.4 L (3.5-5.1) mmol/L Chloride 103 (98-107) mmol/L Carbon Dioxide 24 (22-30) mmol/L BUN 17 (7-17) mg/dL Creatinine 1.16 H (0.52-1.04) mg/dL Glucose 180 H (74-99) mg/dL Calcium 9.0 (8.4-10.2) mg/dL AST 47 H (14-36) U/L ALT 17 (4-34) U/L Alkaline Phosphatase 100 (38-126) U/L Total Protein 7.1 (6.3-8.2) g/dL Albumin 3.5 (3.5-5.0) g/dL Current Medications Generic Name Dose Route Start Last Admin Trade Name Freq PRN Reason Stop Dose Admin Acetaminophen 650 mg 04/26/21 18:09 Acetaminophen Tab 325 Mg Tab PO Q6HR PRN Mild Pain or Fever > 100.5 Apixaban 5 mg 04/26/21 21:00 04/27/21 09:22 Apixaban 5 Mg Tab PO 5 mg BID OSIEL Administration Protocol Ascorbic Acid 500 mg 04/27/21 09:00 04/27/21 09:22 Ascorbic Acid 500 Mg Tab PO 500 mg DAILY OSIEL Administration Atenolol 25 mg 04/27/21 09:00 04/27/21 09:21 Atenolol 25 Mg Tab PO 25 mg DAILY OSIEL Administration Atorvastatin Calcium 40 mg 04/26/21 21:00 04/26/21 22:30 Atorvastatin 40 Mg Tab PO 40 mg HS OSIEL Administration Cholecalciferol 50 mcg 04/27/21 09:00 04/27/21 09:21 Cholecalciferol 25 Mcg (1000 Iu) Tablet PO 50 mcg DAILY OSIEL Administration Clopidogrel Bisulfate 75 mg 04/27/21 09:00 04/27/21 09:22 Clopidogrel 75 Mg Tab PO 75 mg DAILY OSIEL Administration Dexamethasone Sodium Phosphate 6 mg 04/26/21 18:30 04/27/21 09:22 Dexamethasone Sod Phosphate 10 Mg/Ml 1 Ml Vial IVP 6 mg DAILY OSIEL Administration Doxycycline Monohydrate 100 mg 04/27/21 09:15 04/27/21 10:16 Doxycycline 100 Mg Cap PO 100 mg BID OSIEL Administration Sodium Chloride 1,000 mls @ 75 mls/hr 04/26/21 18:15 04/27/21 06:57 Saline 0.9% IV 75 mls/hr .[id number] OSIEL Administration Insulin Aspart 0 unit 04/27/21 12:30 04/27/21 12:17 Insulin Aspart (Novolog) 100 Unit/Ml Vial SQ 2 unit ACHS OSIEL Administration Protocol Levothyroxine Sodium 50 mcg 04/28/21 06:30 Levothyroxine 50 Mcg Tab PO DAILY@0630 COUNTS INCLUDE 234 BEDS AT THE [facility] Losartan Potassium 25 mg 04/26/21 21:00 04/26/21 22:30 Losartan 25 Mg Tab PO 25 mg HS OSIEL Administration Nitroglycerin 0.4 mg 04/26/21 19:14 Nitroglycerin Sl Tabs 0.4 Mg Tab SUBLINGUAL Q5M PRN Chest Pain Non-Formulary Medication 5 mg 04/27/21 09:00 04/27/21 09:02 Dapagliflozin Propanediol [Farxiga] PO Not Given DAILY COUNTS INCLUDE 234 BEDS AT THE [facility] Pantoprazole Sodium 40 mg 04/26/21 21:00 04/27/21 10:17 Pantoprazole 40 Mg Tablet PO 40 mg DAILY OSIEL Administration Zinc Sulfate 220 mg 04/27/21 09:00 04/27/21 09:22 Zinc Sulfate 220 Mg Cap PO 220 mg DAILY OSIEL Administration Intake and Output 04/26/21 04/27/21 04/27/21 22:59 06:59 14:59 Other: Voiding Method Bedside Commode Bedside Commode # Voids 2 Weight 68.039 kg 04/26/21 16:21 04/26/21 16:21
[2021-04-27 17:12] LABS: Glucose,Whole Blood 171 mg/dL (75-99)
[2021-04-27] MEDS ORDERED: MAGNESIUM SULFATE-D5W PMX 1 GM in DEXTROSE/WATER 1 100ML.BAG IVPB SCH (19:30)
[2021-04-27] MEDS: ATORVASTATIN 40 MG TAB PO SCH (20:31)
[2021-04-27] MEDS: LOSARTAN 25 MG TAB PO SCH (20:31)
[2021-04-27 21:11] LABS: Glucose,Whole Blood 193 mg/dL (75-99)
[2021-04-27] MEDS ORDERED: POTASSIUM CHLORIDE ER 20 MEQ TAB.ER PO ONE (22:00)
[2021-04-28] MEDS: DOXYCYCLINE 100 MG CAP PO SCH ×3 (04:31→20:41)
[2021-04-28] MEDS: INSULIN ASPART (NovoLOG) 100 UNIT/ML VIAL SQ SCH ×4 (06:24→20:41)
[2021-04-28] MEDS: LEVOTHYROXINE 50 MCG TAB PO SCH (06:24)
[2021-04-28 06:36] LABS: Glucose,Whole Blood 187 mg/dL (75-99)
[2021-04-28] MEDS: atenoloL 25 MG TAB PO SCH (08:59)
[2021-04-28 09:58] LABS: Basophils % (A) 0 %; Eosinophils % (A) 0 %; HCT 44.8 % (34.0-46.0); HGB 13.9 gm/dL (11.4-16.0); Lymphocytes # (A) 1.3 k/uL (1.0-4.8); Lymphocytes % (A) 20 %; MCH 26.6 pg (25.0-35.0); MCHC 31.1 g/dL (31.0-37.0); MCV 85.4 fL (80.0-100.0); Mean Platelet Volume 8.8; Monocytes # (A) 0.3 k/uL (0-1.0); Monocytes % (A) 5 %; Neutrophils # (A) 4.6 k/uL (1.3-7.7); Neutrophils % (A) 72 %; Platelet Count 141 k/uL (150-450); RBC 5.24 m/uL (3.80-5.40); RDW 14.6 % (11.5-15.5); WBC 6.4 k/uL (3.8-10.6)
[2021-04-28 10:09] LABS: Calcium 9.3 mg/dL (8.4-10.2); Total Bilirubin 0.7 mg/dL (0.2-1.3)
[2021-04-28] MEDS: APIXABAN 5 MG TAB PO SCH ×2 (10:19→20:41)
[2021-04-28] MEDS: DEXAMETHASONE SOD PHOSPHATE 10 MG/ML 1 ML VIAL IVP SCH (10:19)
[2021-04-28] MEDS: ZINC SULFATE 220 MG CAP PO SCH (10:19)
[2021-04-28] MEDS: ASCORBIC ACID 500 MG TAB PO SCH (10:19)
[2021-04-28] MEDS: CHOLECALCIFEROL 25 MCG (1000 IU) TABLET PO SCH (10:19)
[2021-04-28] MEDS: CLOPIDOGREL 75 MG TAB PO SCH (10:19)
[2021-04-28] MEDS: PANTOPRAZOLE 40 MG TABLET PO SCH (10:20)
[2021-04-28 10:21] LABS: Albumin 3.3 g/dL (3.5-5.0); Magnesium 1.6 mg/dL (1.6-2.3); Potassium 4.1 mmol/L (3.5-5.1); Total Protein 7.1 g/dL (6.3-8.2)
[2021-04-28 12:01] LABS: Glucose,Whole Blood 217 mg/dL (75-99)
[2021-04-28] MEDS: NON FORMULARY DRUG (Dapagliflozin Propanediol [Farxiga] 5 MG Tablet) PO SCH (12:13)
--- NOTE | 2021-04-28 15:29 | P.PN ---
Subjective Progress Note Date: 04/28/21 Principal diagnosis: Shortness of breath 85-year-old female, poor historian, seen in the emergency department. The patient is in room 19. The patient apparently presented to the emergency department, via EMS, from home, for increasing shortness of breath, and congested cough. The patient hasn't been feeling well for about 2 weeks according to the ER cyn. The patient was hospitalized 1 month ago for chest pain, and had a heart catheterization, with 3 stents being placed. Also, she had decreased appetite, and weakness. There is no fever or chills or headache. No nausea, vomiting, diarrhea, or abdominal pain. The patient's on 3 L nasal cannula. The patient is not receiving any IV fluids. The patient is very frail appearing. No francheska respiratory distress at this time. Labs are reviewed. White count 3.6, hemoglobin 14, hematocrit 41.8, platelet count 156,000. PT, INR, PTT, and d-dimer were all normal. Sodium 136, potassium 3.4, chlorides 103, CO2 24, anion gap 9, BUN 17, creatinine 1.16. Troponins were 0.068 and 0.076. Chest x-ray shows some cardiomegaly, small effusions, and minimal bilateral infiltrates. On 04/28/2021 patient seen in follow-up on selective care unit, she is breathing comfortably, patient is very hard of hearing, its difficult to communicate with heart however she denies any dyspnea, no cough, she is on 3 L of oxygen, pulse o x is 93-98%, she is afebrile. Vital signs have been stable overnight. She states she is having some mild stomach upset, at times she feels slightly nauseous, she is trying to eat smaller meals to avoid gastric distention, and nausea. No vomiting. Patient is currently on Decadron 6 mg daily, she is on COVID-19 vitamins, she is on Eliquis. Her pro-calcitonin level was negative at 0.15. Urinalysis on admission was suggesting presence of urinary tract infection, urine culture is pending, no urinary symptoms. She remains on doxycycline which was started on outpatient basis. Today's labs have been reviewed showing white blood cell count of 6.4, hemoglobin 13.9, her d-dimer today has significantly increased and is up at 25.06, sodium is 136, potassium is 4.1, chloride is 107, B1 is 29, creatinine 0.9. LDH is 639, CRP is down to 2.0. Objective - Vital Signs Vital signs: Vital Signs Temp 96.3 F L 04/28/21 08:00 Pulse 54 L 04/28/21 08:00 Resp 18 04/28/21 08:00 BP 96/53 04/28/21 08:00 Pulse Ox 93 L 04/28/21 08:00 Intake & Output 04/27/21 04/28/21 04/28/21 18:59 06:59 18:59 Intake Total 480 240 Output Total 300 200 Balance 180 40 Weight 103 kg Intake: Oral 480 240 Output: Urine 300 200 Other: Voiding Method External Catheter # Voids 2 # Bowel Movements 0 1 - Exam GENERAL EXAM: Alert, very pleasant 85-year-old white female, on 3 L of oxygen with pulse ox of 93%, comfortable in no apparent distress. HEAD: Normocephalic/atraumatic. EYES: Normal reaction of pupils, equal size. Conjunctiva pink, sclera white. NOSE: Clear with pink turbinates. THROAT: No erythema or exudates. NECK: No masses, no JVD, no thyroid enlargement, no adenopathy. CHEST: No chest wall deformity. Symmetrical expansion. LUNGS: Equal air entry with diffuse crackles CVS: Regular rate and rhythm, normal S1 and S2, no gallops, no murmurs, no rubs ABDOMEN: Soft, nontender. No hepatosplenomegaly, normal bowel sounds, no guarding or rigidity. EXTREMITIES: No clubbing, no edema, no cyanosis, 2+ pulses and upper and lower extremities. MUSCULOSKELETAL: Muscle strength and tone normal. SPINE: No scoliosis or deformity SKIN: No rashes CENTRAL NERVOUS SYSTEM: Alert and oriented -3. No focal deficits, tone is normal in all 4 extremities. PSYCHIATRIC: Alert and oriented -3. Appropriate affect. Intact judgment and insight. - Labs CBC & Chem 7: 04/28/21 08:46 04/28/21 08:46 Labs: Abnormal Lab Results - Last 24 Hours (Table) 04/27/21 04/27/21 04/27/21 Range/Units 09:19 17:11 21:05 Plt Count (150-450) k/uL D-Dimer (<0.60) mg/L FEU Sodium (137-145) mmol/L Carbon Dioxide (22-30) mmol/L BUN (7-17) mg/dL Glucose (74-99) mg/dL POC Glucose (mg/dL) 171 H 193 H (75-99) mg/dL AST (14-36) U/L Lactate Dehydrogenase (313-618) U/L C-Reactive Protein (<1.0) mg/dL Albumin (3.5-5.0) g/dL Procalcitonin 0.15 H (0.02-0.09) ng/mL 04/28/21 04/28/21 04/28/21 Range/Units 06:18 08:46 08:46 Plt Count (150-450) k/uL D-Dimer 25.06 H (<0.60) mg/L FEU Sodium 136 L (137-145) mmol/L Carbon Dioxide 19 L (22-30) mmol/L BUN 29 H (7-17) mg/dL Glucose 187 H (74-99) mg/dL POC Glucose (mg/dL) 187 H (75-99) mg/dL AST 45 H (14-36) U/L Lactate Dehydrogenase 639 H (313-618) U/L C-Reactive Protein 2.0 H (<1.0) mg/dL Albumin 3.3 L (3.5-5.0) g/dL Procalcitonin (0.02-0.09) ng/mL 04/28/21 04/28/21 Range/Units 08:46 11:58 Plt Count 141 L (150-450) k/uL D-Dimer (<0.60) mg/L FEU Sodium (137-145) mmol/L Carbon Dioxide (22-30) mmol/L BUN (7-17) mg/dL Glucose (74-99) mg/dL POC Glucose (mg/dL) 217 H (75-99) mg/dL AST (14-36) U/L Lactate Dehydrogenase (313-618) U/L C-Reactive Protein (<1.0) mg/dL Albumin (3.5-5.0) g/dL Procalcitonin (0.02-0.09) ng/mL Assessment and Plan Plan: Assessment: #1. Acute hypoxic respiratory failure secondary to COVID-19, patient was outside the window for Remdesivir, patient presented 2 weeks after symptom onset, patient is currently on Decadron #2. History of paroxysmal atrial fibrillation on Eliquis #3. Abnormal troponins, please refer to cardiology consultation, not thought to be related to acute coronary syndrome #4. History of coronary artery disease status post PCI to the LAD 3 in February 2021 #5. Hypertension #6. Hyperlipidemia #7. Diabetes mellitus type 2 #8. Valvular heart disease, with history of mild to moderate aortic regurgitation, severe aortic stenosis, mild mitral regurgitation, and mild tricuspid regurgitation #9. Previous history of MRSA infection #10. Former smoker Plan: Continue current medical treatment Continue Decadron Breathing has been stable Antibiotics have been noted, not significantly elevated Today's d-dimer has been noted, patient is oriented on oral anticoagulation We'll continue to follow Monitor for worsening dyspnea or hypoxia So far no deterioration in work of breathing effort, or oxygen requirement since admission We'll follow I performed a history & physical examination of the patient and discussed their management with my nurse practitioner, Macy Leyva. I reviewed the nurse practitioner's note and agree with the documented findings and plan of care. Lung sounds are positive for diminished breath sounds throughout the lung john. The findings and the impression was discussed with the patient. I attest to the documentation by the nurse practitioner. Time with Patient: Less than 30
[2021-04-28 17:31] LABS: Glucose,Whole Blood 226 mg/dL (75-99)
[2021-04-28] MEDS: SODIUM CHLORIDE 0.9% 1,000 ML IV SCH ×2 (18:49→20:52)
[2021-04-28 20:07] LABS: Glucose,Whole Blood 244 mg/dL (75-99)
[2021-04-28] MEDS: ATORVASTATIN 40 MG TAB PO SCH (20:41)
[2021-04-28] MEDS: LOSARTAN 25 MG TAB PO SCH (20:50)
[2021-04-29] MEDS: LEVOTHYROXINE 50 MCG TAB PO SCH (06:36)
[2021-04-29] MEDS: INSULIN ASPART (NovoLOG) 100 UNIT/ML VIAL SQ SCH ×4 (06:36→20:36)
[2021-04-29 07:00] LABS: Glucose,Whole Blood 139 mg/dL (75-99)
[2021-04-29] MEDS: ASCORBIC ACID 500 MG TAB PO SCH (09:05)
[2021-04-29] MEDS: CLOPIDOGREL 75 MG TAB PO SCH (09:05)
[2021-04-29] MEDS: APIXABAN 5 MG TAB PO SCH ×2 (09:05→20:36)
[2021-04-29] MEDS: CHOLECALCIFEROL 25 MCG (1000 IU) TABLET PO SCH (09:05)
[2021-04-29] MEDS: ZINC SULFATE 220 MG CAP PO SCH (09:06)
[2021-04-29] MEDS: DEXAMETHASONE SOD PHOSPHATE 10 MG/ML 1 ML VIAL IVP SCH (09:06)
[2021-04-29] MEDS: PANTOPRAZOLE 40 MG TABLET PO SCH (09:06)
[2021-04-29] MEDS: DOXYCYCLINE 100 MG CAP PO SCH ×2 (09:06→20:36)
[2021-04-29] MEDS: NON FORMULARY DRUG (Dapagliflozin Propanediol [Farxiga] 5 MG Tablet) PO SCH (09:13)
--- NOTE | 2021-04-29 09:19 | P.HPIM ---
History of Present Illness H&P Date: 04/26/21 Chief Complaint: Difficulty in breathing COVID-19 non-ST elevation OK HISTORY OF PRESENT ILLNESS: This is an 85-year-old female one of my patient with a previous me dical history significant for hypertension and hypertensive cardiovascular disease, hyperlipidemia, diabetes mellitus type 2, osteoarthritis, coronary artery disease, history of CVA, history of the osteomyelitis of the right heel with multidrug resistant Acinetobacter that was treated in June of this year, patient developed to have a significant upper respiratory tract infection associated with sore throat as well as coughing and minimal from production with increased shortness with about a few weeks prior to her presentation, she stated that her daughter has been feeling extremely sick with increased abdominal pain nausea vomiting with upper respiratory tract infection, her granddaughter brought her to the office for evaluation and the patient was somewhat hypoxemic with an oxygen saturation between 90-91%, slightly hypotensive, with the significant upper respiratory tract infection, patient had the laboratory evaluation that showed an elevation of her troponin contacted the patient and she was sent to the ER for evaluation surprisingly her Covid 19 PCR came back positive and the patient was found to have slight elevation of the troponin secondary to type II OK due to her Covid 19 infection. Patient was seen in consultation by pulmonary medicine and we'll start the patient is out of the window for Remdesivir and that she was started on Decadron 6 mg IV push every 6 hours along with vitamin C and vitamin D along with zinc sulfate and she was placed on oxygen support, and the treatment was supportive care this point in time. Cardiology consultation was obtained as well as REVIEW OF SYSTEMS: Constitutional: No documented fever, no chills, no night sweats. No weight change. positive for weakness, fatigue no lethargy. No daytime sleepiness. HEENT: No headache. No blurred vision or double vision, no loss of vision. No loss of Hearing, no ringing in the ears, no dizziness. No nasal drainage or congestion. No epistaxis. No sore throat. Lungs: positive for shortness of breath, positive for cough, no sputum production. No wheezing. Reports dyspnea with activity. Cardiovascular: positive for right sided chest pain, no lower extremity edema. positive for palpitations. No paroxysmal nocturnal dyspnea. No orthopnea. No lightheadedness or dizziness. No syncopal episodes. Abdominal: Reports abdominal pain. positive for nausea, no vomiting. No d iarrhea. No constipation. No bloody or tarry stools reports loss of appetite. Genitourinary: No dysuria, increased frequency, urgency. No urinary retention. Musculoskeletal: No myalgias. positive for muscle weakness, gait dysfunction, no frequent falls. No back pain. No neck pain. Integumentary: Right heel scab and dry skin in both legs and feet, no lesions. No rash or pruritus. No unusual bruising. No change in hair or nails. Neurologic: No aphasia. No facial droop. No change in mentation. No head injury. No headache. No paralysis. No paresthesia. Psychiatric: No depression. No anxiety. No mood swings. Endocrine: No abnormal blood sugars. No weight change. PAST MEDICAL HISTORY: Coronary artery disease. Hypertension and hypertensive cardiovascular disease. Hyperlipidemia. Diabetes mellitus type 2. Osteoarthritis. Aortic valve stenosis. Aortic regurgitation. Chronic diastolic heart failure. History of osteomyelitis of the right heel Hypothyroidism. Paroxysmal atrial fibrillation. PAST SURGICAL HISTORY: Bilateral cataract surgery. SOCIAL HISTORY: Patient used to smoke about pack every day but she quit many years ago, she denies any drug use or abuse, she has no alcohol ingestion, she lives with her daughter. FAMILY HISTORY: Mother at age of 77 from myocardial infarction, father at age 44 from a massive heart attack, patient had 4 brothers her oldest brothers at the age of 87 after coronary artery bypass graft the other one at age of 86 from Alzheimer dementia, she still have 2 living brothers one of them with coronary artery bypass graft as well as OK status post PCI with idiopathic pulmonary fibrosis of diabetes mellitus type 2 her fourth brother is healthy patient also had 6 sisters one of them from the pulmonary medicine and significant blood clots the other one in the hospital after she did have a shoulder surgery and she ended up with sepsis, patient also has one sister with TIA without CVA 1 is bedridden about 89-year-old she is bed ridden due to multiple strokes, and one is alive with Alzheimer PHYSICAL EXAMINATION: General: 85-year-old female who is laying down in bed in mild acute distress. HEENT: Head is atraumatic, normocephalic, pupils were equal round reactive to light and recommendation, extraocular muscle movement were intact, sclera nonicteric, conjunctivae were pale, mucous membranes of the mouth are somewhat dry. Neck: Supple, no JVP, normal carotid upstroke bilaterally, no lymphadenopathy. Chest: Decreased breath sounds at the bases, few rhonchi, no expiratory wheezes, no chest wall tenderness, no intercostal retractions. Heart: First heart sound is normal, second heart sounds normal there is systolic ejection murmur 3/6 located in the right second intercostal space related to the base of the neck Abdomen: Soft, nontender, nondistended, positive bowel sounds, there is no hepatosplenomegaly. Extremities: There is no edema no calf tenderness DP +1 bilaterally, chronic skin changes with thick skin to the feet and a scab to the right heel Neurologic examination: Patient is awake alert and oriented X 3, cranial nerves II-12 appear grossly intact, muscle power were 5 out of 5 in upper extremities and 5 out of 5 in bilateral lower extremities, deep tendon reflexes normal bilaterally. ASSESSMENT AND PLAN: 1. COVID-19 without evidence of pneumonia. Continue patient on oxygen, continue patient on droplet precautions, continue vitamin C vitamin D and zinc sulfate, start Decadron 6 but gram IV push daily. pulmonary consultation appreciated. 2. Type II OK due to COVID-19 infection .no need for any further intervention patient did have a recent left heart catheterization with stent placed in the proximal and mid LAD that was done successfully by Dr. Montelongo continue patient on atenolol 25 mg orally once every day, continue patient on losartan 25 mg orally once every day, continue aspirin 81 mg once every day, continue also to monitor the patient very closely. 3. Hypertension and hypertensive cardiovascular disease. Continue patient on losartan 25 mg once every day, continue with atenolol 25 mg orally once every day, monitor the patient blood pressure very closely. 4. Hyperlipidemia. Continue patient on atorvastatin 40 mg once every day. 5. Hypothyroidism. Continue patient on Synthroid and increase to 50 MCG orally once every day. 6. Diabetes mellitus type 2. Continue patient on Farxiga 5 mg orally once every day start the patient on SSI. 7. Paroxysmal atrial for ablation. Currently on Eliquis 5 mg orally twice every day. 7. Osteoarthritis. Clinically stable. 8. GERD. Continue with Protonix 40 mg orally once every day. 9. history of CVA in the past. Continue aspirin as well as atorvastatin for secondary prevention. 10. DVT prophylaxis. continue Eliquis 5 mg po bid 11. GI prophylaxis. Continue Protonix 40 mg orally once every day. 12. Admit to inpatient. Estimate a length of stay 2 midnights. 13. Full code. Past Medical History Past Medical History: Coronary Artery Disease (CAD), Heart Failure, Diabetes Mellitus, Hyperlipidemia, Hypertension Additional Past Medical History / Comment(s): LYMPHEDEMA History of Any Multi-Drug Resistant Organisms: MRSA Date of last positivie culture/infection: 07/14/20 MDRO Source:: RIGHT FOOT Past Surgical History: Unable to Obtain Past Anesthesia/Blood Transfusion Reactions: No Reported Reaction Additional Past Anesthesia/Blood Transfusion Reaction / Comment(s): PATIENT STATES THAT LAST HEART CATH SHE HAD A REACTION-SWOLLEN FACE-RED FACE-ITCHY SKIN Past Psychological History: No Psychological Hx Reported Smoking Status: Former smoker Past Alcohol Use History: None Reported Past Drug Use History: None Reported - Past Family History Father Family Medical History: Myocardial Infarction (OK) Additional Family Medical History / Comment(s): AT 45 OF HEART ATTACK Mother Family Medical History: Congestive Heart Failure (CHF) Additional Family Medical History / Comment(s): MOTHER IN 1985 FOUR MONTHS WITH THE 11TH CHILD. CARDIOMYOPATHY Medications and Allergies Home Medications Medication Instructions Recorded Confirmed Type Levothyroxine Sodium [Synthroid] 25 mcg PO DAILY 07/12/20 04/26/21 History Dapagliflozin Propanediol [Farxiga] 5 mg PO DAILY 03/19/21 04/26/21 History Omeprazole [PriLOSEC] 20 mg PO BID 03/19/21 04/26/21 History Atorvastatin [Lipitor] 40 mg PO HS #90 tab 03/22/21 04/26/21 Rx Clopidogrel [Plavix] 75 mg PO DAILY #90 tab 03/22/21 04/26/21 Rx Furosemide [Lasix] 20 mg PO DAILY #30 tab 03/23/21 04/26/21 Rx Losartan [Cozaar] 50 mg PO HS #30 tab 03/23/21 04/26/21 Rx Nitroglycerin Sl Tabs [Nitrostat] 0.4 mg SUBLINGUAL Q5M PRN #25 tab 03/23/21 04/26/21 Rx Apixaban [Eliquis] 5 mg PO BID #60 tab 03/24/21 04/26/21 Rx atenoloL [Tenormin] 25 mg PO DAILY 04/26/21 04/26/21 History Allergies Allergy/AdvReac Type Severity Reaction Status Date / Time Iodinated Contrast Media Allergy Severe Rash/Hives Verified 04/26/21 16:11 hydrocortisone Allergy Intermediate Rash/Hives Verified 04/26/21 16:11 ampicillin [From Polycillin] Allergy Mild Rash/Hives Verified 04/26/21 16:11 cefaclor [From Ceclor] Allergy Mild Rash/Hives Verified 04/26/21 16:11 nitroglycerin Allergy Mild Unknown Verified 04/26/21 16:11 NSAIDS (Non-Steroidal Allergy Mild Unknown Verified 04/26/21 16:11 Anti-Inflamma sulfur dioxide Allergy Mild Unknown Verified 04/26/21 16:11 Physical Exam Vitals: Vital Signs Temp Pulse Resp BP Pulse Ox 04/26/21 18:25 72 18 130/82 96 04/26/21 17:09 18 04/26/21 16:07 100.1 F H 65 18 107/59 90 L Intake and Output 04/26/21 04/26/21 04/26/21 06:59 14:59 22:59 Other: Weight 68.039 kg Results CBC & Chem 7: 04/28/21 08:46 04/28/21 08:46 Labs: Abnormal Lab Results - Last 24 Hours (Table) 04/26/21 04/26/21 04/26/21 Range/Units 16:21 16:21 16:21 WBC 3.6 L (3.8-10.6) k/uL Sodium 136 L (137-145) mmol/L Potassium 3.4 L (3.5-5.1) mmol/L Creatinine 1.16 H (0.52-1.04) mg/dL Glucose 180 H (74-99) mg/dL Magnesium 1.4 L (1.6-2.3) mg/dL AST 47 H (14-36) U/L Troponin I 0.068 H* (0.000-0.034) ng/mL Coronavirus (PCR) (Not Detectd) 04/26/21 Range/Units 16:21 WBC (3.8-10.6) k/uL Sodium (137-145) mmol/L Potassium (3.5-5.1) mmol/L Creatinine (0.52-1.04) mg/dL Glucose (74-99) mg/dL Magnesium (1.6-2.3) mg/dL AST (14-36) U/L Troponin I (0.000-0.034) ng/mL Coronavirus (PCR) Detected A (Not Detectd)
--- NOTE | 2021-04-29 10:35 | P.PN ---
Subjective Progress Note Date: 04/29/21 HISTORY OF PRESENT ILLNESS: This is an 85-year-old female one of my patient with a previous med ica history significant for hypertension and hypertensive cardiovascular disease, hyperlipidemia, diabetes mellitus type 2, osteoarthritis, coronary artery disease, history of CVA, history of the osteomyelitis of the right heel with multidrug resistant Acinetobacter that was treated in June of this year, patient developed to have a significant upper respiratory tract infection associated with sore throat as well as coughing and minimal from production with increased shortness with about a few weeks prior to her presentation, she stated that her daughter has been feeling extremely sick with increased abdominal pain nausea vomiting with upper respiratory tract infection, her granddaughter brought her to the office for evaluation and the patient was somewhat hypoxemic with an oxygen saturation between 90-91%, slightly hypotensive, with the significant upper respiratory tract infection, patient had the laboratory evaluation that showed an elevation of her troponin contacted the patient and she was sent to the ER for evaluation surprisingly her Covid 19 PCR came back positive and the patient was found to have slight elevation of the troponin secondary to type II [place] due to her Covid 19 infection. Patient was seen in consultation by pulmonary medicine and we'll start the patient is out of the window for Remdesivir and that she was started on Decadron 6 mg IV push every 6 hours along with vitamin C and vitamin D along with zinc sulfate and she was placed on oxygen support, and the treatment was supportive care this point in time. Cardiology consultation was obtained as well as 04/27: Patient is seen today in the emergency center waiting for a cardiac stepdown bed. Temperature maximum 100.1, heart rate 51 and sinus rhythm, blood pressure 104/54, pulse ox 96% on 3 L. Patient will be started on doxycycline for UTI, urine culture is in progress. Patient has been seen by pulmonary medicine this morning and is outside the window for Remdesivir. Repeat inflammatory markers have been ordered. Patient is currently nothing by mouth for cardiology. Troponins are 0.040, 0.068, 0.076. 04/28: Patient has been seen by cardiology for abnormal troponin secondary to coated 19 and acute coronary syndrome has been ruled out. Recommendations are to resume home medications continue anticoagulation and cardiology has signed off and following on an as-needed basis. Patient is seen today on the cardiac stepdown unit. She's been afebrile, heart rate running in the high 40s through the night, blood pressure 118/72, pulse ox 90% on 3 L nasal cannula. Capillary blood glucose running between 171 and 193. Blood work obtained yesterday revealed pro-calcitonin 0.15, C-reactive protein 4.3, LDH 572, d-dimer 0.54. Urine culture is in progress. Patient has on oral doxycycline. Patient's heart rate during the night had dropped down to the high 30s and running 40s and low 50s during the day. She has not been receiving atenolol which will be discontinued. 04/29: Patient is sitting up in bed is in less distress she continues to have congested cough minimal from production, she had an episode of nosebleed yesterday, her appetite is about the same, she denies any abdominal pain, nausea vomiting or diarrhea she has no pleurisy or hemoptysis, she seems to be tolerating her treatment very well. REVIEW OF SYSTEMS: Constitutional: No documented fever, no chills, no night sweats. No weight change. positive for weakness, fatigue no lethargy. No daytime sleepiness. HEENT: No headache. No blurred vision or double vision, no loss of vision. No loss of Hearing, no ringing in the ears, no dizziness. No nasal drainage or congestion. No epistaxis. No sore throat. Lungs: positive for shortness of breath, positive for cough, no sputum production. No wheezing. Reports dyspnea with activity. Cardiovascular: positive for right sided chest pain, no lower extremity edema. positive for palpitations. No paroxysmal nocturnal dyspnea. No orthopnea. No lightheadedness or dizziness. No syncopal episodes. Abdominal: Reports abdominal pain. positive for nausea, no vomiting. No diarrhea. No constipation. No bloody or tarry stools reports loss of appetite. Genitourinary: No dysuria, increased frequency, urgency. No urinary retention. Musculoskeletal: No myalgias. positive for muscle weakness, gait dysfunction, no frequent falls. No back pain. No neck pain. Integumentary: Right heel scab and dry skin in both legs and feet, no lesions. No rash or pruritus. No unusual bruising. No change in hair or nails. Neurologic: No aphasia. No facial droop. No change in mentation. No head injury. No headache. No paralysis. No paresthesia. Psychiatric: No depression. No anxiety. No mood swings. Endocrine: No abnormal blood sugars. No weight change. PHYSICAL EXAMINATION: General: 85-year-old female who is laying down in bed in mild acute distress. HEENT: Head is atraumatic, normocephalic, pupils were equal round reactive to light and recommendation, extraocular muscle movement were intact, sclera nonicteric, conjunctivae were pale, mucous membranes of the mouth are somewhat dry. Neck: Supple, no JVP, normal carotid upstroke bilaterally, no lymphadenopathy. Chest: Decreased breath sounds at the bases, few rhonchi, no expiratory wheezes, no chest wall tenderness, no intercostal retractions. Heart: First heart sound is normal, second heart sounds normal there is systolic ejection murmur 3/6 located in the right second intercostal space related to the base of the neck Abdomen: Soft, nontender, nondistended, positive bowel sounds, there is no hepatosplenomegaly. Extremities: There is no edema no calf tenderness DP +1 bilaterally, chronic skin changes with thick skin to the feet and a scab to the right heel Neurologic examination: Patient is awake alert and oriented X 3, cranial nerves II-12 appear grossly intact, muscle power were 5 out of 5 in upper extremities and 5 out of 5 in bilateral lower extremities, deep tendon reflexes normal bilaterally. ASSESSMENT AND PLAN: 1. COVID-19 without evidence of pneumonia. Continue patient on oxygen, continue patient on droplet precautions, continue vitamin C vitamin D and zinc sulfate, start Decadron 6 but gram IV push daily, continue doxycycline 100 mg orally twice every day, pulmonary consultation appreciated. 2. Type II [place] due to COVID-19 infection .no need for any further intervention patient did have a recent left heart catheterization with stent placed in the proximal and mid LAD that was done successfully by Dr. Montelongo continue patient on atenolol 25 mg orally once every day, continue patient on losartan 25 mg orally once every day, continue Plavix 75 minute gram orally once every day and atorvastatin 40 mg orally once every day. 3. Hypertension and hypertensive cardiovascular disease. Continue patient on losartan 25 mg once every day, continue with atenolol 25 mg orally once every day, monitor the patient blood pressure very closely. 4. Hyperlipidemia. Continue patient on atorvastatin 40 mg once every day. 5. Hypothyroidism. Continue patient on Synthroid and increase to 50 MCG orally once every day. 6. Diabetes mellitus type 2. Continue patient on Farxiga 5 mg orally once every day start the patient on SSI. 7. Paroxysmal atrial for ablation. Currently on Eliquis 5 mg orally twice every day. 7. Osteoarthritis. Clinically stable. 8. GERD. Continue with Protonix 40 mg orally once every day. 9. history of CVA in the past. Continue aspirin as well as atorvastatin for secondary prevention. 10. DVT prophylaxis. continue Eliquis 5 mg po bid 11. GI prophylaxis. Continue Protonix 40 mg orally once every day. 12. Physical therapy evaluation. Objective - Vital Signs Vital signs: Vital Signs Temp 97.6 F 04/29/21 04:00 Pulse 54 L 04/29/21 04:00 Resp 16 04/29/21 04:00 BP 126/58 04/29/21 04:00 Pulse Ox 94 L 04/29/21 08:46 Intake & Output 04/28/21 04/29/21 04/29/21 18:59 06:59 18:59 Intake Total 360 240 Output Total 200 350 Balance 160 -110 Weight 102.1 kg Intake: Oral 360 240 Output: Urine 200 350 Other: Voiding Method Bedside Commode # Voids 1 # Bowel Movements 1 - Labs CBC & Chem 7: 04/28/21 08:46 04/28/21 08:46 Labs: Abnormal Lab Results - Last 24 Hours (Table) 04/28/21 04/28/21 04/28/21 Range/Units 08:46 08:46 08:46 Plt Count 141 L (150-450) k/uL D-Dimer 25.06 H (<0.60) mg/L FEU Sodium 136 L (137-145) mmol/L Carbon Dioxide 19 L (22-30) mmol/L BUN 29 H (7-17) mg/dL Glucose 187 H (74-99) mg/dL POC Glucose (mg/dL) (75-99) mg/dL AST 45 H (14-36) U/L Lactate Dehydrogenase 639 H (313-618) U/L C-Reactive Protein 2.0 H (<1.0) mg/dL Albumin 3.3 L (3.5-5.0) g/dL 04/28/21 04/28/21 04/28/21 Range/Units 11:58 17:30 19:42 Plt Count (150-450) k/uL D-Dimer (<0.60) mg/L FEU Sodium (137-145) mmol/L Carbon Dioxide (22-30) mmol/L BUN (7-17) mg/dL Glucose (74-99) mg/dL POC Glucose (mg/dL) 217 H 226 H 244 H (75-99) mg/dL AST (14-36) U/L Lactate Dehydrogenase (313-618) U/L C-Reactive Protein (<1.0) mg/dL Albumin (3.5-5.0) g/dL 04/29/21 Range/Units 06:33 Plt Count (150-450) k/uL D-Dimer (<0.60) mg/L FEU Sodium (137-145) mmol/L Carbon Dioxide (22-30) mmol/L BUN (7-17) mg/dL Glucose (74-99) mg/dL POC Glucose (mg/dL) 139 H (75-99) mg/dL AST (14-36) U/L Lactate Dehydrogenase (313-618) U/L C-Reactive Protein (<1.0) mg/dL Albumin (3.5-5.0) g/dL Microbiology - Last 24 Hours (Table) 04/26/21 16:21 Urine Culture - Preliminary Urine,Voided Gram Neg Bacilli
[2021-04-29 10:45] LABS: Basophils % (A) 0 %; Eosinophils % (A) 0 %; HCT 40.8 % (34.0-46.0); Hypochromasia Slight; Lymphocytes # (A) 1.2 k/uL (1.0-4.8); Lymphocytes % (A) 18 %; MCH 27.6 pg (25.0-35.0); MCHC 31.8 g/dL (31.0-37.0); MCV 86.7 fL (80.0-100.0); Mean Platelet Volume 8.5; Monocytes # (A) 0.3 k/uL (0-1.0); Monocytes % (A) 5 %; Neutrophils # (A) 4.9 k/uL (1.3-7.7); Neutrophils % (A) 76 %; Platelet Count 138 k/uL (150-450); RBC 4.71 m/uL (3.80-5.40); RDW 14.7 % (11.5-15.5); WBC 6.5 k/uL (3.8-10.6)
[2021-04-29 11:03] LABS: Calcium 9.1 mg/dL (8.4-10.2); Potassium 3.4 mmol/L (3.5-5.1); Total Bilirubin 0.4 mg/dL (0.2-1.3); Total Protein 6.2 g/dL (6.3-8.2)
[2021-04-29] MEDS ORDERED: Potassium Replacement Protocol 1 EACH MISC MISCELLANE PRN (11:41)
[2021-04-29 11:44] LABS: Glucose,Whole Blood 228 mg/dL (75-99)
[2021-04-29] MEDS: POTASSIUM CHLORIDE ER 20 MEQ TAB.ER PO SCH ×2 (12:08→14:38)
--- NOTE | 2021-04-29 14:30 | P.PN ---
Subjective Progress Note Date: 04/29/21 Principal diagnosis: Shortness of breath 85-year-old female, poor historian, seen in the emergency department. The patient is in room 19. The patient apparently presented to the emergency department, via EMS, from home, for increasing shortness of breath, and congested cough. The patient hasn't been feeling well for about 2 weeks according to the ER cyn. The patient was hospitalized 1 month ago for chest pain, and had a heart catheterization, with 3 stents being placed. Also, she had decreased appetite, and weakness. There is no fever or chills or headache. No nausea, vomiting, diarrhea, or abdominal pain. The patient's on 3 L nasal cannula. The patient is not receiving any IV fluids. The patient is very frail appearing. No francheska respiratory distress at this time. Labs are reviewed. White count 3.6, hemoglobin 14, hematocrit 41.8, platelet count 156,000. PT, INR, PTT, and d-dimer were all normal. Sodium 136, potassium 3.4, chlorides 103, CO2 24, anion gap 9, BUN 17, creatinine 1.16. Troponins were 0.068 and 0.076. Chest x-ray shows some cardiomegaly, small effusions, and minimal bilateral infiltrates. On 04/28/2021 patient seen in follow-up on selective care unit, she is breathing comfortably, patient is very hard of hearing, its difficult to communicate with heart however she denies any dyspnea, no cough, she is on 3 L of oxygen, pulse o x is 93-98%, she is afebrile. Vital signs have been stable overnight. She states she is having some mild stomach upset, at times she feels slightly nauseous, she is trying to eat smaller meals to avoid gastric distention, and nausea. No vomiting. Patient is currently on Decadron 6 mg daily, she is on COVID-19 vitamins, she is on Eliquis. Her pro-calcitonin level was negative at 0.15. Urinalysis on admission was suggesting presence of urinary tract infection, urine culture is pending, no urinary symptoms. She remains on doxycycline which was started on outpatient basis. Today's labs have been reviewed showing white blood cell count of 6.4, hemoglobin 13.9, her d-dimer today has significantly increased and is up at 25.06, sodium is 136, potassium is 4.1, chloride is 107, B1 is 29, creatinine 0.9. LDH is 639, CRP is down to 2.0. On 04/29/2021 patient seen in follow-up on selective care unit, she is resting comfortably in bed, she is currently down to 2 L of oxygen her pulse ox is 96%, breathing comfortably, lung sounds reveal diffuse coarse crackles at bilateral bases, occasional cough, no phlegm production, she's had no fever or chills, vital signs have been stable, no complaints of chest discomfort, cardiology has evaluated the patient. Patient is currently on Decadron 6 mg daily, she is on Eliquis 5 mg by mouth twice daily, and COVID-19 vitamins, continues on doxycyc line, appropriate calcium troponin level was low, this was started on outpatient basis. Labs have been reviewed, white blood cell count is 6.5, hemoglobin is 13, sodium is 137, potassium is 3.4, chloride is 107, B1 is 28 creatinine 0.9. Her inflammatory markers from yesterday were not significantly elevated with LDH at 639, and CRP of 2.0. 10 was outside the window for Remdesivir, however from pulmonary perspective she has remained stable, without worsening dyspnea or hypoxia Objective - Vital Signs Vital signs: Vital Signs Temp 97.8 F 04/29/21 12:00 Pulse 58 L 04/29/21 14:00 Resp 18 04/29/21 14:00 BP 125/59 04/29/21 12:00 Pulse Ox 96 04/29/21 12:00 Intake & Output 04/28/21 04/29/21 04/29/21 18:59 06:59 18:59 Intake Total 360 240 118 Output Total 200 350 Balance 160 -110 118 Weight 102.1 kg Intake: Oral 360 240 118 Output: Urine 200 350 Other: Voiding Method Bedside Commode Bedside Commode # Voids 1 # Bowel Movements 1 - Exam GENERAL EXAM: Alert, very pleasant 85-year-old white female, on 2 L of oxygen with pulse ox of 93%, comfortable in no apparent distress. HEAD: Normocephalic/atraumatic. EYES: Normal reaction of pupils, equal size. Conjunctiva pink, sclera white. NOSE: Clear with pink turbinates. THROAT: No erythema or exudates. NECK: No masses, no JVD, no thyroid enlargement, no adenopathy. CHEST: No chest wall deformity. Symmetrical expansion. LUNGS: Equal air entry with diffuse crackles CVS: Regular rate and rhythm, normal S1 and S2, no gallops, no murmurs, no rubs ABDOMEN: Soft, nontender. No hepatosplenomegaly, normal bowel sounds, no guarding or rigidity. EXTREMITIES: No clubbing, no edema, no cyanosis, 2+ pulses and upper and lower extremities. MUSCULOSKELETAL: Muscle strength and tone normal. SPINE: No scoliosis or deformity SKIN: No rashes CENTRAL NERVOUS SYSTEM: Alert and oriented -3. No focal deficits, tone is normal in all 4 extremities. PSYCHIATRIC: Alert and oriented -3. Appropriate affect. Intact judgment and insight. - Labs CBC & Chem 7: 04/29/21 10:11 04/29/21 10:11 Labs: Abnormal Lab Results - Last 24 Hours (Table) 04/28/21 04/28/21 04/29/21 Range/Units 17:30 19:42 06:33 Plt Count (150-450) k/uL Potassium (3.5-5.1) mmol/L Carbon Dioxide (22-30) mmol/L BUN (7-17) mg/dL Glucose (74-99) mg/dL POC Glucose (mg/dL) 226 H 244 H 139 H (75-99) mg/dL Total Protein (6.3-8.2) g/dL Albumin (3.5-5.0) g/dL 04/29/21 04/29/21 04/29/21 Range/Units 10:11 10:11 11:42 Plt Count 138 L (150-450) k/uL Potassium 3.4 L (3.5-5.1) mmol/L Carbon Dioxide 19 L (22-30) mmol/L BUN 28 H (7-17) mg/dL Glucose 204 H (74-99) mg/dL POC Glucose (mg/dL) 228 H (75-99) mg/dL Total Protein 6.2 L (6.3-8.2) g/dL Albumin 3.0 L (3.5-5.0) g/dL Microbiology - Last 24 Hours (Table) 04/26/21 16:21 Urine Culture - Final Urine,Voided Escherichia coli Assessment and Plan Plan: Assessment: #1. Acute hypoxic respiratory failure secondary to COVID-19, patient was outside the window for Remdesivir, patient presented 2 weeks after symptom onset, patient is currently on Decadron #2. History of paroxysmal atrial fibrillation on Eliquis #3. Abnormal troponins, please refer to cardiology consultation, not thought to be related to acute coronary syndrome #4. History of coronary artery disease status post PCI to the LAD 3 in February 2021 #5. Hypertension #6. Hyperlipidemia #7. Diabetes mellitus type 2 #8. Valvular heart disease, with history of mild to moderate aortic regurgitation, severe aortic stenosis, mild mitral regurgitation, and mild tricuspid regurgitation #9. Previous history of MRSA infection #10. Former smoker Plan: Clinically and from pulmonary perspective patient has remained stable since admission No worsening dyspnea or hypoxia Fio2 is being weaned down and is currently at 2 L Continue Decadron Breathing has been stable Generally patient is weak Continue encouraging the patient to sit up in the chair, Continue to follow patient's clinical course I performed a history & physical examination of the patient and discussed their management with my nurse practitioner, Macy Leyva. I reviewed the nurse practitioner's note and agree with the documented findings and plan of care. Lung sounds are positive for diminished breath sounds throughout the lung john. The findings and the impression was discussed with the patient. I attest to the documentation by the nurse practitioner. Time with Patient: Less than 30
[2021-04-29 16:21] LABS: Glucose,Whole Blood 253 mg/dL (75-99)
[2021-04-29 20:18] LABS: Glucose,Whole Blood 223 mg/dL (75-99)
[2021-04-29] MEDS: ATORVASTATIN 40 MG TAB PO SCH (20:36)
[2021-04-29] MEDS: SODIUM CHLORIDE 0.9% 1,000 ML IV SCH (20:36)
[2021-04-29] MEDS: LOSARTAN 25 MG TAB PO SCH (20:36)
[2021-04-30] MEDS: INSULIN ASPART (NovoLOG) 100 UNIT/ML VIAL SQ SCH ×4 (06:05→20:56)
[2021-04-30 06:06] LABS: Glucose,Whole Blood 125 mg/dL (75-99)
[2021-04-30] MEDS: LEVOTHYROXINE 50 MCG TAB PO SCH (06:07)
--- NOTE | 2021-04-30 06:55 | XR ---
EXAMINATION TYPE: XR chest 1V portable DATE OF EXAM: 04/30/2021 COMPARISON: 04/26/2021 HISTORY: Covid TECHNIQUE: Single frontal view of the chest is obtained. FINDINGS: There is no focal air space opacity, pleural effusion, or pneumothorax seen. The cardiac silhouette size is within normal limits. The osseous structures are intact. IMPRESSION: No acute cardiopulmonary disease with no interval change.
[2021-04-30] MEDS ORDERED: POTASSIUM CHLORIDE ER 20 MEQ TAB.ER PO STA (08:47)
[2021-04-30] MEDS: ASCORBIC ACID 500 MG TAB PO SCH (09:21)
[2021-04-30] MEDS: DOXYCYCLINE 100 MG CAP PO SCH ×2 (09:21→20:56)
[2021-04-30] MEDS: PANTOPRAZOLE 40 MG TABLET PO SCH (09:21)
[2021-04-30] MEDS: DEXAMETHASONE SOD PHOSPHATE 10 MG/ML 1 ML VIAL IVP SCH (09:21)
[2021-04-30] MEDS: ZINC SULFATE 220 MG CAP PO SCH (09:21)
[2021-04-30] MEDS: APIXABAN 5 MG TAB PO SCH ×2 (09:21→20:56)
[2021-04-30] MEDS: CLOPIDOGREL 75 MG TAB PO SCH (09:21)
[2021-04-30] MEDS: CHOLECALCIFEROL 25 MCG (1000 IU) TABLET PO SCH (09:21)
--- NOTE | 2021-04-30 09:37 | P.PN ---
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 that was treated in June of this year, patient developed to have a significant upper respiratory tract infection associated with sore throat as well as coughing and minimal from production with increased shortness with about a few weeks prior to her presentation, she stated that her daughter has been feeling extremely sick with increased abdominal pain nausea vomiting with upper respiratory tract infection, her granddaughter brought her to the office for evaluation and the patient was somewhat hypoxemic with an oxygen saturation between 90-91%, slightly hypotensive, with the significant upper respiratory tract infection, patient had the laboratory evaluation that showed an elevation of her troponin contacted the patient and she was sent to the ER for evaluation surprisingly her Covid 19 PCR came back positive and the patient was found to have slight elevation of the troponin secondary to type II WI due to her Covid 19 infection. Patient was seen in consultation by pulmonary medicine and we'll start the patient is out of the window for Remdesivir and that she was started on Decadron 6 mg IV push every 6 hours along with vitamin C and vitamin D along with zinc sulfate and she was placed on oxygen support, and the treatment was supportive care this point in time. Cardiology consultation was obtained as well as 04/27: Patient is seen today in the emergency center waiting for a cardiac stepdown bed. Temperature maximum 100.1, heart rate 51 and sinus rhythm, blood pressure 104/54, pulse ox 96% on 3 L. Patient will be started on doxycycline for UTI, urine culture is in progress. Patient has been seen by pulmonary medicine this morning and is outside the window for Remdesivir. Repeat inflammatory markers have been ordered. Patient is currently nothing by mouth for cardiology. Troponins are 0.040, 0.068, 0.076. 04/28: Patient has been seen by cardiology for abnormal troponin secondary to coated 19 and acute coronary syndrome has been ruled out. Recommendations are to resume home medications continue anticoagulation and cardiology has signed off and following on an as-needed basis. Patient is seen today on the cardiac stepdown unit. She's been afebrile, heart rate running in the high 40s through the night, blood pressure 118/72, pulse ox 90% on 3 L nasal cannula. Capillary blood glucose running between 171 and 193. Blood work obtained yesterday revealed pro-calcitonin 0.15, C-reactive protein 4.3, LDH 572, d-dimer 0.54. Urine culture is in progress. Patient has on oral doxycycline. Patient's heart rate during the night had dropped down to the high 30s and running 40s and low 50s during the day. She has not been receiving atenolol which will be discontinued. 04/29: Patient is sitting up in bed is in less distress she continues to have congested cough minimal from production, she had an episode of nosebleed yesterday, her appetite is about the same, she denies any abdominal pain, nausea vomiting or diarrhea she has no pleurisy or hemoptysis, she seems to be tolerating her treatment very well. 04/30: Patient continues to be bradycardic on the monitor, ranges between 38 and 42 bpm, she was off her yasir for the last 2 days, cardiology signed off, we'll continue to monitor the patient very closely, patient is completely astigmatic at this point in time, we'll continue to follow up with the patient for another 24 hours, hopefully she will be discharged home in the next 24 hours, patient denies any chest pain at this time, she continues to have some cough minimal from production, she has no pleurisy or hemoptysis, she has better appetite. She has no abdominal pain nausea vomiting or diarrhea. REVIEW OF SYSTEMS: Constitutional: No documented fever, no chills, no night sweats. No weight change. positive for weakness, fatigue no lethargy. No daytime sleepiness. HEENT: No headache. No blurred vision or double vision, no loss of vision. No loss of Hearing, no ringing in the ears, no dizziness. No nasal drainage or congestion. No epistaxis. No sore throat. Lungs: positive for shortness of breath, positive for cough, no sputum production. No wheezing. Reports dyspnea with activity. Cardiovascular: positive for right sided chest pain, no lower extremity edema. positive for palpitations. No paroxysmal nocturnal dyspnea. No orthopnea. No lightheadedness or dizziness. No syncopal episodes. Abdominal: Reports abdominal pain. positive for nausea, no vomiting. No diarrhea. No constipation. No bloody or tarry stools reports loss of appetite. Genitourinary: No dysuria, increased frequency, urgency. No urinary retention. Musculoskeletal: No myalgias. positive for muscle weakness, gait dysfunction, no frequent falls. No back pain. No neck pain. Integumentary: Right heel scab and dry skin in both legs and feet, no lesions. No rash or pruritus. No unusual bruising. No change in hair or nails. Neurologic: No aphasia. No facial droop. No change in mentation. No head injury. No headache. No paralysis. No paresthesia. Psychiatric: No depression. No anxiety. No mood swings. Endocrine: No abnormal blood sugars. No weight change. PHYSICAL EXAMINATION: General: 85-year-old female who is laying down in bed in mild acute distress. HEENT: Head is atraumatic, normocephalic, pupils were equal round reactive to light and recommendation, extraocular muscle movement were intact, sclera nonicteric, conjunctivae were pale, mucous membranes of the mouth are somewhat dry. Neck: Supple, no JVP, normal carotid upstroke bilaterally, no lymphadenopathy. Chest: Decreased breath sounds at the bases, few rhonchi, no expiratory wheezes, no chest wall tenderness, no intercostal retractions. Heart: First heart sound is normal, second heart sounds normal there is systolic ejection murmur 3/6 located in the right second intercostal space related to the base of the neck Abdomen: Soft, nontender, nondistended, positive bowel sounds, there is no hepatosplenomegaly. Extremities: There is no edema no calf tenderness DP +1 bilaterally, chronic skin changes with thick skin to the feet and a scab to the right heel Neurologic examination: Patient is awake alert and oriented X 3, cranial nerves II-12 appear grossly intact, muscle power were 5 out of 5 in upper extremities and 5 out of 5 in bilateral lower extremities, deep tendon reflexes normal bilaterally. ASSESSMENT AND PLAN: 1. COVID-19 without evidence of pneumonia. Continue patient on oxygen, continue patient on droplet precautions, continue vitamin C vitamin D and zinc sulfate, start Decadron 6 mg IV push daily, continue doxycycline 100 mg orally twice every day. 2. Type II WI due to COVID-19 infection .no need for any further intervention patient did have a recent left heart catheterization with stent placed in the proximal and mid LAD that was done successfully by Dr. Montelongo, continue patient on losartan 25 mg orally once every day, continue Plavix 75 mg orally once every day and atorvastatin 40 mg orally once every day, Patient was taken off atenolol due to significant bradycardia. 3. Hypertension and hypertensive cardiovascular disease. Continue patient on losartan 25 mg once every day hold for systolic blood pressure less than 100. 4. Hyperlipidemia. Continue patient on atorvastatin 40 mg once every day. 5. Hypothyroidism. Continue patient on Synthroid and increase to 50 MCG orally once every day. 6. Diabetes mellitus type 2. Continue patient on Farxiga 5 mg orally once every day start the patient on SSI. 7. Paroxysmal atrial for ablation. Currently on Eliquis 5 mg orally twice every day. 7. Osteoarthritis. Clinically stable. 8. GERD. Continue with Protonix 40 mg orally once every day. 9. history of CVA in the past. Continue aspirin as well as atorvastatin for secondary prevention. 10. DVT prophylaxis. continue Eliquis 5 mg po bid 11. GI prophylaxis. Continue Protonix 40 mg orally once every day. 12. Physical therapy evaluation. 13. Home in Am Objective - Vital Signs Vital signs: Vital Signs Temp 97.4 F L 04/30/21 03:46 Pulse 50 L 04/30/21 03:46 Resp 16 04/30/21 03:46 BP 112/56 04/30/21 03:46 Pulse Ox 93 L 04/30/21 03:46 Intake & Output 04/29/21 04/30/21 04/30/21 19:59 06:59 18:59 Intake Total Output Total Balance Weight Intake: Oral Output: Urine Other: Voiding Method # Voids - Labs CBC & Chem 7: 04/29/21 10:11 04/29/21 10:11 Labs: Abnormal Lab Results - Last 24 Hours (Table) 04/29/21 04/29/21 04/29/21 Range/Units 10:11 10:11 11:42 Plt Count 138 L (150-450) k/uL Potassium 3.4 L (3.5-5.1) mmol/L Carbon Dioxide 19 L (22-30) mmol/L BUN 28 H (7-17) mg/dL Glucose 204 H (74-99) mg/dL POC Glucose (mg/dL) 228 H (75-99) mg/dL Total Protein 6.2 L (6.3-8.2) g/dL Albumin 3.0 L (3.5-5.0) g/dL 04/29/21 04/29/21 04/30/21 Range/Units 16:20 20:15 06:04 Plt Count (150-450) k/uL Potassium (3.5-5.1) mmol/L Carbon Dioxide (22-30) mmol/L BUN (7-17) mg/dL Glucose (74-99) mg/dL POC Glucose (mg/dL) 253 H 223 H 125 H (75-99) mg/dL Total Protein (6.3-8.2) g/dL Albumin (3.5-5.0) g/dL Microbiology - Last 24 Hours (Table) 04/26/21 16:21 Urine Culture - Final Urine,Voided Escherichia coli
[2021-04-30] MEDS: MAGNESIUM SULFATE-D5W PMX 1 GM in DEXTROSE/WATER 1 100ML.BAG IVPB SCH ×2 (09:41→11:42)
[2021-04-30] MEDS: NON FORMULARY DRUG (Dapagliflozin Propanediol [Farxiga] 5 MG Tablet) PO SCH (09:42)
[2021-04-30 11:21] LABS: C Reactive Protein 1.1 mg/dL (<1.0); Calcium 9.2 mg/dL (8.4-10.2); Magnesium 1.4 mg/dL (1.6-2.3); Potassium 4.4 mmol/L (3.5-5.1)
[2021-04-30 11:28] LABS: Glucose,Whole Blood 162 mg/dL (75-99)
[2021-04-30 16:15] LABS: Glucose,Whole Blood 251 mg/dL (75-99)
[2021-04-30 20:29] LABS: Glucose,Whole Blood 258 mg/dL (75-99)
[2021-04-30] MEDS: ATORVASTATIN 40 MG TAB PO SCH (20:56)
[2021-04-30] MEDS: LOSARTAN 25 MG TAB PO SCH (20:56)
[2021-05-01] MEDS: LEVOTHYROXINE 50 MCG TAB PO SCH (06:04)
[2021-05-01] MEDS: INSULIN ASPART (NovoLOG) 100 UNIT/ML VIAL SQ SCH ×4 (06:04→21:35)
[2021-05-01] MEDS: NON FORMULARY DRUG (Dapagliflozin Propanediol [Farxiga] 5 MG Tablet) PO SCH (07:24)
[2021-05-01 08:33] LABS: Basophils % (A) 0 %; Eosinophils % (A) 0 %; HCT 41.2 % (34.0-46.0); HGB 13.2 gm/dL (11.4-16.0); Lymphocytes # (A) 1.7 k/uL (1.0-4.8); Lymphocytes % (A) 28 %; MCH 26.9 pg (25.0-35.0); MCHC 32.1 g/dL (31.0-37.0); Monocytes # (A) 0.3 k/uL (0-1.0); Monocytes % (A) 4 %; Neutrophils # (A) 3.9 k/uL (1.3-7.7); Neutrophils % (A) 66 %; Platelet Count 171 k/uL (150-450)
[2021-05-01 08:50] LABS: Calcium 9.4 mg/dL (8.4-10.2); Magnesium 1.7 mg/dL (1.6-2.3); Potassium 4.3 mmol/L (3.5-5.1); Total Bilirubin 0.6 mg/dL (0.2-1.3); Total Protein 6.5 g/dL (6.3-8.2)
[2021-05-01] MEDS: CHOLECALCIFEROL 25 MCG (1000 IU) TABLET PO SCH (09:25)
[2021-05-01] MEDS: DEXAMETHASONE SOD PHOSPHATE 10 MG/ML 1 ML VIAL IVP SCH (09:25)
[2021-05-01] MEDS: APIXABAN 5 MG TAB PO SCH ×2 (09:25→21:36)
[2021-05-01] MEDS: ASCORBIC ACID 500 MG TAB PO SCH (09:25)
[2021-05-01] MEDS: ZINC SULFATE 220 MG CAP PO SCH (09:25)
[2021-05-01] MEDS: DOXYCYCLINE 100 MG CAP PO SCH ×2 (09:26→22:13)
[2021-05-01] MEDS: PANTOPRAZOLE 40 MG TABLET PO SCH (09:26)
[2021-05-01] MEDS: CLOPIDOGREL 75 MG TAB PO SCH (09:26)
[2021-05-01 11:33] LABS: Glucose,Whole Blood 142 mg/dL (75-99)
--- NOTE | 2021-05-01 12:55 | P.DS ---
Providers Date of admission: 04/27/21 12:21 Expected date of discharge: 05/01/21 Attending physician: Jackson Benjamin Consults: 04/26/21 18:13 Consult Physician Urgent Consulting Provider: Taurus Ledezma Consult Reason/Comments: COVID-19, Dyspnea, Hypoxia Do you want consulting provider notified?: Yes Primary care physician: Jackson Benjamin Hospital Course: HISTORY OF PRESENT ILLNESS: This is an 85-year-old female one of my patient with a previous medical history significant for hypertension and hypertensive cardiovascular disease, hyperlipidemia, diabetes mellitus type 2, osteoarthritis, coronary artery disease, history of CVA, history of the osteomyelitis of the right heel with multidrug resistant Acinetobacter that was treated in June of this year, patient developed to have a significant upper respiratory tract infection associated with sore throat as well as coughing and minimal from production with increased shortness with about a few weeks prior to her presentation, she stated that her daughter has been feeling extremely sick with increased abdominal pain nausea vomiting with upper respiratory tract infection, her granddaughter brought her to the office for evaluation and the patient was somewhat hypoxemic with an oxygen saturation between 90-91%, slightly hypotensive, with the significant upper respiratory tract infection, patient had the laboratory evaluation that showed an elevation of her troponin contacted the patient and she was sent to the ER for evaluation surprisingly her Covid 19 PCR came back positive and the patient was found to have slight elevation of the troponin secondary to type II PR due to her Covid 19 infection. Patient was seen in consultation by pulmonary medicine and we'll start the patient is out of the window for Remdesivir and that she was started on Decadron 6 mg IV push every 6 hours along with vitamin C and vitamin D along with zinc sulfate and she was placed on oxygen support, and the treatment was supportive care this point in time. Cardiology consultation was obtained as well as 04/27: Patient is seen today in the emergency center waiting for a cardiac stepdown bed. Temperature maximum 100.1, heart rate 51 and sinus rhythm, blood pressure 104/54, pulse ox 96% on 3 L. Patient will be started on doxycycline for UTI, urine culture is in progress. Patient has been seen by pulmonary medicine this morning and is outside the window for Remdesivir. Repeat inflammatory markers have been ordered. Patient is currently nothing by mouth for cardiology. Troponins are 0.040, 0.068, 0.076. 04/28: Patient has been seen by cardiology for abnormal troponin secondary to coated 19 and acute coronary syndrome has been ruled out. Recommendations are to resume home medications continue anticoagulation and cardiology has signed off and following on an as-needed basis. Patient is seen today on the cardiac stepdown unit. She's been afebrile, heart rate running in the high 40s through the night, blood pressure 118/72, pulse ox 90% on 3 L nasal cannula. Capillary blood glucose running between 171 and 193. Blood work obtained yesterday revealed pro-calcitonin 0.15, C-reactive protein 4.3, LDH 572, d-dimer 0.54. Urine culture is in progress. Patient has on oral doxycycline. Patient's heart rate during the night had dropped down to the high 30s and running 40s and low 50s during the day. She has not been receiving atenolol which will be discontinued. 04/29: Patient is sitting up in bed is in less distress she continues to have congested cough minimal from production, she had an episode of nosebleed yesterday, her appetite is about the same, she denies any abdominal pain, nausea vomiting or diarrhea she has no pleurisy or hemoptysis, she seems to be tolerating her treatment very well. 04/30: Patient continues to be bradycardic on the monitor, ranges between 38 and 42 bpm, she was off her yasir for the last 2 days, cardiology signed off, we'll continue to monitor the patient very closely, patient is completely astigmatic at this point in time, we'll continue to follow up with the patient for another 24 hours, hopefully she will be discharged home in the next 24 hours, patient denies any chest pain at this time, she continues to have some cough minimal from production, she has no pleurisy or hemoptysis, she has better appetite. She has no abdominal pain nausea vomiting or diarrhea. 05/01: Patient denies any new complaints. There was a plan for patient to go to [facility] by due to positive Covid, patient would have to go to a Covid hub which pillowcase turner has contacted the daughter and she does not want her mother to go to hub. Home care has been arranged. Patient has been afebrile, heart rate 63, blood pressure 112/58, pulse ox 92% on room air. BUN 18 creatinine 0.77. Blood sugars are running between 142 and 258. Liver function tests normal. Patient will be discharged home today in stable condition. DISCHARGE DIAGNOSES: 1. COVID-19 without evidence of pneumonia. 2. 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 Recent left heart catheterization with stent placed in the proximal and mid LAD that was done successfully by Dr. Montelongo. 3. Hypertension and hypertensive cardiovascular disease. 4. Hyperlipidemia. 5. Hypothyroidism. 6. Diabetes mellitus type 2. 7. Paroxysmal atrial for ablation. 7. Osteoarthritis generalized. 8. GERD. 9. history of CVA in the past. DISCHARGE PLAN Home with [facility] Greater than 35 minutes was utilized and coordinating patient's discharge. Impression and plan of care have been directed as dictated by the signing physician. Esther Limon nurse practitioner acting as scribe for signing physician. Patient Condition at Discharge: Stable Plan - Discharge Summary Discharge Rx Participant: Yes New Discharge Prescriptions: No Action Levothyroxine Sodium [Synthroid] 25 mcg PO DAILY Dapagliflozin Propanediol [Farxiga] 5 mg PO DAILY Clopidogrel [Plavix] 75 mg PO DAILY #90 tab Nitroglycerin Sl Tabs [Nitrostat] 0.4 mg SUBLINGUAL Q5M PRN #25 tab PRN Reason: Chest Pain atenoloL [Tenormin] 25 mg PO DAILY Omeprazole [PriLOSEC] 20 mg PO BID Atorvastatin [Lipitor] 40 mg PO HS #90 tab Losartan [Cozaar] 50 mg PO HS #30 tab Furosemide [Lasix] 20 mg PO DAILY #30 tab Apixaban [Eliquis] 5 mg PO BID #60 tab Discharge Medication List Levothyroxine Sodium [Synthroid] 25 mcg PO DAILY 07/12/20 [History] Dapagliflozin Propanediol [Farxiga] 5 mg PO DAILY 03/19/21 [History] Omeprazole [PriLOSEC] 20 mg PO BID 03/19/21 [History] Atorvastatin [Lipitor] 40 mg PO HS #90 tab 03/22/21 [Rx] Clopidogrel [Plavix] 75 mg PO DAILY #90 tab 03/22/21 [Rx] Furosemide [Lasix] 20 mg PO DAILY #30 tab 03/23/21 [Rx] Losartan [Cozaar] 50 mg PO HS #30 tab 03/23/21 [Rx] Nitroglycerin Sl Tabs [Nitrostat] 0.4 mg SUBLINGUAL Q5M PRN #25 tab 03/23/21 [Rx] Apixaban [Eliquis] 5 mg PO BID #60 tab 03/24/21 [Rx] atenoloL [Tenormin] 25 mg PO DAILY 04/26/21 [History] Follow up Appointment(s)/Referral(s): Jackson Benjamin MD [Primary Care Provider] - 1-2 days Taurus Ledezma DO [Doctor of Osteopathic Medicine] - 2 Weeks [facility], [NON-STAFF] -
[2021-05-01 16:39] LABS: Glucose,Whole Blood 238 mg/dL (75-99)
[2021-05-01 20:48] LABS: Glucose,Whole Blood 165 mg/dL (75-99)
[2021-05-01] MEDS: LOSARTAN 25 MG TAB PO SCH (21:36)
[2021-05-01] MEDS: ATORVASTATIN 40 MG TAB PO SCH (21:36)
[2021-05-02 05:52] VITALS: BP 117/72; PULSE 68; RESP 17; TEMP 97.7
[2021-05-02] MEDS: LEVOTHYROXINE 50 MCG TAB PO SCH (06:12)
[2021-05-02 06:59] LABS: Glucose,Whole Blood 123 mg/dL (75-99)
--- NOTE | 2021-05-02 08:41 | P.PN ---
Subjective Progress Note Date: 05/01/21 HISTORY OF PRESENT ILLNESS: This is an 85-year-old female one of my patient with a previous med ica history significant for hypertension and hypertensive cardiovascular disease, hyperlipidemia, diabetes mellitus type 2, osteoarthritis, coronary artery disease, history of CVA, history of the osteomyelitis of the right heel with multidrug resistant Acinetobacter that was treated in June of this year, patient developed to have a significant upper respiratory tract infection associated with sore throat as well as coughing and minimal from production with increased shortness with about a few weeks prior to her presentation, she stated that her daughter has been feeling extremely sick with increased abdominal pain nausea vomiting with upper respiratory tract infection, her granddaughter brought her to the office for evaluation and the patient was somewhat hypoxemic with an oxygen saturation between 90-91%, slightly hypotensive, with the significant upper respiratory tract infection, patient had the laboratory evaluation that showed an elevation of her troponin contacted the patient and she was sent to the ER for evaluation surprisingly her Covid 19 PCR came back positive and the patient was found to have slight elevation of the troponin secondary to type II RI due to her Covid 19 infection. Patient was seen in consultation by pulmonary medicine and we'll start the patient is out of the window for Remdesivir and that she was started on Decadron 6 mg IV push every 6 hours along with vitamin C and vitamin D along with zinc sulfate and she was placed on oxygen support, and the treatment was supportive care this point in time. Cardiology consultation was obtained as well as 04/27: Patient is seen today in the emergency center waiting for a cardiac stepdown bed. Temperature maximum 100.1, heart rate 51 and sinus rhythm, blood pressure 104/54, pulse ox 96% on 3 L. Patient will be started on doxycycline for UTI, urine culture is in progress. Patient has been seen by pulmonary medicine this morning and is outside the window for Remdesivir. Repeat inflammatory markers have been ordered. Patient is currently nothing by mouth for cardiology. Troponins are 0.040, 0.068, 0.076. 04/28: Patient has been seen by cardiology for abnormal troponin secondary to coated 19 and acute coronary syndrome has been ruled out. Recommendations are to resume home medications continue anticoagulation and cardiology has signed off and following on an as-needed basis. Patient is seen today on the cardiac stepdown unit. She's been afebrile, heart rate running in the high 40s through the night, blood pressure 118/72, pulse ox 90% on 3 L nasal cannula. Capillary blood glucose running between 171 and 193. Blood work obtained yesterday revealed pro-calcitonin 0.15, C-reactive protein 4.3, LDH 572, d-dimer 0.54. Urine culture is in progress. Patient has on oral doxycycline. Patient's heart rate during the night had dropped down to the high 30s and running 40s and low 50s during the day. She has not been receiving atenolol which will be discontinued. 04/29: Patient is sitting up in bed is in less distress she continues to have congested cough minimal from production, she had an episode of nosebleed yesterday, her appetite is about the same, she denies any abdominal pain, nausea vomiting or diarrhea she has no pleurisy or hemoptysis, she seems to be tolerating her treatment very well. 04/30: Patient continues to be bradycardic on the monitor, ranges between 38 and 42 bpm, she was off her yasir for the last 2 days, cardiology signed off, we'll continue to monitor the patient very closely, patient is completely astigmatic at this point in time, we'll continue to follow up with the patient for another 24 hours, hopefully she will be discharged home in the next 24 hours, patient denies any chest pain at this time, she continues to have some cough minimal from production, she has no pleurisy or hemoptysis, she has better appetite. She has no abdominal pain nausea vomiting or diarrhea. 05/01: Patient denies any new complaints. There was a plan for patient to go to [facility] due to positive Covid, patient would have to go to a Covid hub which correctional case records supervisor has contacted the daughter and she does not want her mother to go to hub. Home care has been arranged. Patient has been afebrile, heart rate 63, blood pressure 112/58, pulse ox 92% on room air. BUN 18 creatinine 0.77. Blood sugars are running between 142 and 258. Liver function tests normal. Patient was prepared initially to go to subacute rehab and no local areas well except the patient so family has been contacted plan for discharge home, discharge was delayed for unknown reason. REVIEW OF SYSTEMS: Constitutional: No documented fever, no chills, no night sweats. No weight change. positive for weakness, fatigue no lethargy. No daytime sleepiness. HEENT: No headache. No blurred vision or double vision, no loss of vision. No loss of Hearing, no ringing in the ears, no dizziness. No nasal drainage or congestion. No epistaxis. No sore throat. Lungs: positive for shortness of breath, positive for cough, no sputum production. No wheezing. Reports dyspnea with activity. Cardiovascular: positive for right sided chest pain, no lower extremity edema. positive for palpitations. No paroxysmal nocturnal dyspnea. No orthopnea. No lightheadedness or dizziness. No syncopal episodes. Abdominal: Reports abdominal pain. positive for nausea, no vomiting. No diarrhea. No constipation. No bloody or tarry stools reports loss of appetite. Genitourinary: No dysuria, increased frequency, urgency. No urinary retention. Musculoskeletal: No myalgias. positive for muscle weakness, gait dysfunction, no frequent falls. No back pain. No neck pain. Integumentary: Right heel scab and dry skin in both legs and feet, no lesions. No rash or pruritus. No unusual bruising. No change in hair or nails. Neurologic: No aphasia. No facial droop. No change in mentation. No head injury. No headache. No paralysis. No paresthesia. Psychiatric: No depression. No anxiety. No mood swings. Endocrine: No abnormal blood sugars. No weight change. PHYSICAL EXAMINATION: General: 85-year-old female who is laying down in bed in mild acute distress. HEENT: Head is atraumatic, normocephalic, pupils were equal round reactive to light and recommendation, extraocular muscle movement were intact, sclera nonicteric, conjunctivae were pale, mucous membranes of the mouth are somewhat dry. Neck: Supple, no JVP, normal carotid upstroke bilaterally, no lymphadenopathy. Chest: Decreased breath sounds at the bases, few rhonchi, no expiratory wheezes, no chest wall tenderness, no intercostal retractions. Heart: First heart sound is normal, second heart sounds normal there is systolic ejection murmur 3/6 located in the right second intercostal space related to the base of the neck Abdomen: Soft, nontender, nondistended, positive bowel sounds, there is no hepatosplenomegaly. Extremities: There is no edema no calf tenderness DP +1 bilaterally, chronic skin changes with thick skin to the feet and a scab to the right heel Neurologic examination: Patient is awake alert and oriented X 3, cranial nerves II-12 appear grossly intact, muscle power were 5 out of 5 in upper extremities and 5 out of 5 in bilateral lower extremities, deep tendon reflexes normal bilaterally. ASSESSMENT AND PLAN: 1. COVID-19 without evidence of pneumonia. Continue patient on oxygen, continue patient on droplet precautions, continue vitamin C vitamin D and zinc sulfate, start Decadron 6 mg IV push daily, doxycycline 100 mg orally twice every day. 2. 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 Montelongo, continue patient on losartan 25 mg orally once every day, continue Plavix 75 mg orally once every day and atorvastatin 40 mg orally once every day, Patient was taken off atenolol due to significant bradycardia. 3. Hypertension and hypertensive cardiovascular disease. Continue patient on losartan 25 mg once every day hold for systolic blood pressure less than 100. 4. Hyperlipidemia. Continue patient on atorvastatin 40 mg once every day. 5. Hypothyroidism. Continue patient on Synthroid and increase to 50 MCG orally once every day. 6. Diabetes mellitus type 2. Continue patient on Farxiga 5 mg orally once every day start the patient on SSI. 7. Paroxysmal atrial for ablation. Currently on Eliquis 5 mg orally twice every day. 7. Osteoarthritis. Clinically stable. 8. GERD. Continue with Protonix 40 mg orally once every day. 9. history of CVA in the past. Continue aspirin as well as atorvastatin for secondary prevention. 10. DVT prophylaxis. continue Eliquis 5 mg po bid 11. GI prophylaxis. Continue Protonix 40 mg orally once every day. 12. Physical therapy evaluation. DISCHARGE PLAN home with home care Impression and plan of care have been directed as dictated by the signing physician. Esther Limon nurse practitioner acting as scribe for signing physician. Objective - Vital Signs Vital signs: Vital Signs Temp 98.1 F 05/01/21 04:00 Pulse 52 L 05/01/21 04:00 Resp 18 05/01/21 04:00 BP 128/60 05/01/21 04:00 Pulse Ox 94 L 05/01/21 04:00 Intake & Output 04/30/21 05/01/21 05/01/21 18:59 06:59 18:59 Intake Total 236 Output Total 250 100 Balance -14 -100 Weight 75.7 kg Intake: Oral 236 Output: Urine 250 100 Other: Voiding Method Bedside Commode # Voids 1 1 # Bowel Movements 1 1 - Labs CBC & Chem 7: 05/01/21 07:46 05/01/21 07:46 Labs: Abnormal Lab Results - Last 24 Hours (Table) 04/30/21 04/30/21 04/30/21 Range/Units 10:16 11:26 16:13 Chloride 113 H (98-107) mmol/L Carbon Dioxide 16 L (22-30) mmol/L BUN 22 H (7-17) mg/dL Glucose 136 H (74-99) mg/dL POC Glucose (mg/dL) 162 H 251 H (75-99) mg/dL Magnesium 1.4 L (1.6-2.3) mg/dL Lactate Dehydrogenase 772 H (313-618) U/L C-Reactive Protein 1.1 H (<1.0) mg/dL 04/30/21 Range/Units 20:13 Chloride (98-107) mmol/L Carbon Dioxide (22-30) mmol/L BUN (7-17) mg/dL Glucose (74-99) mg/dL POC Glucose (mg/dL) 258 H (75-99) mg/dL Magnesium (1.6-2.3) mg/dL Lactate Dehydrogenase (313-618) U/L C-Reactive Protein (<1.0) mg/dL
[2021-05-02] MEDS: INSULIN ASPART (NovoLOG) 100 UNIT/ML VIAL SQ SCH (08:45)
[2021-05-02] MEDS: DEXAMETHASONE SOD PHOSPHATE 10 MG/ML 1 ML VIAL IVP SCH (09:34)
[2021-05-02] MEDS: ZINC SULFATE 220 MG CAP PO SCH (09:36)
[2021-05-02] MEDS: CHOLECALCIFEROL 25 MCG (1000 IU) TABLET PO SCH (09:36)
[2021-05-02] MEDS: APIXABAN 5 MG TAB PO SCH (09:36)
[2021-05-02] MEDS: DOXYCYCLINE 100 MG CAP PO SCH (09:36)
[2021-05-02] MEDS: ASCORBIC ACID 500 MG TAB PO SCH (09:36)
[2021-05-02] MEDS: PANTOPRAZOLE 40 MG TABLET PO SCH (09:36)
[2021-05-02] MEDS: NON FORMULARY DRUG (Dapagliflozin Propanediol [Farxiga] 5 MG Tablet) PO SCH (09:36)
[2021-05-02] MEDS: CLOPIDOGREL 75 MG TAB PO SCH (09:36)
== END 2021-05-02 11:10 | disposition home health service (06) | DRG 177 ==
LOC: EC 15:37 → 3SCARD 18:20 → OBSVTOIN 04-27 12:21 → INTOOBSV 04-27 12:23 → 3SCARD 04-27 18:12 → 4SSUR 05-01 19:08
PROVIDERS: ADMIT Internal Medicine; ATTEND Internal Medicine
DX: U07.1 COVID-19 (principal); J12.82 Pneumonia due to coronavirus disease 2019; I21.A1 Myocardial infarction type 2; J96.01 Acute respiratory failure with hypoxia; I50.32 Chronic diastolic (congestive) heart failure; N39.0 Urinary tract infection, site not specified; E03.9 Hypothyroidism, unspecified; E11.9 Type 2 diabetes mellitus without complications; I48.0 Paroxysmal atrial fibrillation; E78.5 Hyperlipidemia, unspecified; E83.42 Hypomagnesemia; E86.0 Dehydration; I35.2 Nonrheumatic aortic (valve) stenosis with insufficiency; H91.90 Unspecified hearing loss, unspecified ear; I11.0 Hypertensive heart disease with heart failure; I25.10 Atherosclerotic heart disease of native coronary artery without angina pectoris; K21.9 Gastro-esophageal reflux disease without esophagitis; M19.90 Unspecified osteoarthritis, unspecified site; Z79.01 Long term (current) use of anticoagulants; Z95.5 Presence of coronary angioplasty implant and graft; Z79.02 Long term (current) use of antithrombotics/antiplatelets; Z79.84 Long term (current) use of oral hypoglycemic drugs; Z79.890 Hormone replacement therapy; Z79.899 Other long term (current) drug therapy; Z86.73 Personal history of transient ischemic attack (TIA), and cerebral infarction without residual deficits; Z86.14 Personal history of Methicillin resistant Staphylococcus aureus infection; Z87.891 Personal history of nicotine dependence; Z82.0 Family history of epilepsy and other diseases of the nervous system; Z82.49 Family history of ischemic heart disease and other diseases of the circulatory system; Z83.3 Family history of diabetes mellitus
CPT/HCPCS: 36415; 71045; 71046; 80048; 80053; 81001; 83036; 83615; 83735; 83880; 84145; 84439; 84443; 84484; 85025; 85379; 85610; 85730; 86140; 87077; 87086; 87186; 87635; 93005; 94760; 99285

== ENCOUNTER 2021-10-01 09:34 | Inpatient (IN) | payer MEDICARE, BC ==
[2021-10-01] MEDS ORDERED: ACETAMINOPHEN TAB 500 MG TAB PO STA (10:18)
[2021-10-01] MEDS ORDERED: ASPIRIN 81 MG PO STA (10:49)
--- NOTE | 2021-10-01 11:00 | XR ---
EXAMINATION TYPE: XR chest 2V DATE OF EXAM: 10/01/2021 COMPARISON: Chest x-ray May 10, 2021 HISTORY: Difficulty in breathing. TECHNIQUE: Frontal and lateral views of the chest are obtained. FINDINGS: There is chronic parenchymal change bilaterally without suspicious focal air space opacity , pleural effusion, or pneumothorax seen. Persistent cardiomegaly. The osseous structures are demin eralized. IMPRESSION: Chronic changes and cardiomegaly without acute pulmonary process.
[2021-10-01 11:18] LABS: Anisocytosis Slight; Basophils % (A) 0 %; Eosinophils % (A) 1 %; HCT 36.1 % (34.0-46.0); HGB 11.7 gm/dL (11.4-16.0); Hypochromasia Moderate; Lymphocytes # (A) 0.6 k/uL (1.0-4.8); Lymphocytes % (A) 12 %; MCH 24.1 pg (25.0-35.0); MCHC 32.4 g/dL (31.0-37.0); MCV 74.4 fL (80.0-100.0); Mean Platelet Volume 6.8; Microcytosis Moderate; Monocytes # (A) 0.3 k/uL (0-1.0); Monocytes % (A) 6 %; Neutrophils # (A) 3.9 k/uL (1.3-7.7); Neutrophils % (A) 78 %; Platelet Count 215 k/uL (150-450); RBC 4.86 m/uL (3.80-5.40); RDW 16.8 % (11.5-15.5)
[2021-10-01 11:34] LABS: Partial Thromboplastin Time 24.6 sec (22.0-30.0); Prothrombin Time 11.3 sec (9.0-12.0)
[2021-10-01 11:39] LABS: Total Bilirubin 1.5 mg/dL (0.2-1.3); Total Protein 8.4 g/dL (6.3-8.2)
[2021-10-01 11:41] LABS: Potassium 5.1 mmol/L (3.5-5.1)
[2021-10-01 11:42] LABS: Magnesium 1.4 mg/dL (1.6-2.3)
[2021-10-01] MEDS ORDERED: MAGNESIUM SULFATE-D5W PMX 1 GM in DEXTROSE/WATER 1 100ML.BAG IVPB ONE (11:49)
--- NOTE | 2021-10-01 12:26 | ED ---
General Adult HPI - General Chief complaint: Shortness of Breath Stated complaint: SOB Time Seen by Provider: 10/01/21 10:07 Source: patient, EMS, RN notes reviewed, old records reviewed Mode of arrival: EMS - History of Present Illness Initial comments: Patient is an 86-year-old female who presents emergency Department complaining of upper rest very symptoms. She is been having a cough, fevers that are subjective, as well as increased denies fatigue for the last few days. She was seen on Saturday and an urgent concern antibiotics for possible pneumonia or bronchitis. She does have a history of heart failure, diabetes, hypertension, CAD. Has not been taking her water pills at home. Denies any known sick contacts. Presents over concern for her current symptoms. Denies any nausea, vomiting, abdominal pain, chest pain. Denies shortness of breath. - Related Data Home Medications Medication Instructions Recorded Confirmed Levothyroxine Sodium [Synthroid] 25 mcg PO DAILY 07/12/20 10/01/21 Amoxic-Pot Clav 875-125Mg 1 tab PO BID 10/01/21 10/01/21 [Augmentin 875-125] Apixaban [Eliquis] 2.5 mg PO BID 10/01/21 10/01/21 Atenolol [Tenormin] 50 mg PO DAILY 10/01/21 10/01/21 Benzonatate [Tessalon Perles] 100 mg PO TID PRN 10/01/21 10/01/21 Budesonide/Glycopyr/Formoterol 1 puff INHALATION RT-BID 10/01/21 10/01/21 [Breztri Aerosphere Inhaler] Dapagliflozin Propanediol [Farxiga] 10 mg PO DAILY 10/01/21 10/01/21 Meclizine [Antivert] 25 mg PO TID PRN 10/01/21 10/01/21 Metoclopramide HCl [Reglan] 10 mg PO BID PRN 10/01/21 10/01/21 Omeprazole Magnesium [PriLOSEC OTC] 20 mg PO BID 10/01/21 10/01/21 Semaglutide [Rybelsus] 3 mg PO DAILY 10/01/21 10/01/21 Previous Rx's Medication Instructions Recorded Atorvastatin [Lipitor] 40 mg PO HS #90 tab 03/22/21 Clopidogrel [Plavix] 75 mg PO DAILY #90 tab 03/22/21 Furosemide [Lasix] 20 mg PO DAILY #30 tab 03/23/21 Nitroglycerin Sl Tabs [Nitrostat] 0.4 mg SUBLINGUAL Q5M PRN #25 tab 03/23/21 Allergies Allergy/AdvReac Type Severity Reaction Status Date / Time Iodinated Contrast Media Allergy Severe Rash/Hives Verified 10/01/21 13:47 hydrocortisone Allergy Intermediate Rash/Hives Verified 10/01/21 13:47 ampicillin [From Polycillin] Allergy Mild Rash/Hives Verified 10/01/21 13:47 cefaclor [From Ceclor] Allergy Mild Rash/Hives Verified 10/01/21 13:47 nitroglycerin Allergy Mild Unknown Verified 10/01/21 13:47 NSAIDS (Non-Steroidal Allergy Mild Unknown Verified 10/01/21 13:47 Anti-Inflamma sulfur dioxide Allergy Mild Unknown Verified 10/01/21 13:47 Review of Systems ROS Statement: Those systems with pertinent positive or pertinent negative responses have been documented in the HPI. Review of Systems: CONST: Denies fever EYES: Denies blurry vision ENT: Endorses nasal congestion C/V: Denies Chest pain RESP: Denies shortness of breath GI: Denies abdominal pain : Denies dysuria SKIN: Denies rash. MSK: Denies joint pain. NEURO: Denies headache ROS Other: All systems not noted in ROS Statement are negative. Past Medical History Past Medical History: Coronary Artery Disease (CAD), Heart Failure, Diabetes Mellitus, Hyperlipidemia, Hypertension Additional Past Medical History / Comment(s): LYMPHEDEMA History of Any Multi-Drug Resistant Organisms: MRSA Date of last positivie culture/infection: 07/14/20 MDRO Source:: RIGHT FOOT Past Surgical History: Unable to Obtain, Heart Catheterization With Stent Additional Past Surgical History / Comment(s): Heart cath x3 stents Past Anesthesia/Blood Transfusion Reactions: No Reported Reaction Additional Past Anesthesia/Blood Transfusion Reaction / Comment(s): PATIENT STATES THAT LAST HEART CATH SHE HAD A REACTION-SWOLLEN FACE-RED FACE-ITCHY SKIN Date of Last Stent Placement:: 03/2021 Past Psychological History: No Psychological Hx Reported Smoking Status: Former smoker Past Alcohol Use History: None Reported Past Drug Use History: None Reported - Past Family History Father Family Medical History: Myocardial Infarction ([place]) Additional Family Medical History / Comment(s): AT 45 OF HEART ATTACK Mother Family Medical History: Congestive Heart Failure (CHF) Additional Family Medical History / Comment(s): MOTHER IN 1985 FOUR MONTHS WITH THE 11TH CHILD. CARDIOMYOPATHY General Exam - General Exam Comments Initial Comments: General: Appears in no acute distress. Patient is febrile. HEAD: Normal with no signs of head trauma. EYES: PERRLA, EOMI, conjunctiva normal, no discharge. ENT: Hearing grossly intact, normal oropharynx. RESPIRATORY: Clear breath sounds bilaterally. No wheezes, rales, or rhonchi. Hypoxic on room air, however patient is on 2 L at home. No increased work of breathing. C/V: Regular rate and rhythm. S1 and S2 auscultated, mild 1+ pitting edema bilaterally., peripheral pulses 2+ and intact throughout ABD: Abd is soft, nontender, nondistended EXT: Normal range of motion, no obvious deformity SKIN: No rashes or lesions observed on exposed skin. NEURO: Alert and oriented 4. Course Vital Signs 10/01/21 10/01/21 10/01/21 09:37 10:50 10:57 Temperature 101.3 F H 100.6 F H Pulse Rate 67 62 Respiratory 18 18 Rate Blood Pressure 133/63 105/50 O2 Sat by Pulse 97 90 L 97 Oximetry Medical Decision Making - Medical Decision Making Based on the patient's presentation and physical exam, I'm concerned for possible cardiopulmonary etiology for the current symptoms. Likely infectious in nature. We will obtain flu, Covid swabs as well as a cardiac work up included BNP. She was in agreement this plan. She'll be continued on her home nasal cannula 2 L of oxygen. She was given an aspirin as well as Tylenol. She was in agreement this plan. EKG shows no signs of acute ischemia. Chest x-ray shows no acute cardio pulmonary process. Laboratory studies are remarkable for a troponin that is negative, patient is hypomagnesemic to 1.4, patient is a mild AK I with creatinine 1.19. Patient is flu positive the Covid negative. No other findings of labs. I spoke to patient regarding her symptoms which appears dehydrated, with full magnesium as well as influenza A positive. I believe based on her symptoms as well as age it is best to admit her to observation. She was in agreement this plan. I spoke with the patient's PCP and admitting physician Dr. Benjamin who was in agreement this plan. She'll be started on Tamiflu. She'll be given a small fluid bolus. Patient's fever is improved following Tylenol administration. - Lab Data Result diagrams: 10/01/21 10:51 10/01/21 10:51 Lab Results 10/01/21 10/01/21 10/01/21 Range/Units 10:35 10:35 10:51 WBC 5.0 (3.8-10.6) k/uL RBC 4.86 (3.80-5.40) m/uL Hgb 11.7 (11.4-16.0) gm/dL Hct 36.1 (34.0-46.0) % MCV 74.4 L (80.0-100.0) fL MCH 24.1 L (25.0-35.0) pg MCHC 32.4 (31.0-37.0) g/dL RDW 16.8 H (11.5-15.5) % Plt Count 215 (150-450) k/uL MPV 6.8 Neutrophils % 78 % Lymphocytes % 12 % Monocytes % 6 % Eosinophils % 1 % Basophils % 0 % Neutrophils # 3.9 (1.3-7.7) k/uL Lymphocytes # 0.6 L (1.0-4.8) k/uL Monocytes # 0.3 (0-1.0) k/uL Eosinophils # 0.0 (0-0.7) k/uL Basophils # 0.0 (0-0.2) k/uL Hypochromasia Moderate Anisocytosis Slight Microcytosis Moderate PT (9.0-12.0) sec INR (<1.2) APTT (22.0-30.0) sec Sodium (137-145) mmol/L Potassium (3.5-5.1) mmol/L Chloride (98-107) mmol/L Carbon Dioxide (22-30) mmol/L Anion Gap mmol/L BUN (7-17) mg/dL Creatinine (0.52-1.04) mg/dL Est GFR (CKD-EPI)AfAm (>60 ml/min/1.73 sqM) Est GFR (CKD-EPI)NonAf (>60 ml/min/1.73 sqM) Glucose (74-99) mg/dL Plasma Lactic Acid Tejas (0.7-2.0) mmol/L Calcium (8.4-10.2) mg/dL Magnesium (1.6-2.3) mg/dL Total Bilirubin (0.2-1.3) mg/dL AST (14-36) U/L ALT (4-34) U/L Alkaline Phosphatase (38-126) U/L Troponin I (0.000-0.034) ng/mL NT-Pro-B Natriuret Pep pg/mL Total Protein (6.3-8.2) g/dL Albumin (3.5-5.0) g/dL Coronavirus (PCR) Not Detected (Not Detectd) Influenza Type A RNA Detected H (Not Detectd) Influenza Type B (PCR) Not Detected (Not Detectd) 10/01/21 10/01/21 10/01/21 Range/Units 10:51 10:51 10:51 WBC (3.8-10.6) k/uL RBC (3.80-5.40) m/uL Hgb (11.4-16.0) gm/dL Hct (34.0-46.0) % MCV (80.0-100.0) fL MCH (25.0-35.0) pg MCHC (31.0-37.0) g/dL RDW (11.5-15.5) % Plt Count (150-450) k/uL MPV Neutrophils % % Lymphocytes % % Monocytes % % Eosinophils % % Basophils % % Neutrophils # (1.3-7.7) k/uL Lymphocytes # (1.0-4.8) k/uL Monocytes # (0-1.0) k/uL Eosinophils # (0-0.7) k/uL Basophils # (0-0.2) k/uL Hypochromasia Anisocytosis Microcytosis PT 11.3 (9.0-12.0) sec INR 1.0 (<1.2) APTT 24.6 (22.0-30.0) sec Sodium 134 L (137-145) mmol/L Potassium 5.1 (3.5-5.1) mmol/L Chloride 101 (98-107) mmol/L Carbon Dioxide 20 L (22-30) mmol/L Anion Gap 13 mmol/L BUN 23 H (7-17) mg/dL Creatinine 1.19 H (0.52-1.04) mg/dL Est GFR (CKD-EPI)AfAm 47 (>60 ml/min/1.73 sqM) Est GFR (CKD-EPI)NonAf 41 (>60 ml/min/1.73 sqM) Glucose 154 H (74-99) mg/dL Plasma Lactic Acid Tejas 1.4 (0.7-2.0) mmol/L Calcium 9.0 (8.4-10.2) mg/dL Magnesium 1.4 L (1.6-2.3) mg/dL Total Bilirubin 1.5 H (0.2-1.3) mg/dL AST 44 H (14-36) U/L ALT 16 (4-34) U/L Alkaline Phosphatase 106 (38-126) U/L Troponin I (0.000-0.034) ng/mL NT-Pro-B Natriuret Pep pg/mL Total Protein 8.4 H (6.3-8.2) g/dL Albumin 4.0 (3.5-5.0) g/dL Coronavirus (PCR) (Not Detectd) Influenza Type A RNA (Not Detectd) Influenza Type B (PCR) (Not Detectd) 10/01/21 10/01/21 Range/Units 10:51 10:51 WBC (3.8-10.6) k/uL RBC (3.80-5.40) m/uL Hgb (11.4-16.0) gm/dL Hct (34.0-46.0) % MCV (80.0-100.0) fL MCH (25.0-35.0) pg MCHC (31.0-37.0) g/dL RDW (11.5-15.5) % Plt Count (150-450) k/uL MPV Neutrophils % % Lymphocytes % % Monocytes % % Eosinophils % % Basophils % % Neutrophils # (1.3-7.7) k/uL Lymphocytes # (1.0-4.8) k/uL Monocytes # (0-1.0) k/uL Eosinophils # (0-0.7) k/uL Basophils # (0-0.2) k/uL Hypochromasia Anisocytosis Microcytosis PT (9.0-12.0) sec INR (<1.2) APTT (22.0-30.0) sec Sodium (137-145) mmol/L Potassium (3.5-5.1) mmol/L Chloride (98-107) mmol/L Carbon Dioxide (22-30) mmol/L Anion Gap mmol/L BUN (7-17) mg/dL Creatinine (0.52-1.04) mg/dL Est GFR (CKD-EPI)AfAm (>60 ml/min/1.73 sqM) Est GFR (CKD-EPI)NonAf (>60 ml/min/1.73 sqM) Glucose (74-99) mg/dL Plasma Lactic Acid Tejas (0.7-2.0) mmol/L Calcium (8.4-10.2) mg/dL Magnesium (1.6-2.3) mg/dL Total Bilirubin (0.2-1.3) mg/dL AST (14-36) U/L ALT (4-34) U/L Alkaline Phosphatase (38-126) U/L Troponin I <0.012 (0.000-0.034) ng/mL NT-Pro-B Natriuret Pep 729 pg/mL Total Protein (6.3-8.2) g/dL Albumin (3.5-5.0) g/dL Coronavirus (PCR) (Not Detectd) Influenza Type A RNA (Not Detectd) Influenza Type B (PCR) (Not Detectd) - EKG Data -: EKG Interpreted by Me EKG Comments: 12-lead Electrocardiogram Interpretation Note EKG was reviewed and interpreted by myself. 12-lead ECG performed at 0958 is interpreted by me as revealing normal sinus rhythm at a rate of 68 beats per minute. [place] is normal. TX interval is 197 ms, QRS duration is 96 ms, QTc is 376 ms.. There are T-wave inversions in the lateral precordial leads which are seen on prior EKGs. No acute ST segment T wave abnormalities... R wave progression across the precordium was satisfactory. By my interpretation this EKG is non-diagnostic for acute ischemia. Disposition Clinical Impression: Hypomagnesemia, Influenza A, Febrile Disposition: ADMITTED IP TO THIS HOSP Condition: Stable Time of Disposition: 12:00
[2021-10-01] MEDS ORDERED: NALOXONE 0.4 MG/ML 1 ML VIAL IV PRN (12:47)
[2021-10-01] MEDS ORDERED: ACETAMINOPHEN TAB 325 MG TAB PO PRN (12:47)
[2021-10-01] MEDS ORDERED: OSELTAMIVIR 60 MG/10 ML ORAL SYRINGE PO ONE (13:00)
[2021-10-02] MEDS ORDERED: NITROGLYCERIN SL TABS 0.4 MG TAB SUBLINGUAL PRN (12:35)
[2021-10-02] MEDS ORDERED: MECLIZINE 25 MG TAB PO PRN (12:35)
[2021-10-02] MEDS ORDERED: METOCLOPRAMIDE 10 MG TAB PO PRN (12:35)
[2021-10-02] MEDS ORDERED: BENZONATATE 100 MG CAP PO PRN (12:35)
[2021-10-02] MEDS: FUROSEMIDE 20 MG TAB PO SCH (13:12)
[2021-10-02] MEDS: atenoloL 50 MG TAB PO SCH (13:12)
[2021-10-02] MEDS: CLOPIDOGREL 75 MG TAB PO SCH (13:12)
[2021-10-02] MEDS: AZITHROMYCIN 500 MG in SODIUM CHLORIDE 0.9% 250 ML IVPB SCH (13:12)
--- NOTE | 2021-10-02 14:34 | P.HPIM ---
History of Present Illness H&P Date: 10/02/21 HISTORY OF PRESENT ILLNESS: This is an 86-year-old female one of my patient with a previous medical history significant for hypertension and hypertensive cardiovascular disease, hyperlipidemia, diabetes mellitus type 2, osteoarthritis, coronary artery disease, history of CVA, history of the osteomyelitis of the right heel with multidrug resistant Acinetobacter that was treated in June 2020, Covid 19 infection 05/13/2021. Patient was in her normal state of health until she started having significant cough, runny nose, fever chills, congestion. On Saturday evening she went to the outpatient clinic and was placed on Augmentin and Tessalon Perles. By Saturday she could barely stand up she was so weak and cough, congestion and fever continued. She has green sputum production. Temperature 101.3, heart rate 67, blood pressure 133/63, pulse ox 97% on 2 L nasal cannula. WBC 5.0, hemoglobin 11.7. Sodium 134, potassium 5.1, chloride 101, CO2 20, BUN 23 and creatinine 1.19. Blood sugar 154. Magnesium 1.4. Total bilirubin 1.5, AST 44, ALT 16, alkaline phosphatase 106. Troponin negative. ProBNP 729. Coronavirus PCR not detected. Influenza A detected. Influenza B not detected. Blood culture no growth at 24 hours. Chest x-ray reveals chronic changes and cardiomegaly without acute pulmonary process. REVIEW OF SYSTEMS: Constitutional: Reports fever, reports chills, no night sweats. No weight change. positive for weakness, fatigue no lethargy. No daytime sleepiness. HEENT: No headache. No blurred vision or double vision, no loss of vision. No loss of Hearing, no ringing in the ears, no dizziness. Reports nasal drainage or congestion. No epistaxis. No sore throat. Lungs: positive for shortness of breath, positive for cough, reports green sputum production. No wheezing. Reports dyspnea with activity. Cardiovascular: positive for right sided chest pain, no lower extremity edema. positive for palpitations. No paroxysmal nocturnal dyspnea. No orthopnea. No lightheadedness or dizziness. No syncopal episodes. Abdominal: No abdominal pain. positive for nausea, no vomiting. No diarrhea. No constipation. No bloody or tarry stools reports loss of appetite. Genitourinary: No dysuria, increased frequency, urgency. No urinary retention. Musculoskeletal: No myalgias. positive for muscle weakness, gait dysfunction, no frequent falls. No back pain. No neck pain. Integumentary: Right heel scab and dry skin in both legs and feet, no lesions. No rash or pruritus. No unusual bruising. No change in hair or nails. Neurologic: No aphasia. No facial droop. No change in mentation. No head injury. No headache. No paralysis. No paresthesia. Psychiatric: No depression. No anxiety. No mood swings. Endocrine: No abnormal blood sugars. No weight change. PAST MEDICAL HISTORY: Coronary artery disease. Hypertension and hypertensive cardiovascular disease. Hyperlipidemia. Diabetes mellitus type 2. Osteoarthritis. Aortic valve stenosis. Aortic regurgitation. Chronic diastolic heart failure. History of osteomyelitis of the right heel Hypothyroidism. Paroxysmal atrial fibrillation. PAST SURGICAL HISTORY: Bilateral cataract surgery. SOCIAL HISTORY: Patient used to smoke about pack every day but she quit many years ago, she denies any drug use or abuse, she has no alcohol ingestion, she lives with her daughter. FAMILY HISTORY: Mother at age of 77 from myocardial infarction, father at age 44 from a massive heart attack, patient had 4 brothers her oldest brothers at the age of 87 after coronary artery bypass graft the other one at age of 86 from Alzheimer dementia, she still have 2 living brothers one of them with cor onary artery bypass graft as well as NV status post PCI with idiopathic pulmonary fibrosis of diabetes mellitus type 2 her fourth brother is healthy patient also had 6 sisters one of them from the pulmonary medicine and significant blood clots the other one in the hospital after she did have a shoulder surgery and she ended up with sepsis, patient also has one sister with TIA without CVA 1 is bedridden about 89-year-old she is bed ridden due to multiple strokes, and one is alive with Alzheimer PHYSICAL EXAMINATION: General: 86-year-old female who is laying down in bed in mild acute distress. HEENT: Head is atraumatic, normocephalic, pupils were equal round reactive to light and recommendation, extraocular muscle movement were intact, sclera nonicteric, conjunctivae were pale, mucous membranes of the mouth are somewhat dry. Neck: Supple, no JVP, normal carotid upstroke bilaterally, no lymphadenopathy. Chest: Decreased breath sounds at the bases, few rhonchi, no expiratory wheezes, no chest wall tenderness, no intercostal retractions. Heart: First heart sound is normal, second heart sounds normal there is systolic ejection murmur 3/6 located in the right second intercostal space related to the base of the neck Abdomen: Soft, nontender, nondistended, positive bowel sounds, there is no hepatosplenomegaly. Extremities: There is no edema no calf tenderness DP +1 bilaterally, chronic skin changes with thick skin to the feet and a scab to the right heel Neurologic examination: Patient is awake alert and oriented X 3, cranial nerves II-12 appear grossly intact, muscle power were 5 out of 5 in upper extremities and 5 out of 5 in bilateral lower extremities, deep tendon reflexes normal bilaterally. ASSESSMENT AND PLAN: 1. Influenza A with concern for bacterial infection. Continue patient on oxygen, continue precautions, patient has been started on Tamiflu, start azithromycin for possible bacterial pneumonia, continue Tessalon Perles 3 times daily as needed for cough. 2. Paroxysmal atrial fibrillation. Patient resumed on eliquis 2.5 mg twice daily, atenolol 50 mg daily. 3. Hypertension and hypertensive cardiovascular disease. Continue patient on atenolol 50 mg orally once every day, monitor the patient blood pressure very closely. 4. Hyperlipidemia. Continue patient on atorvastatin 40 mg once every day. 5. Hypothyroidism. Continue patient on Synthroid 25 MCG orally once every day. 6. Diabetes mellitus type 2. Continue patient on Farxiga 5 mg orally once every day start the patient on SSI. 7. Patient placed as observation status Generalized Osteoarthritis. Clinically stable. 8. GERD. Continue with Protonix 40 mg orally once every day. 9. history of CVA in the past. Continue Plavix 75 mg daily and atorvastatin for secondary prevention. 10. DVT prophylaxis. continue Eliquis 2.5 mg po bid 11. GI prophylaxis. Continue Protonix 40 mg orally once every day. 12. Observation status. 13. Full code. DISCHARGE PLAN Home on Saturday Impression and plan of care have been directed as dictated by the signing physician. Esther Limon nurse practitioner acting as scribe for signing physician. Past Medical History Past Medical History: Coronary Artery Disease (CAD), Heart Failure, Diabetes Mellitus, Hyperlipidemia, Hypertension Additional Past Medical History / Comment(s): LYMPHEDEMA History of Any Multi-Drug Resistant Organisms: MRSA Date of last positivie culture/infection: 07/14/20 MDRO Source:: RIGHT FOOT Past Surgical History: Heart Catheterization With Stent Additional Past Surgical History / Comment(s): Heart cath x3 stents Past Anesthesia/Blood Transfusion Reactions: No Reported Reaction Additional Past Anesthesia/Blood Transfusion Reaction / Comment(s): PATIENT STATES THAT LAST HEART CATH SHE HAD A REACTION-SWOLLEN FACE-RED FACE-ITCHY SKIN Date of Last Stent Placement:: 03/2021 Past Psychological History: No Psychological Hx Reported Smoking Status: Former smoker Past Alcohol Use History: None Reported Past Drug Use History: None Reported - Past Family History Father Family Medical History: Myocardial Infarction ([place]) Additional Family Medical History / Comment(s): AT 45 OF HEART ATTACK Mother Family Medical History: Congestive Heart Failure (CHF) Additional Family Medical History / Comment(s): MOTHER IN 1985 FOUR MONTHS WITH THE 11TH CHILD. CARDIOMYOPATHY Medications and Allergies Home Medications Medication Instructions Recorded Confirmed Type Levothyroxine Sodium [Synthroid] 25 mcg PO DAILY 07/12/20 10/01/21 History Atorvastatin [Lipitor] 40 mg PO HS #90 tab 03/22/21 10/01/21 Rx Clopidogrel [Plavix] 75 mg PO DAILY #90 tab 03/22/21 10/01/21 Rx Furosemide [Lasix] 20 mg PO DAILY #30 tab 03/23/21 10/01/21 Rx Nitroglycerin Sl Tabs [Nitrostat] 0.4 mg SUBLINGUAL Q5M PRN #25 tab 03/23/21 10/01/21 Rx Amoxic-Pot Clav 875-125Mg 1 tab PO BID 10/01/21 10/01/21 History [Augmentin 875-125] Apixaban [Eliquis] 2.5 mg PO BID 10/01/21 10/01/21 History Atenolol [Tenormin] 50 mg PO DAILY 10/01/21 10/01/21 History Benzonatate [Tessalon Perles] 100 mg PO TID PRN 10/01/21 10/01/21 History Budesonide/Glycopyr/Formoterol 1 puff INHALATION RT-BID 10/01/21 10/01/21 History [Breztri Aerosphere Inhaler] Dapagliflozin Propanediol [Farxiga] 10 mg PO DAILY 10/01/21 10/01/21 History Meclizine [Antivert] 25 mg PO TID PRN 10/01/21 10/01/21 History Metoclopramide HCl [Reglan] 10 mg PO BID PRN 10/01/21 10/01/21 History Omeprazole Magnesium [PriLOSEC OTC] 20 mg PO BID 10/01/21 10/01/21 History Semaglutide [Rybelsus] 3 mg PO DAILY 10/01/21 10/01/21 History Allergies Allergy/AdvReac Type Severity Reaction Status Date / Time Iodinated Contrast Media Allergy Severe Rash/Hives Verified 10/01/21 13:47 hydrocortisone Allergy Intermediate Rash/Hives Verified 10/01/21 13:47 ampicillin [From Polycillin] Allergy Mild Rash/Hives Verified 10/01/21 13:47 cefaclor [From Ceclor] Allergy Mild Rash/Hives Verified 10/01/21 13:47 nitroglycerin Allergy Mild Unknown Verified 10/01/21 13:47 NSAIDS (Non-Steroidal Allergy Mild Unknown Verified 10/01/21 13:47 Anti-Inflamma sulfur dioxide Allergy Mild Unknown Verified 10/01/21 13:47 Physical Exam Vitals: Vital Signs Temp Pulse Pulse Resp BP BP Pulse Ox 10/02/21 07:00 97.6 F 63 16 122/70 97 10/02/21 02:29 98.3 F 51 L 18 121/54 99 10/02/21 01:14 98.3 F 61 18 129/54 100 10/01/21 23:49 54 L 18 110/50 97 10/01/21 21:45 98.8 F 57 L 14 113/44 98 10/01/21 19:55 51 L 12 118/53 99 10/01/21 15:02 97.3 F L 53 L 12 96/49 96 Intake and Output 10/01/21 10/02/21 10/02/21 22:59 06:59 14:59 Intake Total 118 Balance 118 Intake: Oral 118 Other: # Voids 1 1 Weight 72.575 kg Results CBC & Chem 7: 10/01/21 10:51 10/01/21 10:51
[2021-10-02] MEDS: OSELTAMIVIR 60 MG/10 ML ORAL SYRINGE PO SCH (16:00)
[2021-10-02 17:33] LABS: Glucose,Whole Blood 138 mg/dL (75-99)
--- NOTE | 2021-10-02 18:51 | XR ---
EXAMINATION TYPE: XR chest 2V DATE OF EXAM: 10/02/2021 COMPARISON: 10/01/2021 HISTORY: Bacterial pneumonia TECHNIQUE: 2 views FINDINGS: There is no heart failure nor confluent pneumonic infiltrate. Costophrenic angles are clear . There are chest leads. There are no hilar masses. Bony thorax is intact. IMPRESSION: No active cardiopulmonary disease. No change.
[2021-10-02 20:24] LABS: Glucose,Whole Blood 148 mg/dL (75-99)
[2021-10-02] MEDS: INSULIN ASPART (NovoLOG) 100 UNIT/ML VIAL SQ SCH ×2 (20:25→21:18)
[2021-10-02] MEDS: APIXABAN 2.5 MG TABLET PO SCH (20:57)
[2021-10-02] MEDS ORDERED: ATORVASTATIN 40 MG TAB PO SCH (21:00)
[2021-10-03] MEDS: NON FORMULARY DRUG (Budesonide/Glycopyr/Formoterol [Breztri Aerosphere Inhaler] 10.7 GM Gm INHALATION SCH ×2 (02:44→11:37)
[2021-10-03 03:57] VITALS: RESP 16
[2021-10-03] MEDS ORDERED: LEVOTHYROXINE 25 MCG TAB PO SCH (06:30)
[2021-10-03 07:00] LABS: Glucose,Whole Blood 116 mg/dL (75-99)
[2021-10-03] MEDS ORDERED: PANTOPRAZOLE 40 MG TABLET PO SCH (07:30)
[2021-10-03 07:34] VITALS: BP 112/67; PULSE 54; TEMP 97.4
[2021-10-03] MEDS: INSULIN ASPART (NovoLOG) 100 UNIT/ML VIAL SQ SCH ×2 (08:22→12:43)
[2021-10-03] MEDS: AZITHROMYCIN 500 MG in SODIUM CHLORIDE 0.9% 250 ML IVPB SCH (08:32)
[2021-10-03] MEDS: CLOPIDOGREL 75 MG TAB PO SCH (08:33)
[2021-10-03] MEDS: atenoloL 50 MG TAB PO SCH (08:33)
[2021-10-03] MEDS: FUROSEMIDE 20 MG TAB PO SCH (08:33)
[2021-10-03] MEDS: APIXABAN 2.5 MG TABLET PO SCH (08:40)
[2021-10-03] MEDS ORDERED: NON FORMULARY DRUG (Semaglutide [Rybelsus] 3 MG Tablet) PO SCH (09:00)
[2021-10-03] MEDS ORDERED: NON FORMULARY DRUG (Dapagliflozin Propanediol [Farxiga] 10 MG Tablet) PO SCH (09:00)
[2021-10-03 12:08] LABS: Glucose,Whole Blood 118 mg/dL (75-99)
--- NOTE | 2021-10-03 12:57 | P.DS ---
Providers Date of admission: 10/01/21 14:56 Expected date of discharge: 10/03/21 Attending physician: Jackson Benjamin Primary care physician: Jackson Benjamin Hospital Course: HISTORY OF PRESENT ILLNESS: This is an 86-year-old female one of my patient with a previous medical history significant for hypertension and hypertensive cardiovascular disease, hyperlipidemia, diabetes mellitus type 2, osteoarthritis, coronary artery disease, history of CVA, history of the osteomyelitis of the right heel with multidrug resistant Acinetobacter that was treated in June 2020, Covid 19 infection 05/13/2021. Patient was in her normal state of health until she started having significant cough, runny nose, fever chills, congestion. On Saturday evening she went to the outpatient clinic and was placed on Augmentin and Tessalon Perles. By Saturday she could barely stand up she was so weak and cough, congestion and fever continued. She has green sputum production. Temperature 101.3, heart rate 67, blood pressure 133/63, pulse ox 97% on 2 L nasal cannula. WBC 5.0, hemoglobin 11.7. Sodium 134, potassium 5.1, chloride 101, CO2 20, BUN 23 and creatinine 1.19. Blood sugar 154. Magnesium 1.4. Total bilirubin 1.5, AST 44, ALT 16, alkaline phosphatase 106. Troponin negative. ProBNP 729. Coronavirus PCR not detected. Influenza A detected. Influenza B not detected. Blood culture no growth at 24 hours. Chest x-ray reveals chronic changes and cardiomegaly without acute pulmonary process. 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 She has been on Tamiflu and azithromycin. She's been afebrile, heart rate 54, blood pressure 112/67, pulse ox 97% on 2 L. Patient is currently off oxygen. Patient will be discharged home today in stable condition with planned follow-up in the office next week. Repeat chest x-ray shows no active cardiac pulmonary disease. DISCHARGE DIAGNOSES 1. Influenza A with acute bacterial bronchitis. 2. Paroxysmal atrial fibrillation. 3. Hypertension and hypertensive cardiovascular disease. 4. Hyperlipidemia. 5. Hypothyroidism. 6. Diabetes mellitus type 2. 7. Generalized Osteoarthritis. 8. GERD. 9. history of CVA in the past. DISCHARGE PLAN Home Greater than 35 minutes was utilized and coordinating patient's discharge. Impression and plan of care have been directed as dictated by the signing physician. Esther Limon nurse practitioner acting as scribe for signing physician. Patient Condition at Discharge: Good Plan - Discharge Summary New Discharge Prescriptions: New Oseltamivir Phosphate [Tamiflu] 30 mg PO BID #8 capsule Azithromycin [Zithromax Z-pack (6 tabs)] 0 mg PO DIRECTED 5 Days #6 tab Continue Levothyroxine Sodium [Synthroid] 25 mcg PO DAILY Clopidogrel [Plavix] 75 mg PO DAILY #90 tab Nitroglycerin Sl Tabs [Nitrostat] 0.4 mg SUBLINGUAL Q5M PRN #25 tab PRN Reason: Chest Pain Apixaban [Eliquis] 2.5 mg PO BID Atenolol [Tenormin] 50 mg PO DAILY Benzonatate [Tessalon Perles] 100 mg PO TID PRN PRN Reason: Cough Budesonide/Glycopyr/Formoterol [Breztri Aerosphere Inhaler] 1 puff INHALATION RT-BID Dapagliflozin Propanediol [Farxiga] 10 mg PO DAILY Meclizine [Antivert] 25 mg PO TID PRN PRN Reason: Vertigo Omeprazole Magnesium [PriLOSEC OTC] 20 mg PO BID Semaglutide [Rybelsus] 3 mg PO DAILY Atorvastatin [Lipitor] 40 mg PO HS #90 tab Furosemide [Lasix] 20 mg PO DAILY #30 tab Metoclopramide HCl [Reglan] 10 mg PO BID PRN PRN Reason: Nausea Discontinued Amoxic-Pot Clav 875-125Mg [Augmentin 875-125] 1 tab PO BID Discharge Medication List Levothyroxine Sodium [Synthroid] 25 mcg PO DAILY 07/12/20 [History] Atorvastatin [Lipitor] 40 mg PO HS #90 tab 03/22/21 [Rx] Clopidogrel [Plavix] 75 mg PO DAILY #90 tab 03/22/21 [Rx] Furosemide [Lasix] 20 mg PO DAILY #30 tab 03/23/21 [Rx] Nitroglycerin Sl Tabs [Nitrostat] 0.4 mg SUBLINGUAL Q5M PRN #25 tab 03/23/21 [Rx] Apixaban [Eliquis] 2.5 mg PO BID 10/01/21 [History] Atenolol [Tenormin] 50 mg PO DAILY 10/01/21 [History] Benzonatate [Tessalon Perles] 100 mg PO TID PRN 10/01/21 [History] Budesonide/Glycopyr/Formoterol [Breztri Aerosphere Inhaler] 1 puff INHALATION RT-BID 10/01/21 [History] Dapagliflozin Propanediol [Farxiga] 10 mg PO DAILY 10/01/21 [History] Meclizine [Antivert] 25 mg PO TID PRN 10/01/21 [History] Metoclopramide HCl [Reglan] 10 mg PO BID PRN 10/01/21 [History] Omeprazole Magnesium [PriLOSEC OTC] 20 mg PO BID 10/01/21 [History] Semaglutide [Rybelsus] 3 mg PO DAILY 10/01/21 [History] Azithromycin [Zithromax Z-pack (6 tabs)] 0 mg PO DIRECTED 5 Days #6 tab 10/03/21 [Rx] Oseltamivir Phosphate [Tamiflu] 30 mg PO BID #8 capsule 10/03/21 [Rx] Follow up Appointment(s)/Referral(s): Jackson Benjamin MD [Primary Care Provider] - 1 Week Discharge/Stand Alone Forms: Who Do I Call?, Help In The Home, Personal Tissue Technician Discharge Disposition: HOME SELF-CARE
[2021-10-03] MEDS: OSELTAMIVIR 60 MG/10 ML ORAL SYRINGE PO SCH (16:03)
== END 2021-10-03 16:13 | disposition home or self-care (01) | DRG 194 ==
LOC: EC 09:34 → 6NMEDSUR 12:47 → OBSVTOIN 14:56 → 6NMEDSUR 15:26
PROVIDERS: ADMIT Internal Medicine; ATTEND Internal Medicine
DX: J10.1 Influenza due to other identified influenza virus with other respiratory manifestations (principal); I50.32 Chronic diastolic (congestive) heart failure; I35.2 Nonrheumatic aortic (valve) stenosis with insufficiency; I48.0 Paroxysmal atrial fibrillation; J20.9 Acute bronchitis, unspecified; K21.9 Gastro-esophageal reflux disease without esophagitis; M15.9 Polyosteoarthritis, unspecified; Z20.822 Contact with and (suspected) exposure to COVID-19; Z79.01 Long term (current) use of anticoagulants; Z79.02 Long term (current) use of antithrombotics/antiplatelets; Z79.84 Long term (current) use of oral hypoglycemic drugs; Z79.890 Hormone replacement therapy; E03.9 Hypothyroidism, unspecified; E11.9 Type 2 diabetes mellitus without complications; J84.10 Pulmonary fibrosis, unspecified; E78.5 Hyperlipidemia, unspecified; E83.42 Hypomagnesemia; E86.0 Dehydration; I11.0 Hypertensive heart disease with heart failure; I25.10 Atherosclerotic heart disease of native coronary artery without angina pectoris; Z79.899 Other long term (current) drug therapy; Z82.0 Family history of epilepsy and other diseases of the nervous system; Z82.49 Family history of ischemic heart disease and other diseases of the circulatory system; Z83.3 Family history of diabetes mellitus; Z86.73 Personal history of transient ischemic attack (TIA), and cerebral infarction without residual deficits; Z87.891 Personal history of nicotine dependence; Z98.42 Cataract extraction status, left eye; Z98.41 Cataract extraction status, right eye; Z88.0 Allergy status to penicillin; Z88.8 Allergy status to other drugs, medicaments and biological substances; Z88.1 Allergy status to other antibiotic agents; Z91.041 Radiographic dye allergy status; Z74.01 Bed confinement status
CPT/HCPCS: 36415; 71046; 80053; 83605; 83735; 83880; 84484; 85025; 85610; 85730; 87040; 87502; 87635; 93005; 96365; 99285

== ENCOUNTER 2022-02-03 07:18 | Observation (INO) | payer MEDICARE, BC ==
[2022-02-03] MEDS ORDERED: ASPIRIN 81 MG PO STA (07:42)
[2022-02-03] MEDS ORDERED: PANTOPRAZOLE 40 MG/10 ML VIAL IVP STA (07:43)
--- NOTE | 2022-02-03 07:46 | ED ---
General Adult HPI - General Chief complaint: Chest Pain Stated complaint: Chest pain Time Seen by Provider: 02/03/22 07:25 Source: patient, EMS, RN notes reviewed, old records reviewed Mode of arrival: EMS Limitations: no limitations - History of Present Illness Initial comments: This is an 86-year-old female with past medical history significant for coronary artery disease with 3 stents, high blood pressure, high cholesterol. Patient comes in today stating that she three-day history of which she thought to be heartburn but it's in her chest and radiates to her left shoulder and so her daughter was concerned and sent her in. Patient states she has been burping more and occasionally when she does feel better. The patient states is not consistent. Patient denies any vomiting. Patient denies shortness of breath or diaphoretic episodes. Patient states she does feel mildly nauseous. Patient denies any recent fever chills or cough per patient denies lightheadedness or dizziness. Patient denies any recent injury or trauma. - Related Data Home Medications Medication Instructions Recorded Confirmed Levothyroxine Sodium [Synthroid] 25 mcg PO DAILY 07/12/20 10/01/21 Apixaban [Eliquis] 2.5 mg PO BID 10/01/21 10/01/21 Benzonatate [Tessalon Perles] 100 mg PO TID PRN 10/01/21 10/01/21 Budesonide/Glycopyr/Formoterol 1 puff INHALATION RT-BID 10/01/21 10/01/21 [Breztri Aerosphere Inhaler] Dapagliflozin Propanediol [Farxiga] 10 mg PO DAILY 10/01/21 10/01/21 Meclizine [Antivert] 25 mg PO TID PRN 10/01/21 10/01/21 Metoclopramide HCl [Reglan] 10 mg PO BID PRN 10/01/21 10/01/21 Omeprazole Magnesium [PriLOSEC OTC] 20 mg PO BID 10/01/21 10/01/21 Semaglutide [Rybelsus] 3 mg PO DAILY 10/01/21 10/01/21 atenoloL [Tenormin] 50 mg PO DAILY 10/01/21 10/01/21 Previous Rx's Medication Instructions Recorded Atorvastatin [Lipitor] 40 mg PO HS #90 tab 03/22/21 Clopidogrel [Plavix] 75 mg PO DAILY #90 tab 03/22/21 Furosemide [Lasix] 20 mg PO DAILY #30 tab 03/23/21 Nitroglycerin Sl Tabs [Nitrostat] 0.4 mg SUBLINGUAL Q5M PRN #25 tab 03/23/21 Azithromycin [Zithromax Z-pack (6 0 mg PO DIRECTED 5 Days #6 tab 10/03/21 tabs)] Oseltamivir Phosphate [Tamiflu] 30 mg PO BID #8 capsule 10/03/21 Allergies Allergy/AdvReac Type Severity Reaction Status Date / Time Iodinated Contrast Media Allergy Severe Rash/Hives Verified 02/03/22 07:38 hydrocortisone Allergy Intermediate Rash/Hives Verified 02/03/22 07:38 ampicillin [From Polycillin] Allergy Mild Rash/Hives Verified 02/03/22 07:38 cefaclor [From Ceclor] Allergy Mild Rash/Hives Verified 02/03/22 07:38 nitroglycerin Allergy Mild Unknown Verified 02/03/22 07:38 NSAIDS (Non-Steroidal Allergy Mild Unknown Verified 02/03/22 07:38 Anti-Inflamma sulfur dioxide Allergy Mild Unknown Verified 02/03/22 07:38 Review of Systems ROS Statement: Those systems with pertinent positive or pertinent negative responses have been documented in the HPI. ROS Other: All systems not noted in ROS Statement are negative. Past Medical History Past Medical History: Coronary Artery Disease (CAD), Heart Failure, Diabetes Mellitus, Hyperlipidemia, Hypertension Additional Past Medical History / Comment(s): LYMPHEDEMA History of Any Multi-Drug Resistant Organisms: MRSA Date of last positivie culture/infection: 07/14/20 MDRO Source:: RIGHT FOOT Past Surgical History: Heart Catheterization With Stent Additional Past Surgical History / Comment(s): Heart cath x3 stents Past Anesthesia/Blood Transfusion Reactions: No Reported Reaction Additional Past Anesthesia/Blood Transfusion Reaction / Comment(s): PATIENT STATES THAT LAST HEART CATH SHE HAD A REACTION-SWOLLEN FACE-RED FACE-ITCHY SKIN Date of Last Stent Placement:: 03/2021 Past Psychological History: No Psychological Hx Reported Smoking Status: Former smoker Past Alcohol Use History: None Reported Past Drug Use History: None Reported - Past Family History Father Family Medical History: Myocardial Infarction ([place]) Additional Family Medical History / Comment(s): AT 45 OF HEART ATTACK Mother Family Medical History: Congestive Heart Failure (CHF) Additional Family Medical History / Comment(s): MOTHER IN 1985 FOUR MONTHS WITH THE 11TH CHILD. CARDIOMYOPATHY General Exam - General Exam Comments Initial Comments: GENERAL: Patient is well-developed and well-nourished. Patient is nontoxic and well- hydrated and is in mild distress. ENT: Neck is soft and supple. No significant lymphadenopathy is noted. Oropharynx is clear. Moist mucous membranes. Neck has full range of motion without eliciting any pain. EYES: The sclera were anicteric and conjunctiva were pink and moist. Extraocular movements were intact and pupils were equal round and reactive to light. Eyelids were unremarkable. PULMONARY: Unlabored respirations. Good breath sounds bilaterally. No audible rales rhonchi or wheezing was noted. CARDIOVASCULAR: Patient is a regular rate and rhythm with a 3/6 systolic murmur ABDOMEN: Soft and nontender with normal bowel sounds. SKIN: Skin is clear with no lesions or rashes and otherwise unremarkable. NEUROLOGIC: Patient is alert and oriented x3. Cranial nerves II through XII are grossly intact. Motor and sensory are also intact. Normal speech, volume and content. Symmetrical smile. MUSCULOSKELETAL: Normal extremities with adequate strength and full range of motion. Patient has bilateral leg swelling no edema. Patient states she has a history of lymphedema. LYMPHATICS: No significant lymphadenopathy is noted PSYCHIATRIC: Normal psychiatric evaluation. Limitations: no limitations Course Vital Signs 02/03/22 02/03/22 07:19 08:00 Pulse Rate 63 61 Respiratory 18 18 Rate Blood Pressure 162/86 146/63 O2 Sat by Pulse 94 L 94 L Oximetry Medical Decision Making - Medical Decision Making EKG shows sinus bradycardia 51 bpm NV interval 298 QRS is 90 QT interval 390 QTC is 377. Patient's EKG shows T-wave inversions in 1 and aVL. Chest x-ray shows no acute abnormality. I spoke with Dr. Benjamin he agreed to admit the patient admitted the patient I wrote admitting orders consult cardiology - Lab Data Result diagrams: 02/03/22 07:46 02/03/22 07:46 Lab Results 02/03/22 02/03/22 02/03/22 Range/Units 07:46 07:46 07:46 WBC 6.8 (3.8-10.6) k/uL RBC 4.96 (3.80-5.40) m/uL Hgb 11.9 (11.4-16.0) gm/dL Hct 38.6 (34.0-46.0) % MCV 77.7 L (80.0-100.0) fL MCH 24.1 L (25.0-35.0) pg MCHC 31.0 (31.0-37.0) g/dL RDW 17.3 H (11.5-15.5) % Plt Count 288 (150-450) k/uL MPV 7.8 Neutrophils % 61 % Lymphocytes % 26 % Monocytes % 6 % Eosinophils % 3 % Basophils % 0 % Neutrophils # 4.1 (1.3-7.7) k/uL Lymphocytes # 1.8 (1.0-4.8) k/uL Monocytes # 0.4 (0-1.0) k/uL Eosinophils # 0.2 (0-0.7) k/uL Basophils # 0.0 (0-0.2) k/uL Hypochromasia Moderate Anisocytosis Slight Microcytosis Slight PT 10.8 (9.0-12.0) sec INR 1.0 (<1.2) APTT 24.4 (22.0-30.0) sec Sodium 138 (137-145) mmol/L Potassium 4.1 (3.5-5.1) mmol/L Chloride 103 (98-107) mmol/L Carbon Dioxide 25 (22-30) mmol/L Anion Gap 10 mmol/L BUN 25 H (7-17) mg/dL Creatinine 1.04 (0.52-1.04) mg/dL Est GFR (CKD-EPI)AfAm 56 (>60 ml/min/1.73 sqM) Est GFR (CKD-EPI)NonAf 49 (>60 ml/min/1.73 sqM) Glucose 184 H (74-99) mg/dL Calcium 9.7 (8.4-10.2) mg/dL Magnesium 1.6 (1.6-2.3) mg/dL Total Bilirubin 0.7 (0.2-1.3) mg/dL AST 34 (14-36) U/L ALT 21 (4-34) U/L Alkaline Phosphatase 159 H (38-126) U/L Troponin I (0.000-0.034) ng/mL Total Protein 8.2 (6.3-8.2) g/dL Albumin 3.9 (3.5-5.0) g/dL 02/03/22 Range/Units 07:46 WBC (3.8-10.6) k/uL RBC (3.80-5.40) m/uL Hgb (11.4-16.0) gm/dL Hct (34.0-46.0) % MCV (80.0-100.0) fL MCH (25.0-35.0) pg MCHC (31.0-37.0) g/dL RDW (11.5-15.5) % Plt Count (150-450) k/uL MPV Neutrophils % % Lymphocytes % % Monocytes % % Eosinophils % % Basophils % % Neutrophils # (1.3-7.7) k/uL Lymphocytes # (1.0-4.8) k/uL Monocytes # (0-1.0) k/uL Eosinophils # (0-0.7) k/uL Basophils # (0-0.2) k/uL Hypochromasia Anisocytosis Microcytosis PT (9.0-12.0) sec INR (<1.2) APTT (22.0-30.0) sec Sodium (137-145) mmol/L Potassium (3.5-5.1) mmol/L Chloride (98-107) mmol/L Carbon Dioxide (22-30) mmol/L Anion Gap mmol/L BUN (7-17) mg/dL Creatinine (0.52-1.04) mg/dL Est GFR (CKD-EPI)AfAm (>60 ml/min/1.73 sqM) Est GFR (CKD-EPI)NonAf (>60 ml/min/1.73 sqM) Glucose (74-99) mg/dL Calcium (8.4-10.2) mg/dL Magnesium (1.6-2.3) mg/dL Total Bilirubin (0.2-1.3) mg/dL AST (14-36) U/L ALT (4-34) U/L Alkaline Phosphatase (38-126) U/L Troponin I <0.012 (0.000-0.034) ng/mL Total Protein (6.3-8.2) g/dL Albumin (3.5-5.0) g/dL Disposition Clinical Impression: Chest pain Disposition: ADMITTED IP TO THIS HOSP Referrals: Jackson Benjamin MD [Primary Care Provider] - 1-2 days Time of Disposition: 08:57
[2022-02-03 08:00] LABS: Anisocytosis Slight; Basophils % (A) 0 %; Eosinophils # (A) 0.2 k/uL (0-0.7); Eosinophils % (A) 3 %; HCT 38.6 % (34.0-46.0); HGB 11.9 gm/dL (11.4-16.0); Hypochromasia Moderate; Lymphocytes # (A) 1.8 k/uL (1.0-4.8); Lymphocytes % (A) 26 %; MCH 24.1 pg (25.0-35.0); MCV 77.7 fL (80.0-100.0); Mean Platelet Volume 7.8; Microcytosis Slight; Monocytes # (A) 0.4 k/uL (0-1.0); Monocytes % (A) 6 %; Neutrophils # (A) 4.1 k/uL (1.3-7.7); Neutrophils % (A) 61 %; Platelet Count 288 k/uL (150-450); RBC 4.96 m/uL (3.80-5.40); RDW 17.3 % (11.5-15.5); WBC 6.8 k/uL (3.8-10.6)
[2022-02-03 08:12] LABS: Albumin 3.9 g/dL (3.5-5.0); Calcium 9.7 mg/dL (8.4-10.2); Total Bilirubin 0.7 mg/dL (0.2-1.3); Total Protein 8.2 g/dL (6.3-8.2)
[2022-02-03 08:18] LABS: Partial Thromboplastin Time 24.4 sec (22.0-30.0); Prothrombin Time 10.8 sec (9.0-12.0)
[2022-02-03 08:22] LABS: Magnesium 1.6 mg/dL (1.6-2.3); Potassium 4.1 mmol/L (3.5-5.1)
--- NOTE | 2022-02-03 08:30 | XR ---
EXAMINATION TYPE: XR chest 2V DATE OF EXAM: 02/03/2022 COMPARISON: 10/02/2021, 10/26/2021 HISTORY: 86-year-old female with chest pain TECHNIQUE: AP and lateral views FINDINGS: Heart mildly enlarged. Aorta within normal limits. Hyperinflation. Mild interstitial prominence. Unch anged calcified granulomas left upper lobe. No francheska consolidation or pleural effusion. Coronary sten t noted. Possible subtle pulmonary nodule at the right upper lobe. IMPRESSION: Mild cardiomegaly, COPD, and evidence of prior granulomatous disease. Suspect summation artifact at t he right apex. No acute process is seen. Recommend outpatient CT for more detailed assessment of the lung parenchyma and to exclude an underlying right upper lobe pulmonary nodule.
[2022-02-03] MEDS ORDERED: APIXABAN 2.5 MG TABLET PO PRN (11:52)
--- NOTE | 2022-02-03 11:52 | P.CRDCN ---
History of Present Illness Consult date: 02/03/22 History of present illness: History of Present Illness: The patient is an 86-year-old female with known history of aortic stenosis, coronary artery disease status post stenting who presented with symptoms of left-sided chest discomfort and shoulder discomfort. She has underwent stenting of her LAD by Dr. Montelongo in February 2021 and a calcified vessel and received 3 stents in the proximal LAD and distal LAD. Her left shoulder discomfort and chest is worse in certain position. She has dyspnea on exertion and prior history of lymphedema. She denies any dizziness or palpitations. She feels that the symptoms of chest discomfort are different from what she had prior to her PCI. He had an echo in February of last year that showed a normal systolic function with severe aortic stenosis and a mean gradient of 40 mmHg was mild mitral and tricuspid regurgitation. She has occasional edema on the right side. Her activity is limited but unchanged. Her risk factors are positive for hyperlipidemia, diabetes and hypertension Medications: Januvia 50 mg daily, Lipitor 80 mg daily, Plavix 75 mg daily, furosemide 20 mg daily, atenolol 50 mg daily, Farxiga 10 mg daily, Eliquis 2.5 milligrams twice a day Review of Systems: Respiratory: She has dyspnea on exertion but no recent wheezing or cough GI: Occasional nausea but no vomiting . No history of peptic ulcer disease. No recent GI bleed. : No hematuria or dysuria. Nervous System: No recent stroke or seizure. She has a remote history of stroke Physical Examination: 86-year-old female, hard of hearing,Blood pressure 146/60, Heart rate 60 Head: Normocephalic. Eyes: Sclerae nonicteric. Neck: Good carotid upstroke, no bruit, no jugular venous distention. Lungs: Clear to auscultation. Heart: Regular rate and rhythm, S1-S2, no S3, no rub. Systolic ejection murmur, 3/6, late peaking. Abdomen: Soft nontender, positive bowel sounds no organomegaly. Extremities: No significant edema, intact distal pulses. Labs: Troponin less than 0.012, BUN 25, creatinine 1.04, potassium 4.1, hemoglobin 11.9 EKG: Sinus rhythm rate of 51 with nonspecific T wave changes laterally, cannot exclude ischemia, no changes Impression: 1. Left shoulder discomfort appears to be muscular skeletal 2. History of CAD status post stenting with no evidence of acute coronary syndrome 3. Severe aortic stenosis 4. History of hypertension 5. Paroxysmal atrial fibrillation, maintaining sinus mechanism 6. History of diabetes 7. History of hyperlipidemia Plan: 1. Resume home medication 2. Obtain an echocardiogram with Doppler 3. Depending on result of the apical the patient may require evaluation for aortic valve replacement 4. Depending on the results of the testing further recommendations will be made 5. Thank you for this consult we will follow with you Past Medical History Past Medical History: Coronary Artery Disease (CAD), Heart Failure, Diabetes Mellitus, Hyperlipidemia, Hypertension Additional Past Medical History / Comment(s): LYMPHEDEMA History of Any Multi-Drug Resistant Organisms: MRSA Date of last positivie culture/infection: 07/14/20 MDRO Source:: RIGHT FOOT Past Surgical History: Heart Catheterization With Stent Additional Past Surgical History / Comment(s): Heart cath x3 stents Past Anesthesia/Blood Transfusion Reactions: No Reported Reaction Additional Past Anesthesia/Blood Transfusion Reaction / Comment(s): PATIENT STATES THAT LAST HEART CATH SHE HAD A REACTION-SWOLLEN FACE-RED FACE-ITCHY SKIN Date of Last Stent Placement:: 03/2021 Past Psychological History: No Psychological Hx Reported Smoking Status: Former smoker Past Alcohol Use History: None Reported Past Drug Use History: None Reported - Past Family History Father Family Medical History: Myocardial Infarction ([place]) Additional Family Medical History / Comment(s): AT 45 OF HEART ATTACK Mother Family Medical History: Congestive Heart Failure (CHF) Additional Family Medical History / Comment(s): MOTHER IN 1985 FOUR MONTHS WITH THE 11TH CHILD. CARDIOMYOPATHY Medications and Allergies Home Medications Medication Instructions Recorded Confirmed Type Levothyroxine Sodium [Synthroid] 25 mcg PO DAILY 07/12/20 02/03/22 History Clopidogrel [Plavix] 75 mg PO DAILY #90 tab 03/22/21 02/03/22 Rx Furosemide [Lasix] 20 mg PO DAILY #30 tab 03/23/21 02/03/22 Rx Nitroglycerin Sl Tabs [Nitrostat] 0.4 mg SUBLINGUAL Q5M PRN #25 tab 03/23/21 02/03/22 Rx Apixaban [Eliquis] 2.5 mg PO BID PRN 10/01/21 02/03/22 History Dapagliflozin Propanediol [Farxiga] 10 mg PO DAILY 10/01/21 02/03/22 History Meclizine [Antivert] 25 mg PO TID PRN 10/01/21 02/03/22 History Metoclopramide HCl [Reglan] 10 mg PO BID PRN 10/01/21 02/03/22 History atenoloL [Tenormin] 50 mg PO DAILY 10/01/21 02/03/22 History Atorvastatin Calcium [Lipitor] 80 mg PO HS 02/03/22 02/03/22 History Omeprazole [PriLOSEC] 20 mg PO BID 02/03/22 02/03/22 History sitaGLIPtin [Januvia] 50 mg PO DAILY 02/03/22 02/03/22 History Allergies Allergy/AdvReac Type Severity Reaction Status Date / Time Iodinated Contrast Media Allergy Severe Rash/Hives Verified 02/03/22 10:53 hydrocortisone Allergy Intermediate Rash/Hives Verified 02/03/22 10:53 ampicillin [From Polycillin] Allergy Mild Rash/Hives Verified 02/03/22 10:53 cefaclor [From Ceclor] Allergy Mild Rash/Hives Verified 02/03/22 10:53 nitroglycerin Allergy Mild Unknown Verified 02/03/22 10:53 NSAIDS (Non-Steroidal Allergy Mild Unknown Verified 02/03/22 10:53 Anti-Inflamma sulfur dioxide Allergy Mild Unknown Verified 02/03/22 10:53 Physical Exam Vitals: Vital Signs Pulse Resp BP Pulse Ox 02/03/22 08:00 61 18 146/63 94 L 02/03/22 07:19 63 18 162/86 94 L Intake and Output 02/02/22 02/03/22 02/03/22 22:59 06:59 14:59 Other: Weight 75.6 kg Results 02/03/22 07:46 02/03/22 07:46 Cardiac Enzymes 02/03/22 02/03/22 02/03/22 Range/Units 07:46 07:46 10:32 AST 34 (14-36) U/L Troponin I <0.012 <0.012 (0.000-0.034) ng/mL Coagulation 02/03/22 Range/Units 07:46 PT 10.8 (9.0-12.0) sec APTT 24.4 (22.0-30.0) sec CBC 02/03/22 Range/Units 07:46 WBC 6.8 (3.8-10.6) k/uL RBC 4.96 (3.80-5.40) m/uL Hgb 11.9 (11.4-16.0) gm/dL Hct 38.6 (34.0-46.0) % Plt Count 288 (150-450) k/uL Comprehensive Metabolic Panel 02/03/22 Range/Units 07:46 Sodium 138 (137-145) mmol/L Potassium 4.1 (3.5-5.1) mmol/L Chloride 103 (98-107) mmol/L Carbon Dioxide 25 (22-30) mmol/L BUN 25 H (7-17) mg/dL Creatinine 1.04 (0.52-1.04) mg/dL Glucose 184 H (74-99) mg/dL Calcium 9.7 (8.4-10.2) mg/dL AST 34 (14-36) U/L ALT 21 (4-34) U/L Alkaline Phosphatase 159 H (38-126) U/L Total Protein 8.2 (6.3-8.2) g/dL Albumin 3.9 (3.5-5.0) g/dL Current Medications Generic Name Dose Route Start Last Admin Trade Name Freq PRN Reason Stop Dose Admin Aspirin 325 mg 02/04/22 09:00 Aspirin 325 Mg Tab PO DAILY OSIEL Intake and Output 02/02/22 02/03/22 02/03/22 22:59 06:59 14:59 Other: Weight 75.6 kg Patient Weight 02/04/22 06:59 Weight 75.6 kg 02/03/22 07:46 02/03/22 07:46
[2022-02-03] MEDS: CLOPIDOGREL 75 MG TAB PO SCH (12:09)
[2022-02-03] MEDS ORDERED: IOPAMIDOL CONTRAST (ORAL USE) VIAL PO PRN (14:39)
--- NOTE | 2022-02-03 15:41 | CA ---
Transthoracic Echo Report Name: Rachel Wilson Age: 86 Gender: F : 1935 Exam Date: 02/03/2022 13:41 Exam Location: [facility] Ht (in): 58 Wt (lb): 166 Ordering Physician: Alisson Haines MD ([id number]) Attending/Referring Phys: Child [employer] Att[employer] Patricia Guerrero RDCS Procedure CPT: Indications: Cardiac Hx: Technical Quality: Fair Contrast 1: Total Dose (mL): Contrast 2: Total Dose (mL): MEASUREMENTS (Male / Female) Normal Values 2D ECHO LV Diastolic Diameter PLAX 3.9 cm 4.2 - 5.9 / 3.9 - 5.3 cm LV Systolic Diameter PLAX 2.4 cm IVS Diastolic Thickness 1.5 cm 0.6 - 1.0 / 0.6 - 0.9 cm LVPW Diastolic Thickness 1.4 cm 0.6 - 1.0 / 0.6 - 0.9 cm LV Relative Wall Thickness 0.7 RV Internal Dim ED PLAX 2.4 cm LA Volume 40.2 cm??? 18 - 58 / 22 - 52 cm??? M-MODE Aortic Root Diameter MM 2.9 cm DOPPLER AV Peak Velocity 451.3 cm/s AV Peak Gradient 81.5 mmHg AV Mean Velocity 323.4 cm/s AV Mean Gradient 47.1 mmHg AV Velocity Time Integral 123.8 cm AI Peak Velocity 429.0 cm/s AI Peak Gradient 73.6 mmHg AI Pressure Half Time 517.7 ms LVOT Peak Velocity 115.9 cm/s LVOT Peak Gradient 5.4 mmHg MV Area PHT 2.4 cm??? Mitral E Point Velocity 67.0 cm/s Mitral A Point Velocity 66.4 cm/s Mitral E to A Ratio 1.0 MV Deceleration Time 321.4 ms MV E' Velocity 4.7 cm/s Mitral E to MV E' Ratio 14.1 TR Peak Velocity 261.2 cm/s TR Peak Gradient 27.3 mmHg Right Ventricular Systolic Press 32.3 mmHg FINDINGS Left Ventricle Moderately increased left ventricular wall thickness. Left ventricular cavity size normal. Normal left ventricular systolic function with no obvious regional wall motion abnormalities. Left ventricular ejection fraction is estimated at 55-60 %. Right Ventricle Normal right ventricular size and function. Right ventricular systolic pressure within normal limits. Right Atrium Normal right atrial size. Left Atrium Normal left atrial size. Mitral Valve Mild mitral regurgitation.mitral annular calcification. Aortic Valve Severe aortic stenosis with a peak velocity of 5 m/s, peak gradient 82 mmHg, mean gradient 47 mmHg. moderate aortic regurgitation. Tricuspid Valve Mild tricuspid regurgitation.structurally normal tricuspid valve. Pulmonic Valve Pulmonic valve not well visualized. Pericardium No pericardial effusion. Aorta Normal size aortic root and proximal ascending aorta. CONCLUSIONS 1. Normal left ventricular size and function 2. Severe aortic stenosis with moderate aortic regurgitation 3. Mild mitral and tricuspid regurgitation Previewed by: Dr. Alisson Haines MD (Electronically Signed) Final Date: 03 February 2022 15:40
--- NOTE | 2022-02-03 19:30 | CT ---
EXAMINATION TYPE: CT abdomen pelvis wo con CT DLP: 623.1 mGycm, Automated exposure control for dose reduction was used. DATE OF EXAM: 02/03/2022 7:13 PM COMPARISON: Chest x-ray 02/03/2022 CLINICAL INDICATION:Female, 86 years old with history of abdominal discomfort; abdominal pain TECHNIQUE: Axial CT of the abdomen and pelvis. Sagittal and coronal reformats were created on a [employer] workstation. Contrast used: None Oral contrast used: with Oral Contrast FINDINGS: LOWER CHEST: Unremarkable ABDOMEN LIVER: Hepatic steatosis. GALLBLADDER AND BILE DUCTS: Unremarkable. PANCREAS: Fatty infiltration of the pancreas. SPLEEN: Unremarkable. ADRENAL GLANDS: Unremarkable. KIDNEYS AND URETERS: No evidence of hydronephrosis. Bilateral nonobstructing renal calculi, largest i s in the left lower pole measuring 3 mm. The ureters are unremarkable. Right upper pole 3.0 cm renal cyst. PELVIS BLADDER: Unremarkable REPRODUCTIVE: Unremarkable. ABDOMEN & PELVIS STOMACH AND BOWEL: Distended stomach without evidence for wall thickening or acute inflammatory bourne es. Duodenum and small bowel are normal in caliber.. Scattered diverticula are noted throughout the c olon. Moderate fecal burden throughout the colon No evidence of bowel obstruction. Appendix is not we ll visualized. PERITONEUM: No evidence of pneumoperitoneum or free fluid. VASCULATURE: Moderate atherosclerotic calcifications are present throughout the abdominal aorta and i ts branches. No evidence of aortic aneurysm. MUSCULOSKELETAL: No acute osseous abnormalities LYMPH NODES: No gross evidence for lymphadenopathy. SOFT TISSUE/ABDOMINAL WALL: Unremarkable IMPRESSION: 1. No acute intra-abdominal or intrapelvic process. 2. Bilateral nonobstructing renal calculi. 3. Colonic diverticulosis without evidence for diverticulitis. 4. Moderate colonic stool burden without evidence for obstruction.
[2022-02-03] MEDS: ATORVASTATIN 80 MG TAB PO SCH (20:48)
[2022-02-03] MEDS ORDERED: SENNOSIDES 8.6 MG TAB PO PRN (23:05)
--- NOTE | 2022-02-03 23:35 | P.HPIM ---
History of Present Illness H&P Date: 02/03/22 Chief Complaint: Chest pain Patient is a 86-year-old female with a known history of coronary disease status post stent placement, aortic stenosis, hypertension, diabetes type 2 and previous history of smoking presents to ER with complaints of chest pain. Patient states that she has been having upper abdominal discomfort and indigestion for about 3 days and not getting better. Last night patient had pain in the middle of the left breast and radiating to the left shoulder. Patient states that she has been having aching feeling for the past 2 weeks. Today morning she felt the pain again and which is different from before and made her to come to ER. Denied any nausea or vomiting. No dizziness or lightheadedness. No cough or sputum production. No fever no chills. No new palpitations or leg swelling. Chest x-ray showed mild cardiomegaly, COPD and evidence of prior granulomatous disease. Suspect summation artifact in the right apex. No acute processes seen. Recommend outpatient CT for more detailed assessment of the lung parenchyma and to exclude the underlying right upper lobe pulmonary nodule. EKG showed sinus bradycardia with sinus arrhythmia Laboratory showed WBC 6.8 hemoglobin 11.9 and MCV 77.7 and platelets 288 Sodium 138 potassium 4.1 chloride 103 bicarb 25 BUN 25 creatinine 1.04 blood sugar is 184 and liver enzymes showed alk phos 159, troponin x3 negative and albumin 3.9 Review of Systems Constitutional: Patient denies any fever or chills . Generalized weakness. Abdomen: Patient denied any nausea or vomiting. Patient does have abdominal discomfort. Cardiovascular: Patient does complain of left retrosternal chest pain. No short of breath no palpitations. No leg swelling. Respiratory: patient denied any cough is from production. No shortness of breath Neurologic: Patient denied any numbness or tingling headache. Musculoskeletal: Patient denies any complaints of joint swelling or deformity. Skin: Negative Psychiatric: Negative Endocrine: No heat or cold intolerance. No recent weight gain. Genitourinary: No dysuria or hematuria. All other 14 point ROS negative except the above Past Medical History Past Medical History: Coronary Artery Disease (CAD), Heart Failure, Diabetes Mellitus, Hyperlipidemia, Hypertension Additional Past Medical History / Comment(s): LYMPHEDEMA History of Any Multi-Drug Resistant Organisms: MRSA Date of last positivie culture/infection: 07/14/20 MDRO Source:: RIGHT FOOT Past Surgical History: Heart Catheterization With Stent Additional Past Surgical History / Comment(s): Heart cath x3 stents Past Anesthesia/Blood Transfusion Reactions: No Reported Reaction Additional Past Anesthesia/Blood Transfusion Reaction / Comment(s): PATIENT STATES THAT LAST HEART CATH SHE HAD A REACTION-SWOLLEN FACE-RED FACE-ITCHY SKIN Date of Last Stent Placement:: 03/2021 Past Psychological History: No Psychological Hx Reported Smoking Status: Former smoker Past Alcohol Use History: None Reported Past Drug Use History: None Reported - Past Family History Father Family Medical History: Myocardial Infarction ([place]) Additional Family Medical History / Comment(s): AT 45 OF HEART ATTACK Mother Family Medical History: Congestive Heart Failure (CHF) Additional Family Medical History / Comment(s): MOTHER IN 1985 FOUR MONTHS WITH THE 11TH CHILD. CARDIOMYOPATHY Medications and Allergies Home Medications Medication Instructions Recorded Confirmed Type Levothyroxine Sodium [Synthroid] 25 mcg PO DAILY 07/12/20 02/03/22 History Clopidogrel [Plavix] 75 mg PO DAILY #90 tab 03/22/21 02/03/22 Rx Furosemide [Lasix] 20 mg PO DAILY #30 tab 03/23/21 02/03/22 Rx Nitroglycerin Sl Tabs [Nitrostat] 0.4 mg SUBLINGUAL Q5M PRN #25 tab 03/23/21 02/03/22 Rx Apixaban [Eliquis] 2.5 mg PO BID PRN 10/01/21 02/03/22 History Dapagliflozin Propanediol [Farxiga] 10 mg PO DAILY 10/01/21 02/03/22 History Meclizine [Antivert] 25 mg PO TID PRN 10/01/21 02/03/22 History Metoclopramide HCl [Reglan] 10 mg PO BID PRN 10/01/21 02/03/22 History atenoloL [Tenormin] 50 mg PO DAILY 10/01/21 02/03/22 History Atorvastatin Calcium [Lipitor] 80 mg PO HS 02/03/22 02/03/22 History Omeprazole [PriLOSEC] 20 mg PO BID 02/03/22 02/03/22 History sitaGLIPtin [Januvia] 50 mg PO DAILY 02/03/22 02/03/22 History Allergies Allergy/AdvReac Type Severity Reaction Status Date / Time Iodinated Contrast Media Allergy Severe Rash/Hives Verified 02/03/22 10:53 hydrocortisone Allergy Intermediate Rash/Hives Verified 02/03/22 10:53 ampicillin [From Polycillin] Allergy Mild Rash/Hives Verified 02/03/22 10:53 cefaclor [From Ceclor] Allergy Mild Rash/Hives Verified 02/03/22 10:53 nitroglycerin Allergy Mild Unknown Verified 02/03/22 10:53 NSAIDS (Non-Steroidal Allergy Mild Unknown Verified 02/03/22 10:53 Anti-Inflamma sulfur dioxide Allergy Mild Unknown Verified 02/03/22 10:53 Physical Exam Vitals: Vital Signs Pulse Resp BP Pulse Ox 02/03/22 08:00 61 18 146/63 94 L 02/03/22 07:19 63 18 162/86 94 L Intake and Output 02/03/22 02/03/22 02/03/22 06:59 14:59 22:59 Other: Weight 75.6 kg PHYSICAL EXAMINATION: Patient is lying in the bed comfortably, no acute distress, awake alert and oriented.. HEENT: Normocephalic. Neck is supple. Pupils reactive. Nostrils clear. Oral cavity is moist. Neck reveals no JVD, carotid bruits, or thyromegaly. CHEST EXAMINATION: Trachea is central. Symmetrical expansion. Lung john clear to auscultation and percussion. CARDIAC: Normal S1, S2 with no gallops. + murmur ABDOMEN: Soft. Bowel sounds present. Nontender. No organomegaly. No abdominal bruits. Extremities: reveal no edema. No clubbing or cyanosis Neurologically awake, alert, oriented x3 with well-coordinated movements. No focal deficits noted Skin: No rash or skin lesions. Psychiatric: Coperative. Nonsuicidal, anxious. Musculoskeletal: No joint swelling or deformity. Normal range of motion. Results CBC & Chem 7: 02/03/22 07:46 02/04/22 06:47 Labs: Abnormal Lab Results - Last 24 Hours (Table) 02/03/22 02/03/22 Range/Units 07:46 07:46 MCV 77.7 L (80.0-100.0) fL MCH 24.1 L (25.0-35.0) pg RDW 17.3 H (11.5-15.5) % BUN 25 H (7-17) mg/dL Glucose 184 H (74-99) mg/dL Alkaline Phosphatase 159 H (38-126) U/L Thrombosis Risk Factor Assmnt - DVT/VTE Prophylaxis DVT/VTE Prophylaxis: Pharmacologic Prophylaxis ordered Assessment and Plan Assessment: Left-sided chest discomfort and aching feeling in the left arm. Atypical chest pain. Rule out ACS Abdominal discomfort and indigestion Coronary artery disease history of stent placement Severe aortic stenosis Hypertension Problems atrial fibrillation on anticoagulation with Eliquis Diabetes type 2 [id number] Hyperlipidemia DVT prophylax on eliquis Plan: Patient with cardiac telemetry monitoring. Serial EKG and troponin x3. Troponin x3 negative. 2D echocardiogram was ordered to evaluate for aortic valve stenosis. CT of the abdomen pelvis was ordered due to indigestion and abdominal discomfort. Continue with home medications and insulin regimen insulin sliding scale and follow closely. GI and DVT prophylaxis. Continue with aspirin statins and Eliquis and other home medication including levothyroxine. Cardiology is on board. Time with Patient: Greater than 30
[2022-02-03] MEDS: DOCUSATE 100 MG CAP PO SCH (23:58)
[2022-02-04 04:53] LABS: Glucose,Whole Blood 182 mg/dL (70-110)
[2022-02-04] MEDS: LEVOTHYROXINE 25 MCG TAB PO SCH (05:58)
[2022-02-04 07:45] LABS: African American GFR (CKD) 56 (>60 ml/min/1.73 sqM); Anion Gap 11 mmol/L; Blood Urea Nitrogen 23 mg/dL (7-17); Calcium 9.1 mg/dL (8.4-10.2); Carbon Dioxide 23 mmol/L (22-30); Chloride 100 mmol/L (98-107); Glucose 234 mg/dL (74-99); Non-African American GFR(CKD) 49 (>60 ml/min/1.73 sqM); Potassium 3.8 mmol/L (3.5-5.1); Sodium 134 mmol/L (137-145)
[2022-02-04] MEDS: DOCUSATE 100 MG CAP PO SCH ×2 (08:41→22:52)
[2022-02-04] MEDS: NON FORMULARY DRUG (Dapagliflozin Propanediol [Farxiga] 10 MG Tablet) PO SCH (08:43)
[2022-02-04] MEDS: PANTOPRAZOLE 40 MG TABLET PO SCH (08:43)
[2022-02-04] MEDS: polyethylene glycoL 3350 17 GM POWD.PACK PO SCH (08:43)
[2022-02-04] MEDS: atenoloL 50 MG TAB PO SCH (08:43)
[2022-02-04] MEDS: FUROSEMIDE 20 MG TAB PO SCH (08:43)
[2022-02-04] MEDS: CLOPIDOGREL 75 MG TAB PO SCH (08:43)
[2022-02-04] MEDS: LINAGLIPTIN 5 MG TABLET PO SCH (08:45)
[2022-02-04] MEDS ORDERED: ASPIRIN 325 MG TAB PO SCH (09:00)
[2022-02-04 12:04] LABS: Glucose,Whole Blood 147 mg/dL (70-110)
[2022-02-04 12:41] LABS: LDL Cholesterol,Calculated 54.4 mg/dL (0.0-131.0); VLDL Calculation 15.72 mg/dL (5.00-40.00)
--- NOTE | 2022-02-04 15:38 | P.PN ---
Subjective Progress Note Date: 02/04/22 This is a pleasant 86-year-old female patient with a known history of aortic stenosis, CAD status post stenting who presented with symptoms of left-sided chest discomfort and shoulder discomfort. The discomfort was worse with certain positions and different from what she experienced prior to her PCI.. Has complaints of dyspnea on exertion prior history of lymphedema. She underwent echocardiogram done yesterday which showed normal LV systolic function with severe aortic stenosis with a mean gradient of 47 mmHg, previously 40 mmHg. Upon examination this morning she is resting comfortably in bed. She overall is feeling better. She denies any further complaints of chest discomfort or shoulder pain. Vital signs are stable. Objective - Vital Signs Vital signs: Vital Signs Temp 98 F 02/04/22 07:00 Pulse 54 L 02/04/22 07:00 Resp 14 02/04/22 07:00 BP 121/64 02/04/22 07:00 Pulse Ox 93 L 02/04/22 07:00 FiO2 Intake & Output 02/03/22 02/04/22 02/04/22 18:59 06:59 18:59 Weight 75.6 kg 75.6 kg Other: # Voids 2 # Bowel Movements 1 - Exam PHYSICAL EXAMINATION: HEENT: Head is atraumatic, normocephalic. Pupils equal, round. Neck is supple. There is no elevated jugular venous pressure. HEART EXAMINATION: Heart sounds regular, S1 and S2, no S3, no rub. Systolic ejection murmur, 3/6. CHEST EXAMINATION: Lungs are clear to auscultation and precussion. No chest wall tenderness is noted on palpation or with deep breathing. ABDOMEN: Soft, nontender. Bowel sounds are heard. No organomegaly noted. EXTREMITIES: 2+ peripheral pulses with no evidence of peripheral edema and no calf tenderness noted. NEUROLOGIC patient is awake, alert and oriented x3. - Labs CBC & Chem 7: 02/03/22 07:46 02/04/22 06:47 Labs: Abnormal Lab Results - Last 24 Hours (Table) 02/04/22 02/04/22 Range/Units 04:50 06:47 Sodium 134 L (137-145) mmol/L BUN 23 H (7-17) mg/dL Glucose 234 H (74-99) mg/dL POC Glucose (mg/dL) 182 H (70-110) mg/dL Assessment and Plan Assessment: 1. Left shoulder discomfort appears to be muscular skeletal 2. History of CAD status post stenting with no evidence of acute coronary syndrome 3. Severe aortic stenosis 4. History of hypertension 5. Paroxysmal atrial fibrillation, maintaining sinus mechanism 6. History of diabetes 7. History of hyperlipidemia Plan: From cardiology's perspective patient is stable for discharge home. She'll require workup as an outpatient in regards to the aortic valve. [employer] note has been reviewed, I agree with a documented findings and plan of care. Patient was seen and examined.
[2022-02-04 16:48] LABS: Glucose,Whole Blood 157 mg/dL (70-110)
[2022-02-04 21:05] LABS: Glucose,Whole Blood 183 mg/dL (70-110)
[2022-02-04] MEDS: ATORVASTATIN 80 MG TAB PO SCH (22:52)
--- NOTE | 2022-02-05 02:24 | P.PN ---
Subjective Progress Note Date: 02/04/22 Patient is a 86-year-old female with a known history of coronary disease status post stent placement, aortic stenosis, hypertension, diabetes type 2 and previous history of smoking presents to ER with complaints of chest pain. Patient states that she has been having upper abdominal discomfort and indiges tion for about 3 days and not getting better. Last night patient had pain in the middle of the left breast and radiating to the left shoulder. Patient states that she has been having aching feeling for the past 2 weeks. Today morning she felt the pain again and which is different from before and made her to come to ER. Denied any nausea or vomiting. No dizziness or lightheadedness. No cough or sputum production. No fever no chills. No new palpitations or leg swelling. Chest x-ray showed mild cardiomegaly, COPD and evidence of prior granulomatous disease. Suspect summation artifact in the right apex. No acute processes seen. Recommend outpatient CT for more detailed assessment of the lung parenchyma and to exclude the underlying right upper lobe pulmonary nodule. EKG showed sinus bradycardia with sinus arrhythmia Laboratory showed WBC 6.8 hemoglobin 11.9 and MCV 77.7 and platelets 288 Sodium 138 potassium 4.1 chloride 103 bicarb 25 BUN 25 creatinine 1.04 blood sugar is 184 and liver enzymes showed alk phos 159, troponin x3 negative and albumin 3.9 02/04/2022 Patient is currently lying in the bed awake) x3. Abdominal discomfort is better today. Patient did have a bowel movement last night. No complaints of chest pain. No shortness of breath. No headache or dizziness or lightheadedness. 2D echocardiogram showed normal ventricular size and function. Severe aortic st enosis with moderate aortic regurgitation. Mild mitral and tricuspid regurgitation. Cardiology recommends outpatient follow-up. Left shoulder pain improved with pain medications. Current medications reviewed. Objective - Vital Signs Vital signs: Vital Signs Temp 97.7 F 02/04/22 13:30 Pulse 57 L 02/04/22 13:30 Resp 16 02/04/22 13:30 BP 139/77 02/04/22 13:30 Pulse Ox 93 L 02/04/22 13:30 FiO2 Intake & Output 02/04/22 02/04/22 02/05/22 06:59 18:59 06:59 Intake Total 236 Output Total 1 Balance 235 Weight 75.6 kg Intake: Oral 236 Output: Urine 1 Other: # Voids 2 2 # Bowel Movements 1 - Exam PHYSICAL EXAMINATION: Patient is lying in the bed comfortably, no acute distress, awake alert and oriented.. HEENT: Normocephalic. Neck is supple. Pupils reactive. Nostrils clear. Oral cavity is moist. Neck reveals no JVD, carotid bruits, or thyromegaly. CHEST EXAMINATION: Trachea is central. Symmetrical expansion. Lung john clear to auscultation and percussion. CARDIAC: Normal S1, S2 with no gallops. systolic murmur ABDOMEN: Soft. Bowel sounds present. Nontender. No organomegaly. No abdominal bruits. Extremities: reveal no edema. No clubbing or cyanosis Neurologically awake, alert, oriented x3 with well-coordinated movements. No focal deficits noted Skin: No rash or skin lesions. Psychiatric: Coperative. Nonsuicidal, anxious. Musculoskeletal: No joint swelling or deformity. Normal range of motion. - Labs CBC & Chem 7: 02/03/22 07:46 02/04/22 06:47 Labs: Abnormal Lab Results - Last 24 Hours (Table) 02/04/22 02/04/22 02/04/22 Range/Units 04:50 06:47 12:03 Sodium 134 L (137-145) mmol/L BUN 23 H (7-17) mg/dL Glucose 234 H (74-99) mg/dL POC Glucose (mg/dL) 182 H 147 H (70-110) mg/dL 02/04/22 02/04/22 Range/Units 16:44 21:04 Sodium (137-145) mmol/L BUN (7-17) mg/dL Glucose (74-99) mg/dL POC Glucose (mg/dL) 157 H 183 H (70-110) mg/dL Assessment and Plan Assessment: Left-sided chest discomfort and aching feeling in the left arm. likely musculoskeltal and positional Atypical chest pain. Ruled out ACS Abdominal discomfort and indigestion. CT showed stool burden . improved with BM. s/w stool softners. Coronary artery disease history of stent placement Severe aortic stenosis Hypertension Problems atrial fibrillation on anticoagulation with Eliquis Diabetes type 2 civ-ksuagic-klyruyrrn Hyperlipidemia DVT prophylax on eliquis Plan: Patient with cardiac telemetry monitoring. Serial EKG and troponin x3. Troponin x3 negative. 2D echocardiogram was done report as above. CT of the abdomen pelvis was ordered due to indigestion and abdominal discomfort.Showed bilateral nonobstructing calculi. Moderate colonic stool burden without evidence for obstruction. Continue with stool softeners. Patient was given MiraLAX x1 today. Continue with home medications and insulin regimen insulin sliding scale and follow closely. GI and DVT prophylaxis. Continue with aspirin statins and Eliquis and other home medication including levothyroxine. Anticipate discharge in the next 24 hours. Time with Patient: Greater than 30
[2022-02-05 04:16] VITALS: TEMP 98.1
[2022-02-05 07:33] LABS: Glucose,Whole Blood 163 mg/dL (70-110)
[2022-02-05 07:58] VITALS: BP 108/56; PULSE 58; RESP 18
[2022-02-05] MEDS: polyethylene glycoL 3350 17 GM POWD.PACK PO SCH (07:58)
[2022-02-05] MEDS: CLOPIDOGREL 75 MG TAB PO SCH (07:58)
[2022-02-05] MEDS: LINAGLIPTIN 5 MG TABLET PO SCH (07:58)
[2022-02-05] MEDS: PANTOPRAZOLE 40 MG TABLET PO SCH (07:58)
[2022-02-05] MEDS: atenoloL 50 MG TAB PO SCH (07:58)
[2022-02-05] MEDS: DOCUSATE 100 MG CAP PO SCH (07:58)
[2022-02-05] MEDS: NON FORMULARY DRUG (Dapagliflozin Propanediol [Farxiga] 10 MG Tablet) PO SCH (07:58)
[2022-02-05] MEDS: FUROSEMIDE 20 MG TAB PO SCH (07:58)
[2022-02-05] MEDS: LEVOTHYROXINE 25 MCG TAB PO SCH (08:00)
--- NOTE | 2022-02-05 09:08 | P.DS ---
Providers Date of admission: 02/03/22 09:08 Expected date of discharge: 02/05/22 Attending physician: Jackson Benjamin Consults: 02/03/22 08:57 Consult Physician Urgent Consulting Provider: [facility] Consult Reason/Comments: Chest pain Do you want consulting provider notified?: Yes Primary care physician: Jackson Benjamin Hospital Course: Patient is a 86-year-old female with a known history of coronary disease status post stent placement, aortic stenosis, hypertension, diabetes type 2 and previous history of smoking presents to ER with complaints of chest pain. Patient states that she has been having upper abdominal discomfort and indigestion for about 3 days and not getting better. Last night patient had pain in the middle of the left breast and radiating to the left shoulder. Patient states that she has been having aching feeling for the past 2 weeks. Today morning she felt the pain again and which is different from before and made her to come to ER. Denied any nausea or vomiting. No dizziness or lightheadedness. No cough or sputum production. No fever no chills. No new palpitations or leg swelling. Chest x-ray showed mild cardiomegaly, COPD and evidence of prior granulomatous disease. Suspect summation artifact in the right apex. No acute processes seen. Recommend outpatient CT for more detailed assessment of the lung parenchyma and to exclude the underlying right upper lobe pulmonary nodule. EKG showed sinus bradycardia with sinus arrhythmia Laboratory showed WBC 6.8 hemoglobin 11.9 and MCV 77.7 and platelets 288 Sodium 138 potassium 4.1 chloride 103 bicarb 25 BUN 25 creatinine 1.04 blood sugar is 184 and liver enzymes showed alk phos 159, troponin x3 negative and albumin 3.9 02/04/2022 Patient is currently lying in the bed awake) x3. Abdominal discomfort is better today. Patient did have a bowel movement last night. No complaints of chest pain. No shortness of breath. No headache or dizziness or lightheadedness. 2D echocardiogram showed normal ventricular size and function. Severe aortic stenosis with moderate aortic regurgitation. Mild mitral and tricuspid regurgitation. Cardiology recommends outpatient follow-up. Left shoulder pain improved with pain medications. 11/05: Patient states that she did have a small bowel movement yesterday. She received MiraLAX and Senokot. Indigestion seems to be improved. She ate Azeri toast for breakfast and tolerated. She denies having any nausea or vomiting. Cardiology has cleared the patient for discharge yesterday with outpatient follow-up. Patient has been afebrile, heart rate 58, blood pressure 108/56, pulse ox 93% on room air. CBG running between 147 and 183. Patient will be discharged home today in stable condition. DISCHARGE DIAGNOSES Left-sided chest discomfort and aching feeling in the left arm. likely musculoskeltal and positional Atypical chest pain. Ruled out ACS Abdominal discomfort and indigestion. CT showed stool burden . improved with BM. s/w stool softners. Coronary artery disease history of stent placement Severe aortic stenosis, workup as outpatient Hypertension Paroxysmal atrial fibrillation on anticoagulation with Eliquis Diabetes type 2 [id number] Hyperlipidemia DISCHARGE PLAN Home Greater than 35 minutes was utilized and coordinating patient's discharge. Impression and plan of care have been directed as dictated by the signing physician. Esther Limon nurse practitioner acting as scribe for signing physician. Patient Condition at Discharge: Good Plan - Discharge Summary New Discharge Prescriptions: New polyethylene glycoL 3350 [Miralax] 17 gm PO DAILY packet Sennosides-Docusate Sodium [Senokot-S] 2 tab PO HS #60 tablet Continue Levothyroxine Sodium [Synthroid] 25 mcg PO DAILY Clopidogrel [Plavix] 75 mg PO DAILY #90 tab Nitroglycerin Sl Tabs [Nitrostat] 0.4 mg SUBLINGUAL Q5M PRN #25 tab PRN Reason: Chest Pain Apixaban [Eliquis] 2.5 mg PO BID PRN PRN Reason: STOP X3DAYS IF NOSEBLEEDS atenoloL [Tenormin] 50 mg PO DAILY Dapagliflozin Propanediol [Farxiga] 10 mg PO DAILY Meclizine [Antivert] 25 mg PO TID PRN PRN Reason: Vertigo Omeprazole [PriLOSEC] 20 mg PO BID Furosemide [Lasix] 20 mg PO DAILY #30 tab Metoclopramide HCl [Reglan] 10 mg PO BID PRN PRN Reason: Nausea sitaGLIPtin [Januvia] 50 mg PO DAILY Atorvastatin Calcium [Lipitor] 80 mg PO HS Discharge Medication List Levothyroxine Sodium [Synthroid] 25 mcg PO DAILY 07/12/20 [History] Clopidogrel [Plavix] 75 mg PO DAILY #90 tab 03/22/21 [Rx] Furosemide [Lasix] 20 mg PO DAILY #30 tab 03/23/21 [Rx] Nitroglycerin Sl Tabs [Nitrostat] 0.4 mg SUBLINGUAL Q5M PRN #25 tab 03/23/21 [Rx] Apixaban [Eliquis] 2.5 mg PO BID PRN 10/01/21 [History] Dapagliflozin Propanediol [Farxiga] 10 mg PO DAILY 10/01/21 [History] Meclizine [Antivert] 25 mg PO TID PRN 10/01/21 [History] Metoclopramide HCl [Reglan] 10 mg PO BID PRN 10/01/21 [History] atenoloL [Tenormin] 50 mg PO DAILY 10/01/21 [History] Atorvastatin Calcium [Lipitor] 80 mg PO HS 02/03/22 [History] Omeprazole [PriLOSEC] 20 mg PO BID 02/03/22 [History] sitaGLIPtin [Januvia] 50 mg PO DAILY 02/03/22 [History] Sennosides-Docusate Sodium [Senokot-S] 2 tab PO HS #60 tablet 02/05/22 [Rx] polyethylene glycoL 3350 [Miralax] 17 gm PO DAILY packet 02/05/22 [Rx] Follow up Appointment(s)/Referral(s): Jackson Benjamin MD [Primary Care Provider] - 1 Week Discharge Disposition: HOME SELF-CARE
[2022-02-05 09:30] LABS: Basophils # (A) 0.04 X 10*3/uL (0.00-0.10); Basophils % (A) 0.6 %; Eosinophils # (A) 0.17 X 10*3/uL (0.04-0.35); Eosinophils % (A) 2.7 %; HCT 34.6 % (37.2-46.3); HGB 10.6 g/dL (12.0-15.0); Immature Grans, Automated 1.1 %; Lymphocytes # (A) 2.31 X 10*3/uL (0.90-5.00); Lymphocytes % (A) 36.6 %; MCH 23.1 pg (27.0-32.0); MCHC 30.6 g/dL (32.0-37.0); MCV 75.5 fL (80.0-97.0); Mean Platelet Volume 9.6 fL (9.5-12.2); Monocytes # (A) 0.59 X 10*3/uL (0.20-1.00); Monocytes % (A) 9.4 %; NRBC Per 100 WBC 0 /100 WBCS (0.0-0.0); Neutrophils # (A) 3.13 X 10*3/uL (1.80-7.70); Neutrophils % (A) 49.6 %; Platelet Count 249 X 10*3/uL (140-440); RBC 4.58 X 10*6/uL (4.10-5.20); RDW 18.6 % (11.5-14.5); WBC 6.31 X 10*3/uL (4.50-10.00)
[2022-02-05 09:39] LABS: African American GFR (CKD) 42.7 (60.0-200.0); Anion Gap 12.1 mmol/L (10.00-18.00); BUN/Creat Ratio 19.08 Ratio (12.00-20.00); Blood Urea Nitrogen 24.8 mg/dL (9.0-27.0); Calcium 9.3 mg/dL (8.7-10.3); Carbon Dioxide 23.9 mmol/L (20.0-27.5); Non-African American GFR(CKD) 36.9 (60.0-200.0)
== END 2022-02-05 11:32 | disposition home or self-care (01) ==
LOC: EC 07:18 → 6NMEDSUR 09:08
PROVIDERS: ADMIT Internal Medicine; ATTEND Internal Medicine
DX: R07.89 Other chest pain (principal); E78.00 Pure hypercholesterolemia, unspecified; I25.10 Atherosclerotic heart disease of native coronary artery without angina pectoris; I11.0 Hypertensive heart disease with heart failure; I50.9 Heart failure, unspecified; E11.9 Type 2 diabetes mellitus without complications; I89.0 Lymphedema, not elsewhere classified; J84.10 Pulmonary fibrosis, unspecified; J44.9 Chronic obstructive pulmonary disease, unspecified; I08.3 Combined rheumatic disorders of mitral, aortic and tricuspid valves; I48.0 Paroxysmal atrial fibrillation; K76.0 Fatty (change of) liver, not elsewhere classified; Q61.01 Congenital single renal cyst; I70.0 Atherosclerosis of aorta; N20.0 Calculus of kidney; K57.30 Diverticulosis of large intestine without perforation or abscess without bleeding; Z95.5 Presence of coronary angioplasty implant and graft; Z79.890 Hormone replacement therapy; Z79.01 Long term (current) use of anticoagulants; Z79.84 Long term (current) use of oral hypoglycemic drugs; Z79.899 Other long term (current) drug therapy; Z87.891 Personal history of nicotine dependence; Z82.49 Family history of ischemic heart disease and other diseases of the circulatory system; Z86.73 Personal history of transient ischemic attack (TIA), and cerebral infarction without residual deficits; Z79.02 Long term (current) use of antithrombotics/antiplatelets
CPT/HCPCS: 96374; 99285; 36415; 93005; 93306; 80061; 80053; 80048 ×2; 83735; 84484; 85025 ×2; 85610; 85730; 71046; 74176; G0378 ×3; C9113

== ENCOUNTER 2022-05-30 21:11 | Emergency (ER) | payer MEDICARE, BC ==
[2022-05-30 21:20] VITALS: RESP 18; TEMP 98.7
[2022-05-30] MEDS ORDERED: SODIUM CHLORIDE 0.9% 1,000 ML IV STA (22:02)
--- NOTE | 2022-05-30 22:03 | ED ---
Weakness HPI - General Chief complaint: Weakness Stated complaint: flu-like symptoms Time Seen by Provider: 05/30/22 21:13 Source: patient, EMS, RN notes reviewed, old records reviewed Mode of arrival: EMS Limitations: no limitations - History of Present Illness Initial comments: This is an 86-year-old female to the emergency department for evaluation. Patient presents today for evaluation of weakness low states she feels better here in the emergency department she had to go to the bathroom and felt weak after going to the bathroom she returned to her bed and felt increasing weakness. Just generalized weakness and shortness of breath and difficulty with activity. No change in medications no fevers no nausea vomiting or diarrhea no cough or congestion no chest pain or abdominal pain MD Complaint: generalized weakness -: hour(s) Location: generalized Severity: moderate Severity scale (1-10): 4 Quality: tingling, numbness Consistency: constant Improves with: none Worsens with: none Context: recent illness, history of similar Associated Symptoms: denies other symptoms - Related Data Home Medications Medication Instructions Recorded Confirmed Levothyroxine Sodium [Synthroid] 25 mcg PO DAILY 07/12/20 02/03/22 Apixaban [Eliquis] 2.5 mg PO BID PRN 10/01/21 02/03/22 Dapagliflozin Propanediol [Farxiga] 10 mg PO DAILY 10/01/21 02/03/22 Meclizine [Antivert] 25 mg PO TID PRN 10/01/21 02/03/22 Metoclopramide HCl [Reglan] 10 mg PO BID PRN 10/01/21 02/03/22 atenoloL [Tenormin] 50 mg PO DAILY 10/01/21 02/03/22 Atorvastatin Calcium [Lipitor] 80 mg PO HS 02/03/22 02/03/22 Omeprazole [PriLOSEC] 20 mg PO BID 02/03/22 02/03/22 sitaGLIPtin [Januvia] 50 mg PO DAILY 02/03/22 02/03/22 Previous Rx's Medication Instructions Recorded Clopidogrel [Plavix] 75 mg PO DAILY #90 tab 03/22/21 Furosemide [Lasix] 20 mg PO DAILY #30 tab 03/23/21 Nitroglycerin Sl Tabs [Nitrostat] 0.4 mg SUBLINGUAL Q5M PRN #25 tab 03/23/21 Sennosides-Docusate Sodium 2 tab PO HS #60 tablet 02/05/22 [Senokot-S] polyethylene glycoL 3350 [Miralax] 17 gm PO DAILY packet 02/05/22 Allergies Allergy/AdvReac Type Severity Reaction Status Date / Time Iodinated Contrast Media Allergy Severe Rash/Hives Verified 02/03/22 10:53 hydrocortisone Allergy Intermediate Rash/Hives Verified 02/03/22 10:53 ampicillin [From Polycillin] Allergy Mild Rash/Hives Verified 02/03/22 10:53 cefaclor [From Ceclor] Allergy Mild Rash/Hives Verified 02/03/22 10:53 nitroglycerin Allergy Mild Unknown Verified 02/03/22 10:53 NSAIDS (Non-Steroidal Allergy Mild Unknown Verified 02/03/22 10:53 Anti-Inflamma sulfur dioxide Allergy Mild Unknown Verified 02/03/22 10:53 Review of Systems ROS Statement: Those systems with pertinent positive or pertinent negative responses have been documented in the HPI. ROS Other: All systems not noted in ROS Statement are negative. Past Medical History Past Medical History: Coronary Artery Disease (CAD), Heart Failure, Diabetes Me llitus, Hyperlipidemia, Hypertension Additional Past Medical History / Comment(s): LYMPHEDEMA History of Any Multi-Drug Resistant Organisms: MRSA Date of last positivie culture/infection: 07/14/20 MDRO Source:: RIGHT FOOT Past Surgical History: Heart Catheterization With Stent Additional Past Surgical History / Comment(s): Heart cath x3 stents Past Anesthesia/Blood Transfusion Reactions: No Reported Reaction Additional Past Anesthesia/Blood Transfusion Reaction / Comment(s): PATIENT STATES THAT LAST HEART CATH SHE HAD A REACTION-SWOLLEN FACE-RED FACE-ITCHY SKIN Date of Last Stent Placement:: 03/2021 Past Psychological History: No Psychological Hx Reported Smoking Status: Former smoker Past Alcohol Use History: None Reported Past Drug Use History: None Reported - Past Family History Father Family Medical History: Myocardial Infarction ([place]) Additional Family Medical History / Comment(s): AT 45 OF HEART ATTACK Mother Family Medical History: Congestive Heart Failure (CHF) Additional Family Medical History / Comment(s): MOTHER IN 1985 FOUR MONTHS WITH THE 11TH CHILD. CARDIOMYOPATHY General Exam Limitations: no limitations General appearance: alert, in no apparent distress Head exam: Present: atraumatic, normocephalic, normal inspection Eye exam: Present: normal appearance, PERRL, EOMI. Absent: scleral icterus, conjunctival injection, periorbital swelling ENT exam: Present: normal exam, mucous membranes moist Neck exam: Present: normal inspection. Absent: tenderness, meningismus, lymphadenopathy Respiratory exam: Present: normal lung sounds bilaterally. Absent: respiratory distress, wheezes, rales, rhonchi, stridor Cardiovascular Exam: Present: regular rate, normal rhythm, normal heart sounds. Absent: systolic murmur, diastolic murmur, rubs, gallop, clicks GI/Abdominal exam: Present: soft, normal bowel sounds. Absent: distended, tenderness, guarding, rebound, rigid Extremities exam: Present: normal inspection, full ROM, normal capillary refill. Absent: tenderness, pedal edema, joint swelling, calf tenderness Back exam: Present: normal inspection Neurological exam: Present: alert, oriented X3, CN II-XII intact Psychiatric exam: Present: normal affect, normal mood Skin exam: Present: warm, dry, intact, normal color. Absent: rash Course Vital Signs 05/30/22 05/30/22 05/30/22 21:15 22:45 23:30 Temperature 98.7 F Pulse Rate 63 60 65 Respiratory 18 18 18 Rate Blood Pressure 128/48 129/50 128/48 O2 Sat by Pulse 97 96 97 Oximetry 05/31/22 02:20 Temperature Pulse Rate 55 L Respiratory 18 Rate Blood Pressure 134/53 O2 Sat by Pulse 93 L Oximetry - Reevaluation(s) Reevaluation #1: 05/31/22 00:34 Medical record is reviewed Reevaluation #2: 05/31/22 00:34 Patient remains improved here in the ER Reevaluation #3: 05/31/22 00:34 Patient informed results and questions are answered - Consultations Consultation #1: Spoke with Dr. Benjamin does not feel like admitting this patient at this time will see her in the office EKG Findings - EKG Comments: EKG Findings:: EKG is sinus rhythm 64 [place] 28 QRS 98 QTC 420 Medical Decision Making - Medical Decision Making 86 female to the emergency department for evaluation of weakness. Patient has mild improvement, negative testing here in the ER patient can be discharged home - Lab Data Result diagrams: 05/30/22 22:34 05/30/22 22:34 Lab Results 05/30/22 05/30/22 05/30/22 Range/Units 22:34 22:34 22:34 WBC 10.3 (3.8-10.6) k/uL RBC 4.71 (3.80-5.40) m/uL Hgb 11.4 (11.4-16.0) gm/dL Hct 35.7 (34.0-46.0) % MCV 75.8 L (80.0-100.0) fL MCH 24.3 L (25.0-35.0) pg MCHC 32.0 (31.0-37.0) g/dL RDW 16.5 H (11.5-15.5) % Plt Count 211 (150-450) k/uL MPV 7.8 Neutrophils % 82 % Lymphocytes % 11 % Monocytes % 4 % Eosinophils % 0 % Basophils % 0 % Neutrophils # 8.4 H (1.3-7.7) k/uL Lymphocytes # 1.1 (1.0-4.8) k/uL Monocytes # 0.4 (0-1.0) k/uL Eosinophils # 0.0 (0-0.7) k/uL Basophils # 0.0 (0-0.2) k/uL Hypochromasia Moderate Anisocytosis Slight Microcytosis Slight PT 10.9 (9.0-12.0) sec INR 1.0 (<1.2) APTT 21.4 L (22.0-30.0) sec Sodium 135 L (137-145) mmol/L Potassium 4.1 (3.5-5.1) mmol/L Chloride 104 (98-107) mmol/L Carbon Dioxide 24 (22-30) mmol/L Anion Gap 7 mmol/L BUN 24 H (7-17) mg/dL Creatinine 1.20 H (0.52-1.04) mg/dL Est GFR (CKD-EPI)AfAm 47 (>60 ml/min/1.73 sqM) Est GFR (CKD-EPI)NonAf 41 (>60 ml/min/1.73 sqM) Glucose 210 H (74-99) mg/dL Plasma Lactic Acid Tejas (0.7-2.0) mmol/L Calcium 8.9 (8.4-10.2) mg/dL Phosphorus 3.1 (2.5-4.5) mg/dL Magnesium 1.6 (1.6-2.3) mg/dL Total Bilirubin 1.2 (0.2-1.3) mg/dL AST 20 (14-36) U/L ALT 13 (4-34) U/L Alkaline Phosphatase 109 (38-126) U/L Troponin I (0.000-0.034) ng/mL NT-Pro-B Natriuret Pep pg/mL Total Protein 7.2 (6.3-8.2) g/dL Albumin 3.7 (3.5-5.0) g/dL TSH 3.790 (0.465-4.680) mIU/L Urine Color Urine Appearance (Clear) Urine pH (5.0-8.0) Ur Specific [place] (1.001-1.035) Urine Protein (Negative) Urine Glucose (UA) (Negative) Urine Ketones (Negative) Urine Blood (Negative) Urine Nitrite (Negative) Urine Bilirubin (Negative) Urine Urobilinogen (<2.0) mg/dL Ur Leukocyte Esterase (Negative) Urine RBC (0-5) /hpf Urine WBC (0-5) /hpf Ur Squamous Epith Cells (0-4) /hpf Urine Bacteria (None) /hpf Influenza Type A RNA (Not Detectd) Influenza Type B (PCR) (Not Detectd) 05/30/22 05/30/22 05/30/22 Range/Units 22:34 22:34 22:34 WBC (3.8-10.6) k/uL RBC (3.80-5.40) m/uL Hgb (11.4-16.0) gm/dL Hct (34.0-46.0) % MCV (80.0-100.0) fL MCH (25.0-35.0) pg MCHC (31.0-37.0) g/dL RDW (11.5-15.5) % Plt Count (150-450) k/uL MPV Neutrophils % % Lymphocytes % % Monocytes % % Eosinophils % % Basophils % % Neutrophils # (1.3-7.7) k/uL Lymphocytes # (1.0-4.8) k/uL Monocytes # (0-1.0) k/uL Eosinophils # (0-0.7) k/uL Basophils # (0-0.2) k/uL Hypochromasia Anisocytosis Microcytosis PT (9.0-12.0) sec INR (<1.2) APTT (22.0-30.0) sec Sodium (137-145) mmol/L Potassium (3.5-5.1) mmol/L Chloride (98-107) mmol/L Carbon Dioxide (22-30) mmol/L Anion Gap mmol/L BUN (7-17) mg/dL Creatinine (0.52-1.04) mg/dL Est GFR (CKD-EPI)AfAm (>60 ml/min/1.73 sqM) Est GFR (CKD-EPI)NonAf (>60 ml/min/1.73 sqM) Glucose (74-99) mg/dL Plasma Lactic Acid Tejas 1.4 (0.7-2.0) mmol/L Calcium (8.4-10.2) mg/dL Phosphorus (2.5-4.5) mg/dL Magnesium (1.6-2.3) mg/dL Total Bilirubin (0.2-1.3) mg/dL AST (14-36) U/L ALT (4-34) U/L Alkaline Phosphatase (38-126) U/L Troponin I <0.012 (0.000-0.034) ng/mL NT-Pro-B Natriuret Pep 761 pg/mL Total Protein (6.3-8.2) g/dL Albumin (3.5-5.0) g/dL TSH (0.465-4.680) mIU/L Urine Color Urine Appearance (Clear) Urine pH (5.0-8.0) Ur Specific [place] (1.001-1.035) Urine Protein (Negative) Urine Glucose (UA) (Negative) Urine Ketones (Negative) Urine Blood (Negative) Urine Nitrite (Negative) Urine Bilirubin (Negative) Urine Urobilinogen (<2.0) mg/dL Ur Leukocyte Esterase (Negative) Urine RBC (0-5) /hpf Urine WBC (0-5) /hpf Ur Squamous Epith Cells (0-4) /hpf Urine Bacteria (None) /hpf Influenza Type A RNA (Not Detectd) Influenza Type B (PCR) (Not Detectd) 05/30/22 05/31/22 Range/Units 23:30 00:45 WBC (3.8-10.6) k/uL RBC (3.80-5.40) m/uL Hgb (11.4-16.0) gm/dL Hct (34.0-46.0) % MCV (80.0-100.0) fL MCH (25.0-35.0) pg MCHC (31.0-37.0) g/dL RDW (11.5-15.5) % Plt Count (150-450) k/uL MPV Neutrophils % % Lymphocytes % % Monocytes % % Eosinophils % % Basophils % % Neutrophils # (1.3-7.7) k/uL Lymphocytes # (1.0-4.8) k/uL Monocytes # (0-1.0) k/uL Eosinophils # (0-0.7) k/uL Basophils # (0-0.2) k/uL Hypochromasia Anisocytosis Microcytosis PT (9.0-12.0) sec INR (<1.2) APTT (22.0-30.0) sec Sodium (137-145) mmol/L Potassium (3.5-5.1) mmol/L Chloride (98-107) mmol/L Carbon Dioxide (22-30) mmol/L Anion Gap mmol/L BUN (7-17) mg/dL Creatinine (0.52-1.04) mg/dL Est GFR (CKD-EPI)AfAm (>60 ml/min/1.73 sqM) Est GFR (CKD-EPI)NonAf (>60 ml/min/1.73 sqM) Glucose (74-99) mg/dL Plasma Lactic Acid Te[place] (0.7-2.0) mmol/L Calcium (8.4-10.2) mg/dL Phosphorus (2.5-4.5) mg/dL Magnesium (1.6-2.3) mg/dL Total Bilirubin (0.2-1.3) mg/dL AST (14-36) U/L ALT (4-34) U/L Alkaline Phosphatase (38-126) U/L Troponin I (0.000-0.034) ng/mL NT-Pro-B Natriuret Pep pg/mL Total Protein (6.3-8.2) g/dL Albumin (3.5-5.0) g/dL TSH (0.465-4.680) mIU/L Urine Color Light Yellow Urine Appearance Cloudy H (Clear) Urine pH 5.5 (5.0-8.0) Ur Specific [place] 1.028 (1.001-1.035) Urine Protein Trace H (Negative) Urine Glucose (UA) 4+ H (Negative) Urine Ketones Negative (Negative) Urine Blood Negative (Negative) Urine Nitrite Negative (Negative) Urine Bilirubin Negative (Negative) Urine Urobilinogen <2.0 (<2.0) mg/dL Ur Leukocyte Esterase Negative (Negative) Urine RBC 1 (0-5) /hpf Urine WBC 2 (0-5) /hpf Ur Squamous Epith Cells 2 (0-4) /hpf Urine Bacteria Rare H (None) /hpf Influenza Type A RNA Not Detected (Not Detectd) Influenza Type B (PCR) Not Detected (Not Detectd) - Radiology Data Radiology results: report reviewed (Chest x-rays negative for acute disease), image reviewed Disposition Clinical Impression: Weakness, Dehydration Disposition: HOME SELF-CARE Condition: Good Instructions (If sedation given, give patient instructions): Weakness (ED) Is patient prescribed a controlled substance at d/c from ED?: No Referrals: Jackson Benjamin MD [Primary Care Provider] - 1-2 days Time of Disposition: 02:50
--- NOTE | 2022-05-30 22:45 | XR ---
EXAMINATION TYPE: XR chest 1V portable DATE OF EXAM: 05/30/2022 COMPARISON: 02/03/2022 HISTORY: Weakness TECHNIQUE: FINDINGS: There is no heart failure nor confluent pneumonic infiltrate. Costophrenic angles are clear . There are no hilar masses. Bony thorax is intact. IMPRESSION: No active cardiopulmonary disease. No change.
[2022-05-30 23:01] LABS: Anisocytosis Slight; Basophils % (A) 0 %; Eosinophils % (A) 0 %; HCT 35.7 % (34.0-46.0); HGB 11.4 gm/dL (11.4-16.0); Hypochromasia Moderate; Lymphocytes # (A) 1.1 k/uL (1.0-4.8); Lymphocytes % (A) 11 %; MCH 24.3 pg (25.0-35.0); MCV 75.8 fL (80.0-100.0); Mean Platelet Volume 7.8; Microcytosis Slight; Monocytes # (A) 0.4 k/uL (0-1.0); Monocytes % (A) 4 %; Neutrophils # (A) 8.4 k/uL (1.3-7.7); Neutrophils % (A) 82 %; Platelet Count 211 k/uL (150-450); RBC 4.71 m/uL (3.80-5.40); RDW 16.5 % (11.5-15.5); WBC 10.3 k/uL (3.8-10.6)
[2022-05-30 23:17] LABS: Albumin 3.7 g/dL (3.5-5.0); Calcium 8.9 mg/dL (8.4-10.2); Magnesium 1.6 mg/dL (1.6-2.3); Phosphorus 3.1 mg/dL (2.5-4.5); Potassium 4.1 mmol/L (3.5-5.1); Total Bilirubin 1.2 mg/dL (0.2-1.3); Total Protein 7.2 g/dL (6.3-8.2)
[2022-05-30 23:20] LABS: Prothrombin Time 10.9 sec (9.0-12.0)
[2022-05-30 23:37] LABS: Partial Thromboplastin Time 21.4 sec (22.0-30.0)
[2022-05-31 00:47] LABS: Appearance,Urine Cloudy (Clear); Bacteria,Urine Rare /hpf; Bilirubin,Urine Negative (Negative); Blood,Urine Negative (Negative); Color,Urine Light Yellow; Glucose,Urine (UA) 4+ (Negative); Ketones,Urine Negative (Negative); Leukocyte Esterase,Urine Negative (Negative); Nitrite,Urine Negative (Negative); PH, Urine 5.5 (5.0-8.0); Protein,Urine Trace (Negative); RBC,Urine 1 /hpf (0-5); Specific Gravity,Urine 1.028 (1.001-1.035); Squamous Epithelial Cell,Urine 2 /hpf (0-4); Urobilinogen,Urine <2.0 mg/dL (<2.0); WBC,Urine 2 /hpf (0-5)
[2022-05-31 02:21] VITALS: BP 134/53; PULSE 55
[2022-05-31] MEDS ORDERED: NALOXONE 0.4 MG/ML 1 ML VIAL IV PRN (02:48)
[2022-05-31] MEDS ORDERED: ACETAMINOPHEN TAB 325 MG TAB PO PRN (02:48)
[2022-05-31] MEDS ORDERED: MORPHINE SULFATE 4 MG/ML SYRINGE IV PRN (02:48)
[2022-05-31] MEDS ORDERED: ONDANSETRON 4 MG/2 ML VIAL IVP PRN (02:48)
[2022-05-31] MEDS ORDERED: PANTOPRAZOLE 40 MG/10 ML VIAL IV SCH (09:00)
== END 2022-05-31 07:54 | disposition home or self-care (01) ==
LOC: EC 21:11
DX: R53.1 Weakness (principal); E86.0 Dehydration; I25.10 Atherosclerotic heart disease of native coronary artery without angina pectoris; E11.9 Type 2 diabetes mellitus without complications; E78.5 Hyperlipidemia, unspecified; I11.0 Hypertensive heart disease with heart failure; I50.9 Heart failure, unspecified; Z87.891 Personal history of nicotine dependence; Z91.041 Radiographic dye allergy status; Z88.2 Allergy status to sulfonamides; Z88.6 Allergy status to analgesic agent; Z88.0 Allergy status to penicillin; Z79.899 Other long term (current) drug therapy
CPT/HCPCS: 36415; 71045; 80053; 81001; 83605; 83735; 83880; 84100; 84443; 84484; 85025; 85610; 85730; 87502; 93005; 96360; 99285

== ENCOUNTER 2023-01-03 16:04 | Emergency (ER) | payer MEDICARE, BC ==
[2023-01-03 16:26] VITALS: RESP 18; TEMP 98.9
--- NOTE | 2023-01-03 17:02 | ED ---
Recheck HPI - General Chief Complaint: Recheck/Abnormal Lab/Rx Stated Complaint: Recheck Time Seen by Provider: 01/03/23 16:38 Source: patient, family, RN/MD, RN notes reviewed Mode of arrival: ambulatory Limitations: no limitations - History of Present Illness Initial Comments: 79-year-old female history of heart disease or stenosis who was seen in her doctor's office today and complained of having indigestion all morning it lasted up until between 1 and 2 PM this afternoon chest tightness she states she has some radiation to her back which lasted just a few minutes she states that was achy-type discomfort. Somewhat different than her usual. Currently she has no discomfort. She was sent here for further evaluation there were apparently some T-wave changes seen on the office EKG. No other current complaints or modifying factors - Related Data Home Medications Medication Instructions Recorded Confirmed Dapagliflozin Propanediol [Farxiga] 10 mg PO DAILY 10/01/21 01/03/23 atenoloL [Tenormin] 50 mg PO DAILY 10/01/21 01/03/23 Omeprazole [PriLOSEC] 20 mg PO BID 02/03/22 01/03/23 Atorvastatin Calcium [Lipitor] 40 mg PO HS 01/03/23 01/03/23 Ezetimibe [Zetia] 10 mg PO DAILY 01/03/23 01/03/23 Insulin Glargine,Hum.rec.anlog 18 units SQ HS 01/03/23 01/03/23 [Toujeo Max Solostar] Levothyroxine Sodium [Synthroid] 50 mcg PO DAILY 01/03/23 01/03/23 Semaglutide [Rybelsus] 3 mg PO DAILY 01/03/23 01/03/23 Previous Rx's Medication Instructions Recorded Clopidogrel [Plavix] 75 mg PO DAILY #90 tab 03/22/21 Furosemide [Lasix] 20 mg PO DAILY #30 tab 03/23/21 Allergies Allergy/AdvReac Type Severity Reaction Status Date / Time Iodinated Contrast Media Allergy Severe Rash/Hives Verified 01/03/23 17:22 hydrocortisone Allergy Intermediate Rash/Hives Verified 01/03/23 17:22 ampicillin [From Polycillin] Allergy Mild Rash/Hives Verified 01/03/23 17:22 cefaclor [From Ceclor] Allergy Mild Rash/Hives Verified 01/03/23 17:22 nitroglycerin Allergy Mild Unknown Verified 01/03/23 17:22 NSAIDS (Non-Steroidal Allergy Mild Unknown Verified 01/03/23 17:22 Anti-Inflamma sulfur dioxide Allergy Mild Unknown Verified 01/03/23 17:22 Review of Systems ROS Statement: Those systems with pertinent positive or pertinent negative responses have been documented in the HPI. ROS Other: All systems not noted in ROS Statement are negative. Past Medical History Past Medical History: Coronary Artery Disease (CAD), Heart Failure, Diabetes Mellitus, Hyperlipidemia, Hypertension Additional Past Medical History / Comment(s): LYMPHEDEMA History of Any Multi-Drug Resistant Organisms: MRSA Date of last positivie culture/infection: 07/14/20 MDRO Source:: RIGHT FOOT Past Surgical History: Heart Catheterization With Stent Additional Past Surgical History / Comment(s): Heart cath x3 stents Past Anesthesia/Blood Transfusion Reactions: No Reported Reaction Additional Past Anesthesia/Blood Transfusion Reaction / Comment(s): PATIENT STATES THAT LAST HEART CATH SHE HAD A REACTION-SWOLLEN FACE-RED FACE-ITCHY SKIN Date of Last Stent Placement:: 03/2021 Past Psychological History: No Psychological Hx Reported Smoking Status: Former smoker Past Alcohol Use History: None Reported Past Drug Use History: None Reported - Past Family History Father Family Medical History: Myocardial Infarction (PA) Additional Family Medical History / Comment(s): AT 45 OF HEART ATTACK Mother Family Medical History: Congestive Heart Failure (CHF) Additional Family Medical History / Comment(s): MOTHER IN 1985 FOUR MONTHS WITH THE 11TH CHILD. CARDIOMYOPATHY General Exam - General Exam Comments Initial Comments: This a well-developed well-nourished awake alert oriented 4 female Limitations: no limitations General appearance: alert, in no apparent distress Head exam: Present: atraumatic, normocephalic, normal inspection Eye exam: Present: normal appearance, PERRL, EOMI. Absent: scleral icterus, conjunctival injection, periorbital swelling ENT exam: Present: normal exam, mucous membranes moist Neck exam: Present: normal inspection, full ROM, other (No sensory or bruits). Absent: tenderness, meningismus, lymphadenopathy Respiratory exam: Present: normal lung sounds bilaterally. Absent: respiratory distress, wheezes, rales, rhonchi, stridor Cardiovascular Exam: Present: normal rhythm, bradycardia, normal heart sounds. Absent: systolic murmur, diastolic murmur, rubs, gallop, clicks GI/Abdominal exam: Present: soft, normal bowel sounds. Absent: distended, tenderness, guarding, rebound, rigid Extremities exam: Present: normal inspection, full ROM, normal capillary refill. Absent: tenderness, pedal edema, joint swelling, calf tenderness Back exam: Present: normal inspection Neurological exam: Present: alert, oriented X3, CN II-XII intact Psychiatric exam: Present: normal affect, normal mood Skin exam: Present: warm, dry, intact, normal color. Absent: rash Course Vital Signs 01/03/23 01/03/23 01/03/23 16:23 16:48 18:00 Temperature 98.9 F Pulse Rate 58 L 54 L Pulse Rate [ 55 L Bone Worker ] Respiratory 18 18 Rate Blood Pressure 148/71 115/46 O2 Sat by Pulse 95 99 Oximetry 01/03/23 01/03/23 01/03/23 19:31 19:40 19:50 Temperature Pulse Rate 55 L 51 L 49 L Pulse Rate [ Bone Worker ] Respiratory 18 Rate Blood Pressure 130/57 141/55 O2 Sat by Pulse 97 98 Oximetry 01/03/23 01/03/23 01/03/23 20:00 20:10 20:20 Temperature Pulse Rate 47 L 52 L 51 L Pulse Rate [ Bone Worker ] Respiratory 18 Rate Blood Pressure 141/55 148/51 138/54 O2 Sat by Pulse 99 98 99 Oximetry 01/03/23 01/03/23 01/03/23 20:40 20:50 21:00 Temperature Pulse Rate 51 L 53 L Pulse Rate [ Bone Worker ] Respiratory 18 Rate Blood Pressure 123/53 134/58 134/58 O2 Sat by Pulse 97 96 Oximetry Medical Decision Making - Medical Decision Making I did discuss the findings with patient family the patient has had 2 negative troponins. Initially discussed with Dr. Payan that if the troponins were negative that the presentation was consistent with her chronic condition. Patient will follow up with Dr. Payan outpatient. I did have one discussed with patient family are comfortable going home and following up outpatient.Was pt. sent in by a medical professional or institution (, PA, HELICOPTER MECHANIC, urgent care, hospital, or [place] [facility] facility...) When possible be specific @ -[Dr. Payan] Did you speak to anyone other than the patient for history (EMS, parent, family, police, friend...)? What history was obtained from this source @ -[No] Did you review nursing and triage notes (agree or disagree)? Why? @ -[I reviewed and agree with nursing and triage notes] Were old charts reviewed (outside hosp., previous admission, EMS record, old EKG, old radiological studies, urgent care reports/EKG's, [place] [facility] facility records)? Report findings @ -[ old charts were reviewed] Differential Diagnosis (chest pain, altered mental status, abdominal pain women, abdominal pain men, vaginal bleeding, weakness, fever, dyspnea, syncope, headache, dizziness, GI bleed, back pain, seizure, CVA, palpatations, mental health, musculoskeletal)? @ -[Chest pain, dyspepsia] EKG interpreted by me (3pts min.). @ -[As above sinus rhythm with frequent PACs rate 61. Interval 206 QRS duration 90 QT since QTC 439/442] X-rays interpreted by me (1pt min.). @ -Interpreted by me no acute process seen] CT interpreted by me (1pt min.). @ -[None done] U/S interpreted by me (1pt. min.). @ -[None done] What testing was considered but not performed or refused? (CT, X-rays, U/S, labs)? Why? @ -[None] What meds were considered but not given or refused? Why? @ -[None] Did you discuss the management of the patient with other professionals (professionals i.e. , PA, HELICOPTER MECHANIC, lab, RT, psych nurse, social worker delinquency prevention, environmental lawyer, teacher, logistics officer, case fitter)? Give summary @ -[Dr. Payan prior to arrival] Was smoking cessation discussed for >3mins.? @ -[No] Was critical care preformed (if so, how long)? @ -[No] Were there social determinants of health that impacted care today? How? (Homelessness, low income, unemployed, alcoholism, drug addiction, transportation, low edu. Level, literacy, decrease access to med. care, residential, rehab)? @ -[No] Was there de-escalation of care discussed even if they declined (Discuss DNR or withdrawal of care, Hospice)? DNR status @ -[No] What co-morbidities impacted this encounter? (DM, HTN, Smoking, COPD, CAD, Cancer, CVA, ARF, Chemo, Hep., AIDS, mental health diagnosis, sleep apnea, morbid obesity)? @ -[Dyspepsia, hypertension, CAD] Was patient admitted / discharged? Hospital course, mention meds given and route, prescriptions, significant lab abnormalities, going to OR and other pertinent info. 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 @ -[No] Drug Therapy requiring intensive monitoring for toxicity (Heparin, Nitro, Insulin, Cardizem)? @ -[No] Were any procedures done? @ -[No] Diagnosis/symptom? @ -[Atypical chest pain] Acute, or Chronic, or Acute on Chronic? @ -[Acute on chronic] Uncomplicated (without systemic symptoms) or Complicated (systemic symptoms)? @ -[default] Side effects of treatment? @ -[No] Exacerbation, Progression, or Severe Exacerbation? @ -[No] Poses a threat to life or bodily function? How? (Chest pain, USA, PA, pneumonia, PE, COPD, DKA, ARF, appy, cholecystitis, CVA, Diverticulitis, Homicidal, Suicidal, threat to staff... and all critical care pts) @ -[Not applicable] - Lab Data Result diagrams: 01/03/23 17:37 01/03/23 17:37 Lab Results 01/03/23 01/03/23 01/03/23 Range/Units 17:37 17:37 17:37 WBC 6.8 (3.8-10.6) k/uL RBC 4.85 (3.80-5.40) m/uL Hgb 11.2 L (11.4-16.0) gm/dL Hct 35.9 (34.0-46.0) % MCV 74.0 L (80.0-100.0) fL MCH 23.0 L (25.0-35.0) pg MCHC 31.1 (31.0-37.0) g/dL RDW 17.8 H (11.5-15.5) % Plt Count 230 (150-450) k/uL MPV 8.2 Neutrophils % 63 % Lymphocytes % 28 % Monocytes % 5 % Eosinophils % 2 % Basophils % 0 % Neutrophils # 4.3 (1.3-7.7) k/uL Lymphocytes # 1.9 (1.0-4.8) k/uL Monocytes # 0.4 (0-1.0) k/uL Eosinophils # 0.1 (0-0.7) k/uL Basophils # 0.0 (0-0.2) k/uL Hypochromasia Marked Anisocytosis Slight Microcytosis Moderate PT 10.7 (9.0-12.0) sec INR 1.0 (<1.2) APTT 23.4 (22.0-30.0) sec Sodium 140 (137-145) mmol/L Potassium 4.0 (3.5-5.1) mmol/L Chloride 102 (98-107) mmol/L Carbon Dioxide 29 (22-30) mmol/L Anion Gap 9 mmol/L BUN 26 H (7-17) mg/dL Creatinine 1.24 H (0.52-1.04) mg/dL Est GFR (CKD-EPI)AfAm 45 (>60 ml/min/1.73 sqM) Est GFR (CKD-EPI)NonAf 39 (>60 ml/min/1.73 sqM) Glucose 172 H (74-99) mg/dL Calcium 9.8 (8.4-10.2) mg/dL Magnesium 1.8 (1.6-2.3) mg/dL Total Bilirubin 0.8 (0.2-1.3) mg/dL AST 24 (14-36) U/L ALT 17 (4-34) U/L Alkaline Phosphatase 89 (38-126) U/L Troponin I (0.000-0.034) ng/mL NT-Pro-B Natriuret Pep pg/mL Total Protein 7.2 (6.3-8.2) g/dL Albumin 3.8 (3.5-5.0) g/dL Lipase 82 (23-300) U/L 01/03/23 01/03/23 01/03/23 Range/Units 17:37 17:37 19:27 WBC (3.8-10.6) k/uL RBC (3.80-5.40) m/uL Hgb (11.4-16.0) gm/dL Hct (34.0-46.0) % MCV (80.0-100.0) fL MCH (25.0-35.0) pg MCHC (31.0-37.0) g/dL RDW (11.5-15.5) % Plt Count (150-450) k/uL MPV Neutrophils % % Lymphocytes % % Monocytes % % Eosinophils % % Basophils % % Neutrophils # (1.3-7.7) k/uL Lymphocytes # (1.0-4.8) k/uL Monocytes # (0-1.0) k/uL Eosinophils # (0-0.7) k/uL Basophils # (0-0.2) k/uL Hypochromasia Anisocytosis Microcytosis PT (9.0-12.0) sec INR (<1.2) APTT (22.0-30.0) sec Sodium (137-145) mmol/L Potassium (3.5-5.1) mmol/L Chloride (98-107) mmol/L Carbon Dioxide (22-30) mmol/L Anion Gap mmol/L BUN (7-17) mg/dL Creatinine (0.52-1.04) mg/dL Est GFR (CKD-EPI)AfAm (>60 ml/min/1.73 sqM) Est GFR (CKD-EPI)NonAf (>60 ml/min/1.73 sqM) Glucose (74-99) mg/dL Calcium (8.4-10.2) mg/dL Magnesium (1.6-2.3) mg/dL Total Bilirubin (0.2-1.3) mg/dL AST (14-36) U/L ALT (4-34) U/L Alkaline Phosphatase (38-126) U/L Troponin I <0.012 <0.012 (0.000-0.034) ng/mL NT-Pro-B Natriuret Pep 572 pg/mL Total Protein (6.3-8.2) g/dL Albumin (3.5-5.0) g/dL Lipase (23-300) U/L - EKG Data -: EKG Interpreted by Me EKG Comments: EKG interpreted by me sinus with rhythm with frequent supraventricular premature complexes rate 61 appear interval 206 QRS duration 99 daily since QTC 439/[address] Disposition Clinical Impression: Chest pain Disposition: HOME SELF-CARE Condition: Good Instructions (If sedation given, give patient instructions): Chest Pain (ED), Noncardiac Chest Pain (ED) Is patient prescribed a controlled substance at d/c from ED?: No Referrals: Jose David Benjamin MD [Primary Care Provider] - 1-2 days Giles Payan MD [STAFF PHYSICIAN] - 1-2 days Decision Date: 01/03/23 Decision Time: 21:23
--- NOTE | 2023-01-03 17:43 | XR ---
EXAMINATION: XR chest 2V: 01/03/2023 5:19 PM CLINICAL INDICATION: Chest Pain TECHNIQUE: AP and lateral COMPARISON: 05/30/2022 FINDINGS: The lungs are negative for acute process. Scattered pulmonary calcifications are noted, consistent wi th healed granulomas. The pleural spaces are negative. EKG leads. The cardiac silhouette is mildly enlarged, stable. The remainder of the mediastinal silhou ette is unremarkable. The skeletal structures and soft tissues are negative for acute findings. IMPRESSION: No acute radiographic process.
[2023-01-03 17:48] LABS: Anisocytosis Slight; Basophils % (A) 0 %; Eosinophils # (A) 0.1 k/uL (0-0.7); Eosinophils % (A) 2 %; HCT 35.9 % (34.0-46.0); HGB 11.2 gm/dL (11.4-16.0); Hypochromasia Marked; Lymphocytes # (A) 1.9 k/uL (1.0-4.8); Lymphocytes % (A) 28 %; MCHC 31.1 g/dL (31.0-37.0); Mean Platelet Volume 8.2; Microcytosis Moderate; Monocytes # (A) 0.4 k/uL (0-1.0); Monocytes % (A) 5 %; Neutrophils # (A) 4.3 k/uL (1.3-7.7); Neutrophils % (A) 63 %; Platelet Count 230 k/uL (150-450); RBC 4.85 m/uL (3.80-5.40); RDW 17.8 % (11.5-15.5); WBC 6.8 k/uL (3.8-10.6)
[2023-01-03 17:58] LABS: Partial Thromboplastin Time 23.4 sec (22.0-30.0); Prothrombin Time 10.7 sec (9.0-12.0)
[2023-01-03 18:01] LABS: ALT 17 U/L (4-34); AST 24 U/L (14-36); African American GFR (CKD) 45 (>60 ml/min/1.73 sqM); Albumin 3.8 g/dL (3.5-5.0); Alkaline Phosphatase 89 U/L (38-126); Anion Gap 9 mmol/L; Blood Urea Nitrogen 26 mg/dL (7-17); Calcium 9.8 mg/dL (8.4-10.2); Carbon Dioxide 29 mmol/L (22-30); Chloride 102 mmol/L (98-107); Glucose 172 mg/dL (74-99); Lipase 82 U/L (23-300); Magnesium 1.8 mg/dL (1.6-2.3); Non-African American GFR(CKD) 39 (>60 ml/min/1.73 sqM); Sodium 140 mmol/L (137-145); Total Bilirubin 0.8 mg/dL (0.2-1.3); Total Protein 7.2 g/dL (6.3-8.2)
[2023-01-03 21:14] VITALS: BP 134/58; PULSE 53
== END 2023-01-03 21:39 | disposition home or self-care (01) ==
LOC: EC 16:04
DX: R07.89 Other chest pain (principal); I25.10 Atherosclerotic heart disease of native coronary artery without angina pectoris; I11.0 Hypertensive heart disease with heart failure; I50.9 Heart failure, unspecified; E11.9 Type 2 diabetes mellitus without complications; E78.5 Hyperlipidemia, unspecified; Z87.891 Personal history of nicotine dependence; Z79.4 Long term (current) use of insulin; Z79.84 Long term (current) use of oral hypoglycemic drugs; Z79.899 Other long term (current) drug therapy; Z91.041 Radiographic dye allergy status; Z88.2 Allergy status to sulfonamides; Z88.6 Allergy status to analgesic agent; Z88.8 Allergy status to other drugs, medicaments and biological substances; Z79.02 Long term (current) use of antithrombotics/antiplatelets; Z88.0 Allergy status to penicillin; Z88.1 Allergy status to other antibiotic agents
CPT/HCPCS: 36415; 71046; 80053; 83690; 83735; 83880; 84484; 85025; 85610; 85730; 93005; 99284

== ENCOUNTER 2023-05-18 10:25 | Inpatient (IN) | payer MEDICARE, BC ==
[2023-05-18] MEDS ORDERED: ASPIRIN 81 MG PO STA (10:45)
--- NOTE | 2023-05-18 11:00 | ED ---
General Adult HPI - General Chief complaint: Chest Pain Stated complaint: Palpitations Time Seen by Provider: 05/18/23 10:38 Source: EMS, RN notes reviewed Mode of arrival: EMS Limitations: no limitations - History of Present Illness Initial comments: 87-year-old female with a past medical history of CAD status post multiple stents, heart failure, diabetes mellitus, hyperlipidemia, hypertension presents to the emergency room for chest pain. Patient developed left jaw pain this morning after taking her medications about an hour and a half prior to arrival. The pain would come and go. She then developed a pressure over the left side of her chest as well as nausea and a headache. She also felt a fluttering in her chest and felt like she had palpitations. Patient states she has heart problems and was told that she needs to be seen if she ever has any chest pain. Her wrestling coach is Dr. Payan. - Related Data Home Medications Medication Instructions Recorded Confirmed Dapagliflozin Propanediol [Farxiga] 10 mg PO DAILY 10/01/21 01/03/23 atenoloL [Tenormin] 50 mg PO DAILY 10/01/21 01/03/23 Omeprazole [PriLOSEC] 20 mg PO BID 02/03/22 01/03/23 Atorvastatin Calcium [Lipitor] 40 mg PO HS 01/03/23 01/03/23 Ezetimibe [Zetia] 10 mg PO DAILY 01/03/23 01/03/23 Insulin Glargine,Hum.rec.anlog 18 units SQ HS 01/03/23 01/03/23 [Toujeo Max Solostar] Levothyroxine Sodium [Synthroid] 50 mcg PO DAILY 01/03/23 01/03/23 Semaglutide [Rybelsus] 3 mg PO DAILY 01/03/23 01/03/23 Meclizine HCl 12.5 mg PO Q8H PRN 05/18/23 05/18/23 Previous Rx's Medication Instructions Recorded Clopidogrel [Plavix] 75 mg PO DAILY #90 tab 03/22/21 Furosemide [Lasix] 20 mg PO DAILY #30 tab 03/23/21 Allergies Allergy/AdvReac Type Severity Reaction Status Date / Time Iodinated Contrast Media Allergy Severe Rash/Hives Verified 05/18/23 13:27 hydrocortisone Allergy Intermediate Rash/Hives Verified 05/18/23 13:27 ampicillin [From Polycillin] Allergy Mild Rash/Hives Verified 05/18/23 13:27 cefaclor [From Ceclor] Allergy Mild Rash/Hives Verified 05/18/23 13:27 nitroglycerin Allergy Mild Unknown Verified 05/18/23 13:27 NSAIDS (Non-Steroidal Allergy Mild Unknown Verified 05/18/23 13:27 Anti-Inflamma sulfur dioxide Allergy Mild Unknown Verified 05/18/23 13:27 Review of Systems ROS Statement: Those systems with pertinent positive or pertinent negative responses have been documented in the HPI. ROS Other: All systems not noted in ROS Statement are negative. Past Medical History Past Medical History: Coronary Artery Disease (CAD), Heart Failure, Diabetes Mellitus, Hyperlipidemia, Hypertension Additional Past Medical History / Comment(s): LYMPHEDEMA History of Any Multi-Drug Resistant Organisms: MRSA Date of last positivie culture/infection: 07/14/20 MDRO Source:: RIGHT FOOT Past Surgical History: Heart Catheterization With Stent Additional Past Surgical History / Comment(s): Heart cath x3 stents Past Anesthesia/Blood Transfusion Reactions: No Reported Reaction Additional Past Anesthesia/Blood Transfusion Reaction / Comment(s): PATIENT STATES THAT LAST HEART CATH SHE HAD A REACTION-SWOLLEN FACE-RED FACE-ITCHY SKIN Date of Last Stent Placement:: 03/2021 Past Psychological History: No Psychological Hx Reported Smoking Status: Former smoker Past Alcohol Use History: None Reported Past Drug Use History: None Reported - Past Family History Father Family Medical History: Myocardial Infarction ([place]) Additional Family Medical History / Comment(s): AT 45 OF HEART ATTACK Mother Family Medical History: Congestive Heart Failure (CHF) Additional Family Medical History / Comment(s): MOTHER IN 1985 FOUR MONTHS WITH THE 11TH CHILD. CARDIOMYOPATHY General Exam Limitations: no limitations General appearance: alert, in no apparent distress Head exam: Present: atraumatic Eye exam: Present: normal appearance. Absent: scleral icterus ENT exam: Present: normal exam, mucous membranes moist Neck exam: Present: normal inspection, full ROM. Absent: tenderness Respiratory exam: Present: normal lung sounds bilaterally. Absent: respiratory distress, wheezes Cardiovascular Exam: Present: tachycardia, irregular rhythm GI/Abdominal exam: Present: soft, normal bowel sounds. Absent: distended, tenderness Neurological exam: Present: alert, oriented X3 Course Vital Signs 05/18/23 05/18/23 10:31 11:37 Temperature 98 F 97.6 F Pulse Rate 106 H 98 Respiratory 18 18 Rate Blood Pressure 123/76 98/58 O2 Sat by Pulse 96 94 L Oximetry Medical Decision Making - Medical Decision Making Was pt. sent in by a medical professional or institution (BHAVIN Marcus, [employer], urgent care, hospital, or snf...) When possible be specific @ -[No] Did you speak to anyone other than the patient for history (EMS, parent, family, police, friend...)? What history was obtained from this source @ -EMS Did you review nursing and triage notes (agree or disagree)? Why? @ -[I reviewed and agree with nursing and triage notes] Were old charts reviewed (outside hosp., previous admission, EMS record, old EKG, old radiological studies, urgent care reports/EKG's, snf records)? Report findings @ -previous admissions, EKGs were reviewed Differential Diagnosis (chest pain, altered mental status, abdominal pain women, abdominal pain men, vaginal bleeding, weakness, fever, dyspnea, syncope, he adache, dizziness, GI bleed, back pain, seizure, CVA, palpatations, mental health)? @ -Differential Chest Pain: Stable Angina, Unstable Angina, STEMI, NSTEMI Aortic Dissection, Pneumothorax, Musculoskeletal, Esophageal Spasm GERD, Cholecystitis, Pancreatitis, Zoster, this is not meant to be an all-inclusive list. EKG interpreted by me (3pts min.). @ -[As above] X-rays interpreted by me (1pt min.). @ - chest xray negative for fluid/pna CT interpreted by me (1pt min.). @ -[None done] U/S interpreted by me (1pt. min.). @ -[None done] What testing was considered but not performed or refused? (CT, X-rays, U/S, labs)? Why? @ -[None] What meds were considered but not given or refused? Why? @ -cardizem but rate mostly controlled (80-120) Did you discuss the management of the patient with other professionals (pr ofessionals i.e. BHAVIN Marcus, [employer], lab, RT, psych nurse, web content & social media manager, assurance associate, teacher, special assets officer, caser in)? Give summary @ -internal medicine Was smoking cessation discussed for >3mins.? @ -[No] Was critical care preformed (if so, how long)? @ -[No] Were there social determinants of health that impacted care today? How? (Homelessness, low income, unemployed, alcoholism, drug addiction, transportation, low edu. Level, literacy, decrease access to med. care, [facility], rehab)? @ -[No] Was there de-escalation of care discussed even if they declined (Discuss DNR or withdrawal of care, Hospice)? DNR status @ -[No] What co-morbidities impacted this encounter? (DM, HTN, Smoking, COPD, CAD, Cancer, CVA, ARF, Chemo, Hep., AIDS, mental health diagnosis, sleep apnea, morbid obesity)? @ -CAD Was patient admitted / discharged? Hospital course, mention meds given and rout e, prescriptions, significant lab abnormalities, going to OR and other pertinent info. @ -EKG was performed which showed new onset A. fib. Laboratory evaluation was obtained. Troponin negative at this time. Discussed case with Dr. Bloom- started patient on low-dose heparin and consulted cardiology. Will obtain repeat troponin. Undiagnosed new problem with uncertain prognosis? @ -yes Drug Therapy requiring intensive monitoring for toxicity (Heparin, Nitro, Insulin, Cardizem)? @ -[No] Were any procedures done? @ -[No] Diagnosis/symptom? @ -chest pain, new onset a fib Acute, or Chronic, or Acute on Chronic? @ -acute Uncomplicated (without systemic symptoms) or Complicated (systemic symptoms)? @ -complicated Side effects of treatment? @ -[No] Exacerbation, Progression, or Severe Exacerbation? @ -[No] Poses a threat to life or bodily function? How? (Chest pain, [place], [place], pneumonia, PE, COPD, DKA, ARF, appy, cholecystitis, CVA, Diverticulitis, Homicidal, Suicidal, threat to staff... and all critical care pts) @ -yes, chest pain could be related to ACS - Lab Data Result diagrams: 05/18/23 10:44 05/18/23 10:44 Lab Results 05/18/23 05/18/23 05/18/23 Range/Units 10:44 10:44 10:44 WBC 6.7 (3.8-10.6) k/uL RBC 4.77 (3.80-5.40) m/uL Hgb 10.4 L (11.4-16.0) gm/dL Hct 35.0 (34.0-46.0) % MCV 73.3 L (80.0-100.0) fL MCH 21.8 L (25.0-35.0) pg MCHC 29.8 L (31.0-37.0) g/dL RDW 18.0 H (11.5-15.5) % Plt Count 221 (150-450) k/uL MPV 7.0 Neutrophils % 62 % Lymphocytes % 25 % Monocytes % 7 % Eosinophils % 3 % Basophils % 0 % Neutrophils # 4.2 (1.3-7.7) k/uL Lymphocytes # 1.7 (1.0-4.8) k/uL Monocytes # 0.5 (0-1.0) k/uL Eosinophils # 0.2 (0-0.7) k/uL Basophils # 0.0 (0-0.2) k/uL Hypochromasia Marked Anisocytosis Slight Microcytosis Moderate PT 11.2 (10.0-12.5) sec INR 1.0 (<1.2) APTT 23.0 (22.0-30.0) sec Sodium 141 (137-145) mmol/L Potassium 3.4 L (3.5-5.1) mmol/L Chloride 105 (98-107) mmol/L Carbon Dioxide 24 (22-30) mmol/L Anion Gap 12 mmol/L BUN 25 H (7-17) mg/dL Creatinine 1.14 H (0.52-1.04) mg/dL Est GFR (CKD-EPI)AfAm 50 (>60 ml/min/1.73 sqM) Est GFR (CKD-EPI)NonAf 43 (>60 ml/min/1.73 sqM) Glucose 163 H (74-99) mg/dL Calcium 9.3 (8.4-10.2) mg/dL Magnesium 1.6 (1.6-2.3) mg/dL Total Bilirubin 0.9 (0.2-1.3) mg/dL AST 22 (14-36) U/L ALT 13 (4-34) U/L Alkaline Phosphatase 104 (38-126) U/L Troponin I (0.000-0.034) ng/mL NT-Pro-B Natriuret Pep 908 pg/mL Total Protein 6.8 (6.3-8.2) g/dL Albumin 3.4 L (3.5-5.0) g/dL Lipase 69 (23-300) U/L 05/18/23 Range/Units 10:44 WBC (3.8-10.6) k/uL RBC (3.80-5.40) m/uL Hgb (11.4-16.0) gm/dL Hct (34.0-46.0) % MCV (80.0-100.0) fL MCH (25.0-35.0) pg MCHC (31.0-37.0) g/dL RDW (11.5-15.5) % Plt Count (150-450) k/uL MPV Neutrophils % % Lymphocytes % % Monocytes % % Eosinophils % % Basophils % % Neutrophils # (1.3-7.7) k/uL Lymphocytes # (1.0-4.8) k/uL Monocytes # (0-1.0) k/uL Eosinophils # (0-0.7) k/uL Basophils # (0-0.2) k/uL Hypochromasia Anisocytosis Microcytosis PT (10.0-12.5) sec INR (<1.2) APTT (22.0-30.0) sec Sodium (137-145) mmol/L Potassium (3.5-5.1) mmol/L Chloride (98-107) mmol/L Carbon Dioxide (22-30) mmol/L Anion Gap mmol/L BUN (7-17) mg/dL Creatinine (0.52-1.04) mg/dL Est GFR (CKD-EPI)AfAm (>60 ml/min/1.73 sqM) Est GFR (CKD-EPI)NonAf (>60 ml/min/1.73 sqM) Glucose (74-99) mg/dL Calcium (8.4-10.2) mg/dL Magnesium (1.6-2.3) mg/dL Total Bilirubin (0.2-1.3) mg/dL AST (14-36) U/L ALT (4-34) U/L Alkaline Phosphatase (38-126) U/L Troponin I 0.015 (0.000-0.034) ng/mL NT-Pro-B Natriuret Pep pg/mL Total Protein (6.3-8.2) g/dL Albumin (3.5-5.0) g/dL Lipase (23-300) U/L Disposition Clinical Impression: Chest pain, A-fib Disposition: ADMITTED IP TO THIS HOSP Is patient prescribed a controlled substance at d/c from ED?: No Referrals: Jackson Benjamin MD [Primary Care Provider] - 1-2 days Time of Disposition: 13:49
[2023-05-18] MEDS ORDERED: SODIUM CHLORIDE 0.9% 500 ML 500 ML IV STA ×2 (11:24→13:01)
[2023-05-18 11:39] LABS: Anisocytosis Slight; Basophils % (A) 0 %; Eosinophils # (A) 0.2 k/uL (0-0.7); Eosinophils % (A) 3 %; HGB 10.4 gm/dL (11.4-16.0); Hypochromasia Marked; Lymphocytes # (A) 1.7 k/uL (1.0-4.8); Lymphocytes % (A) 25 %; MCH 21.8 pg (25.0-35.0); MCHC 29.8 g/dL (31.0-37.0); MCV 73.3 fL (80.0-100.0); Microcytosis Moderate; Monocytes # (A) 0.5 k/uL (0-1.0); Monocytes % (A) 7 %; Neutrophils # (A) 4.2 k/uL (1.3-7.7); Neutrophils % (A) 62 %; Platelet Count 221 k/uL (150-450); RBC 4.77 m/uL (3.80-5.40); WBC 6.7 k/uL (3.8-10.6)
[2023-05-18 11:48] LABS: Prothrombin Time 11.2 sec (10.0-12.5)
[2023-05-18 12:01] LABS: ALT 13 U/L (4-34); AST 22 U/L (14-36); African American GFR (CKD) 50 (>60 ml/min/1.73 sqM); Albumin 3.4 g/dL (3.5-5.0); Alkaline Phosphatase 104 U/L (38-126); Anion Gap 12 mmol/L; Blood Urea Nitrogen 25 mg/dL (7-17); Calcium 9.3 mg/dL (8.4-10.2); Carbon Dioxide 24 mmol/L (22-30); Chloride 105 mmol/L (98-107); Glucose 163 mg/dL (74-99); Lipase 69 U/L (23-300); Magnesium 1.6 mg/dL (1.6-2.3); Non-African American GFR(CKD) 43 (>60 ml/min/1.73 sqM); Potassium 3.4 mmol/L (3.5-5.1); Sodium 141 mmol/L (137-145); Total Bilirubin 0.9 mg/dL (0.2-1.3); Total Protein 6.8 g/dL (6.3-8.2)
[2023-05-18 12:09] LABS: NT-Pro-B-Type Natriuretic Pept 908 pg/mL
--- NOTE | 2023-05-18 12:37 | XR ---
EXAMINATION TYPE: XR chest 2V DATE OF EXAM: 05/18/2023 COMPARISON: 01/03/2023 HISTORY: Shortness of breath TECHNIQUE: Frontal and lateral views of the chest are obtained. FINDINGS: Scattered senescent parenchymal changes noted. Hyperinflation compatible with COPD. No evidence for infiltrate. No evidence for atelectasis. Heart size is stable. Mediastinal structures are stable and grossly unremarkable. No evidence for hilar prominence. Degenerative changes dorsal spine. IMPRESSION: 1. No evidence for acute pulmonary disease.
[2023-05-18] MEDS ORDERED: HEPARIN SODIUM 1,000 UN/ML (10ML VL) IV PRN (13:41)
[2023-05-18] MEDS ORDERED: HEPARIN SODIUM 1,000 UN/ML (10ML VL) IV ONE (13:41)
[2023-05-18] MEDS ORDERED: MECLIZINE 12.5 MG TAB PO PRN (13:47)
[2023-05-18] MEDS ORDERED: DEXTROSE 50% SYRINGE 50 ML IVP PRN ×2 (13:48)
[2023-05-18] MEDS ORDERED: ACETAMINOPHEN TAB 325 MG TAB PO PRN (13:56)
[2023-05-18 14:03] LABS: Glucose,Whole Blood 112 mg/dL (70-110)
--- NOTE | 2023-05-18 14:31 | P.HPIM ---
History of Present Illness H&P Date: 05/18/23 Chief Complaint: Chest pain palpitations * 87-year-old lady with past medical history significant for coronary artery disease, , diabetes mellitus, hypertension, paroxysmal atrial fibrillation hyperlipidemia, aortic stenosis presents to the emergency department with complains of chest pain. Patient does have significant history of coronary artery disease with PCI in proximal and distal LAD. Patient complained of chest pain radiating to the jaw that started after taking her morning medications. Patient did complain of fluttering feeling in the chest. Patient follows up with cardiology Dr. silverio as outpatient * Workup initiated in ER included a chest x-ray which was negative for acute thoracic process * Blood work obtained in ER showed WBC of 6.7 hemoglobin 10.4 platelet count of 221, INR 1 * Serum chemistry showed sodium 141 potassium 3.4 carbon dioxide 24 BU and 25 creatinine 1.14 blood glucose 163 lipase within normal limits * N-terminal proBNP 908 * Troponin of 0.015 * Patient was started on IV heparin drip due to unstable angina with consultation from cardiology REVIEW OF SYSTEMS: Chest pain, palpitations CONSTITUTIONAL: No fever, no malaise, no fatigue. HEENT: No recent visual problems or hearing problems. Denied any sore throat. CARDIOVASCULAR: No chest pain, orthopnea, PND, no palpitations, no syncope. PULMONARY: No shortness of breath, no cough, no hemoptysis. GASTROINTESTINAL: No diarrhea, no nausea, no vomiting, no abdominal pain. NEUROLOGICAL: No headaches, no weakness, no numbness. HEMATOLOGICAL: Denies any bleeding or petechiae. GENITOURINARY: Denies any burning micturition, frequency, or urgency. MUSCULOSKELETAL/RHEUMATOLOGICAL: Denies any joint pain, swelling, or any muscle pain. ENDOCRINE: Denies any polyuria or polydipsia. PHYSICAL EXAMINATION: GENERAL: The patient is alert and oriented x3, not in any acute distress, pale appearance , ill appreance HEENT: Pupils are round and equally reacting to light. EOMI. CARDIOVASCULAR: S1 and S2 present. Irregular rhythm noted PULMONARY: Chest is clear to auscultation, no wheezing or crackles. ABDOMEN: Soft, nontender, nondistended, normoactive bowel sounds. MUSCULOSKELETAL: No joint swelling or deformity. EXTREMITIES: No cyanosis, clubbing, or pedal edema. NEUROLOGICAL: Gross neurological examination did not reveal any focal deficits. . Past Medical History Past Medical History: Coronary Artery Disease (CAD), Heart Failure, Diabetes Mellitus, Hyperlipidemia, Hypertension Additional Past Medical History / Comment(s): LYMPHEDEMA History of Any Multi-Drug Resistant Organisms: MRSA Date of last positivie culture/infection: 07/14/20 MDRO Source:: RIGHT FOOT Past Surgical History: Heart Catheterization With Stent Additional Past Surgical History / Comment(s): Heart cath x3 stents Past Anesthesia/Blood Transfusion Reactions: No Reported Reaction Additional Past Anesthesia/Blood Transfusion Reaction / Comment(s): PATIENT STATES THAT LAST HEART CATH SHE HAD A REACTION-SWOLLEN FACE-RED FACE-ITCHY SKIN Date of Last Stent Placement:: 03/2021 Past Psychological History: No Psychological Hx Reported Smoking Status: Former smoker Past Alcohol Use History: None Reported Past Drug Use History: None Reported - Past Family History Father Family Medical History: Myocardial Infarction ([place]) Additional Family Medical History / Comment(s): AT 45 OF HEART ATTACK Mother Family Medical History: Congestive Heart Failure (CHF) Additional Family Medical History / Comment(s): MOTHER IN 1985 FOUR MONTHS WITH THE 11TH CHILD. CARDIOMYOPATHY Medications and Allergies Home Medications Medication Instructions Recorded Confirmed Type Clopidogrel [Plavix] 75 mg PO DAILY #90 tab 03/22/21 05/18/23 Rx Furosemide [Lasix] 20 mg PO DAILY #30 tab 03/23/21 05/18/23 Rx Dapagliflozin Propanediol [Farxiga] 10 mg PO DAILY 10/01/21 05/18/23 History atenoloL [Tenormin] 50 mg PO DAILY 10/01/21 05/18/23 History Omeprazole [PriLOSEC] 20 mg PO BID 02/03/22 05/18/23 History Atorvastatin Calcium [Lipitor] 40 mg PO HS 01/03/23 05/18/23 History Ezetimibe [Zetia] 10 mg PO DAILY 01/03/23 05/18/23 History Insulin Glargine,Hum.rec.anlog 18 units SQ HS 01/03/23 05/18/23 History [Toujeo Max Solostar] Levothyroxine Sodium [Synthroid] 50 mcg PO DAILY 01/03/23 05/18/23 History Semaglutide [Rybelsus] 3 mg PO DAILY 01/03/23 05/18/23 History Meclizine HCl 12.5 mg PO Q8H PRN 05/18/23 05/18/23 History Allergies Allergy/AdvReac Type Severity Reaction Status Date / Time Iodinated Contrast Media Allergy Severe Rash/Hives Verified 05/18/23 13:27 hydrocortisone Allergy Intermediate Rash/Hives Verified 05/18/23 13:27 ampicillin [From Polycillin] Allergy Mild Rash/Hives Verified 05/18/23 13:27 cefaclor [From Ceclor] Allergy Mild Rash/Hives Verified 05/18/23 13:27 nitroglycerin Allergy Mild Unknown Verified 05/18/23 13:27 NSAIDS (Non-Steroidal Allergy Mild Unknown Verified 05/18/23 13:27 Anti-Inflamma sulfur dioxide Allergy Mild Unknown Verified 05/18/23 13:27 Physical Exam Vitals: Vital Signs Temp Pulse Resp BP Pulse Ox 05/18/23 11:37 97.6 F 98 18 98/58 94 L 05/18/23 10:31 98 F 106 H 18 123/76 96 Intake and Output 05/17/23 05/18/23 05/18/23 22:59 06:59 14:59 Other: Weight 75.705 kg Results CBC & Chem 7: 05/18/23 10:44 05/18/23 10:44 Labs: Abnormal Lab Results - Last 24 Hours (Table) 05/18/23 05/18/23 Range/Units 10:44 10:44 Hgb 10.4 L (11.4-16.0) gm/dL MCV 73.3 L (80.0-100.0) fL MCH 21.8 L (25.0-35.0) pg MCHC 29.8 L (31.0-37.0) g/dL RDW 18.0 H (11.5-15.5) % Potassium 3.4 L (3.5-5.1) mmol/L BUN 25 H (7-17) mg/dL Creatinine 1.14 H (0.52-1.04) mg/dL Glucose 163 H (74-99) mg/dL Albumin 3.4 L (3.5-5.0) g/dL Assessment and Plan Assessment: Assessment and plan * Coronary artery disease with unstable angina * Paroxysmal atrial fibrillation * Diabetes mellitus type 2 * Severe aortic stenosis * Hypothyroid * In regards to coronary artery disease and chest pain, serial troponins ordered, patient has ALLERGY to nitroglycerin * In regards to atrial fibrillation, continue patient on telemetry monitoring, on IV heparin, cardiology consulted * In regards to diabetes Accu-Cheks before meals at bedtime continue patient on Lantus and correctional insulin * In regards to hypothyroid continue Synthyroid * CODE STATUS full code Time with Patient: Greater than 30
[2023-05-18] MEDS: HEPARIN SOD,PORK IN 0.45% NACL 25,000 UNIT in 0.45% NACL 1 250ML.BAG IV SCH (15:34)
[2023-05-18] MEDS: EZETIMIBE 10 MG TAB PO SCH (15:36)
[2023-05-18] MEDS: CLOPIDOGREL 75 MG TAB PO SCH (15:36)
[2023-05-18 18:10] LABS: Glucose,Whole Blood 159 mg/dL (70-110)
[2023-05-18] MEDS: INSULIN ASPART (NovoLOG) 100 UNIT/ML VIAL SQ SCH ×2 (18:14→22:15)
[2023-05-18 21:44] LABS: Glucose,Whole Blood 103 mg/dL (70-110)
[2023-05-18] MEDS: PANTOPRAZOLE 40 MG TABLET PO SCH (22:16)
[2023-05-18] MEDS: ATORVASTATIN 40 MG TAB PO SCH (22:16)
[2023-05-18] MEDS: INSULIN DETEMIR (LEVEMIR) 100 UNIT/ML SYR SQ SCH (22:50)
[2023-05-19] MEDS: LEVOTHYROXINE 50 MCG TAB PO SCH (06:12)
[2023-05-19 07:43] LABS: Anisocytosis Slight; Basophils % (A) 0 %; Eosinophils # (A) 0.2 k/uL (0-0.7); Eosinophils % (A) 2 %; HCT 32.9 % (34.0-46.0); Hypochromasia Marked; Lymphocytes # (A) 2.5 k/uL (1.0-4.8); Lymphocytes % (A) 32 %; MCHC 30.3 g/dL (31.0-37.0); MCV 72.5 fL (80.0-100.0); Mean Platelet Volume 6.8; Microcytosis Moderate; Monocytes # (A) 0.4 k/uL (0-1.0); Monocytes % (A) 5 %; Neutrophils # (A) 4.4 k/uL (1.3-7.7); Neutrophils % (A) 58 %; Platelet Count 232 k/uL (150-450); RBC 4.54 m/uL (3.80-5.40); RDW 18.4 % (11.5-15.5); WBC 7.6 k/uL (3.8-10.6)
[2023-05-19] MEDS ORDERED: ASPIRIN 325 MG TAB PO SCH (09:00)
[2023-05-19 09:17] LABS: Glucose,Whole Blood 164 mg/dL (70-110)
[2023-05-19] MEDS: INSULIN ASPART (NovoLOG) 100 UNIT/ML VIAL SQ SCH ×4 (09:52→21:22)
[2023-05-19] MEDS: EZETIMIBE 10 MG TAB PO SCH (10:19)
[2023-05-19] MEDS: CLOPIDOGREL 75 MG TAB PO SCH (10:19)
[2023-05-19] MEDS: PANTOPRAZOLE 40 MG TABLET PO SCH ×2 (10:19→21:21)
[2023-05-19] MEDS: ASPIRIN 81 MG PO SCH (10:19)
--- NOTE | 2023-05-19 12:21 | P.PN ---
Subjective Progress Note Date: 05/19/23 * 87-year-old lady with past medical history significant for coronary artery disease, , diabetes mellitus, hypertension, paroxysmal atrial fibrillation hyperlipidemia, aortic stenosis presents to the emergency department with complains of chest pain. Patient does have significant history of coronary artery disease with PCI in proximal and distal LAD. Patient complained of chest pain radiating to the jaw that started after taking her morning medications. Patient did complain of fluttering feeling in the chest. Patient follows up with cardiology Dr. silverio as outpatient * Workup initiated in ER included a chest x-ray which was negative for acute thoracic process * Blood work obtained in ER showed WBC of 6.7 hemoglobin 10.4 platelet count of 221, INR 1 * Serum chemistry showed sodium 141 potassium 3.4 carbon dioxide 24 BU and 25 creatinine 1.14 blood glucose 163 lipase within normal limits * N-terminal proBNP 908 * Troponin of 0.015 * Patient was started on IV heparin drip due to unstable angina with consultation from cardiology * 05/19/2023: Patient seen and evaluated bedside, patient is alert and oriented 4, chest pain and palpitations has improved, troponin elevated at 0.134, continue medical management including IV heparin, aspirin and Plavix will wait for cardiology recommendations. Follow up on CBC levels REVIEW OF SYSTEMS: Chest pain, palpitations improved/resolved CONSTITUTIONAL: No fever, no malaise, no fatigue. HEENT: No recent visual problems or hearing problems. Denied any sore throat. CARDIOVASCULAR: No chest pain, orthopnea, PND, no palpitations, no syncope. PULMONARY: No shortness of breath, no cough, no hemoptysis. GASTROINTESTINAL: No diarrhea, no nausea, no vomiting, no abdominal pain. NEUROLOGICAL: No headaches, no weakness, no numbness. HEMATOLOGICAL: Denies any bleeding or petechiae. GENITOURINARY: Denies any burning micturition, frequency, or urgency. MUSCULOSKELETAL/RHEUMATOLOGICAL: Denies any joint pain, swelling, or any muscle pain. ENDOCRINE: Denies any polyuria or polydipsia. PHYSICAL EXAMINATION: GENERAL: The patient is alert and oriented x3, not in any acute distress, pale appearance , ill appreance HEENT: Pupils are round and equally reacting to light. EOMI. CARDIOVASCULAR: S1 and S2 present. Irregular rhythm noted , bradycardia noted PULMONARY: Chest is clear to auscultation, no wheezing or crackles. ABDOMEN: Soft, nontender, nondistended, normoactive bowel sounds. MUSCULOSKELETAL: No joint swelling or deformity. EXTREMITIES: No cyanosis, clubbing, or pedal edema. NEUROLOGICAL: Gross neurological examination did not reveal any focal deficits. . Objective - Vital Signs Vital signs: Vital Signs Temp 97.8 F 05/18/23 17:05 Pulse 53 L 05/19/23 10:17 Resp 18 05/19/23 10:17 BP 135/47 05/19/23 10:17 Pulse Ox 96 05/19/23 10:17 FiO2 Intake & Output 05/18/23 05/19/23 05/19/23 18:59 06:59 18:59 Intake Total 69.955 Balance 69.955 Weight 75.705 kg Intake: Intake, IV Titration 69.955 Amount Heparin Sod,Pork in 0.45% 69.955 NaCl 25,000 unit In 0.45 % NaCl 1 250ml.bag @ 12 UNITS/KG/HR 9.085 mls/hr IV .Q24H [facility] Rx#: [id number] - Labs CBC & Chem 7: 05/19/23 07:00 05/18/23 10:44 Labs: Abnormal Lab Results - Last 24 Hours (Table) 05/18/23 05/18/23 05/18/23 Range/Units 14:01 16:51 18:09 Hgb (11.4-16.0) gm/dL Hct (34.0-46.0) % MCV (80.0-100.0) fL MCH (25.0-35.0) pg MCHC (31.0-37.0) g/dL RDW (11.5-15.5) % APTT (22.0-30.0) sec POC Glucose (mg/dL) 112 H 159 H (70-110) mg/dL Troponin I 0.134 H* (0.000-0.034) ng/mL 05/18/23 05/19/23 05/19/23 Range/Units 21:55 07:00 07:00 Hgb 10.0 L (11.4-16.0) gm/dL Hct 32.9 L (34.0-46.0) % MCV 72.5 L (80.0-100.0) fL MCH 22.0 L (25.0-35.0) pg MCHC 30.3 L (31.0-37.0) g/dL RDW 18.4 H (11.5-15.5) % APTT >200.0 H* 47.1 H (22.0-30.0) sec POC Glucose (mg/dL) (70-110) mg/dL Troponin I (0.000-0.034) ng/mL 05/19/23 Range/Units 09:15 Hgb (11.4-16.0) gm/dL Hct (34.0-46.0) % MCV (80.0-100.0) fL MCH (25.0-35.0) pg MCHC (31.0-37.0) g/dL RDW (11.5-15.5) % APTT (22.0-30.0) sec POC Glucose (mg/dL) 164 H (70-110) mg/dL Troponin I (0.000-0.034) ng/mL Assessment and Plan Assessment: Assessment and plan * Coronary artery disease with NSTEMI * Paroxysmal atrial fibrillation * Diabetes mellitus type 2 * Severe aortic stenosis * Hypothyroid * In regards to coronary artery disease and chest pain, serial troponins showed up trend, patient has ALLERGY to nitroglycerin continue IV heparin, continue aspirin, Lipitor, Plavix * In regards to atrial fibrillation, continue patient on telemetry monitoring, on IV heparin, cardiology consulted, * In regards to diabetes Accu-Cheks before meals at bedtime continue patient on Lantus and correctional insulin, oral hypoglycemic agent on hold * In regards to hypothyroid continue Synthyroid * CODE STATUS full code Time with Patient: Greater than 30
[2023-05-19 13:28] LABS: Chol/HDL Ratio 2.86 Ratio; LDL Cholesterol,Calculated 56.7 mg/dL (0.0-131.0)
[2023-05-19 13:39] LABS: Glucose,Whole Blood 124 mg/dL (70-110)
[2023-05-19] MEDS: HEPARIN SOD,PORK IN 0.45% NACL 25,000 UNIT in 0.45% NACL 1 250ML.BAG IV SCH (13:51)
[2023-05-19 16:25] LABS: Glucose,Whole Blood 143 mg/dL (70-110)
--- NOTE | 2023-05-19 17:10 | P.CRDCN ---
History of Present Illness Consult date: 05/19/23 Chief complaint: Chest discomfort and jaw discomfort History of present illness: The patient is a pleasant 87-year-old female patient with coronary artery disease and prior stenting of the proximal and mid and distal LAD as well as hypertension and dyslipidemia and valvular heart disease with known aortic stenosis, the patient is in reasonable physical and in the chair for her age presented to the hospital complaining of chest discomfort and jaw discomfort. The patient was in her usual state of health until earlier this morning when she woke up from sleep complaining of jaw discomfort was intermittent associated with discomfort in the upper chest. No shortness of breath. No dizziness or lightheadedness and no feeling of heart racing or fluttering and no presyncope or syncope. She felt weak. Her daughter decided to bring her to the hospital for further evaluation. She underwent an EKG and that revealed initially sinus mechanism was no significant ST or T-wave abnormalities but subsequently atrial fibrillation with ST segment elevation in aVR and diffuse ST segment depression concerning for severe coronary artery disease. The troponin came in to be initially unremarkable but subsequently abnormal. The rest of the workup came in to be unremarkable besides hemoglobin around 10. The patient was admitted to the hospital and she was started on heparin along with dual antiplatelet therapy. No history of atrial fibrillation before. Currently she is asymptomatic. She was seen by our service recently for further evaluation of shoulder discomfort we felt to be noncardiac/atypical and she underwent a workup including an echo which revealed normal LV systolic function with evidence of severe aortic stenosis. The patient is known to our service and she follows in the office on regular basis. The examination is remarkable for vision but the crescendo murmur at the right upper sternal border was almost absence of any history whatsoever. The rest of the examination is unremarkable Assessment Acute non-ST elevation myocardial infarction Paroxysmal atrial fibrillation. This is a new diagnosis the patient. Currently the patient is in sinus mechanism Coronary artery disease with prior stenting as described above Valvular heart disease with aortic stenosis Multiple comorbid conditions Plan Continue the current medical regimen Continue heparin IV Continue dual antiplatelet therapy along with high intensity statin Avoid AV casey yasir agents at this point in the light of bradycardia Discussed with the patient proceeding with coronary angiogram and the patient is in full understanding and agreement. Follow-up with the patient Past Medical History Past Medical History: Coronary Artery Disease (CAD), Heart Failure, Diabetes Mellitus, Hyperlipidemia, Hypertension Additional Past Medical History / Comment(s): LYMPHEDEMA History of Any Multi-Drug Resistant Organisms: MRSA Date of last positivie culture/infection: 07/14/20 MDRO Source:: RIGHT FOOT Past Surgical History: Heart Catheterization With Stent Additional Past Surgical History / Comment(s): Heart cath x3 stents Past Anesthesia/Blood Transfusion Reactions: No Reported Reaction Additional Past Anesthesia/Blood Transfusion Reaction / Comment(s): PATIENT STATES THAT LAST HEART CATH SHE HAD A REACTION-SWOLLEN FACE-RED FACE-ITCHY SKIN Date of Last Stent Placement:: 03/2021 Past Psychological History: No Psychological Hx Reported Smoking Status: Former smoker Past Alcohol Use History: None Reported Past Drug Use History: None Reported - Past Family History Father Family Medical History: Myocardial Infarction (DC) Additional Family Medical History / Comment(s): AT 45 OF HEART ATTACK Mother Family Medical History: Congestive Heart Failure (CHF) Additional Family Medical History / Comment(s): MOTHER IN 1985 FOUR MONTHS WITH THE 11TH CHILD. CARDIOMYOPATHY Medications and Allergies Home Medications Medication Instructions Recorded Confirmed Type Clopidogrel [Plavix] 75 mg PO DAILY #90 tab 03/22/21 05/18/23 Rx Furosemide [Lasix] 20 mg PO DAILY #30 tab 03/23/21 05/18/23 Rx Dapagliflozin Propanediol [Farxiga] 10 mg PO DAILY 10/01/21 05/18/23 History atenoloL [Tenormin] 50 mg PO DAILY 10/01/21 05/18/23 History Omeprazole [PriLOSEC] 20 mg PO BID 02/03/22 05/18/23 History Atorvastatin Calcium [Lipitor] 40 mg PO HS 01/03/23 05/18/23 History Ezetimibe [Zetia] 10 mg PO DAILY 01/03/23 05/18/23 History Insulin Glargine,Hum.rec.anlog 18 units SQ HS 01/03/23 05/18/23 History [Toujeo Max Solostar] Levothyroxine Sodium [Synthroid] 50 mcg PO DAILY 01/03/23 05/18/23 History Semaglutide [Rybelsus] 3 mg PO DAILY 01/03/23 05/18/23 History Meclizine HCl 12.5 mg PO Q8H PRN 05/18/23 05/18/23 History Allergies Allergy/AdvReac Type Severity Reaction Status Date / Time Iodinated Contrast Media Allergy Severe Rash/Hives Verified 05/18/23 13:27 hydrocortisone Allergy Intermediate Rash/Hives Verified 05/18/23 13:27 ampicillin [From Polycillin] Allergy Mild Rash/Hives Verified 05/18/23 13:27 cefaclor [From Ceclor] Allergy Mild Rash/Hives Verified 05/18/23 13:27 nitroglycerin Allergy Mild Unknown Verified 05/18/23 13:27 NSAIDS (Non-Steroidal Allergy Mild Unknown Verified 05/18/23 13:27 Anti-Inflamma sulfur dioxide Allergy Mild Unknown Verified 05/18/23 13:27 latex Allergy Itching Verified 05/19/23 15:33 nickel Allergy Rash/Hives Verified 05/19/23 15:33 Physical Exam Vitals: Vital Signs Pulse Resp BP Pulse Ox 05/19/23 13:46 68 16 124/51 96 05/19/23 10:17 53 L 18 135/47 96 05/19/23 07:28 58 L 18 122/63 94 L 05/19/23 06:00 50 L 19 123/50 94 L 05/19/23 04:00 58 L 20 120/45 95 05/19/23 02:00 54 L 17 120/47 94 L 05/19/23 00:00 52 L 16 117/54 95 05/18/23 23:20 61 18 117/54 95 05/18/23 18:06 59 L 18 105/55 94 L Intake and Output 05/19/23 05/19/23 05/19/23 06:59 14:59 22:59 Intake Total 69.955 76.608 Balance 69.955 76.608 Intake: Intake, IV Titration 69.955 76.608 Amount Heparin Sod,Pork in 0.45% 69.955 76.608 NaCl 25,000 unit In 0.45 % NaCl 1 250ml.bag @ 12 UNITS/KG/HR 9.085 mls/hr IV .Q24H [facility] Rx#: [id number] Other: Weight 75.705 kg Results 05/19/23 07:00 05/18/23 10:44 Cardiac Enzymes 05/18/23 Range/Units 16:51 Troponin I 0.134 H* (0.000-0.034) ng/mL Coagulation 05/18/23 05/19/23 Range/Units 21:55 07:00 APTT >200.0 H* 47.1 H (22.0-30.0) sec Lipids 05/19/23 Range/Units 07:00 Triglycerides 139.00 (0.00-149.00) mg/dL Cholesterol 130.00 (0.00-200.00) mg/dL HDL Cholesterol 45.50 (40.00-60.00) mg/dL Cholesterol/HDL Ratio 2.86 Ratio CBC 05/19/23 Range/Units 07:00 WBC 7.6 (3.8-10.6) k/uL RBC 4.54 (3.80-5.40) m/uL Hgb 10.0 L (11.4-16.0) gm/dL Hct 32.9 L (34.0-46.0) % Plt Count 232 (150-450) k/uL Current Medications Generic Name Dose Route Start Last Admin Trade Name Freq PRN Reason Stop Dose Admin Acetaminophen 650 mg 05/18/23 13:56 Acetaminophen Tab 325 Mg Tab PO Q6HR PRN Mild Pain or Fever > 100.5 Aspirin 81 mg 05/19/23 09:00 05/19/23 10:19 Aspirin 81 Mg PO 81 mg DAILY [facility] Administration Atorvastatin Calcium 40 mg 05/18/23 21:00 05/18/23 22:16 Atorvastatin 40 Mg Tab PO 40 mg HS [facility] Administration Clopidogrel Bisulfate 75 mg 05/18/23 14:00 05/19/23 10:19 Clopidogrel 75 Mg Tab PO 75 mg DAILY [facility] Administration Dextrose/Water 50 ml 05/18/23 13:48 Dextrose 50% Syringe 50 Ml IVP PER PROTOCOL PRN Hypoglycemia Protocol Dextrose/Water 25 ml 05/18/23 13:48 Dextrose 50% Syringe 50 Ml IVP PER PROTOCOL PRN Hypoglycemia Protocol Ezetimibe 10 mg 05/18/23 14:00 05/19/23 10:19 Ezetimibe 10 Mg Tab PO 10 mg DAILY [facility] Administration Heparin Sodium (Porcine) 0 unit 05/18/23 13:41 Heparin Sodium 1,000 Un/Ml (10ml Vl) IV PER PROTOCOL PRN Low PTT Protocol Heparin Sodium/Sodium Chloride 250 mls @ 9.085 mls/hr 05/18/23 13:45 05/19/23 13:51 25,000 unit/ Sodium Chloride IV 8 units/kg/hr .Q24H [facility] 6.056 mls/hr Administration Protocol 12 UNITS/KG/HR Insulin Aspart 0 unit 05/18/23 17:30 05/19/23 16:25 Insulin Aspart (Novolog) 100 Unit/Ml Vial SQ Not Given ACHS [facility] Protocol Insulin Detemir 18 unit 05/18/23 21:00 05/18/23 22:50 Insulin Detemir (Levemir) 100 Unit/Ml Syr SQ 18 unit HS [facility] Administration Levothyroxine Sodium 50 mcg 05/19/23 06:30 05/19/23 06:12 Levothyroxine 50 Mcg Tab PO 50 mcg 0630 [facility] Administration Meclizine HCl 12.5 mg 05/18/23 13:47 Meclizine 12.5 Mg Tab PO Q8H PRN Vertigo Pantoprazole Sodium 40 mg 05/18/23 21:00 05/19/23 10:19 Pantoprazole 40 Mg Tablet PO 40 mg BID [facility] Administration Intake and Output 05/19/23 05/19/23 05/19/23 06:59 14:59 22:59 Intake Total 69.955 76.608 Balance 69.955 76.608 Intake: Intake, IV Titration 69.955 76.608 Amount Heparin Sod,Pork in 0.45% 69.955 76.608 NaCl 25,000 unit In 0.45 % NaCl 1 250ml.bag @ 12 UNITS/KG/HR 9.085 mls/hr IV .Q24H [facility] Rx#: [id number] Other: Weight 75.705 kg Patient Weight 05/20/23 06:59 Weight 75.705 kg 05/19/23 07:00 05/18/23 10:44
[2023-05-19 20:16] LABS: Glucose,Whole Blood 130 mg/dL (70-110)
[2023-05-19] MEDS: INSULIN DETEMIR (LEVEMIR) 100 UNIT/ML SYR SQ SCH (21:21)
[2023-05-19] MEDS: ATORVASTATIN 40 MG TAB PO SCH (21:21)
[2023-05-20 06:19] LABS: Glucose,Whole Blood 123 mg/dL (70-110)
[2023-05-20] MEDS: INSULIN ASPART (NovoLOG) 100 UNIT/ML VIAL SQ SCH ×4 (06:53→20:43)
[2023-05-20] MEDS: LEVOTHYROXINE 50 MCG TAB PO SCH (06:53)
[2023-05-20] MEDS ORDERED: HEPARIN SODIUM,PORCINE (1 ML) 2,500 UNIT in SODIUM CHLORIDE 0.9% 250 ML IRRIGATION PRN (07:00)
[2023-05-20] MEDS ORDERED: HEPARIN SODIUM,PORCINE 10,000 UNIT in SODIUM CHLORIDE 0.9% 1,000 ML IRRIGATION PRN (07:00)
[2023-05-20] MEDS: HEPARIN SOD,PORK IN 0.45% NACL 25,000 UNIT in 0.45% NACL 1 250ML.BAG IV SCH (08:25)
[2023-05-20] MEDS: ASPIRIN 81 MG PO SCH (08:27)
[2023-05-20] MEDS: PANTOPRAZOLE 40 MG TABLET PO SCH ×2 (08:27→20:45)
[2023-05-20] MEDS: CLOPIDOGREL 75 MG TAB PO SCH (08:27)
[2023-05-20] MEDS: EZETIMIBE 10 MG TAB PO SCH (08:27)
[2023-05-20] MEDS ORDERED: NITROGLYCERIN SL TABS 0.4 MG TAB SUBLINGUAL PRN (10:06)
[2023-05-20] MEDS ORDERED: ATORVASTATIN 80 MG TAB PO STA (10:06)
[2023-05-20] MEDS ORDERED: ALPRAZolam 0.5 MG TAB PO PRN (10:06)
[2023-05-20] MEDS ORDERED: ASPIRIN 325 MG TAB PO STA (10:06)
[2023-05-20] MEDS ORDERED: ALPRAZolam 0.25 MG TAB PO PRN (10:06)
[2023-05-20] MEDS ORDERED: ASPIRIN 81 MG PO STA (10:16)
[2023-05-20] MEDS ORDERED: ATORVASTATIN 40 MG TAB PO STA (10:16)
--- NOTE | 2023-05-20 10:35 | PN ---
PROGRESS NOTE SUBJECTIVE: Rachel is an 87-year-old lady with history of coronary artery disease, status post prior angioplasty of LAD, who comes to hospital with atrial fibrillation with rapid ventricular rate. At that time, she had some EKG changes and her troponins have come back elevated. At the time of my evaluation this morning, she appears comfortable at rest and is free of symptoms, we advised her to undergo cardiac catheterization for further evaluation. Understanding risks benefits, she wishes to proceed with it. She has IV dye allergy. We are going to prep her for it and I will obtain electrolytes this morning. OBJECTIVE: GENERAL: On exam, comfortable at rest. VITAL SIGNS: Stable. NECK: There is no jugular venous distention. Carotid upstroke is normal. There is no bruit. CHEST: Reveals good air entry bilaterally. HEART: Reveals first and second heart sounds. An S4 is heard. There is an ejection systolic murmur in the aortic area. ABDOMEN: Soft. EXTREMITIES: Exam of extremities did not reveal any edema. Peripheral pulses are felt. ASSESSMENT: 1. Acute olk-[id number] elevation myocardial infarction. 2. Paroxysmal atrial fibrillation. 3. Moderate aortic stenosis. PLAN: The patient will undergo cardiac catheterization today. MMODL / IJN: [id number] /
[2023-05-20] MEDS ORDERED: VERAPAMIL 2.5 MG/ML 2 ML AMP ONE (11:42)
[2023-05-20] MEDS ORDERED: LIDOCAINE 1% INJ 10MG/ML (20 ML MDV) ONE (11:42)
[2023-05-20] MEDS ORDERED: diphenhydrAMINE 50 MG/ML 1 ML VIAL ONE (11:54)
[2023-05-20] MEDS ORDERED: HEPARIN SODIUM 1,000 UN/ML (10ML VL) ONE (11:54)
[2023-05-20] MEDS ORDERED: IV FLUID CONTINUATION 1,000 ML IV ONE (12:11)
[2023-05-20] MEDS ORDERED: MIDAZOLAM 2 MG/2 ML VIAL IVP ONE (12:11)
[2023-05-20] MEDS ORDERED: diphenhydrAMINE 50 MG/ML 1 ML VIAL IVP ONE (12:11)
[2023-05-20] MEDS ORDERED: LIDOCAINE 1% INJ 10MG/ML (20 ML MDV) SQ ONE (12:12)
[2023-05-20] MEDS ORDERED: VERAPAMIL SYRINGE (5 MG/10 ML) INTRAARTER ONE (12:20)
[2023-05-20] MEDS ORDERED: HEPARIN SODIUM 1,000 UN/ML (10ML VL) IV ONE (12:24)
[2023-05-20] MEDS ORDERED: IOPAMIDOL-370 100ML BTL INJ ONE (12:50)
[2023-05-20] MEDS ORDERED: RX INFO: IV CONTRAST WAS GIVEN 1 EACH MISC MISCELLANE PRN ×2 (12:58→13:05)
[2023-05-20 12:59] LABS: Glucose,Whole Blood 83 mg/dL (70-110)
--- NOTE | 2023-05-20 13:07 | CC ---
CARDIAC CATHETERIZATION REPORT INDICATION: Non ST-segment elevation KS. PROCEDURE NOTE: After obtaining informed consent, left heart catheterization and coronary angiogram were performed via the right radial artery using standard catheters. The patient tolerated the procedure well without any obvious immediate complications. The patient received moderate conscious sedation. Total sedation time was 20 minutes. Verapamil and heparin were given per protocol. Right radial artery access was obtained using Seldinger technique. A 6-Salvadorean sheath was placed. Catheters and wires were floated into the ascending aorta under fluoroscopic guidance. A TR band was used for hemostasis. FINDINGS: 1. Central aortic pressure 130/70 mm. 2. Left ventriculogram: Left ventriculogram is not performed. ANGIOGRAPHIC DATA: Right coronary artery: Right coronary artery is a large dominant vessel and shows mild to moderate atherosclerotic plaque in the midportion without focal significant stenotic lesions. Circumflex coronary artery is a nondominant system. It is a large caliber vessel, free of significant stenosis. There is a mild atherosclerotic plaque in the proximal portion. LAD was previously stented in the mid to distal portion. The stent appears patent. CONCLUSIONS: Patent stent within the LAD. Mild nonobstructive disease involving right coronary artery and circumflex coronary artery. PLAN: The patient's troponin elevation could be related to the atrial fibrillation. Her management is going to be with medical therapy. We will start her on Eliquis and hopefully discharge her home tomorrow. MMODL / IJN: [id number] /
[2023-05-20] MEDS: SODIUM CHLORIDE 0.9% 1,000 ML IV SCH (13:39)
[2023-05-20] MEDS: SODIUM CHLORIDE 0.9% 1,000 ML in EMPTY BAG 1 BAG IV SCH (13:39)
[2023-05-20 16:29] LABS: Glucose,Whole Blood 130 mg/dL (70-110)
[2023-05-20] MEDS ORDERED: ALBUTEROL NEBULIZED 2.5 MG/3 ML INHALATION PRN (19:09)
[2023-05-20 20:11] LABS: Glucose,Whole Blood 118 mg/dL (70-110)
[2023-05-20] MEDS: APIXABAN 2.5 MG TABLET PO SCH (20:45)
[2023-05-20] MEDS: ATORVASTATIN 40 MG TAB PO SCH (20:45)
[2023-05-20] MEDS: INSULIN DETEMIR (LEVEMIR) 100 UNIT/ML SYR SQ SCH (20:46)
[2023-05-21] MEDS: SODIUM CHLORIDE 0.9% 1,000 ML in EMPTY BAG 1 BAG IV SCH ×2 (01:07→16:40)
[2023-05-21] MEDS: SODIUM CHLORIDE 0.9% 1,000 ML IV SCH ×2 (02:27→16:40)
[2023-05-21 06:05] LABS: Glucose,Whole Blood 109 mg/dL (70-110)
[2023-05-21] MEDS: INSULIN ASPART (NovoLOG) 100 UNIT/ML VIAL SQ SCH ×4 (06:09→20:35)
[2023-05-21] MEDS: LEVOTHYROXINE 50 MCG TAB PO SCH (06:30)
[2023-05-21] MEDS: EZETIMIBE 10 MG TAB PO SCH (09:24)
[2023-05-21] MEDS: APIXABAN 2.5 MG TABLET PO SCH ×2 (09:24→19:48)
[2023-05-21] MEDS: CLOPIDOGREL 75 MG TAB PO SCH (09:24)
[2023-05-21] MEDS: ASPIRIN 81 MG PO SCH ×2 (09:24→11:53)
[2023-05-21] MEDS: PANTOPRAZOLE 40 MG TABLET PO SCH ×2 (09:24→19:48)
[2023-05-21 11:31] LABS: Glucose,Whole Blood 111 mg/dL (70-110)
--- NOTE | 2023-05-21 16:08 | P.PN ---
Subjective Progress Note Date: 05/20/23 87-year-old lady with past medical history significant for coronary artery disease, , diabetes mellitus, hypertension, paroxysmal atrial fibrillation hyperlipidemia, aortic stenosis presents to the emergency department with complains of chest pain. Patient does have significant history of coronary artery disease with PCI in proximal and distal LAD. Patient complained of chest pain radiating to the jaw that started after taking her morning medications. Patient did complain of fluttering feeling in the chest. Patient follows up with cardiology Dr. silverio as outpatient * Workup initiated in ER included a chest x-ray which was negative for acute thoracic process * Blood work obtained in ER showed WBC of 6.7 hemoglobin 10.4 platelet count of 221, INR 1 * Serum chemistry showed sodium 141 potassium 3.4 carbon dioxide 24 BU and 25 creatinine 1.14 blood glucose 163 lipase within normal limits * N-terminal proBNP 908 * Troponin of 0.015 * Patient was started on IV heparin drip due to unstable angina with consultation from cardiology * 05/19/2023: Patient seen and evaluated bedside, patient is alert and oriented 4, chest pain and palpitations has improved, troponin elevated at 0.134, continue medical management including IV heparin, aspirin and Plavix will wait for cardiology recommendations. Follow up on CBC levels 05/20: patient underwent cardiac catheterization with Dr. Jocelyne Silverio which found patent stent within the LAD. Mild nonobstructive disease involving the right coronary artery and circumflex coronary artery. Was determined that the elevated troponins could be related to atrial fibrillation. Plan was to continue medical management and patient was restarted on eliquis and to be m onitored overnight. Telemetry has alternated between A. fib with controlled rate in sinus bradycardia. REVIEW OF SYSTEMS: Chest pain, palpitations improved/resolved CONSTITUTIONAL: No fever, no malaise, no fatigue. HEENT: No recent visual problems or hearing problems. Denied any sore throat. CARDIOVASCULAR: No chest pain, orthopnea, PND, no palpitations, no syncope. PULMONARY: No shortness of breath, no cough, no hemoptysis. GASTROINTESTINAL: No diarrhea, no nausea, no vomiting, no abdominal pain. NEUROLOGICAL: No headaches, no weakness, no numbness. HEMATOLOGICAL: Denies any bleeding or petechiae. GENITOURINARY: Denies any burning micturition, frequency, or urgency. MUSCULOSKELETAL/RHEUMATOLOGICAL: Denies any joint pain, swelling, or any muscle pain. ENDOCRINE: Denies any polyuria or polydipsia. PHYSICAL EXAMINATION: GENERAL: The patient is alert and oriented x3, not in any acute distress, pale appearance , ill appreance HEENT: Pupils are round and equally reacting to light. EOMI. CARDIOVASCULAR: S1 and S2 present. Irregular rhythm noted , bradycardia noted PULMONARY: Chest is clear to auscultation, no wheezing or crackles. ABDOMEN: Soft, nontender, nondistended, normoactive bowel sounds. MUSCULOSKELETAL: No joint swelling or deformity. EXTREMITIES: No cyanosis, clubbing, or pedal edema. NEUROLOGICAL: Gross neurological examination did not reveal any focal deficits. . Assessment and plan 1. Acute non-ST elevated myocardial infarction ruled out. Patient is status post left heart catheterization with Dr. Jocelyne Silverio revealing patent stent within the LAD. Elevated troponins most likely secondary to atrial fibrillation.continue patient on aspirin 81 mg daily, atorvastatin 40 mg at bedtime, Zetia 10 mg daily, Toprol-XL 12.5 mg daily. Cardiology consult appreciated. 2. Paroxysmal atrial fibrillation.Continue patient on eliquis 2.5 mg twice daily, Toprol-XL 12.5 mg daily 3. Diabetes mellitus type 2. Continue patient on Levemir 18 units at bedtime, NovoLog scale before meals and at bedtime. 4. Moderate aortic stenosis. 5. Hypothyroidism. 6. Gastroesophageal reflux disease and GI prophylaxis. Continue Protonix 40 mg oral twice daily. 7. DVT prophylaxis. Continue eliquis. CODE STATUS: Full code Impression and plan of care have been directed as dictated by the signing physician. Esther Limon nurse practitioner acting as scribe for signing physician. Objective - Vital Signs Vital signs: Vital Signs Temp 97.8 F 05/21/23 11:49 Pulse 55 L 05/21/23 11:49 Resp 16 05/21/23 11:49 BP 150/90 05/21/23 11:49 Pulse Ox 96 05/21/23 11:49 FiO2 Intake & Output 05/20/23 05/21/23 05/21/23 18:59 06:59 18:59 Intake Total 163.627 410 Balance 163.627 410 Intake: IV 50 Intake, IV Titration 113.627 Amount Heparin Sod,Pork in 0.45% 113.627 NaCl 25,000 unit In 0.45 % NaCl 1 250ml.bag @ 12 UNITS/KG/HR 9.085 mls/hr IV .Q24H [facility] Rx#: [id number] Oral 410 Other: # Voids 2 1 - Labs CBC & Chem 7: 05/19/23 07:00 05/18/23 10:44 Labs: Abnormal Lab Results - Last 24 Hours (Table) 05/20/23 05/20/23 05/21/23 Range/Units 16:19 20:10 11:29 POC Glucose (mg/dL) 130 H 118 H 111 H (70-110) mg/dL
--- NOTE | 2023-05-21 16:11 | P.PN ---
Subjective Progress Note Date: 05/21/23 87-year-old lady with past medical history significant for coronary artery disease, , diabetes mellitus, hypertension, paroxysmal atrial fibrillation hyperlipidemia, aortic stenosis presents to the emergency department with complains of chest pain. Patient does have significant history of coronary artery disease with PCI in proximal and distal LAD. Patient complained of chest pain radiating to the jaw that started after taking her morning medications. Patient did complain of fluttering feeling in the chest. Patient follows up with cardiology Dr. silverio as outpatient * Workup initiated in ER included a chest x-ray which was negative for acute thoracic process * Blood work obtained in ER showed WBC of 6.7 hemoglobin 10.4 platelet count of 221, INR 1 * Serum chemistry showed sodium 141 potassium 3.4 carbon dioxide 24 BU and 25 creatinine 1.14 blood glucose 163 lipase within normal limits * N-terminal proBNP 908 * Troponin of 0.015 * Patient was started on IV heparin drip due to unstable angina with consultation from cardiology * 05/19/2023: Patient seen and evaluated bedside, patient is alert and oriented 4, chest pain and palpitations has improved, troponin elevated at 0.134, continue medical management including IV heparin, aspirin and Plavix will wait for cardiology recommendations. Follow up on CBC levels 05/20: patient underwent cardiac catheterization with Dr. Jocelyne Silverio which found patent stent within the LAD. Mild nonobstructive disease involving the right coronary artery and circumflex coronary artery. Was determined that the elevated troponins could be related to atrial fibrillation. Plan was to continue medical management and patient was restarted on eliquis and to be m onitored overnight. Telemetry has alternated between A. fib with controlled rate in sinus bradycardia. 05/21: patient has been seen by cardiology and a consult placed with cardiothoracic surgery for TAVR. Echocardiogram has been ordered by cardiology as well.cardiothoracic surgery has ordered lab work and also PFT.blood pressure 150/90, heart rate in the 50s, afebrile, pulse ox 96% on room air. Blood blood glucose running between 109 and 130. REVIEW OF SYSTEMS: Chest pain, palpitations improved/resolved CONSTITUTIONAL: No fever, no malaise, no fatigue. HEENT: No recent visual problems or hearing problems. Denied any sore throat. CARDIOVASCULAR: No chest pain, orthopnea, PND, no palpitations, no syncope. PULMONARY: No shortness of breath, no cough, no hemoptysis. GASTROINTESTINAL: No diarrhea, no nausea, no vomiting, no abdominal pain. NEUROLOGICAL: No headaches, no weakness, no numbness. HEMATOLOGICAL: Denies any bleeding or petechiae. GENITOURINARY: Denies any burning micturition, frequency, or urgency. MUSCULOSKELETAL/RHEUMATOLOGICAL: Denies any joint pain, swelling, or any muscle pain. ENDOCRINE: Denies any polyuria or polydipsia. PHYSICAL EXAMINATION: GENERAL: The patient is alert and oriented x3, not in any acute distress, pale appearance , ill appreance HEENT: Pupils are round and equally reacting to light. EOMI. CARDIOVASCULAR: S1 and S2 present. Irregular rhythm noted , bradycardia noted PULMONARY: Chest is clear to auscultation, no wheezing or crackles. ABDOMEN: Soft, nontender, nondistended, normoactive bowel sounds. MUSCULOSKELETAL: No joint swelling or deformity. EXTREMITIES: No cyanosis, clubbing, or pedal edema. NEUROLOGICAL: Gross neurological examination did not reveal any focal deficits. . Assessment and plan 1. Acute non-ST elevated myocardial infarction ruled out. Patient is status post left heart catheterization with Dr. Jocelyne Silverio revealing patent stent within the LAD. Elevated troponins most likely secondary to atrial f ibrillation.continue patient on aspirin 81 mg daily, atorvastatin 40 mg at bedtime, Zetia 10 mg daily, Toprol-XL 12.5 mg daily. Cardiology consult appreciated. 2. Paroxysmal atrial fibrillation.Continue patient on eliquis 2.5 mg twice daily, Toprol-XL 12.5 mg daily 3. Diabetes mellitus type 2. Continue patient on Levemir 18 units at bedtime, NovoLog scale before meals and at bedtime. 4. Moderate aortic stenosis. Consult with CTS re TAVR. 5. Hypothyroidism. Continue Levothyroxine 50 mcg daily. 6. Gastroesophageal reflux disease and GI prophylaxis. Continue Protonix 40 mg oral twice daily. 7. DVT prophylaxis. Continue eliquis. CODE STATUS: Full code Impression and plan of care have been directed as dictated by the signing physician. Esther Limon nurse practitioner acting as scribe for signing physician. Objective - Vital Signs Vital signs: Vital Signs Temp 97.8 F 05/21/23 11:49 Pulse 55 L 05/21/23 11:49 Resp 16 05/21/23 11:49 BP 150/90 05/21/23 11:49 Pulse Ox 96 05/21/23 11:49 FiO2 Intake & Output 05/20/23 05/21/23 05/21/23 18:59 06:59 18:59 Intake Total 163.627 410 Balance 163.627 410 Intake: IV 50 Intake, IV Titration 113.627 Amount Heparin Sod,Pork in 0.45% 113.627 NaCl 25,000 unit In 0.45 % NaCl 1 250ml.bag @ 12 UNITS/KG/HR 9.085 mls/hr IV .Q24H [facility] Rx#: [id number] Oral 410 Other: # Voids 2 1 - Labs CBC & Chem 7: 05/19/23 07:00 05/18/23 10:44 Labs: Abnormal Lab Results - Last 24 Hours (Table) 05/20/23 05/20/23 05/21/23 Range/Units 16:19 20:10 11:29 POC Glucose (mg/dL) 130 H 118 H 111 H (70-110) mg/dL
[2023-05-21 16:21] LABS: Glucose,Whole Blood 125 mg/dL (70-110)
[2023-05-21] MEDS: METOPROLOL SUCCINATE (ER) 25 MG TAB.ER.24H PO SCH (16:39)
--- NOTE | 2023-05-21 18:52 | P.PN ---
Subjective Progress Note Date: 05/21/23 The patient is a pleasant 87-year-old female patient with coronary artery disease and prior stenting of the proximal and mid and distal LAD as well as hypertension and dyslipidemia and valvular heart disease with known aortic stenosis, the patient is in reasonable physical and in the chair for her age pre sented to the hospital complaining of chest discomfort and jaw discomfort. The patient was in her usual state of health until earlier this morning when she woke up from sleep complaining of jaw discomfort was intermittent associated with discomfort in the upper chest. No shortness of breath. No dizziness or lightheadedness and no feeling of heart racing or fluttering and no presyncope or syncope. She felt weak. Her daughter decided to bring her to the hospital for further evaluation. She underwent an EKG and that revealed initially sinus mechanism was no significant ST or T-wave abnormalities but subsequently atrial fibrillation with ST segment elevation in aVR and diffuse ST segment depression concerning for severe coronary artery disease. The troponin came in to be initially unremarkable but subsequently abnormal. The rest of the workup came in to be unremarkable besides hemoglobin around 10. The patient was admitted to the hospital and she was started on heparin along with dual antiplatelet therapy. No history of atrial fibrillation before. Currently she is asymptomatic. She was seen by our service recently for further evaluation of shoulder discomfort we felt to be noncardiac/atypical and she underwent a workup including an echo which revealed normal LV systolic function with evidence of severe aortic stenosis. The patient is known to our service and she follows in the office on regular basis. The examination is remarkable for vision but the crescendo murmur at the right upper sternal border was almost absence of any history whatsoever. The rest of the examination is unremarkable Assessment Severe aortic stenosis Acute non-ST elevation myocardial infarction Paroxysmal atrial fibrillation. This is a new diagnosis the patient. Currently the patient is in sinus mechanism Coronary artery disease with prior stenting as described above Valvular heart disease with aortic stenosis Multiple comorbid conditions Plan Cardiac catheterization showed mild nonobstructive CAD. Patient is currently normal sinus rhythm. Most likely her symptoms can be explained by severe aortic stenosis and paroxysmal atrial fibrillation. Get CT surgery consult for TAVR TEAM Get echocardiogram for Aortic stenosis Objective - Vital Signs Vital signs: Vital Signs Temp 97.8 F 05/21/23 16:00 Pulse 61 05/21/23 16:00 Resp 16 05/21/23 16:00 BP 144/69 05/21/23 16:00 Pulse Ox 96 05/21/23 11:49 FiO2 Intake & Output 05/20/23 05/21/23 05/21/23 18:59 06:59 18:59 Intake Total 163.627 650 Balance 163.627 650 Intake: IV 50 Intake, IV Titration 113.627 Amount Heparin Sod,Pork in 0.45% 113.627 NaCl 25,000 unit In 0.45 % NaCl 1 250ml.bag @ 12 UNITS/KG/HR 9.085 mls/hr IV .Q24H OSIEL Rx#: [id number] Oral 650 Other: # Voids 2 1 2 - Labs CBC & Chem 7: 05/19/23 07:00 05/18/23 10:44 Labs: Abnormal Lab Results - Last 24 Hours (Table) 05/20/23 05/21/23 05/21/23 Range/Units 20:10 11:29 16:20 POC Glucose (mg/dL) 118 H 111 H 125 H (70-110) mg/dL
[2023-05-21] MEDS: ATORVASTATIN 40 MG TAB PO SCH (19:48)
[2023-05-21 20:30] LABS: Glucose,Whole Blood 126 mg/dL (70-110)
[2023-05-21] MEDS: INSULIN DETEMIR (LEVEMIR) 100 UNIT/ML SYR SQ SCH (20:39)
[2023-05-22] MEDS: SODIUM CHLORIDE 0.9% 1,000 ML in EMPTY BAG 1 BAG IV SCH (04:07)
[2023-05-22 06:07] LABS: Glucose,Whole Blood 101 mg/dL (70-110)
[2023-05-22] MEDS: SODIUM CHLORIDE 0.9% 1,000 ML IV SCH (06:07)
[2023-05-22] MEDS: INSULIN ASPART (NovoLOG) 100 UNIT/ML VIAL SQ SCH ×2 (06:11→11:32)
[2023-05-22] MEDS: LEVOTHYROXINE 50 MCG TAB PO SCH (06:25)
--- NOTE | 2023-05-22 07:25 | CA ---
Transthoracic Echo Report Name: Rachel Wilson Age: 87 Gender: F : 1935 Exam Date: 05/21/2023 15:12 Exam Location: [facility] Ht (in): 58 Wt (lb): 166 Ordering Physician: Garett Ko MD ([email or web address]) Attending/Referring Phys: Children Counselor Heike Terry RDCS Procedure CPT: Indications: Severe Cardiac Hx: Technical Quality: Good Contrast 1: Total Dose (mL): Contrast 2: Total Dose (mL): MEASUREMENTS (Male / Female) Normal Values 2D ECHO LV Diastolic Diameter PLAX 4.1 cm 4.2 - 5.9 / 3.9 - 5.3 cm LV Systolic Diameter PLAX 3.0 cm IVS Diastolic Thickness 1.1 cm 0.6 - 1.0 / 0.6 - 0.9 cm LVPW Diastolic Thickness 1.2 cm 0.6 - 1.0 / 0.6 - 0.9 cm LV Relative Wall Thickness 0.6 RV Internal Dim ED PLAX 2.9 cm LVOT Diameter 1.9 cm LA Systolic Diameter LX 3.4 cm 3.0 - 4.0 / 2.7 - 3.8 cm LV Diastolic Volume MOD 4C 75.0 cm??? LV Systolic Volume MOD 4C 26.7 cm??? LV Ejection Fraction MOD 4C 64.3 % LV Cardiac Index MOD 4C 1719.8 cm???/min???m??? LV Diastolic Length 4C 7.3 cm LV Systolic Length 4C 5.7 cm LV Diastolic Volume MOD 2C 72.4 cm??? LV Systolic Volume MOD 2C 23.7 cm??? LV Ejection Fraction MOD 2C 67.2 % LV Cardiac Index MOD 2C 1736.8 cm???/min???m??? LV Diastolic Length 2C 7.3 cm LV Systolic Length 2C 6.0 cm LA Volume 55.8 cm??? 18 - 58 / 22 - 52 cm??? LA Volume Index 31.1 cm???/m??? 16 - 28 cm???/m??? M-MODE Aortic Root Diameter MM 3.0 cm MV E Point Septal Separation 0.3 cm DOPPLER AV Peak Velocity 478.8 cm/s AV Peak Gradient 91.7 mmHg AV Mean Velocity 342.3 cm/s AV Mean Gradient 51.6 mmHg AV Velocity Time Integral 137.4 cm AI Peak Velocity 330.2 cm/s AI Peak Gradient 43.6 mmHg AI Pressure Half Time 960.9 ms LVOT Peak Velocity 102.1 cm/s LVOT Peak Gradient 4.2 mmHg AV Area Cont Eq pk 0.6 cm??? MV Area PHT 3.3 cm??? Mitral E Point Velocity 97.7 cm/s Mitral A Point Velocity 73.4 cm/s Mitral E to A Ratio 1.3 MV Deceleration Time 229.2 ms MV E' Velocity 6.9 cm/s Mitral E to MV E' Ratio 14.1 TR Peak Velocity 289.1 cm/s TR Peak Gradient 33.4 mmHg Right Ventricular Systolic Press 38.4 mmHg FINDINGS Left Ventricle Left ventricular ejection fraction is estimated at 55-60 %. Left ventricular cavity size normal. Mildly increased septal wall thickness. Mildly increased posterior wall thickness. Right Ventricle Normal right ventricular size. Mild pulmonary hypertension. Right Atrium Normal right atrial size. Left Atrium Mildly increased left atrial volume. Mitral Valve Mitral valve thickened. Mitral annular calcification. Mild mitral regurgitation. Aortic Valve aortic valve sclerosis. Severe aortic stenosis with a peak velocity of 4.8 m/s, peak gradient 92 mmHg, mean gradient 52 mmHg, and estimated aortic valve area of .6 cm???. [id number] aortic regurgitation. Tricuspid Valve Structurally normal tricuspid valve. Mild tricuspid regurgitation. Pulmonic Valve Pulmonic valve not well visualized. No pulmonic regurgitation. Pericardium No pericardial effusion. Aorta Normal size aortic root and proximal ascending aorta. CONCLUSIONS Normal LV systolic function Severe aortic stenosis Mild to moderate aortic regurgitation Previewed by: Dr. Giles Payan MD (Electronically Signed) Final Date: 22 May 2023 07:24
[2023-05-22] MEDS: ASPIRIN 81 MG PO SCH (09:04)
[2023-05-22] MEDS: METOPROLOL SUCCINATE (ER) 25 MG TAB.ER.24H PO SCH (09:04)
[2023-05-22] MEDS: APIXABAN 2.5 MG TABLET PO SCH (09:05)
[2023-05-22] MEDS: PANTOPRAZOLE 40 MG TABLET PO SCH (09:05)
[2023-05-22] MEDS: EZETIMIBE 10 MG TAB PO SCH (09:05)
[2023-05-22 09:18] LABS: Anisocytosis Slight; Basophils % (A) 1 %; Eosinophils # (A) 0.2 k/uL (0-0.7); Eosinophils % (A) 2 %; HCT 31.9 % (34.0-46.0); HGB 9.7 gm/dL (11.4-16.0); Hypochromasia Marked; Lymphocytes # (A) 1.5 k/uL (1.0-4.8); Lymphocytes % (A) 24 %; MCH 22.5 pg (25.0-35.0); MCHC 30.3 g/dL (31.0-37.0); MCV 74.1 fL (80.0-100.0); Mean Platelet Volume 7.9; Microcytosis Moderate; Monocytes # (A) 0.4 k/uL (0-1.0); Monocytes % (A) 6 %; Neutrophils # (A) 4.1 k/uL (1.3-7.7); Neutrophils % (A) 64 %; Platelet Count 209 k/uL (150-450); RBC 4.31 m/uL (3.80-5.40); RDW 18.6 % (11.5-15.5); WBC 6.4 k/uL (3.8-10.6)
[2023-05-22 09:52] LABS: ALT 12 U/L (4-34); AST 23 U/L (14-36); African American GFR (CKD) 54 (>60 ml/min/1.73 sqM); Alkaline Phosphatase 90 U/L (38-126); Anion Gap 12 mmol/L; Blood Urea Nitrogen 18 mg/dL (7-17); Calcium 8.9 mg/dL (8.4-10.2); Carbon Dioxide 18 mmol/L (22-30); Chloride 109 mmol/L (98-107); Glucose 144 mg/dL (74-99); Non-African American GFR(CKD) 47 (>60 ml/min/1.73 sqM); Potassium 3.7 mmol/L (3.5-5.1); Sodium 139 mmol/L (137-145); Total Protein 6.1 g/dL (6.3-8.2)
--- NOTE | 2023-05-22 11:01 | CDI ---
Documentation Clarification Form Date: From: Melanie Layne Phone: [phone] Admit Date: 05/20/2023 11:07:00 AM Patient Name: Rachel Wilson Visit Number: [id number] Discharge Date: ATTENTION: The Clinical Documentation Specialists (CDI) and [facility] Coding Staff appreciate your assistance in clarifying documentation. Please respond to the clarification below the line at the bottom and electronically sign. The CDI & [facility] Coding staff will review the response and follow-up if needed. Please note: Queries are made part of the Legal Health Record. If you have any questions, please contact the author of this message via ITS. Dr. Giles Payan There is documentation of "Acute non-ST elevated myocardial infarction ruled out" in the Cardiology note dated 05/21. Additional clarification is requested. History/Risk Factors: "87-year-old lady with past medical history significant for coronary artery disease, , diabetes mellitus, hypertension, paroxysmal atrial fibrillation hyperlipidemia, aortic stenosis presents to the emergency department with complains of chest pain." - Per Cardiology Note on 05/21 Clinical Indicators: "Elevated troponins most likely secondary to atrial fibrillation" "status post left heart catheterization with Dr. Jocelyne Payan revealing patent stent within the LAD" - Per Cardiology Note on 05/21 Troponin: 05/18 - 0.015, 0.029, 0.134 Treatment: "started on IV heparin drip" "Continue patient on eliquis 2.5 mg twice daily, Toprol-XL 12.5 mg daily" - Per Cardiology Note on 05/21 Can you please clarify? [ x ] Type 2 WI due to atrial fibrillation [ ] Non-ischemic with acute myocardial injury [ ] No additional diagnosis/Not clinically significant [ ] Other, please specify [ ] Unable to determine MTDD
[2023-05-22 11:10] LABS: Glucose,Whole Blood 111 mg/dL (70-110)
[2023-05-22 11:28] LABS: T4, Free (Free Thyroxine) 1.26 ng/dL (0.78-2.19)
[2023-05-22 12:07] VITALS: BP 132/73; PULSE 60; RESP 16; TEMP 98.1
--- NOTE | 2023-05-22 13:33 | P.PN ---
Subjective HISTORY OF PRESENT ILLNESS: The patient is a pleasant 87-year-old female patient with coronary artery disease and prior stenting of the proximal and mid and distal LAD as well as hypertension and dyslipidemia and valvular heart disease with known aortic stenosis, the patient is in reasonable physical and in the chair for her age presented to the hospital complaining of chest discomfort and jaw discomfort. The patient was in her usual state of health until earlier this morning when she woke up from sleep complaining of jaw discomfort was intermittent associated with discomfort in the upper chest. No shortness of breath. No dizziness or lightheadedness and no feeling of heart racing or fluttering and no presyncope or syncope. She felt weak. Her daughter decided to bring her to the hospital for further evaluation. She underwent an EKG and that revealed initially sinus mechanism was no significant ST or T-wave abnormalities but subsequently atrial fibrillation with ST segment elevation in aVR and diffuse ST segment depression concerning for severe coronary artery disease. The troponin came in to be init ially unremarkable but subsequently abnormal. The rest of the workup came in to be unremarkable besides hemoglobin around 10. The patient was admitted to the hospital and she was started on heparin along with dual antiplatelet therapy. No history of atrial fibrillation before. Currently she is asymptomatic. She was seen by our service recently for further evaluation of shoulder discomfort we felt to be noncardiac/atypical and she underwent a workup including an echo which revealed normal LV systolic function with evidence of severe aortic stenosis. The patient is known to our service and she follows in the office on regular basis. The examination is remarkable for vision but the crescendo murmur at the right upper sternal border was almost absence of any history whatsoever. The rest of the examination is unremarkable 05/22/2023 patient examined this morning at the bedside. Patient underwent cardiac catheterization with Dr. Payan revealing patent stent within the LAD. Mild nonobstructive disease involving RCA and circumflex. Patient denies chest pain or pressure. She denies shortness of breath. She reports having mild nausea this morning but no vomiting. Telemetry reveals sinus mechanism. Vital signs are stable. PHYSICAL EXAM: VITAL SIGNS: Reviewed. GENERAL: Well-developed in no acute distress. NECK: Supple. No JVD or thyromegaly LUNGS: Respirations even and unlabored. Lungs essentially clear to auscultation bilaterally. HEART: Regular rate and rhythm. S1 and S2 heard. Systolic murmur noted EXTREMITIES: Normal range of motion. No clubbing or cyanosis. Peripheral pulses intact. No lower extremity edema ASSESSMENT: Non-STEMI, status post cardiac catheterization as above New-onset paroxysmal atrial fibrillation, currently maintaining sinus mechanism Severe aortic stenosis Coronary artery disease with previous stenting PLAN: Continue current cardiac medications Patient to follow-up post discharge in TAVR clinic Patient is stable for discharge home today from a cardiac standpoint She is to follow up in office with Dr. Payan Nurse practitioner note has been reviewed by physician. Signing provider agrees with the documented findings, assessment, and plan of care. Objective - Vital Signs Vital signs: Vital Signs Temp 98.1 F 05/22/23 12:00 Pulse 60 05/22/23 12:00 Resp 16 05/22/23 12:00 BP 132/73 05/22/23 12:00 Pulse Ox 94 L 05/22/23 12:00 FiO2 Intake & Output 05/21/23 05/22/23 05/22/23 18:59 06:59 18:59 Intake Total 650 240 Balance 650 240 Intake: Oral 650 240 Other: # Voids 2 1 2 - Labs CBC & Chem 7: 05/22/23 08:40 05/22/23 08:40 Labs: Abnormal Lab Results - Last 24 Hours (Table) 05/21/23 05/21/23 05/22/23 Range/Units 16:20 20:28 08:40 Hgb 9.7 L (11.4-16.0) gm/dL Hct 31.9 L (34.0-46.0) % MCV 74.1 L (80.0-100.0) fL MCH 22.5 L (25.0-35.0) pg MCHC 30.3 L (31.0-37.0) g/dL RDW 18.6 H (11.5-15.5) % Chloride (98-107) mmol/L Carbon Dioxide (22-30) mmol/L BUN (7-17) mg/dL Creatinine (0.52-1.04) mg/dL Glucose (74-99) mg/dL POC Glucose (mg/dL) 125 H 126 H (70-110) mg/dL Total Protein (6.3-8.2) g/dL Albumin (3.5-5.0) g/dL TSH (0.465-4.680) mIU/L 05/22/23 05/22/23 Range/Units 08:40 11:08 Hgb (11.4-16.0) gm/dL Hct (34.0-46.0) % MCV (80.0-100.0) fL MCH (25.0-35.0) pg MCHC (31.0-37.0) g/dL RDW (11.5-15.5) % Chloride 109 H (98-107) mmol/L Carbon Dioxide 18 L (22-30) mmol/L BUN 18 H (7-17) mg/dL Creatinine 1.06 H (0.52-1.04) mg/dL Glucose 144 H (74-99) mg/dL POC Glucose (mg/dL) 111 H (70-110) mg/dL Total Protein 6.1 L (6.3-8.2) g/dL Albumin 3.0 L (3.5-5.0) g/dL TSH 7.830 H (0.465-4.680) mIU/L
--- NOTE | 2023-05-22 14:26 | P.DS ---
Providers Date of admission: 05/20/23 11:07 Expected date of discharge: 05/22/23 Attending physician: Jackson Benjamin Consults: 05/18/23 13:39 Consult Physician Routine Consulting Provider: [facility] Consult Reason/Comments: chest pain, new onset a fib Do you want consulting provider notified?: Yes 05/21/23 14:05 Consult Physician Routine Consulting Provider: Rubin Sebastian Consult Reason/Comments: TAVR Eval Do you want consulting provider notified?: Yes Primary care physician: Jackson Benjamin Hospital Course: 87-year-old lady with past medical history significant for coronary artery disease, , diabetes mellitus, hypertension, paroxysmal atrial fibrillation hyperlipidemia, aortic stenosis presents to the emergency department with complains of chest pain. Patient does have significant history of coronary artery disease with PCI in proximal and distal LAD. Patient complained of chest pain radiating to the jaw that started after taking her morning medications. Patient did complain of fluttering feeling in the chest. Patient follows up with cardiology Dr. payan as outpatient * Workup initiated in ER included a chest x-ray which was negative for acute thoracic process * Blood work obtained in ER showed WBC of 6.7 hemoglobin 10.4 platelet count of 221, INR 1 * Serum chemistry showed sodium 141 potassium 3.4 carbon dioxide 24 BU and 25 creatinine 1.14 blood glucose 163 lipase within normal limits * N-terminal proBNP 908 * Troponin of 0.015 * Patient was started on IV heparin drip due to unstable angina with consultation from cardiology * 05/19/2023: Patient seen and evaluated bedside, patient is alert and oriented 4, chest pain and palpitations has improved, troponin elevated at 0.134, continue medical management including IV heparin, aspirin and Plavix will wait for cardiology recommendations. Follow up on CBC levels 05/20: patient underwent cardiac catheterization with Dr. Jocelyne Payan which found patent stent within the LAD. Mild nonobstructive disease involving the right coronary artery and circumflex coronary artery. Was determined that the elevated troponins could be related to atrial fibrillation. Plan was to continue medical management and patient was restarted on eliquis and to be monitored overnight. Telemetry has alternated between A. fib with controlled rate in sinus bradycardia. 05/21: patient has been seen by cardiology and a consult placed with cardiothoracic surgery for TAVR. Echocardiogram has been ordered by cardiology as well.cardiothoracic surgery has ordered lab work and also PFT.blood pressure 150/90, heart rate in the 50s, afebrile, pulse ox 96% on room air. Blood blood glucose running between 109 and 130. 05/22: Patient has been seen by cardiothoracic team and workup started regarding TAVR. Patient has been seen by cardiology this morning cleared for discharge. Blood pressure 132/73, heart rate in the 60s and 70s, afebrile, pulse ox 94% on room air. Repeat blood work reveals WBC 6.4, hemoglobin 9.7. Potassium 3.7, CO2 18, BUN 18 and creatinine 1.06. TSH 7.83 and free T4 1 0.26. Patient had nausea this morning after taking her meds and c/o a lot of gas but both symptoms have resolved. Patient will be discharged home today in stable condition. DISCHARGE DIAGNOSES 1. Acute non-ST elevated myocardial infarction status post left heart catheterization with Dr. Jocelyne Payan revealing patent stent within the LAD. 2. Paroxysmal atrial fibrillation. 3. Diabetes mellitus type 2. 4. Moderate aortic stenosis. 5. Hypothyroidism. 6. Gastroesophageal reflux disease. DISCHARGE PLAN: HOME Greater than 35 minutes was utilized and coordinating patient's discharge. Impression and plan of care have been directed as dictated by the signing physician. Esther Limon nurse practitioner acting as scribe for signing physician. Plan - Discharge Summary Discharge Rx Participant: Yes New Discharge Prescriptions: New Aspirin 81 mg PO DAILY tab Apixaban [Eliquis] 2.5 mg PO BID #60 tab Metoprolol Succinate (ER) [Toprol XL] 12.5 mg PO DAILY #30 tab Continue Dapagliflozin Propanediol [Farxiga] 10 mg PO DAILY Omeprazole [PriLOSEC] 20 mg PO BID Semaglutide [Rybelsus] 3 mg PO DAILY Atorvastatin Calcium [Lipitor] 40 mg PO HS Furosemide [Lasix] 20 mg PO DAILY #30 tab Levothyroxine Sodium [Synthroid] 50 mcg PO DAILY Insulin Glargine,Hum.rec.anlog [Perico Alvarez] 18 units SQ HS Ezetimibe [Zetia] 10 mg PO DAILY Meclizine HCl 12.5 mg PO Q8H PRN PRN Reason: Vertigo Discontinued Clopidogrel [Plavix] 75 mg PO DAILY #90 tab atenoloL [Tenormin] 50 mg PO DAILY Discharge Medication List Furosemide [Lasix] 20 mg PO DAILY #30 tab 03/23/21 [Rx] Dapagliflozin Propanediol [Farxiga] 10 mg PO DAILY 10/01/21 [History] Omeprazole [PriLOSEC] 20 mg PO BID 02/03/22 [History] Atorvastatin Calcium [Lipitor] 40 mg PO HS 01/03/23 [History] Ezetimibe [Zetia] 10 mg PO DAILY 01/03/23 [History] Insulin Glargine,Hum.rec.anlog [Toujeo Max Solostar] 18 units SQ HS 01/03/23 [History] Levothyroxine Sodium [Synthroid] 50 mcg PO DAILY 01/03/23 [History] Semaglutide [Rybelsus] 3 mg PO DAILY 01/03/23 [History] Meclizine HCl 12.5 mg PO Q8H PRN 05/18/23 [History] Apixaban [Eliquis] 2.5 mg PO BID #60 tab 05/22/23 [Rx] Aspirin 81 mg PO DAILY tab 05/22/23 [Rx] Metoprolol Succinate (ER) [Toprol XL] 12.5 mg PO DAILY #30 tab 05/22/23 [Rx] Follow up Appointment(s)/Referral(s): Clinic,Structural Heart [NON-STAFF] - (You will be contacted for TAVR workup and clinic date by the TAVR clinic after discharge. In the meantime, please obtain dental clearence for aortic valve replacement from your dentist as soon as possible (Transcatheter aortic valve replacement)) Jackson Benjamin MD [Primary Care Provider] - 1 Week Giles Payan MD [STAFF PHYSICIAN] - 1 Week (Please have carotid dopplers completed at Dr. Payan's office in preparation for TAVR) Activity/Diet/Wound Care/Special Instructions: You will need to see a dentist as soon as possible to obtain clearance for possible transcatheter aortic valve replacement. You were given a dental clearance form to have your dentist fill out. Also, you will need carotid dopplers to be completed at Dr. Payan's office Discharge Disposition: HOME SELF-CARE
--- NOTE | 2023-05-27 15:13 | CDI ---
Documentation Clarification Form Date: 05/27/2023 02:50:26 PM From: Deepa Alcantar RN, CCDS Email: [email or web address] Admit Date: 05/20/2023 11:07:00 AM Patient Name: Rachel Wilson Visit Number: [id number] Discharge Date: 05/22/2023 04:40:00 PM ATTENTION: The Clinical Documentation Specialists (CDI) and [facility] Coding Staff appreciate your assistance in clarifying documentation. Please respond to the clarification below the line at the bottom and electronically sign. The CDI & [facility] Coding staff will review the response and follow-up if needed. Please note: Queries are made part of the Legal Health Record. If you have any questions, please contact the author of this message via ITS. Dr. Jackson Benjamin Your patient has the documented diagnosis of unspecified heart failure in the H&P and progress notes. Additional information regarding the type of CHF is requested. History/Risk Factors: CAD, heart failure, DM, HLD and HTN. Presents with chest pain. Admitted with atrial fibrillation and type 2 DC. Clinical Indicators: 05/18 VS: HR 106-118-60, BP 76/57 05/21 VS: HR 52, BP 132/60 05/18 BNP: 908 05/21 Echocardiogram Results: Normal LV systolic function. Severe aortic stenosis. Mild to moderate aortic regurgitation. Treatment: Metoprolol 12.5mg po daily 05/21-05/22; Heart cath showed patent stent within the LAD and mild nonobstructive disease involving RCA and circumflex coronary artery. In your professional opinion, can you please clarify the type of CHF if known? [ X] Chronic Diastolic Heart Failure (preserved EF) [ ] Chronic Systolic & Diastolic Heart Failure [ ] Other, please specify [ ] Unable to determine MTDD
== END 2023-05-22 16:40 | disposition home or self-care (01) | DRG 281 ==
LOC: EC 10:25 → 1SOBS 13:42 → 3SCARD 16:27 → OBSVTOIN 05-20 11:07
PROVIDERS: ADMIT Internal Medicine; ATTEND Internal Medicine
PROC: B2111ZZ Fluoroscopy of Multiple Coronary Arteries using Low Osmolar Contrast (ICD-10-PCS; principal; 2023-05-20 11:25)
PROC: 4A023N7 Measurement of Cardiac Sampling and Pressure, Left Heart, Percutaneous Approach (ICD-10-PCS; principal; 2023-05-20 11:25)
DX: I48.0 Paroxysmal atrial fibrillation (principal); I21.A1 Myocardial infarction type 2; I25.110 Atherosclerotic heart disease of native coronary artery with unstable angina pectoris; I50.32 Chronic diastolic (congestive) heart failure; I11.0 Hypertensive heart disease with heart failure; E11.9 Type 2 diabetes mellitus without complications; Z79.4 Long term (current) use of insulin; Z28.310 Unvaccinated for COVID-19; I25.83 Coronary atherosclerosis due to lipid rich plaque; E03.9 Hypothyroidism, unspecified; E78.5 Hyperlipidemia, unspecified; I35.0 Nonrheumatic aortic (valve) stenosis; K21.9 Gastro-esophageal reflux disease without esophagitis; I89.0 Lymphedema, not elsewhere classified; Z79.02 Long term (current) use of antithrombotics/antiplatelets; Z79.84 Long term (current) use of oral hypoglycemic drugs; Z79.890 Hormone replacement therapy; Z79.899 Other long term (current) drug therapy; Z87.891 Personal history of nicotine dependence; Z95.5 Presence of coronary angioplasty implant and graft; Z86.14 Personal history of Methicillin resistant Staphylococcus aureus infection; Z91.041 Radiographic dye allergy status; Z82.49 Family history of ischemic heart disease and other diseases of the circulatory system
CPT/HCPCS: 36415; 71046; 80053; 80061; 83036; 83690; 83735; 83880; 84439; 84443; 84484; 85025; 85610; 85730; 93005; 93306; 93454; 94150; 94760; 96361; 96365; 96366; 99285

== ENCOUNTER 2023-05-30 06:50 | Outpatient (CLI) | payer MEDICARE, BC ==
--- NOTE | 2023-05-30 16:11 | CT ---
EXAMINATION TYPE: CT TAVR Planning DATE OF EXAM: 05/30/2023 HISTORY: TAVR planning CT DLP: 2254.1 mGycm Automated Exposure Control for Dose Reduction was Utilized. CONTRAST: CTA scan of the chest, abdomen and pelvis is performed with IV Contrast, patient injected with 125 mL of Isovue 370. COMPARISON: None. TECHNIQUE: Helical imaging obtained through the chest, abdomen and pelvis during arterial phase tia peng administration of radiographic contrast intravenously. FINDINGS: See report from [employer] regarding preprocedural planning CHEST: Lower Neck and Thyroid: No significant findings Lungs: There is a 1.1 cm benign calcified nodule or granuloma in the left lung axial image 38. There is more nonspecific 7 mm left lower lobe pulmonary nodule axial image 47 series 10 which is not defin itely calcified. There is 4 mm peripheral right middle lung nodule axial image 57. Mild bibasilar dandre ear scarring and/or atelectasis. Central Airway: No significant findings Pleura: No significant findings Pulmonary Arteries: No significant findings Heart and Pericardium: Mild cardiomegaly. Prominent coronary artery calcification in the LAD distribu tion. Lymph Nodes: No significant findings Mediastinum & Esophagus: No significant findings ABDOMEN/PELVIS: Please note arterial phase of the imaging limits detailed evaluation of the solid abdominal organs. Liver: Liver slightly lobulated contour raising concern for underlying cirrhosis. Correlate clinicall y. Spleen: No significant findings Kidneys: Incidental 3.0 cm thin-walled cyst exophytically from the upper pole right kidney. Adrenal Glands: No significant findings Pancreas: Some fat replaced atrophy. Gallbladder: No significant findings Bowel and Mesentery: Sigmoid colonic diverticulosis is present. Lymph Nodes: No significant findings Urinary Bladder: No significant findings Pelvic Organs: No significant findings Other: No significant findings IMPRESSION: Possible cirrhosis of the liver. Correlate clinically and with lab values. There is 7 mm noncalcified left-sided pulmonary nodule. Appropriate follow-up advised as per [employer] rec ommendations.
== END 2023-05-30 15:28 | disposition home or self-care (01) ==
LOC: RADCTMAIN 06:50
PROVIDERS: ATTEND Thoracic Surgery (Cardiothoracic Vascular Surgery)
DX: I35.0 Nonrheumatic aortic (valve) stenosis (principal); R91.1 Solitary pulmonary nodule
CPT/HCPCS: 71275; 74174; Q9967

== ENCOUNTER → 2023-06-25 | Outpatient (CLI) | payer MEDICARE, BC ==
--- NOTE | 2023-06-25 13:36 | XR ---
EXAMINATION TYPE: XR chest 2V DATE OF EXAM: 06/25/2023 1:12 PM CLINICAL INDICATION:Female, 88 years old with history of J18.9 pneumonia; COMPARISON: Chest radiographs from 05/18/2023 TECHNIQUE: XR chest 2V Frontal and lateral views of the chest. FINDINGS: Lungs/Pleura: There is flattening of the diaphragm with increased lucency of the lungs. No evidence o f pneumothorax, pleural effusion or focal consolidation. Pulmonary vascularity: Unremarkable. Heart/mediastinum: Cardiomediastinal silhouette is unremarkable. Musculoskeletal: No acute osseous pathology. IMPRESSION: 1. No acute cardiopulmonary disease process. 2. COPD changes.
== END | disposition home or self-care (01) ==
LOC: RADXRMAIN 12:51
PROVIDERS: ATTEND Internal Medicine
DX: J44.9 Chronic obstructive pulmonary disease, unspecified (principal); J18.9 Pneumonia, unspecified organism
CPT/HCPCS: 71046

== ENCOUNTER 2023-07-11 12:19 | Inpatient (IN) | payer MEDICARE, BC ==
[2023-07-11] MEDS ORDERED: ETOMIDATE 2 MG/ML 10 ML VIAL IV STA (12:35)
[2023-07-11 12:49] LABS: Anisocytosis Slight; Basophils % (A) 0 %; Eosinophils # (A) 0.2 k/uL (0-0.7); Eosinophils % (A) 2 %; HCT 35.5 % (34.0-46.0); HGB 10.5 gm/dL (11.4-16.0); Hypochromasia Marked; Lymphocytes # (A) 2.3 k/uL (1.0-4.8); Lymphocytes % (A) 29 %; MCH 21.2 pg (25.0-35.0); MCHC 29.6 g/dL (31.0-37.0); MCV 71.8 fL (80.0-100.0); Mean Platelet Volume 7.7; Microcytosis Moderate; Monocytes # (A) 0.4 k/uL (0-1.0); Monocytes % (A) 5 %; Neutrophils # (A) 4.8 k/uL (1.3-7.7); Neutrophils % (A) 60 %; Platelet Count 267 k/uL (150-450); Poikilocytosis Slight; RBC 4.95 m/uL (3.80-5.40); RDW 17.5 % (11.5-15.5); WBC 7.9 k/uL (3.8-10.6)
--- NOTE | 2023-07-11 12:51 | ED ---
Arrhythmia/Palpitations HPI - General Chief Complaint: Arrhythmia/Palpitations Stated Complaint: A-Fib Time Seen by Provider: 07/11/23 12:24 Source: patient Mode of arrival: EMS Limitations: no limitations - History of Present Illness Initial Comments: Rachel is a 88-year-old female with extensive past medical history most significant for paroxysmal atrial fibrillation, severe COPD, severe aortic stenosis for which she was planned to undergo a tap her procedure last week but was not eligible due to having pneumonia. Patient presents the ER today with complaint of palpitations and fatigue. Patient states that she felt well when she woke up this morning. She developed some palpitations she felt like her heart was just racing and it made her feel very tired. Patient states she is having pain in her chest just racing heart. This is making her feel somewhat short of breath as well. She's had no recent cough fevers or chills. She has had exposure to RSV, her daughter who she lives with the positive for RSV on Saturday. - Related Data Home Medications Medication Instructions Recorded Confirmed Dapagliflozin Propanediol [Farxiga] 10 mg PO DAILY 10/01/21 07/11/23 Omeprazole [PriLOSEC] 20 mg PO AC-BID 02/03/22 07/11/23 Atorvastatin Calcium [Lipitor] 40 mg PO DAILY 01/03/23 07/11/23 Ezetimibe [Zetia] 10 mg PO DAILY 01/03/23 07/11/23 Levothyroxine Sodium [Synthroid] 50 mcg PO DAILY 01/03/23 07/11/23 Semaglutide [Rybelsus] 3 mg PO DAILY 01/03/23 07/11/23 Meclizine HCl 12.5 mg PO Q8H PRN 05/18/23 07/11/23 Ammonium Lactate Cream [Lac-Hydrin 1 applic TOPICAL BID PRN 07/11/23 07/11/23 12% Cream] Budesonide/Glycopyr/Formoterol 1 puff INHALATION DIRECTED 07/11/23 07/11/23 [Breztri Aerosphere Inhaler] Clotrimazole/Betameth Cream 1 applic TOPICAL BID PRN 07/11/23 07/11/23 [Lotrisone] Insulin Glargine,Hum.rec.anlog 18 units SQ HS 07/11/23 07/11/23 [Insulin Glargine Solostar] Previous Rx's Medication Instructions Recorded Furosemide [Lasix] 20 mg PO DAILY #30 tab 03/23/21 Apixaban [Eliquis] 2.5 mg PO BID #60 tab 05/22/23 Metoprolol Succinate (ER) [Toprol 12.5 mg PO DAILY #30 tab 05/22/23 XL] Allergies Allergy/AdvReac Type Severity Reaction Status Date / Time Iodinated Contrast Media Allergy Severe Rash/Hives Verified 07/11/23 14:11 hydrocortisone Allergy Intermediate Rash/Hives Verified 07/11/23 14:11 ampicillin [From Polycillin] Allergy Mild Rash/Hives Verified 07/11/23 14:11 cefaclor [From Ceclor] Allergy Mild Rash/Hives Verified 07/11/23 14:11 nitroglycerin Allergy Mild Unknown Verified 07/11/23 14:11 NSAIDS (Non-Steroidal Allergy Mild Unknown Verified 07/11/23 14:11 Anti-Inflamma sulfur dioxide Allergy Mild Unknown Verified 07/11/23 14:11 latex Allergy Itching Verified 07/11/23 14:11 nickel Allergy Rash/Hives Verified 07/11/23 14:11 Review of Systems ROS Statement: Those systems with pertinent positive or pertinent negative responses have been documented in the HPI. ROS Other: All systems not noted in ROS Statement are negative. Past Medical History Past Medical History: Coronary Artery Disease (CAD), Heart Failure, Diabetes M ellitus, Hyperlipidemia, Hypertension Additional Past Medical History / Comment(s): LYMPHEDEMA History of Any Multi-Drug Resistant Organisms: MRSA Date of last positivie culture/infection: 07/14/20 MDRO Source:: RIGHT FOOT Past Surgical History: Heart Catheterization With Stent Additional Past Surgical History / Comment(s): Heart cath x3 stents Past Anesthesia/Blood Transfusion Reactions: No Reported Reaction Additional Past Anesthesia/Blood Transfusion Reaction / Comment(s): PATIENT STATES THAT LAST HEART CATH SHE HAD A REACTION-SWOLLEN FACE-RED FACE-ITCHY SKIN Date of Last Stent Placement:: 03/2021 Past Psychological History: No Psychological Hx Reported Smoking Status: Former smoker Past Alcohol Use History: None Reported Past Drug Use History: None Reported - Past Family History Father Family Medical History: Myocardial Infarction (OK) Additional Family Medical History / Comment(s): AT 45 OF HEART ATTACK Mother Family Medical History: Congestive Heart Failure (CHF) Additional Family Medical History / Comment(s): MOTHER IN 1985 FOUR MONTHS WITH THE 11TH CHILD. CARDIOMYOPATHY General Exam Limitations: no limitations General appearance: alert Head exam: Present: atraumatic, normocephalic Eye exam: Present: PERRL ENT exam: Present: normal exam Respiratory exam: Absent: respiratory distress, accessory muscle use Cardiovascular Exam: Present: tachycardia, irregular rhythm GI/Abdominal exam: Present: soft Rectal exam: Present: deferred Extremities exam: Present: pedal edema Neurological exam: Present: alert, oriented X3 Psychiatric exam: Present: normal affect, normal mood Skin exam: Present: pallor Course Vital Signs 07/11/23 07/11/23 07/11/23 12:25 12:37 12:42 Pulse Rate 141 H 146 H 140 H Respiratory 16 18 18 Rate Blood Pressure 96/73 80/64 99/55 O2 Sat by Pulse 100 96 Oximetry 07/11/23 07/11/23 07/11/23 12:50 13:00 13:15 Pulse Rate 67 64 64 Respiratory 18 14 16 Rate Blood Pressure 106/55 95/61 110/54 O2 Sat by Pulse 100 100 100 Oximetry 07/11/23 07/11/23 07/11/23 13:30 13:46 14:00 Pulse Rate 63 78 75 Respiratory 16 18 16 Rate Blood Pressure 102/55 91/51 106/54 O2 Sat by Pulse 100 98 100 Oximetry EKG Findings - EKG Comments: EKG Findings:: EKG interpreted by me. EKG obtained due to tachycardia, EKG obtained at 12:28 PM, rate is 146 rhythm is a narrow complex irregularly irregular rhythm consistent with an atrial fibrillation with RVR. Normal intervals, QRS 90 QTc 353. There are diffuse ST depressions in all leads with no acute ST elevations is concerning for acute ischemia without acute infarction. Suspect this is demand ischemia. Repeat EKG interpreted by me, repeat EKG obtained after cardioversion. Repeat EKG obtained at 1251, rate is 69 rhythm is a narrow complex regular rhythm with P waves before each QRS and frequent PVCs noted. Normal intervals AL 170 QRS 97 QTc 457. There are no acute ST elevations or some mild ST depressions lateral leads no evidence of acute infarction. The EKG obtained at 1309, rate is 62 rhythm is again sinus with sinus arrhythmia no ectopy noted. Normal intervals AL 172 QRS 55 QTc 427. There continues to have ST depression in V4 V5 and lead 1. No acute ST elevations again somewhat ischemic without signs of infarction. Procedures - [place] Protocol (Time Out) Procedure Performed:: procedural sedation and synchronized cardioversion Performing Provider: Louisa Anders Nurse: Arlen Gaspar Timeout Date: 07/11/23 Timeout Time: 12:40 Patient Identification (2 identifiers required): Verbal, Arm Band, Name, Birthdate Patient/Legal Bartender has Confirmed: Identity, Procedure, Consent Final Confirmation: Procedure, Patient Position, Special Equipment, Confirmed w/Provider - Procedures Initial comment: Cardioversion: Consent for operation or procedure: Risks and benefits discussed with patient and consent obtained Anesthesia: etomidate The appropriate time-out procedure was performed including proper identification of the patient, physician, procedure, documentation. The patient participated actively in this. After sedation was achieved, the patient was placed in the supine position and hands free patches were placed on his chest in the AP position. 1 shock was provided at 100 Joules with successful resumption of normal sinus rhythm. This was confirmed on EKG. Repeat EKG confirms return to sinus rhythm. Complications: The patient tolerated the procedure well without complications. - Procedural Sedation *Procedural Sedation Start Time: 12:40 *Procedural Sedation Stop Time: 12:50 *Risks,benefits, and alternative therapies discussed?: Yes *Patient indicates understanding of risk/benefit discussion?: Yes *Indications: other *Previous Adverse Reaction to Anesthesia/Sedation?: No * Testing Complete?: No Reason Test Not Complete:: Emergent Situation *ASA Class: III *Mallampati Airway Score: 2 Preparation: fiberline supervisor applied, pulse oximeter, supplemental O2 applied, reversal agents at bedside, suction/airway equipment at bedside, IV secured IV Etomidate Dose (mgs): 6 Complications: none Patient Tolerated Procedure: well Medical Decision Making - Medical Decision Making Was pt. sent in by a medical professional or institution (, PA, COMPLIANCE REVIEW SPECIALIST, urgent care, hospital, or intermediate...) When possible be specific @ -No Did you speak to anyone other than the patient for history (EMS, parent, family, police, friend...)? What history was obtained from this source @ -EMS Did you review nursing and triage notes (agree or disagree)? Why? @ -I reviewed and agree with nursing and triage notes Were old charts reviewed (outside hosp., previous admission, EMS record, old EKG, old radiological studies, urgent care reports/EKG's, intermediate records)? Report findings @ -Previous admission notes were reviewed, previous cardiac cath from April was reviewed with clean coronaries Differential Diagnosis (chest pain, altered mental status, abdominal pain women, abdominal pain men, vaginal bleeding, weakness, fever, dyspnea, syncope, headache, dizziness, GI bleed, back pain, seizure, CVA, palpatations, mental health)? @ -Differential Palpitations Ventricular arrhythmias, atrial arrhythmias, myocardial infarction, anemia, thyrotoxicosis, electrolyte imbalance, hypokalemia, pulmonary embolism, pulmonary disease, drugs, alcohol, anxiety, stress.... This is not meant to be an all-inclusive list. EKG interpreted by me (3pts min.). @ -As above X-rays interpreted by me (1pt min.). @ -No pneumothorax, no widened mediastinum, no evidence of CHF, chronic COPD changes CT interpreted by me (1pt min.). @ -None done U/S interpreted by me (1pt. min.). @ -None done What testing was considered but not performed or refused? (CT, X-rays, U/S, labs)? Why? @ -None What meds were considered but not given or refused? Why? @ -None Did you discuss the management of the patient with other professionals (professionals i.e. , PA, COMPLIANCE REVIEW SPECIALIST, lab, RT, psych nurse, secondary social studies teacher, hand bulldozer, teacher, fire information officer, embedded case manager)? Give summary @ -Patient care discussed with slip caster Was smoking cessation discussed for >3mins.? @ -[No Ws critical care preformed (if so, how long)? @ -Yes Were there social determinants of health that impacted care today? How? (Homelessness, low income, unemployed, alcoholism, drug addiction, transportation, low edu. Level, literacy, decrease access to med. care, long-term, rehab)? @ -No Was there de-escalation of care discussed even if they declined (Discuss DNR or withdrawal of care, Hospice)? DNR status @ -No What co-morbidities impacted this encounter? (DM, HTN, Smoking, COPD, CAD, Cancer, CVA, ARF, Chemo, Hep., AIDS, mental health diagnosis, sleep apnea, morbid obesity)? @ -COPD Was patient admitted / discharged? Hospital course, mention meds given and route, prescriptions, significant lab abnormalities, going to OR and other pertinent info. @ -Admit The patient was seen and evaluated in resuscitation bay 4 upon arrival. Patient was noted to be tachycardic and hypotensive with EKG changes suggestive of demand ischemia. Care was discussed with her neurologist Dr. Ko who recommended cardioversion. Patient was treated with etomidate and successfully cardioverted with a single synchronized cardioversion with 100 J Based on cardiology recommendations heparin was started a bolus was not giving due to the fact the patient is on Eliquis Cardizem was initiated due to patient having persistent ectopy after cardioversion. Patient remained awake alert oriented and hemodynamically stable throughout the remainder of her stay in the ER. Patient care was again discussed with cardiology who agrees with plan for admission, heparin and Cardizem. Care was discussed patient primary care provider Dr. Benjamin who accepts admission Undiagnosed new problem with uncertain prognosis? @ No Drug Therapy requiring intensive monitoring for toxicity (Heparin, Nitro, Insulin, Cardizem)? @ -Yes - Heparin, Cardizem Were any procedures done? @ Yes, procedural sedation, synchronized cardioversion Diagnosis/symptom? @ - Afib with RVR, severe aortic stenosis, LVH, COPD Acute, or Chronic, or Acute on Chronic? @ -Chronic Uncomplicated (without systemic symptoms) or Complicated (systemic symptoms)? @ -Complicated Side effects of treatment? @ -No Exacerbation, Progression, or Severe Exacerbation? @ -Exacerbation Poses a threat to life or bodily function? How? (Chest pain, [place], [place], pneumonia, PE, COPD, DKA, ARF, appy, cholecystitis, CVA, Diverticulitis, Homicidal, Suicidal, threat to staff... and all critical care pts) @ -Yes - Lab Data Result diagrams: 07/11/23 12:39 07/11/23 12:39 Lab Results 07/11/23 07/11/23 07/11/23 Range/Units 12:39 12:39 12:39 WBC 7.9 (3.8-10.6) k/uL RBC 4.95 (3.80-5.40) m/uL Hgb 10.5 L (11.4-16.0) gm/dL Hct 35.5 (34.0-46.0) % MCV 71.8 L (80.0-100.0) fL MCH 21.2 L (25.0-35.0) pg MCHC 29.6 L (31.0-37.0) g/dL RDW 17.5 H (11.5-15.5) % Plt Count 267 (150-450) k/uL MPV 7.7 Neutrophils % 60 % Lymphocytes % 29 % Monocytes % 5 % Eosinophils % 2 % Basophils % 0 % Neutrophils # 4.8 (1.3-7.7) k/uL Lymphocytes # 2.3 (1.0-4.8) k/uL Monocytes # 0.4 (0-1.0) k/uL Eosinophils # 0.2 (0-0.7) k/uL Basophils # 0.0 (0-0.2) k/uL Hypochromasia Marked Poikilocytosis Slight Anisocytosis Slight Microcytosis Moderate PT 11.5 (10.0-12.5) sec INR 1.1 (<1.2) APTT 26.1 (22.0-30.0) sec Sodium 142 (137-145) mmol/L Potassium 3.0 L (3.5-5.1) mmol/L Chloride 108 H (98-107) mmol/L Carbon Dioxide 24 (22-30) mmol/L Anion Gap 10 mmol/L BUN 19 H (7-17) mg/dL Creatinine 1.04 (0.52-1.04) mg/dL Est GFR (CKD-EPI)AfAm 55 (>60 ml/min/1.73 sqM) Est GFR (CKD-EPI)NonAf 48 (>60 ml/min/1.73 sqM) Glucose 188 H (74-99) mg/dL Plasma Lactic Acid Tejas (0.7-2.0) mmol/L Calcium 9.0 (8.4-10.2) mg/dL Total Bilirubin 1.3 (0.2-1.3) mg/dL AST 22 (14-36) U/L ALT 12 (4-34) U/L Alkaline Phosphatase 109 (38-126) U/L Troponin I (0.000-0.034) ng/mL Total Protein 7.2 (6.3-8.2) g/dL Albumin 3.7 (3.5-5.0) g/dL Influenza Type A (PCR) (Not Detectd) Influenza Type B (PCR) (Not Detectd) RSV (PCR) (Not Detectd) SARS-CoV-2 (PCR) (Not Detectd) 07/11/23 07/11/23 07/11/23 Range/Units 12:39 12:39 12:41 WBC (3.8-10.6) k/uL RBC (3.80-5.40) m/uL Hgb (11.4-16.0) gm/dL Hct (34.0-46.0) % MCV (80.0-100.0) fL MCH (25.0-35.0) pg MCHC (31.0-37.0) g/dL RDW (11.5-15.5) % Plt Count (150-450) k/uL MPV Neutrophils % % Lymphocytes % % Monocytes % % Eosinophils % % Basophils % % Neutrophils # (1.3-7.7) k/uL Lymphocytes # (1.0-4.8) k/uL Monocytes # (0-1.0) k/uL Eosinophils # (0-0.7) k/uL Basophils # (0-0.2) k/uL Hypochromasia Poikilocytosis Anisocytosis Microcytosis PT (10.0-12.5) sec INR (<1.2) APTT (22.0-30.0) sec Sodium (137-145) mmol/L Potassium (3.5-5.1) mmol/L Chloride (98-107) mmol/L Carbon Dioxide (22-30) mmol/L Anion Gap mmol/L BUN (7-17) mg/dL Creatinine (0.52-1.04) mg/dL Est GFR (CKD-EPI)AfAm (>60 ml/min/1.73 sqM) Est GFR (CKD-EPI)NonAf (>60 ml/min/1.73 sqM) Glucose (74-99) mg/dL Plasma Lactic Acid Tejas 1.5 (0.7-2.0) mmol/L Calcium (8.4-10.2) mg/dL Total Bilirubin (0.2-1.3) mg/dL AST (14-36) U/L ALT (4-34) U/L Alkaline Phosphatase (38-126) U/L Troponin I <0.012 (0.000-0.034) ng/mL Total Protein (6.3-8.2) g/dL Albumin (3.5-5.0) g/dL Influenza Type A (PCR) Not Detected (Not Detectd) Influenza Type B (PCR) Not Detected (Not Detectd) RSV (PCR) Not Detected (Not Detectd) SARS-CoV-2 (PCR) Not Detected (Not Detectd) Critical Care Time Critical Care Time: Yes Total Critical Care Time: 45 Critical Care Time: Critical care time was exclusive of separately billable procedures and treating other patients and teaching time. Critical care was necessary to treat or prevent imminent or life-threatening deterioration. Given the critical condition in which the patient arrived, the patient was immediately assessed by myself and the nurse, and cardiac monitoring initiated due to the potential for rapid decompensation of the patient's clinical condition. During the course of the patients stay, I spent a considerable amount of time at the bedside performing serial re-evaluations of the patient's hemodynamic and clinical status because of the recognized potential threat to life or limb in this condition. I then had a chance to review not only all of the available current laboratory and radiographic studies obtained today, but I also reviewed old records available to me at the time. Additionally, any ancillary information available including dog food shredder operator records were reviewed. Sequential vital signs were obtained. Disposition Clinical Impression: Atrial fibrillation with RVR, Aortic stenosis Disposition: ADMITTED IP TO THIS HOSP Condition: Serious Is patient prescribed a controlled substance at d/c from ED?: No
[2023-07-11] MEDS ORDERED: HEPARIN SODIUM 1,000 UN/ML (10ML VL) IV PRN (12:52)
[2023-07-11] MEDS ORDERED: DILTIAZEM DRIP BOLUS FROM BAG 1 MG SOLN IV ONE (12:52)
[2023-07-11] MEDS ORDERED: DILTIAZEM 125 MG in SODIUM CHLORIDE 0.9% 100 ML IV SCH (13:00)
[2023-07-11] MEDS ORDERED: HEPARIN SOD,PORK IN 0.45% NACL 25,000 UNIT in 0.45% NACL 1 250ML.BAG IV SCH (13:00)
[2023-07-11 13:04] LABS: ALT 12 U/L (4-34); AST 22 U/L (14-36); African American GFR (CKD) 55 (>60 ml/min/1.73 sqM); Albumin 3.7 g/dL (3.5-5.0); Alkaline Phosphatase 109 U/L (38-126); Anion Gap 10 mmol/L; Blood Urea Nitrogen 19 mg/dL (7-17); Carbon Dioxide 24 mmol/L (22-30); Chloride 108 mmol/L (98-107); Glucose 188 mg/dL (74-99); INR 1.1 (<1.2); Non-African American GFR(CKD) 48 (>60 ml/min/1.73 sqM); Partial Thromboplastin Time 26.1 sec (22.0-30.0); Prothrombin Time 11.5 sec (10.0-12.5); Sodium 142 mmol/L (137-145); Total Bilirubin 1.3 mg/dL (0.2-1.3); Total Protein 7.2 g/dL (6.3-8.2)
--- NOTE | 2023-07-11 13:22 | XR ---
EXAMINATION TYPE: XR chest 1V portable DATE OF EXAM: 07/11/2023 COMPARISON: NONE HISTORY: chest pain TECHNIQUE: Single frontal view of the chest is obtained. FINDINGS: There is left lower lobe subsegmental consolidation but no pleural effusion, or pneumotho rax seen. The cardiac silhouette size is within normal limits. The osseous structures are intact. Biapical thickening. Large calcification is pleural-based in the left upper lobe. Underlying emphysem atous changes suspected. IMPRESSION: 1. Left basilar atelectasis favored over pneumonia..
[2023-07-11] MEDS ORDERED: POTASSIUM CHLORIDE 20 MEQ in WATER FOR INJECTION 1 100ML.BAG IVPB STA (13:52)
[2023-07-11] MEDS ORDERED: NALOXONE 0.4 MG/ML 1 ML VIAL IV PRN (13:55)
[2023-07-11] MEDS ORDERED: POTASSIUM CHLORIDE ER 20 MEQ TAB.ER PO STA (13:55)
[2023-07-11] MEDS ORDERED: POTASSIUM CHLORIDE 10 MEQ in WATER FOR INJECTION 2 100ML.BAG IVPB STA (14:05)
[2023-07-11] MEDS ORDERED: POTASSIUM CHLORIDE 10 MEQ in WATER FOR INJECTION 2 100ML.BAG IVPB ONE (15:00)
[2023-07-11 16:40] LABS: Glucose,Whole Blood 200 mg/dL (70-110)
[2023-07-11] MEDS ORDERED: AMMONIUM LACTATE 12% CREAM 140 GM TUBE TOPICAL PRN (18:25)
[2023-07-11] MEDS ORDERED: CLOTRIMAZOLE/BETAMETH 1-0.05% CREAM 45 GM TUBE TOPICAL PRN (18:26)
[2023-07-11] MEDS ORDERED: MECLIZINE 12.5 MG TAB PO PRN (18:26)
[2023-07-11 20:37] LABS: Glucose,Whole Blood 195 mg/dL (70-110)
[2023-07-11] MEDS: IPRATROPIUM 0.5 MG/2.5 ML NEBU INHALATION SCH (20:55)
[2023-07-11] MEDS: SYMBICORT 160-4.5 MCG INHALER INHALATION SCH (20:55)
[2023-07-11] MEDS ORDERED: INSULIN DETEMIR (LEVEMIR) 100 UNIT/ML SYR SQ SCH (21:00)
[2023-07-12 06:16] LABS: Glucose,Whole Blood 116 mg/dL (70-110)
[2023-07-12] MEDS ORDERED: LEVOTHYROXINE 50 MCG TAB PO SCH (06:30)
[2023-07-12] MEDS ORDERED: PANTOPRAZOLE 40 MG TABLET PO SCH (07:30)
[2023-07-12 07:37] LABS: Anisocytosis Slight; Basophils % (A) 1 %; Eosinophils # (A) 0.2 k/uL (0-0.7); Eosinophils % (A) 2 %; HCT 31.5 % (34.0-46.0); HGB 9.6 gm/dL (11.4-16.0); Hypochromasia Marked; Lymphocytes # (A) 2.3 k/uL (1.0-4.8); Lymphocytes % (A) 33 %; MCH 21.4 pg (25.0-35.0); MCHC 30.3 g/dL (31.0-37.0); MCV 70.6 fL (80.0-100.0); Mean Platelet Volume 7.5; Microcytosis Marked; Monocytes # (A) 0.3 k/uL (0-1.0); Monocytes % (A) 4 %; Neutrophils % (A) 57 %; Platelet Count 279 k/uL (150-450); Poikilocytosis Slight; RBC 4.46 m/uL (3.80-5.40); RDW 18.2 % (11.5-15.5)
[2023-07-12 07:44] LABS: INR 1.1 (<1.2); Prothrombin Time 11.5 sec (10.0-12.5)
[2023-07-12] MEDS: SYMBICORT 160-4.5 MCG INHALER INHALATION SCH (08:03)
[2023-07-12] MEDS: IPRATROPIUM 0.5 MG/2.5 ML NEBU INHALATION SCH ×2 (08:03→11:41)
[2023-07-12 08:28] VITALS: BP 130/60; RESP 16; TEMP 97.9
[2023-07-12 08:40] LABS: ALT 12 U/L (4-34); AST 25 U/L (14-36); African American GFR (CKD) 56 (>60 ml/min/1.73 sqM); Albumin 3.3 g/dL (3.5-5.0); Alkaline Phosphatase 94 U/L (38-126); Anion Gap 10 mmol/L; Blood Urea Nitrogen 19 mg/dL (7-17); Calcium 9.1 mg/dL (8.4-10.2); Carbon Dioxide 22 mmol/L (22-30); Chloride 112 mmol/L (98-107); Glucose 120 mg/dL (74-99); Non-African American GFR(CKD) 48 (>60 ml/min/1.73 sqM); Potassium 3.8 mmol/L (3.5-5.1); Sodium 144 mmol/L (137-145); Total Protein 6.5 g/dL (6.3-8.2)
[2023-07-12] MEDS ORDERED: FUROSEMIDE 10 MG/ML 2 ML VIAL IV ONE (09:00)
[2023-07-12] MEDS ORDERED: APIXABAN 2.5 MG TABLET PO SCH (09:00)
[2023-07-12] MEDS ORDERED: DAPAGLIFLOZIN PROPANEDIOL 10 MG TABLET PO SCH (09:00)
[2023-07-12] MEDS ORDERED: EZETIMIBE 10 MG TAB PO SCH (09:00)
[2023-07-12] MEDS ORDERED: METOPROLOL SUCCINATE (ER) 25 MG TAB.ER.24H PO SCH (09:00)
[2023-07-12] MEDS ORDERED: ATORVASTATIN 40 MG TAB PO SCH (09:00)
[2023-07-12] MEDS ORDERED: FUROSEMIDE 20 MG TAB PO SCH (09:00)
--- NOTE | 2023-07-12 10:52 | P.DS ---
Providers Date of admission: 07/11/23 13:56 Expected date of discharge: 07/12/23 Attending physician: Jackson Benjamin Consults: 07/11/23 13:55 Consult Physician Urgent Consulting Provider: Garett Ko Consult Reason/Comments: afib rvr, ishcemic ekg Do you want consulting provider notified?: Already Contacted Primary care physician: Jackson Benjamin Patient Condition at Discharge: Serious Plan - Discharge Summary Discharge Rx Participant: No New Discharge Prescriptions: Continue Dapagliflozin Propanediol [Farxiga] 10 mg PO DAILY Omeprazole [PriLOSEC] 20 mg PO AC-BID Semaglutide [Rybelsus] 3 mg PO DAILY Atorvastatin Calcium [Lipitor] 40 mg PO DAILY Apixaban [Eliquis] 2.5 mg PO BID #60 tab Ammonium Lactate Cream [Lac-Hydrin 12% Cream] 1 applic TOPICAL BID PRN PRN Reason: Rash Furosemide [Lasix] 20 mg PO DAILY #30 tab Levothyroxine Sodium [Synthroid] 50 mcg PO DAILY Ezetimibe [Zetia] 10 mg PO DAILY Meclizine HCl 12.5 mg PO Q8H PRN PRN Reason: Vertigo Metoprolol Succinate (ER) [Toprol XL] 12.5 mg PO DAILY #30 tab Clotrimazole/Betameth Cream [Lotrisone] 1 applic TOPICAL BID PRN PRN Reason: Rash Insulin Glargine,Hum.rec.anlog [Insulin Glargine Solostar] 18 units SQ HS Budesonide/Glycopyr/Formoterol [Breztri Aerosphere Inhaler] 2 puff INHALATION RT-BID Discharge Medication List Furosemide [Lasix] 20 mg PO DAILY #30 tab 03/23/21 [Rx] Dapagliflozin Propanediol [Farxiga] 10 mg PO DAILY 10/01/21 [History] Omeprazole [PriLOSEC] 20 mg PO AC-BID 02/03/22 [History] Atorvastatin Calcium [Lipitor] 40 mg PO DAILY 01/03/23 [History] Ezetimibe [Zetia] 10 mg PO DAILY 01/03/23 [History] Levothyroxine Sodium [Synthroid] 50 mcg PO DAILY 01/03/23 [History] Semaglutide [Rybelsus] 3 mg PO DAILY 01/03/23 [History] Meclizine HCl 12.5 mg PO Q8H PRN 05/18/23 [History] Apixaban [Eliquis] 2.5 mg PO BID #60 tab 05/22/23 [Rx] Metoprolol Succinate (ER) [Toprol XL] 12.5 mg PO DAILY #30 tab 05/22/23 [Rx] Ammonium Lactate Cream [Lac-Hydrin 12% Cream] 1 applic TOPICAL BID PRN 07/11/23 [History] Budesonide/Glycopyr/Formoterol [Breztri Aerosphere Inhaler] 2 puff INHALATION RT-BID 07/11/23 [History] Clotrimazole/Betameth Cream [Lotrisone] 1 applic TOPICAL BID PRN 07/11/23 [History] Insulin Glargine,Hum.rec.anlog [Insulin Glargine Solostar] 18 units SQ HS 07/11/23 [History] Follow up Appointment(s)/Referral(s): Jackson Benjamin MD [Primary Care Provider] - 1 Week Armando Santiago DO [STAFF PHYSICIAN] - 1 Week Discharge Disposition: HOME SELF-CARE
[2023-07-12 11:41] LABS: Glucose,Whole Blood 125 mg/dL (70-110)
[2023-07-12 11:44] VITALS: PULSE 72
--- NOTE | 2023-07-12 12:24 | P.CRDCN ---
History of Present Illness Consult date: 07/12/23 Consult reason: atrial fibrillation (With RVR) History of present illness: History of present illness: This is an 88-year-old female patient of Dr. Santiago with past medical history of severe symptomatic aortic stenosis, diabetes mellitus type 2, CAD with prior LAD stenting, paroxysmal atrial fibrillation, lymphedema, previous pneumonia, TIA. Patient has had workup at the [facility] but due to pneumonia, surgery was postponed until August 08. We have been asked to evaluate the patient for A-fib with RVR. Patient states that she woke up yesterday morning was feeling fine and later in the day started feeling fluttering and palpitations. She could feel that her heart was racing and she was feeling tired with mild shortness of breath. Patient has been started on heparin drip, Cardizem drip, and potassium replaced. While patient was in the emergency center, she continued to be quite tachycardic and feeling poorly and noted to have ST changes on EKG. Patient underwent electrocardioversion at 100 J and converted to sinus rhythm. Patient is seen today in the cardiac stepdown unit and she remains in sinus rhythm in the 70s, blood pressure 124/71. Patient has no complaints of chest pain. EKG atrial fibrillation [address] changes that resolved after CVN. Repeat EKG sinus rhythm chronic ST changes Chest x-ray: Left basilar atelectasis favored over pneumonia. WBC 7, hemoglobin 9.6, platelet count 279. INR 1.1. Sodium 144, potassium 3.8, BUN 19 creatinine 1.03. Liver function test are normal. Influenza A, influenza B, COVID-19, RSV not detected. Troponins 0.012 and 0.068. Home cardiac medications: Eliquis 2.5 mg twice daily, Lipitor 40 mg daily, Farxiga 10 mg daily, Zetia 10 mg daily, Lasix 20 mg daily, Toprol-XL 12.5 mg daily, also on levothyroxine 50 mcg daily. Review Of Systems: At the time of my evaluation: Constitutional: No fever, no chills. No weakness, fatigue or lethargy. EENT: No headache. No dizziness. Lungs: No shortness of breath, cough, no sputum production. No wheezing. Cardiovascular: No chest pain, no lower extremity edema. No palpitations. No paroxysmal nocturnal dyspnea. No orthopnea. No lightheadedness or dizziness. No syncopal episodes. Abdominal: No abdominal pain. No nausea, vomiting. Musculoskeletal: No myalgias. No muscle weakness, no frequent falls. Integumentary: No wounds. No rash. No unusual bruising. Neurologic: No aphasia. No facial droop. No change in mentation. Physical examination: Gen: This is an 88-year-old female patient, resting in bed and appears to be comfortable and in no acute distress. VS: reviewed HEENT: Head is atraumatic, normocephalic. Pupils equal, round. Sclerae is anicteric. NECK: Supple. No JVD. No carotid bruit. LUNGS: Clear to auscultation. No wheezes or rhonchi. No intercostal retractions. HEART: Regular rate and rhythm. 4/6 systolic murmur murmur. ABDOMEN: Soft No tenderness. EXTREMITIES: No pedal edema. No calf tenderness. NEUROLOGICAL: Patient is awake, alert and oriented x3. Assessment: Atrial fibrillation with RVR status post electrocardioversion maintaining sinus rhythm Paroxysmal atrial fibrillation Severe symptomatic aortic stenosis Diabetes mellitus type 2 Coronary artery disease with prior LAD stenting Chronic anemia Plan: Discontinue Cardizem drip and heparin drip Resume patient on Eliquis Continue patient's home cardiac medications Patient is cleared from cardiology for discharge home and may follow-up with Dr. Santiago in 1 to 2 weeks. Thank you kindly for this consultation. Nurse practitioner note has been reviewed, I agree with documented findings and plan of care. Patient was seen and examined. Past Medical History Past Medical History: Coronary Artery Disease (CAD), Heart Failure, Diabetes Mellitus, Hyperlipidemia, Hypertension Additional Past Medical History / Comment(s): LYMPHEDEMA History of Any Multi-Drug Resistant Organisms: MRSA Date of last positivie culture/infection: 07/14/20 MDRO Source:: RIGHT FOOT Past Surgical History: Heart Catheterization With Stent Additional Past Surgical History / Comment(s): Heart cath x3 stents Past Anesthesia/Blood Transfusion Reactions: No Reported Reaction Additional Past Anesthesia/Blood Transfusion Reaction / Comment(s): PATIENT STATES THAT LAST HEART CATH SHE HAD A REACTION-SWOLLEN FACE-RED FACE-ITCHY SKIN Date of Last Stent Placement:: 03/2021 Past Psychological History: No Psychological Hx Reported Smoking Status: Former smoker Past Alcohol Use History: None Reported Past Drug Use History: None Reported - Past Family History Father Family Medical History: Myocardial Infarction ([place]) Additional Family Medical History / Comment(s): AT 45 OF HEART ATTACK Mother Family Medical History: Congestive Heart Failure (CHF) Additional Family Medical History / Comment(s): MOTHER IN 1985 FOUR MONTHS WITH THE 11TH CHILD. CARDIOMYOPATHY Medications and Allergies Home Medications Medication Instructions Recorded Confirmed Type Furosemide [Lasix] 20 mg PO DAILY #30 tab 03/23/21 07/11/23 Rx Dapagliflozin Propanediol [Farxiga] 10 mg PO DAILY 10/01/21 07/11/23 History Omeprazole [PriLOSEC] 20 mg PO AC-BID 02/03/22 07/11/23 History Atorvastatin Calcium [Lipitor] 40 mg PO DAILY 01/03/23 07/11/23 History Ezetimibe [Zetia] 10 mg PO DAILY 01/03/23 07/11/23 History Levothyroxine Sodium [Synthroid] 50 mcg PO DAILY 01/03/23 07/11/23 History Semaglutide [Rybelsus] 3 mg PO DAILY 01/03/23 07/11/23 History Meclizine HCl 12.5 mg PO Q8H PRN 05/18/23 07/11/23 History Apixaban [Eliquis] 2.5 mg PO BID #60 tab 05/22/23 07/11/23 Rx Metoprolol Succinate (ER) [Toprol 12.5 mg PO DAILY #30 tab 05/22/23 07/11/23 Rx XL] Ammonium Lactate Cream [Lac-Hydrin 1 applic TOPICAL BID PRN 07/11/23 07/11/23 History 12% Cream] Budesonide/Glycopyr/Formoterol 2 puff INHALATION RT-BID 07/11/23 07/11/23 History [Breztri Aerosphere Inhaler] Clotrimazole/Betameth Cream 1 applic TOPICAL BID PRN 07/11/23 07/11/23 History [Lotrisone] Insulin Glargine,Hum.rec.anlog 18 units SQ HS 07/11/23 07/11/23 History [Insulin Glargine Solostar] Allergies Allergy/AdvReac Type Severity Reaction Status Date / Time Iodinated Contrast Media Allergy Severe Rash/Hives Verified 07/11/23 14:11 hydrocortisone Allergy Intermediate Rash/Hives Verified 07/11/23 14:11 ampicillin [From Polycillin] Allergy Mild Rash/Hives Verified 07/11/23 14:11 cefaclor [From Ceclor] Allergy Mild Rash/Hives Verified 07/11/23 14:11 nitroglycerin Allergy Mild Unknown Verified 07/11/23 14:11 NSAIDS (Non-Steroidal Allergy Mild Unknown Verified 07/11/23 14:11 Anti-Inflamma sulfur dioxide Allergy Mild Unknown Verified 07/11/23 14:11 latex Allergy Itching Verified 07/11/23 14:11 nickel Allergy Rash/Hives Verified 07/11/23 14:11 Physical Exam Vitals: Vital Signs Temp Pulse Pulse Pulse Resp BP BP 07/12/23 08:17 72 07/12/23 08:15 97.9 F 73 16 130/60 07/12/23 08:03 68 07/12/23 04:00 98 F 71 15 124/71 07/12/23 00:00 98.2 F 78 18 108/68 07/11/23 21:05 84 07/11/23 20:55 84 07/11/23 19:40 97.9 F 67 18 106/67 07/11/23 16:00 97.6 F 74 18 104/56 07/11/23 15:41 63 16 122/53 07/11/23 14:00 75 16 106/54 07/11/23 13:46 78 18 91/51 07/11/23 13:30 63 16 102/55 07/11/23 13:15 64 16 110/54 07/11/23 13:00 64 14 95/61 07/11/23 12:50 67 18 106/55 07/11/23 12:42 140 H 18 99/55 07/11/23 12:37 146 H 18 80/64 07/11/23 12:25 141 H 16 96/73 Pulse Ox 07/12/23 08:17 07/12/23 08:15 94 L 07/12/23 08:03 07/12/23 04:00 96 07/12/23 00:00 97 07/11/23 21:05 07/11/23 20:55 07/11/23 19:40 97 07/11/23 16:00 97 07/11/23 15:41 100 07/11/23 14:00 100 07/11/23 13:46 98 07/11/23 13:30 100 07/11/23 13:15 100 07/11/23 13:00 100 07/11/23 12:50 100 07/11/23 12:42 07/11/23 12:37 96 07/11/23 12:25 100 Intake and Output 07/11/23 07/12/23 07/12/23 22:59 06:59 14:59 Intake Total 1072.583 125 Balance 1072.583 125 Intake: Intake, IV Titration 32.583 Amount Diltiazem 125 mg In 32.583 Sodium Chloride 0.9% 100 ml @ 5 MG/HR 5 mls/hr IV .Q24H [facility] Rx#:[id number] Oral 1040 125 Other: Voiding Method Toilet Toilet Toilet # Voids 1 1 # Bowel Movements 1 Results 07/12/23 06:45 07/12/23 06:45 Cardiac Enzymes 07/11/23 07/11/23 07/11/23 Range/Units 12:39 12:39 18:01 AST 22 (14-36) U/L Troponin I <0.012 0.068 H* (0.000-0.034) ng/mL 07/12/23 Range/Units 06:45 AST 25 (14-36) U/L Troponin I (0.000-0.034) ng/mL Coagulation 07/11/23 07/11/23 07/12/23 Range/Units 12:39 18:01 06:45 PT 11.5 11.5 (10.0-12.5) sec APTT 26.1 63.0 H (22.0-30.0) sec CBC 07/11/23 07/12/23 Range/Units 12:39 06:45 WBC 7.9 7.0 (3.8-10.6) k/uL RBC 4.95 4.46 (3.80-5.40) m/uL Hgb 10.5 L 9.6 L (11.4-16.0) gm/dL Hct 35.5 31.5 L (34.0-46.0) % Plt Count 267 279 (150-450) k/uL Comprehensive Metabolic Panel 07/11/23 07/11/2324 Range/Units 12:39 18:01 06:45 Sodium 142 144 (137-145) mmol/L Potassium 3.0 L 3.6 3.8 (3.5-5.1) mmol/L Chloride 108 H 112 H (98-107) mmol/L Carbon Dioxide 24 22 (22-30) mmol/L BUN 19 H 19 H (7-17) mg/dL Creatinine 1.04 1.03 (0.52-1.04) mg/dL Glucose 188 H 120 H (74-99) mg/dL Calcium 9.0 9.1 (8.4-10.2) mg/dL AST 22 25 (14-36) U/L ALT 12 12 (4-34) U/L Alkaline Phosphatase 109 94 (38-126) U/L Total Protein 7.2 6.5 (6.3-8.2) g/dL Albumin 3.7 3.3 L (3.5-5.0) g/dL Current Medications Generic Name Dose Route Start Last Admin Trade Name Freq PRN Reason Stop Dose Admin Apixaban 2.5 mg 07/12/23 09:00 Apixaban 2.5 Mg Tablet PO BID [facility] Protocol Atorvastatin Calcium 40 mg 07/12/23 09:00 07/12/23 08:19 Atorvastatin 40 Mg Tab PO 40 mg DAILY OSIEL Administration Betamethasone/Clotrimazole 1 applic 07/11/23 18:26 Clotrimazole/Betameth 1-0.05% Cream 45 Gm Tube TOPICAL BID PRN Rash Protocol Budesonide/Formoterol Fumarate 2 puff 07/11/23 20:00 07/12/23 08:03 Symbicort 160-4.5 Mcg Inhaler INHALATION 2 puff RT-BID OSIEL Administration Dapagliflozin 10 mg 07/12/23 09:00 07/12/23 08:20 Dapagliflozin Propanediol 10 Mg Tablet PO 10 mg DAILY OSIEL Administration Ezetimibe 10 mg 07/12/23 09:00 07/12/23 08:20 Ezetimibe 10 Mg Tab PO 10 mg DAILY OSIEL Administration Furosemide 20 mg 07/12/23 09:00 07/12/23 08:20 Furosemide 20 Mg Tab PO 20 mg DAILY OSIEL Administration Insulin Detemir 18 unit 07/11/23 21:00 07/11/23 20:57 Insulin Detemir (Levemir) 100 Unit/Ml Syr SQ 18 unit HS OSIEL Administration Ipratropium [place]worth 0.5 mg 07/11/23 20:00 07/12/23 08:03 Ipratropium 0.5 Mg/2.5 Ml Nebu INHALATION 0.5 mg RT-QID OSIEL Administration Lactic Acid 1 applic 07/11/23 18:25 Ammonium Lactate 12% Cream 140 Gm Tube TOPICAL BID PRN Rash Protocol Levothyroxine Sodium 50 mcg 07/12/23 06:30 07/12/23 06:48 Levothyroxine 50 Mcg Tab PO 50 mcg DAILY@0630 OSIEL Administration Meclizine HCl 12.5 mg 07/11/23 18:26 Meclizine 12.5 Mg Tab PO Q8H PRN Vertigo Metoprolol Succinate 12.5 mg 07/12/23 09:00 07/12/23 08:20 Metoprolol Succinate (Er) 25 Mg Tab.Er.24h PO 12.5 mg DAILY [facility] Administration Naloxone HCl 0.2 mg 07/11/23 13:55 Naloxone 0.4 Mg/Ml 1 Ml Vial IV Q2M PRN Opioid Reversal Semaglutide [ 3 mg 07/12/23 09:00 07/12/23 08:20 Rybelsus] 3 Mg PO Not Given Tablet DAILY [facility] Pantoprazole Sodium 40 mg 07/12/23 07:30 07/12/23 06:48 Pantoprazole 40 Mg Tablet PO 40 mg AC-BID OSIEL Administration Intake and Output 07/11/23 07/12/23 07/12/23 22:59 06:59 14:59 Intake Total 1072.583 125 Balance 1072.583 125 Intake: Intake, IV Titration 32.583 Amount Diltiazem 125 mg In 32.583 Sodium Chloride 0.9% 100 ml @ 5 MG/HR 5 mls/hr IV .Q24H [facility] Rx#:[id number] Oral 1040 125 Other: Voiding Method Toilet Toilet Toilet # Voids 1 1 # Bowel Movements 1 07/12/23 06:45 07/12/23 06:45
--- NOTE | 2023-07-12 14:23 | CDI ---
Documentation Clarification Form Date: From: Melanie Layne Phone: [phone] Admit Date: 07/11/2023 01:56:00 PM Patient Name: Rachel Wilson Visit Number: [id number] Discharge Date: ATTENTION: The Clinical Documentation Specialists (CDI) and [facility] Coding Staff appreciate your assistance in clarifying documentation. Please respond to the clarification below the line at the bottom and electronically sign. The CDI & [facility] Coding staff will review the response and follow-up if needed. Please note: Queries are made part of the Legal Health Record. If you have any questions, please contact the author of this message via ITS. Dr. Jackson Benjamin Your patient has elevated troponin levels in the laboratory reports. Please clarify if there is an additional diagnosis and/or clinical significance related to this value. Patient history/risk factors: "88-year-old female with extensive past medical history most significant for paroxysmal atrial fibrillation, severe COPD, severe aortic stenosis for which she was planned to undergo a tap her procedure last week but was not eligible due to having pneumonia. Patient presents the ER today with complaint of palpitations and fatigue." - Per ED Note on 07/11 Clinical indicators: "states she is having pain in her chest just racing heart. This is making her feel somewhat short of breath" "EKG obtained at 12:28 PM, rate is 146 rhythm is a narrow complex irregularly irregular rhythm consistent with an atrial fibrillation with RVR" "diffuse ST depressions in all leads with no acute ST elevations is concerning for acute ischemia without acute infarction." - Per ED Note on 07/11 Troponin I: 07/11 - 0.012, 0.068 Treatment: Cardioversion in ED - Per ED Note on 07/11 "started on heparin drip, Cardizem drip, and potassium replaced" - Per Cardiology Consult note on 07/12 Is there an additional diagnosis and/or clinical significance related to the above lab result/information: [ x] Type 2 CO due to Atrial Fibrillation with RVR [ ] Non-ischemic with acute myocardial injury [ ] No additional diagnosis/Not clinically significant [ ] Other, please specify [ ] Unable to determine MTDD
--- NOTE | 2023-07-13 14:18 | P.HPIM ---
History of Present Illness H&P Date: 07/11/23 Chief Complaint: Atrial fibrillation with RVR HISTORY OF PRESENT ILLNESS: This is an 88-year-old female one of my patient with a previous m edical history significant for hypertension and hypertensive cardiovascular disease, hyperlipidemia, diabetes mellitus type 2, osteoarthritis, coronary artery disease, history of CVA, history of the osteomyelitis of the right heel with multidrug resistant Acinetobacter that was treated in June 2020, Covid 19 infection 05/13/2021, patient was recently hospitalized and she was evaluated for moderate to severe aortic valve stenosis she ended up going for a computed tomography scan of aortic valve for possible TAVR and as a matter fact was supposed to get it about a week ago, however she came down with an upper respiratory tract infection for which she was started on oral antibiotic, she wa s seen in the office about a week ago, she was supposed come see me in the office for follow-up today she woke up in the morning and she was complaining of increased palpitation in her heart was thumping hard and she was somewhat short of breath, her color started to change and her daughter called 911 and she was brought into the ER at [facility] she was found to be in atrial fibrillation with rapid ventricular response, her EKG showed some ischemic changes due to her tachycardia, she ended up having a DC cardioversion emergency department and the patient was placed on heparin drip, she had a slight elevation of the troponin suggestive of type II [place], but because of the presentation she was kept in the hospital for evaluation by cardiology over the next 24 hours REVIEW OF SYSTEMS: Constitutional: Reports fever, reports chills, no night sweats. No weight change. positive for weakness, fatigue no lethargy. No daytime sleepiness. HEENT: No headache. No blurred vision or double vision, no loss of vision. No loss of Hearing, no ringing in the ears, no dizziness. Reports nasal drainage or congestion. No epistaxis. No sore throat. Lungs: positive for shortness of breath, positive for cough, no sputum production. No wheezing. Reports dyspnea with activity. Cardiovascular: no chest pain, no lower extremity edema. positive for palpitations. No paroxysmal nocturnal dyspnea. No orthopnea. No lightheadedness or dizziness. No syncopal episodes. Abdominal: No abdominal pain. positive for nausea, no vomiting. No diarrhea. No constipation. No bloody or tarry stools reports loss of appetite. Genitourinary: No dysuria, increased frequency, urgency. No urinary retention. Musculoskeletal: No myalgias. no weakness, gait dysfunction, no frequent falls. No back pain. No neck pain. Integumentary: dry skin in both legs and feet, no lesions. No rash or pruritus. No unusual bruising. No change in hair or nails. Neurologic: No aphasia. No facial droop. No change in mentation. No head injury. No headache. No paralysis. No paresthesia. Psychiatric: No depression. No anxiety. No mood swings. Endocrine: No abnormal blood sugars. No weight change. PAST MEDICAL HISTORY: Coronary artery disease. Hypertension and hypertensive cardiovascular disease. Hyperlipidemia. Diabetes mellitus type 2. Osteoarthritis. Aortic valve stenosis. Aortic regurgitation. Chronic diastolic heart failure. History of osteomyelitis of the right heel Hypothyroidism. Paroxysmal atrial fibrillation. PAST SURGICAL HISTORY: Bilateral cataract surgery. SOCIAL HISTORY: Patient used to smoke about pack every day but she quit many years ago, she denies any drug use or abuse, she has no alcohol ingestion, she lives with her daughter. FAMILY HISTORY: Mother at age of 77 from myocardial infarction, father at age 44 from a massive heart attack, patient had 4 brothers her oldest brothers at the age of 87 after coronary artery bypass graft the other one at age of 86 from Alzheimer dementia, she still have 2 living brothers one of them with coronary artery bypass graft as well as IN status post PCI with idiopathic pulmonary fibrosis of diabetes mellitus type 2 her fourth brother is healthy patient also had 6 sisters one of them from the pulmonary medicine and significant blood clots the other one in the hospital after she did have a shoulder surgery and she ended up with sepsis, patient also has one sister with TIA without CVA 1 is bedridden about 89-year-old she is bed ridden due to multiple strokes, and one is alive with Alzheimer PHYSICAL EXAMINATION: General: 88-year-old female who is laying down in bed in mild acute distress. HEENT: Head is atraumatic, normocephalic, pupils were equal round reactive to light and recommendation, extraocular muscle movement were intact, sclera nonicteric, conjunctivae were pale, mucous membranes of the mouth are somewhat dry. Neck: Supple, no JVP, normal carotid upstroke bilaterally, no lymphadenopathy. Chest: Decreased breath sounds at the bases, few rhonchi, no expiratory wheezes, no chest wall tenderness, no intercostal retractions. Heart: First heart sound is normal, second heart sounds normal there is systolic ejection murmur 3/6 located in the right second intercostal space related to the base of the neck Abdomen: Soft, nontender, nondistended, positive bowel sounds, there is no hepatosplenomegaly. Extremities: There is no edema no calf tenderness DP +1 bilaterally, Neurologic examination: Patient is awake alert and oriented X 3, cranial nerves II-12 appear grossly intact, muscle power were 5 out of 5 in upper extremities and 5 out of 5 in bilateral lower extremities, deep tendon reflexes normal bilaterally. ASSESSMENT AND PLAN: 1. Atrial fibrillation with rapid ventricular response status post DC Cardioversion in the emergency department. Continue patient on heparin drip overnight and then she will be transitioned to Eliquis 2.5 mg orally twice every day tomorrow morning, monitor the patient overnight, she can go home the next 24 hours if she gets cleared by cardiology 2. . Paroxysmal atrial fibrillation. Patient resumed on eliquis 2.5 mg twice daily, continue metoprolol 25 mg orally once every day. 3. Hypertension and hypertensive cardiovascular disease. Continue patient on metoprolol 12.5 mg orally once every day, monitor the patient blood pressure very closely. 4. Hyperlipidemia. Continue patient on atorvastatin 40 mg once every day continue Ezetimibe 10 mg once every day, mitral, keep LDL 55-70 5. Hypothyroidism. Continue patient on Synthroid 25 MCG orally once every day. 6. Diabetes mellitus type 2. Continue patient on Farxiga 10 mg orally once every day start the patient on SSI, continue patient on Lantus 18 units at bedtime. 7. Severe aortic valve stenosis patient did have a computed tomography scan of the aortic valve and she was supposed to go for a TAVR sometimes next month. 8. GERD. Continue with Protonix 40 mg orally once every day. 9. history of CVA in the past. Continue Eliquis 2.5 mg po bid as well as atorvastatin 40 mg once every day keep LDL cholesterol less than 50. 10. DVT prophylaxis. continue Eliquis 2.5 mg po bid 11. GI prophylaxis. Continue Protonix 40 mg orally once every day. 12. Admitted to inpatient. Estimate a length of stay 2 midnights. 13. Patient is full code Past Medical History Past Medical History: Coronary Artery Disease (CAD), Heart Failure, Diabetes Mellitus, Hyperlipidemia, Hypertension Additional Past Medical History / Comment(s): LYMPHEDEMA History of Any Multi-Drug Resistant Organisms: MRSA Date of last positivie culture/infection: 07/14/20 MDRO Source:: RIGHT FOOT Past Surgical History: Heart Catheterization With Stent Additional Past Surgical History / Comment(s): Heart cath x3 stents Past Anesthesia/Blood Transfusion Reactions: No Reported Reaction Additional Past Anesthesia/Blood Transfusion Reaction / Comment(s): PATIENT STATES THAT LAST HEART CATH SHE HAD A REACTION-SWOLLEN FACE-RED FACE-ITCHY SKIN Date of Last Stent Placement:: 03/2021 Past Psychological History: No Psychological Hx Reported Smoking Status: Former smoker Past Alcohol Use History: None Reported Past Drug Use History: None Reported - Past Family History Father Family Medical History: Myocardial Infarction (IN) Additional Family Medical History / Comment(s): AT 45 OF HEART ATTACK Mother Family Medical History: Congestive Heart Failure (CHF) Additional Family Medical History / Comment(s): MOTHER IN 1985 FOUR MONTHS WITH THE 11TH CHILD. CARDIOMYOPATHY Medications and Allergies Home Medications Medication Instructions Recorded Confirmed Type Furosemide [Lasix] 20 mg PO DAILY #30 tab 03/23/21 07/11/23 Rx Dapagliflozin Propanediol [Farxiga] 10 mg PO DAILY 10/01/21 07/11/23 History Omeprazole [PriLOSEC] 20 mg PO AC-BID 02/03/22 07/11/23 History Atorvastatin Calcium [Lipitor] 40 mg PO DAILY 01/03/23 07/11/23 History Ezetimibe [Zetia] 10 mg PO DAILY 01/03/23 07/11/23 History Levothyroxine Sodium [Synthroid] 50 mcg PO DAILY 01/03/23 07/11/23 History Semaglutide [Rybelsus] 3 mg PO DAILY 01/03/23 07/11/23 History Meclizine HCl 12.5 mg PO Q8H PRN 05/18/23 07/11/23 History Apixaban [Eliquis] 2.5 mg PO BID #60 tab 05/22/23 07/11/23 Rx Metoprolol Succinate (ER) [Toprol 12.5 mg PO DAILY #30 tab 05/22/23 07/11/23 Rx XL] Ammonium Lactate Cream [Lac-Hydrin 1 applic TOPICAL BID PRN 07/11/23 07/11/23 History 12% Cream] Budesonide/Glycopyr/Formoterol 2 puff INHALATION RT-BID 07/11/23 07/11/23 History [Breztri Aerosphere Inhaler] Clotrimazole/Betameth Cream 1 applic TOPICAL BID PRN 07/11/23 07/11/23 History [Lotrisone] Insulin Glargine,Hum.rec.anlog 18 units SQ HS 07/11/23 07/11/23 History [Insulin Glargine Solostar] Allergies Allergy/AdvReac Type Severity Reaction Status Date / Time Iodinated Contrast Media Allergy Severe Rash/Hives Verified 07/11/23 14:11 hydrocortisone Allergy Intermediate Rash/Hives Verified 07/11/23 14:11 ampicillin [From Polycillin] Allergy Mild Rash/Hives Verified 07/11/23 14:11 cefaclor [From Ceclor] Allergy Mild Rash/Hives Verified 07/11/23 14:11 nitroglycerin Allergy Mild Unknown Verified 07/11/23 14:11 NSAIDS (Non-Steroidal Allergy Mild Unknown Verified 07/11/23 14:11 Anti-Inflamma sulfur dioxide Allergy Mild Unknown Verified 07/11/23 14:11 latex Allergy Itching Verified 07/11/23 14:11 nickel Allergy Rash/Hives Verified 07/11/23 14:11 Physical Exam Vitals: Vital Signs Pulse Resp BP Pulse Ox 07/11/23 15:41 63 16 122/53 100 07/11/23 14:00 75 16 106/54 100 07/11/23 13:46 78 18 91/51 98 07/11/23 13:30 63 16 102/55 100 07/11/23 13:15 64 16 110/54 100 07/11/23 13:00 64 14 95/61 100 07/11/23 12:50 67 18 106/55 100 07/11/23 12:42 140 H 18 99/55 07/11/23 12:37 146 H 18 80/64 96 07/11/23 12:25 141 H 16 96/73 100 Intake and Output 07/11/23 07/11/23 07/11/23 06:59 14:59 22:59 Intake Total 500 Balance 500 Intake: Oral 500 Other: Weight 71.214 kg Results CBC & Chem 7: 07/12/23 06:45 07/12/23 06:45 Labs: Abnormal Lab Results - Last 24 Hours (Table) 07/11/23 07/11/23 07/11/23 Range/Units 12:39 12:39 16:38 Hgb 10.5 L (11.4-16.0) gm/dL MCV 71.8 L (80.0-100.0) fL MCH 21.2 L (25.0-35.0) pg MCHC 29.6 L (31.0-37.0) g/dL RDW 17.5 H (11.5-15.5) % Potassium 3.0 L (3.5-5.1) mmol/L Chloride 108 H (98-107) mmol/L BUN 19 H (7-17) mg/dL Glucose 188 H (74-99) mg/dL POC Glucose (mg/dL) 200 H (70-110) mg/dL Thrombosis Risk Factor Assmnt - Choose All That Apply Any of the Below Risk Factors Present?: Yes Each Factor Represents 1 point: Obesity (BMI >25), Swollen legs (current) Other Risk Factors: Yes Each Risk Factor Represents 3 Points: Age 75 years or older Other congenital or acquired thrombophilia - If yes, enter type in comment: No Thrombosis Risk Factor Assessment Total Risk Factor Score: 5 Thrombosis Risk Factor Assessment Level: High Risk
== END 2023-07-12 14:47 | disposition home or self-care (01) | DRG 281 ==
LOC: EC 12:19 → 3SCARD 13:56
PROVIDERS: ADMIT Internal Medicine; ATTEND Internal Medicine
PROC: 5A2204Z Restoration of Cardiac Rhythm, Single (ICD-10-PCS; principal; 2023-07-11)
DX: I48.0 Paroxysmal atrial fibrillation (principal); I21.A1 Myocardial infarction type 2; I50.32 Chronic diastolic (congestive) heart failure; J98.11 Atelectasis; Z79.01 Long term (current) use of anticoagulants; D64.9 Anemia, unspecified; E78.5 Hyperlipidemia, unspecified; Z11.52 Encounter for screening for COVID-19; E03.9 Hypothyroidism, unspecified; I11.0 Hypertensive heart disease with heart failure; I25.10 Atherosclerotic heart disease of native coronary artery without angina pectoris; I35.0 Nonrheumatic aortic (valve) stenosis; Z79.84 Long term (current) use of oral hypoglycemic drugs; Z86.73 Personal history of transient ischemic attack (TIA), and cerebral infarction without residual deficits; Z87.01 Personal history of pneumonia (recurrent); Z95.5 Presence of coronary angioplasty implant and graft; Z79.890 Hormone replacement therapy; K21.9 Gastro-esophageal reflux disease without esophagitis; Z79.4 Long term (current) use of insulin; Z79.899 Other long term (current) drug therapy; Z82.49 Family history of ischemic heart disease and other diseases of the circulatory system
CPT/HCPCS: 36415; 71045; 80053; 83605; 84132; 84484; 85025; 85610; 85730; 87040; 87636; 93005; 94640; 96365; 96366; 96368; 99291

== ENCOUNTER → 2023-08-06 | Outpatient (CLI) | payer MEDICARE, BC ==
[2023-08-06 11:58] LABS: Partial Thromboplastin Time 23.9 sec (22.0-30.0); Prothrombin Time 10.8 sec (10.0-12.5)
[2023-08-06 15:47] LABS: ALT 13 U/L (8-44); AST 16 U/L (13-35); Albumin/Globulin Ratio 1.29 Ratio (1.60-3.17); Alkaline Phosphatase 95 U/L (41-126); Blood Urea Nitrogen 23.8 mg/dL (9.0-27.0); Calcium 9.6 mg/dL (8.7-10.3); Carbon Dioxide 27.2 mmol/L (21.6-31.8); Chloride 103 mmol/L (96-109); Globulin 3.1 g/dL (1.6-3.3); Glucose 167 mg/dL (70-110); Potassium 3.4 mmol/L (3.5-5.5); Sodium 143 mmol/L (135-145); Total Bilirubin 0.5 mg/dL (0.3-1.2); Total Protein 7.1 g/dL (6.2-8.2)
[2023-08-06 16:22] LABS: HCT 35.9 % (37.2-46.3); HGB 10.1 g/dL (12.0-15.0); MCHC 28.1 g/dL (32.0-37.0); MCV 71.2 FL (80.0-97.0); Mean Platelet Volume 9.5 FL (9.5-12.2); NRBC Per 100 WBC 0 X 10*3/uL (0.00-0.01); Platelet Count 330 X 10*3/uL (140-440); RBC 5.04 X 10*6/uL (4.10-5.20); RDW 19.9 % (11.5-14.5); WBC 8.78 X 10*3/uL (4.50-10.00)
== END | disposition home or self-care (01) ==
LOC: LABPAT 11:23
PROVIDERS: ATTEND Thoracic Surgery (Cardiothoracic Vascular Surgery)
DX: Z01.812 Encounter for preprocedural laboratory examination (principal); I35.0 Nonrheumatic aortic (valve) stenosis; Z79.899 Other long term (current) drug therapy; Z79.01 Long term (current) use of anticoagulants
CPT/HCPCS: 80053; 85027; 85610; 85730; 86850; 86900; 86901

== ENCOUNTER → 2023-08-07 | Outpatient (CLI) | payer MEDICARE, BC ==
[2023-08-02 12:06] VITALS: BMI 35.2
[~2023-08-07] MED LIST: CLEVIDIPINE BUTYRATE 25 MG in EMPTY BAG 1 BAG IV PRN; ELECTROLYTE-A SOLUTION 1,000 ML with POTASSIUM CHLORIDE 100 MEQ, MAGNESIUM SULFATE 16 M... IV PRN; INSULIN REGULAR 100 UNIT in SODIUM CHLORIDE 0.9% 100 ML IV PRN; NITROGLYCERIN-D5W PMX 25 MG/250 ML BTL IV PRN; PROTAMINE SULFATE 250 MG in EMPTY BAG 1 BAG IV PRN; SODIUM CHLORIDE 0.9% 500 ML 500 ML INTRAARTER PRN; TRANEXAMIC ACID 2,000 MG in SODIUM CHLORIDE 0.9% 80 ML IV PRN
[2023-08-07] MEDS: SODIUM CHLORIDE 0.9% 1,000 ML IV ONE (06:21)
[2023-08-07] MEDS: CLOPIDOGREL 75 MG TAB PO ONE (06:41)
[2023-08-07] MEDS: ATORVASTATIN 10 MG TAB PO ONE (06:41)
[2023-08-07] MEDS: ASPIRIN 325 MG TAB PO ONE (06:41)
[2023-08-07 06:51] LABS: Glucose,Whole Blood 256 mg/dL (70-110)
[2023-08-07] MEDS: LACTATED RINGERS 1,000 ML IV SCH (07:09)
[2023-08-07] MEDS: diphenhydrAMINE 50 MG CAP PO ONE (07:09)
[2023-08-07] MEDS: METOPROLOL TARTRATE 25 MG TAB PO ONE (07:09)
[2023-08-07] MEDS: predniSONE 50 MG TAB PO ONE (07:10)
[2023-08-07 07:29] VITALS: BP 163/74; PULSE 85; RESP 16; TEMP 98.1
== END ==
LOC: UNDOADMIN 05:54 → 2ORMAIN 05:54 → OR 05:54 → EDSTATUS 08:00 → 2SICU 08-15 01:19 → 2ORMAIN 08-15 01:19 → 2SICU 08-15 01:26 → 2ORMAIN 08-15 01:26
PROVIDERS: ATTEND Thoracic Surgery (Cardiothoracic Vascular Surgery)
DX: Z53.8 Procedure and treatment not carried out for other reasons (principal); I48.0 Paroxysmal atrial fibrillation; E78.5 Hyperlipidemia, unspecified; I10 Essential (primary) hypertension; I35.0 Nonrheumatic aortic (valve) stenosis; Z91.040 Latex allergy status; Z88.2 Allergy status to sulfonamides; Z88.1 Allergy status to other antibiotic agents; Z88.0 Allergy status to penicillin; Z87.891 Personal history of nicotine dependence; Z79.01 Long term (current) use of anticoagulants; Z79.82 Long term (current) use of aspirin

== ENCOUNTER 2023-09-03 11:03 | Emergency (ER) | payer MEDICARE, BC ==
--- NOTE | 2023-09-03 11:21 | ED ---
Lower Extremity Injury HPI - General Chief Complaint: Extremity Injury, Lower Stated Complaint: Fall, Knee Pain Time Seen by Provider: 09/03/23 11:07 Source: patient, RN notes reviewed Mode of arrival: EMS Limitations: no limitations - History of Present Illness Initial Comments: This is an 88-year-old female who presents to the emergency department for left knee pain. States that she was stepping up into her daughter's van, when her left knee gave out on her and she fell. This does happen on occasion secondary to arthritis, and states that she needs a knee replacement. States that her leg bent backwards underneath her and paramedics had to help her get up. She has since had increasing pain, swelling, and bruising around the knee. Denies hit ting her head or sustaining any other injuries. MD Complaint: knee injury - Related Data Home Medications Medication Instructions Recorded Confirmed Dapagliflozin Propanediol [Farxiga] 10 mg PO DAILY 10/01/21 09/02/23 Omeprazole [PriLOSEC] 20 mg PO AC-BID 02/03/22 09/02/23 Atorvastatin Calcium [Lipitor] 40 mg PO DAILY 01/03/23 09/02/23 Ezetimibe [Zetia] 10 mg PO DAILY 01/03/23 09/02/23 Levothyroxine Sodium [Synthroid] 50 mcg PO QAM 01/03/23 09/02/23 Semaglutide [Rybelsus] 3 mg PO DAILY 01/03/23 09/02/23 Meclizine HCl 25 mg PO Q8H PRN 05/18/23 09/02/23 Budesonide/Glycopyr/Formoterol 2 puff INHALATION RT-BID 07/11/23 09/02/23 [Breztri Aerosphere Inhaler] Amiodarone HCl [Pacerone] 200 mg PO BID 08/02/23 09/02/23 Insulin Glargine,Hum.rec.anlog 18 units SQ HS 08/02/23 09/02/23 [Insulin Glargine Solostar] Metoprolol Succinate (ER) [Toprol 12.5 mg PO QAM 08/02/23 09/02/23 XL] Previous Rx's Medication Instructions Recorded Furosemide [Lasix] 20 mg PO DAILY #30 tab 03/23/21 Apixaban [Eliquis] 2.5 mg PO BID #60 tab 05/22/23 predniSONE 50 mg PO DIRECTED #2 tab 08/28/23 Allergies Allergy/AdvReac Type Severity Reaction Status Date / Time Iodinated Contrast Media Allergy Severe Rash/Hives Verified 09/03/23 11:52 hydrocortisone Allergy Intermediate Rash/Hives Verified 09/03/23 11:52 ampicillin [From Polycillin] Allergy Mild Rash/Hives Verified 09/03/23 11:52 cefaclor [From Ceclor] Allergy Mild Rash/Hives Verified 09/03/23 11:52 nitroglycerin Allergy Mild Unknown Verified 09/03/23 11:52 NSAIDS (Non-Steroidal Allergy Mild Unknown Verified 09/03/23 11:52 Anti-Inflamma sulfur dioxide Allergy Mild Unknown Verified 09/03/23 11:52 latex Allergy Itching Verified 09/03/23 11:52 nickel Allergy Rash/Hives Verified 09/03/23 11:52 nitrofurantoin Allergy Unknown Verified 09/03/23 11:52 [From Macrodantin] quinedex Allergy Unknown Uncoded 09/02/23 14:50 Review of Systems ROS Statement: Those systems with pertinent positive or pertinent negative responses have been documented in the HPI. ROS Other: All systems not noted in ROS Statement are negative. Past Medical History Past Medical History: Coronary Artery Disease (CAD), Heart Failure, Diabetes Mellitus, Hyperlipidemia, Hypertension Additional Past Medical History / Comment(s): LYMPHEDEMA History of Any Multi-Drug Resistant Organisms: MRSA Date of last positivie culture/infection: 07/14/20 MDRO Source:: RIGHT FOOT Past Surgical History: Heart Catheterization With Stent Additional Past Surgical History / Comment(s): Heart cath x3 stents Past Anesthesia/Blood Transfusion Reactions: No Reported Reaction Additional Past Anesthesia/Blood Transfusion Reaction / Comment(s): PATIENT STATES THAT LAST HEART CATH SHE HAD A REACTION-SWOLLEN FACE-RED FACE-ITCHY SKIN Date of Last Stent Placement:: 03/2021 Smoking Status: Former smoker - Past Family History Father Family Medical History: Myocardial Infarction ([place]) Additional Family Medical History / Comment(s): AT 46 OF HEART ATTACK Mother Family Medical History: Congestive Heart Failure (CHF) Additional Family Medical History / Comment(s): heart problems. hemodialysis,lymphedema General Exam Limitations: no limitations General appearance: alert, in no apparent distress Head exam: Present: atraumatic, normocephalic, normal inspection Respiratory exam: Present: normal lung sounds bilaterally. Absent: respiratory distress, wheezes, rales, rhonchi, stridor Cardiovascular Exam: Present: regular rate, normal rhythm, normal heart sounds. Absent: systolic murmur, diastolic murmur, rubs, gallop, clicks Extremities exam: Present: other (Swelling, ecchymosis, and tenderness to the left patella. Full range of motion.) Neurological exam: Present: alert, oriented X3, CN II-XII intact Psychiatric exam: Present: normal affect, normal mood Course Vital Signs 09/03/23 09/03/23 11:45 12:47 Temperature 97.4 F L 98.7 F Pulse Rate 56 L 57 L Respiratory 16 16 Rate Blood Pressure 154/63 150/62 O2 Sat by Pulse 95 97 Oximetry Medical Decision Making - Medical Decision Making This is an 88 year old female who presents to the emergency department for left knee pain. Was pt. sent in by a medical professional or institution? @ -No Did you speak to anyone other than the patient for history? @ -No Did you review nursing and triage notes? @ -Yes, and I agree, it is accurate with regards to the patient's symptoms. Were old charts reviewed? @ -No Differential Diagnosis? @ -Differential Musculoskeletal: Muscular strain, contusion, ligament sprain, fracture, arthritis, septic arthritis, bursitis, cellulitis, muscle spasm, nerve compression, DVT, arterial occlusion, herpes zoster, electrolyte abnormality, tumor.... This is not meant to be in all inclusive list EKG interpreted by me (3pts min.)? @ -Not obtained X-rays interpreted by me (1pt min.)? @ -X-ray of the left knee obtained. My interpretation identifies no acute fractures. CT interpreted by me (1pt min.)? @ -Not obtained U/S interpreted by me (1pt. min.)? @ -Not obtained What testing was considered but not performed? (CT, X-rays, U/S, labs)? Why? @ -None What meds were considered but not given? Why? @ -None Did you discuss the management of the patient with other professionals? @ -No Did you reconcile home meds? @ -No Was smoking cessation discussed for >3mins.? @ -No Was critical care preformed (if so, how long)? @ -No Were there social determinants of health that impacted care today? How? (Homelessness, low income, unemployed, alcoholism, drug addiction, transportation, low edu. Level, literacy, decrease access to med. care, group home, rehab)? @ -No Was there de-escalation of care discussed even if they declined? (Discuss DNR or withdrawal of care, Hospice)? @ -No What co-morbidities impacted this encounter? (DM, HTN, Smoking, COPD, CAD, Cancer, CVA, Hep., AIDS, mental health diagnosis, sleep apnea, morbid obesity)? @ -Osteoarthritis, DJD Was patient admitted / discharged? @ -Discharged. X-ray of the left knee obtained demonstrating no acute process. Patient declined the need for any pain medication in the emergency department. She was given a knee immobilizer for support. Advised she apply ice for 15 to 20 minutes every 2-3 hours and keep the leg elevated. Patient discharged home in stable condition. Undiagnosed new problem with uncertain prognosis? @ -None Drug Therapy requiring intensive monitoring for toxicity (Heparin, Nitro, Insulin, Cardizem)? @ -None Were any procedures done? @ -None Diagnosis/symptom? @ -Fall, left knee pain Acute, or Chronic, or Acute on Chronic? @ -Acute Uncomplicated (without systemic symptoms) or Complicated (systemic symptoms)? @ -Uncomplicated Side effects of treatment? @ -None Exacerbation, Progression, or Severe Exacerbation] @ -Not applicable Poses a threat to life or bodily function? @ -No Return precautions reviewed in depth, the patient is instructed to return to the emergency department with any new, worsening, or concerning symptoms. Patient verbalized understanding. This case was discussed in detail with the attending ED physician, Dr. West. Presentation, findings, and treatment plan discussed in detail as well. - Radiology Data Radiology results: report reviewed, image reviewed Disposition Clinical Impression: Fall, Knee contusion Disposition: HOME SELF-CARE Instructions (If sedation given, give patient instructions): Knee Sprain (ED), Knee Pain (ED) Additional Instructions: Return to the emergency department with any new, worsening, or concerning symptoms. Follow up with your primary care provider in 1-2 days. Is patient prescribed a controlled substance at d/c from ED?: No Referrals: Jackson Benjamin MD [Primary Care Provider] - 1-2 days Time of Disposition: 12:16
--- NOTE | 2023-09-03 11:54 | XR ---
EXAMINATION TYPE: XR knee complete LT DATE OF EXAM: 09/03/2023 11:30 AM CLINICAL INDICATION:Female, 88 years old with history of Pain after fall; COMPARISON: None. TECHNIQUE: XR knee complete LT; examined in Frontal, lateral and oblique projections. FINDINGS: No evidence of any acute osseous pathology, soft tissue swelling, or joint effusion is no mark. Tricompartmental osteophyte formation involving the femoral condyles, tibial plateau and patella . Moderate medial joint space narrowing. IMPRESSION: 1. No acute osseous pathology. 2. Moderate to severe tricompartmental osteoarthritic changes.
[2023-09-03 12:22] VITALS: RESP 16
[2023-09-03 12:57] VITALS: BP 150/62; PULSE 57; TEMP 98.7
== END 2023-09-03 13:11 | disposition home or self-care (01) ==
LOC: EC 11:03
DX: S80.02XA Contusion of left knee, initial encounter (principal); I11.0 Hypertensive heart disease with heart failure; I50.9 Heart failure, unspecified; E11.9 Type 2 diabetes mellitus without complications; E78.5 Hyperlipidemia, unspecified; I25.10 Atherosclerotic heart disease of native coronary artery without angina pectoris; Z79.4 Long term (current) use of insulin; Z79.899 Other long term (current) drug therapy; Z91.040 Latex allergy status; Z91.018 Allergy to other foods; Z91.048 Other nonmedicinal substance allergy status; Z88.0 Allergy status to penicillin; Z88.2 Allergy status to sulfonamides; Z88.8 Allergy status to other drugs, medicaments and biological substances; Z87.891 Personal history of nicotine dependence; W01.0XXA Fall on same level from slipping, tripping and stumbling without subsequent striking against object, initial encounter
CPT/HCPCS: 73562; 99284; L1830

== ENCOUNTER → 2023-09-03 | Outpatient (CLI) | payer MEDICARE, BC ==
[2023-09-03 13:56] LABS: Partial Thromboplastin Time 22.1 sec (22.0-30.0)
[2023-09-03 16:40] LABS: ALT 11 U/L (8-44); AST 16 U/L (13-35); Albumin/Globulin Ratio 1.33 Ratio (1.60-3.17); Alkaline Phosphatase 84 U/L (41-126); BUN/Creat Ratio 16.14 Ratio (12.00-20.00); Blood Urea Nitrogen 22.6 mg/dL (9.0-27.0); Calcium 9.8 mg/dL (8.7-10.3); Carbon Dioxide 25.9 mmol/L (21.6-31.8); Chloride 104 mmol/L (96-109); Glucose 132 mg/dL (70-110); Potassium 3.6 mmol/L (3.5-5.5); Sodium 143 mmol/L (135-145); Total Bilirubin 0.9 mg/dL (0.3-1.2)
[2023-09-03 16:41] LABS: Basophils # (A) 0.03 X 10*3/uL (0.00-0.10); Basophils % (A) 0.4 %; Eosinophils # (A) 0.08 X 10*3/uL (0.04-0.35); Eosinophils % (A) 0.9 %; HCT 34.4 % (37.2-46.3); HGB 9.7 g/dL (12.0-15.0); Lymphocytes % (A) 22.5 %; MCH 19.4 pg (27.0-32.0); MCHC 28.2 g/dL (32.0-37.0); MCV 68.7 FL (80.0-97.0); Mean Platelet Volume 9.2 FL (9.5-12.2); Monocytes % (A) 5.9 %; NRBC Per 100 WBC 0 X 10*3/uL (0.00-0.01); Neutrophils # (A) 5.84 X 10*3/uL (1.80-7.70); Neutrophils % (A) 69.4 %; Platelet Count 328 X 10*3/uL (140-440); RBC 5.01 X 10*6/uL (4.10-5.20); RDW 21.2 % (11.5-14.5); WBC 8.43 X 10*3/uL (4.50-10.00)
== END | disposition home or self-care (01) ==
LOC: LABPAT 13:12
PROVIDERS: ATTEND Thoracic Surgery (Cardiothoracic Vascular Surgery)
DX: Z01.812 Encounter for preprocedural laboratory examination (principal); I35.0 Nonrheumatic aortic (valve) stenosis; Z79.899 Other long term (current) drug therapy; Z79.01 Long term (current) use of anticoagulants
CPT/HCPCS: 36415; 80053; 85025; 85610; 85730; 86850; 86900; 86901

== ENCOUNTER 2023-09-11 05:50 | Inpatient (IN) | payer MEDICARE, BC ==
[2023-09-11] MEDS: SODIUM CHLORIDE 0.9% 1,000 ML IV ONE (06:18)
[2023-09-11 06:40] LABS: Glucose,Whole Blood 165 mg/dL (70-110)
[2023-09-11] MEDS: CLOPIDOGREL 75 MG TAB PO ONE (06:58)
[2023-09-11] MEDS: ASPIRIN 325 MG TAB PO ONE (06:58)
[2023-09-11] MEDS: ATORVASTATIN 10 MG TAB PO ONE (06:58)
[2023-09-11] MEDS: METOPROLOL TARTRATE 25 MG TAB PO ONE (06:59)
[2023-09-11] MEDS: FAMOTIDINE 20 MG/2 ML VIAL ONE ×2 (07:04→17:18)
[2023-09-11] MEDS: diphenhydrAMINE 50 MG/ML 1 ML VIAL ONE ×2 (07:04→17:18)
[2023-09-11] MEDS: methylPREDNISolone SOD SUCCI 125 MG/2 ML VIAL IV ONE (07:04)
[2023-09-11] MEDS ORDERED: SODIUM CHLORIDE 0.9% 500 ML 500 ML INTRAARTER PRN (08:00)
[2023-09-11] MEDS ORDERED: NITROGLYCERIN-D5W PMX 25 MG/250 ML BTL IV PRN (08:00)
[2023-09-11] MEDS ORDERED: ELECTROLYTE-A SOLUTION 1,000 ML with POTASSIUM CHLORIDE 100 MEQ, MAGNESIUM SULFATE 16 M... IV PRN (08:00)
[2023-09-11] MEDS ORDERED: PROTAMINE SULFATE 250 MG in EMPTY BAG 1 BAG IV PRN (08:00)
[2023-09-11] MEDS ORDERED: INSULIN REGULAR 100 UNIT in SODIUM CHLORIDE 0.9% 100 ML IV PRN (08:00)
[2023-09-11] MEDS ORDERED: CLEVIDIPINE BUTYRATE 25 MG in EMPTY BAG 1 BAG IV PRN (08:00)
[2023-09-11] MEDS ORDERED: TRANEXAMIC ACID 2,000 MG in SODIUM CHLORIDE 0.9% 80 ML IV PRN (08:00)
[2023-09-11] MEDS ORDERED: PROTAMINE SULFATE 10 MG/ML 5 ML VIAL ONE (08:15)
[2023-09-11] MEDS ORDERED: NEOSTIGMINE 1 MG/ML 10 ML VIAL ONE (08:15)
[2023-09-11] MEDS ORDERED: ATROPINE SULFATE 0.1 MG/ML 10ML SYRINGE ONE (08:15)
[2023-09-11] MEDS ORDERED: ROCURONIUM 10 MG/ML (5 ML VIAL) IV ONE (08:15)
[2023-09-11] MEDS ORDERED: LIDOCAINE 1% INJ 10MG/ML (20 ML MDV) ONE (08:15)
[2023-09-11] MEDS ORDERED: GLYCOPYRROLATE 0.2 MG/ML 2 ML VIAL ONE (08:15)
[2023-09-11] MEDS ORDERED: SUCCINYLCHOLINE CHLORIDE 200 MG/10 ML VIAL IV ONE (08:15)
[2023-09-11] MEDS ORDERED: fentaNYL (PF) 50 MCG/ML 2 ML AMP ONE (08:15)
[2023-09-11] MEDS ORDERED: MIDAZOLAM 2 MG/2 ML VIAL ONE (08:15)
[2023-09-11] MEDS ORDERED: ePHEDrine 50 MG/ML 1 ML VIAL ONE (08:15)
[2023-09-11] MEDS ORDERED: HEPARIN SODIUM,PORCINE 5,000 UNIT/ML 1 ML VIAL ONE (08:15)
[2023-09-11] MEDS ORDERED: PROPOFOL 10 MG/ML 20 ML VIAL IV ONE (08:15)
[2023-09-11] MEDS ORDERED: Magnesium Replacement Protocol 1 EACH MISC MISCELLANE PRN (10:16)
[2023-09-11] MEDS ORDERED: CALCIUM GLUCONATE IN NACL 2 GM in SALINE 1 100ML.BAG IVPB PRN (10:16)
[2023-09-11] MEDS ORDERED: Potassium Replacement Protocol 1 EACH MISC MISCELLANE PRN (10:16)
[2023-09-11] MEDS ORDERED: IPRATROPIUM-ALBUTEROL 3 ML NEB INHALATION PRN (10:16)
[2023-09-11 10:25] LABS: Glucose,Whole Blood 164 mg/dL (70-110)
[2023-09-11] MEDS: SODIUM CHLORIDE 0.9% 1,000 ML IV SCH (10:30)
--- NOTE | 2023-09-11 11:04 | OP ---
OPERATIVE REPORT DATE OF SERVICE : 09/11/2023 ATTENDING STONER HAND: Armando Santiago DO. PREOPERATIVE DIAGNOSIS: Severe symptomatic aortic stenosis. POSTOPERATIVE DIAGNOSIS: Severe symptomatic aortic stenosis. PROCEDURES PERFORMED: Transcatheter aortic valve replacement via the right femoral artery approach with a Medtronic Evolut FX transcatheter aortic valve and placement of a right subclavian vein, right ventricular temporary pacer lead, intraoperative transesophageal echocardiogram. ANESTHESIA: General. BLOOD LOSS: About 100 mL. DESCRIPTION OF PROCEDURE: The patient was brought to the operating room and placed in supine position. Following administration of general endotracheal anesthetic, and placement of arterial line, adequate IV access, the body was prepped and draped in normal sterile fashion using chlorhexidine paint and sterile towels. Please make note at this point, the remainder of the TAVR procedure will be dictated by Dr. Armando Santiago of Cardiology. Please note, I was present for the entire procedure and fully incompletely deployed the 26 mm Medtronic FX transcatheter aortic valve in the correct anatomical position with excellent results confirmed by HANNAH. At the end of the procedure, the patient's rhythm had changed from sinus rhythm to third-degree heart block. Therefore, for overnight observation, a temporary pacer lead was placed via the right subclavian vein into the apex of the right ventricle. There were excellent specks. The pacing threshold was less than 1 V at 0.5 milliseconds. It was secured at the skin level and was to be used for the next 24 to 48 hours until evaluation for permanent pacemaker is completed. MMODL / IJN: [id number] /
[2023-09-11 11:21] LABS: Glucose,Whole Blood 204 mg/dL (70-110)
[2023-09-11 11:43] LABS: Anisocytosis Slight; Basophils % (A) 0 %; Eosinophils % (A) 0 %; HCT 32.6 % (34.0-46.0); HGB 9.4 gm/dL (11.4-16.0); Hypochromasia Marked; Lymphocytes # (A) 0.7 k/uL (1.0-4.8); Lymphocytes % (A) 9 %; MCHC 28.8 g/dL (31.0-37.0); MCV 69.5 fL (80.0-100.0); Mean Platelet Volume 7.2; Microcytosis Marked; Monocytes # (A) 0.2 k/uL (0-1.0); Monocytes % (A) 2 %; Neutrophils # (A) 6.9 k/uL (1.3-7.7); Neutrophils % (A) 88 %; Platelet Count 198 k/uL (150-450); Poikilocytosis Slight; RBC 4.68 m/uL (3.80-5.40); RDW 18.7 % (11.5-15.5); WBC 7.9 k/uL (3.8-10.6)
[2023-09-11 11:49] LABS: African American GFR (CKD) 51 (>60 ml/min/1.73 sqM); Anion Gap 10 mmol/L; Blood Urea Nitrogen 26 mg/dL (7-17); Calcium 8.5 mg/dL (8.4-10.2); Carbon Dioxide 20 mmol/L (22-30); Chloride 109 mmol/L (98-107); Glucose 190 mg/dL (74-99); Non-African American GFR(CKD) 45 (>60 ml/min/1.73 sqM); Potassium 3.4 mmol/L (3.5-5.1); Sodium 139 mmol/L (137-145)
[2023-09-11] MEDS: CLEVIDIPINE BUTYRATE 25 MG in EMPTY BAG 1 BAG IV SCH (11:54)
[2023-09-11] MEDS: LACTATED RINGERS 1,000 ML IV SCH (12:48)
--- NOTE | 2023-09-11 12:48 | P.ANPRN ---
Procedure Note - Anesthesia - HANNAH Intraop Pre Bypass HANNAH Intraop - Anesthesia Indication: transcatheter aortic valve replacement Date of Procedure: 09/11/23 Pre-operative Diagnosis: severe aortic stenosis Post-operative Diagnosis: severe aortic stenosis status post transcatheter aortic replacement Surgeon: Leon Mercado Ejection Fraction: Normal Regional Wall Motion Abnormalities: None Left Ventricle Hypertrophy: Yes (mild) R. Ventricle Function: Normal Aortic Valve: severely calcified aortic valve noted. Peak gradient across 67 mmHg and mean gradient 42 mmHg. Aortic valve area 0.6cm2 Anatomy: Trileaflet Aortic Stenosis: Severe Aortic Regurgitation: Moderate Mitral Stenosis: None Mitral Regurgitation: Mild Tricuspid Stenosis: None Tricuspid Regurgitation: Trace Pulmonic Stenosis: None Pulmonic Regurgitation: None R. Atrial Dilation: No R. Atrial PFO: No L. Atrial Dilation: Yes (mild) Aortic Dissection: No Aortic Calcification: None Plural Effusion: None - HANNAH Intraop Post Bypass HANNAH Intraop Post Bypass Procedure Performed: transcatheter aortic valve replacement Ejection Fraction: Normal Regional Wall Motion Abnormalities: None R. Ventricle Function: Normal Aortic Valve: prosthetic aortic valve noted. There is a trace paravalvular leak noted. Peak gradient across the prosthetic valve is 6 mmHg and mean gradient is 4 mmHg. Mitral Valve: Unchanged Tricuspid: Unchanged Pulmonic: Unchanged Aortic Dissection: No
[2023-09-11] MEDS: IPRATROPIUM-ALBUTEROL 3 ML NEB INHALATION SCH ×2 (13:21→16:00)
--- NOTE | 2023-09-11 13:33 | XR ---
EXAMINATION TYPE: XR chest 1V portable DATE OF EXAM: 09/11/2023 1:26 PM CLINICAL INDICATION:Female, 88 years old with history of Post Operative Cardiac Surgery; [facility] COMPARISON: Chest radiographs from 07/11/2023 TECHNIQUE: XR chest 1V portable Frontal view of the chest. FINDINGS: Lungs/Pleura: Subsegmental atelectasis present in the lung bases, interval improved appearance of lef t lung base aeration. No evidence of pleural effusion or pneumothorax. Pulmonary vascularity: Unremarkable. Heart/mediastinum: Cardiomediastinal silhouette is unremarkable. Interval placement of aortic stent device. Musculoskeletal: No acute osseous pathology. IMPRESSION: 1. No acute cardiopulmonary disease/process. 2. Interval placement of aortic stent.
[2023-09-11] MEDS: POTASSIUM CHLORIDE ER 20 MEQ TAB.ER PO SCH (14:53)
--- NOTE | 2023-09-11 14:55 | P.CONS ---
History of Present Illness - Reason for Consult Consult date: 09/11/23 Medical management Requesting physician: Leon Mercado - Chief Complaint S/P TAVR with third degree AV block. - History of Present Illness HISTORY OF PRESENT ILLNESS: This is an 88-year-old female one of my patient with a previous medica l history significant for hypertension and hypertensive cardiovascular disease, hyperlipidemia, diabetes mellitus type 2, osteoarthritis, coronary artery disease, history of CVA, history of the osteomyelitis of the right heel with multidrug resistant Acinetobacter that was treated in June 2020, Covid 19 infection 05/13/2021, patient was recently hospitalized and she was evaluated for moderate to severe aortic valve stenosis she ended up going for a computed tomography scan of aortic valve for possible TAVR initially that was put on hold because of her allergy to nickel, eventually the patient ended up going for TAVR today by Dr. Mercado, she ended up with complete heart block, had a temporary transvenous pacemaker, she was admitted to the ICU, the plan is to put a permanent pacemaker tomorrow morning, we were consulted for medical management. REVIEW OF SYSTEMS: Constitutional: Reports fever, reports chills, no night sweats. No weight change. positive for weakness, fatigue no lethargy. No daytime sleepiness. HEENT: No headache. No blurred vision or double vision, no loss of vision. No loss of Hearing, no ringing in the ears, no dizziness. Reports nasal drainage or congestion. No epistaxis. No sore throat. Lungs: positive for shortness of breath, positive for cough, no sputum production. No wheezing. Reports dyspnea with activity. Cardiovascular: no chest pain, no lower extremity edema. positive for palpitations. No paroxysmal nocturnal dyspnea. No orthopnea. No lightheadedness or dizziness. No syncopal episodes. Abdominal: No abdominal pain. positive for nausea, no vomiting. No diarrhea. No constipation. No bloody or tarry stools reports loss of appetite. Genitourinary: No dysuria, increased frequency, urgency. No urinary retention. Musculoskeletal: No myalgias. no weakness, gait dysfunction, no frequent falls. No back pain. No neck pain. Integumentary: dry skin in both legs and feet, no lesions. No rash or pruritus. No unusual bruising. No change in hair or nails. Neurologic: No aphasia. No facial droop. No change in mentation. No head injury. No headache. No paralysis. No paresthesia. Psychiatric: No depression. No anxiety. No mood swings. Endocrine: No abnormal blood sugars. No weight change. PAST MEDICAL HISTORY: Coronary artery disease. Hypertension and hypertensive cardiovascular disease. Hyperlipidemia. Diabetes mellitus type 2. Osteoarthritis. Aortic valve stenosis. Aortic regurgitation. Chronic diastolic heart failure. History of osteomyelitis of the right heel Hypothyroidism. Paroxysmal atrial fibrillation. PAST SURGICAL HISTORY: Bilateral cataract surgery. SOCIAL HISTORY: Patient used to smoke about pack every day but she quit many years ago, she denies any drug use or abuse, she has no alcohol ingestion, she lives with her daughter. FAMILY HISTORY: Mother at age of 77 from myocardial infarction, father at age 44 from a massive heart attack, patient had 4 brothers her oldest brothers at the age of 87 after coronary artery bypass graft the other one at age of 86 from Alzheimer dementia, she still have 2 living brothers one of them with cor onary artery bypass graft as well as SD status post PCI with idiopathic pulmonary fibrosis of diabetes mellitus type 2 her fourth brother is healthy patient also had 6 sisters one of them from the pulmonary medicine and significant blood clots the other one in the hospital after she did have a shoulder surgery and she ended up with sepsis, patient also has one sister with TIA without CVA 1 is bedridden about 88-year-old she is bed ridden due to multiple strokes, and one is alive with Alzheimer PHYSICAL EXAMINATION: General: 88-year-old female who is laying down in bed in mild acute distress. HEENT: Head is atraumatic, normocephalic, pupils were equal round reactive to light and recommendation, extraocular muscle movement were intact, sclera nonicteric, conjunctivae were pale, mucous membranes of the mouth are somewhat dry. Neck: Supple, no JVP, normal carotid upstroke bilaterally, no lymphadenopathy. Chest: Decreased breath sounds at the bases, few rhonchi, no expiratory wheezes, no chest wall tenderness, no intercostal retractions. Heart: First heart sound is normal, second heart sounds normal there is mild aortic regurgitation murmur in the right second intercostal space. Abdomen: Soft, nontender, nondistended, positive bowel sounds, there is no hepatosplenomegaly. Extremities: There is no edema no calf tenderness DP +1 bilaterally, Neurologic examination: Patient is awake alert and oriented X 3, cranial nerves II-12 appear grossly intact, muscle power were 5 out of 5 in upper extremities and 5 out of 5 in bilateral lower extremities, deep tendon reflexes normal bilaterally. ASSESSMENT AND PLAN: 1. Postoperative day #0 status post TAVR with resultant complete heart block. Status post transvenous pacemaker placement patient is scheduled to go for permanent pacemaker tomorrow morning, continue ICU care, will monitor the patient very closely. 2. Third-degree AV block post transvenous pacemaker going for a Permanent pace maker tomorrow morning. 3. . Paroxysmal atrial fibrillation. Continue to hold Eliquis until the patient permanent pacemaker is placed, patient is off beta-yasir as well due to complete heart block. 4. Hypertension and hypertensive cardiovascular disease. Continue to hold off metoprolol for now. 5. Hyperlipidemia. Continue patient on atorvastatin 40 mg once every day continue Ezetimibe 10 mg once every day, mitral, keep LDL 55-70 6. Hypothyroidism. Continue patient on Synthroid 25 MCG orally once every day. 7. Diabetes mellitus type 2. Continue patient on Farxiga 10 mg orally once every day start the patient on SSI, continue patient on Rybelsus 3 mg orally once every day, start the patient on Lantus 18 units at bedtime 8. Severe aortic valve stenosis status post TAVR. 9. GERD. Continue with Protonix 40 mg orally once every day. 10. history of CVA in the past. we will hold Eliquis for now continue atorvastatin 40 mg once every day as well as Zetia 10 mg once every day keep LDL 55 11. Iron deficiency anemia. We will continue to monitor the patient CBC, she will benefit from Venofer daily for the next 3 days we will start after the pacemaker placement. 11. DVT prophylaxis. patient was started on heparin 5000 units subcutaneous every 8 hours. 12. GI prophylaxis. Continue Protonix 40 mg orally once every day. 13. Thank you for the consult we will follow with you. Past Medical History Past Medical History: Atrial Fibrillation, Coronary Artery Disease (CAD), Heart Failure, Diabetes Mellitus, Hyperlipidemia, Hypertension, Pneumonia Additional Past Medical History / Comment(s): Very sob, Dr Benjamin watch small hematoma over brunner rt leg,rt leg aching, fell 08-29-23 and 09-03-23-rt leg gave out-seen in ER 09-03-23,LYMPHEDEMA-qasim legs,pneumonia infection Jun 2023 History of Any Multi-Drug Resistant Organisms: MRSA Year Discovered:: 07/14/20 MDRO Source:: RIGHT FOOT Past Surgical History: Heart Catheterization With Stent Additional Past Surgical History / Comment(s): Heart cath x3 stents Past Anesthesia/Blood Transfusion Reactions: No Reported Reaction Additional Past Anesthesia/Blood Transfusion Reaction / Comm: PATIENT STATES THAT LAST HEART CATH SHE HAD A REACTION-SWOLLEN FACE-RED FACE-ITCHY SKIN W/ first heart cath. no hx blood transfusion. dtr has PONV Date of Last Stent Placement:: 03/2021 Smoking Status: Former smoker - Past Family History Father Family Medical History: Myocardial Infarction (SD) Additional Family Medical History / Comment(s): AT 46 OF HEART ATTACK Mother Family Medical History: Congestive Heart Failure (CHF) Additional Family Medical History / Comment(s): heart problems. hemodialysis,lymphedema Medications and Allergies Home Medications Medication Instructions Recorded Confirmed Type Furosemide [Lasix] 20 mg PO DAILY #30 tab 03/23/21 09/10/23 Rx Dapagliflozin Propanediol [Farxiga] 10 mg PO DAILY 10/01/21 09/11/23 History Omeprazole [PriLOSEC] 20 mg PO AC-BID 02/03/22 09/11/23 History Atorvastatin Calcium [Lipitor] 40 mg PO DAILY 01/03/23 09/10/23 History Ezetimibe [Zetia] 10 mg PO DAILY 01/03/23 09/10/23 History Levothyroxine Sodium [Synthroid] 50 mcg PO QAM 01/03/23 09/11/23 History Semaglutide [Rybelsus] 3 mg PO DAILY 01/03/23 09/11/23 History Meclizine HCl 25 mg PO Q8H PRN 05/18/23 09/11/23 History Apixaban [Eliquis] 2.5 mg PO BID #60 tab 05/22/23 09/11/23 Rx Budesonide/Glycopyr/Formoterol 2 puff INHALATION RT-BID 07/11/23 09/11/23 History [Breztri Aerosphere Inhaler] Amiodarone HCl [Pacerone] 200 mg PO BID 08/02/23 09/11/23 History Insulin Glargine,Hum.rec.anlog 18 units SQ HS 08/02/23 09/11/23 History [Insulin Glargine Solostar] Metoprolol Succinate (ER) [Toprol 12.5 mg PO QAM 08/02/23 09/11/23 History XL] Allergies Allergy/AdvReac Type Severity Reaction Status Date / Time Iodinated Contrast Media Allergy Severe Rash/Hives Verified 09/11/23 06:44 hydrocortisone Allergy Intermediate Rash/Hives Verified 09/11/23 06:44 ampicillin [From Polycillin] Allergy Mild Rash/Hives Verified 09/11/23 06:44 cefaclor [From Ceclor] Allergy Mild Rash/Hives Verified 09/11/23 06:44 nitroglycerin Allergy Mild Unknown Verified 09/11/23 06:44 NSAIDS (Non-Steroidal Allergy Mild Unknown Verified 09/11/23 06:44 Anti-Inflamma sulfur dioxide Allergy Mild Unknown Verified 09/11/23 06:44 latex Allergy Itching Verified 09/11/23 06:44 nickel Allergy Rash/Hives Verified 09/11/23 06:44 nitrofurantoin Allergy Unknown Verified 09/11/23 06:44 [From Macrodantin] quinedex Allergy Unknown Uncoded 09/11/23 06:44 Physical Exam Vitals: Vital Signs Temp Pulse Pulse Resp BP BP BP 09/11/23 13:45 70 26 H 09/11/23 13:30 70 18 09/11/23 13:15 70 18 09/11/23 13:00 70 18 106/63 09/11/23 12:45 70 25 H 09/11/23 12:30 70 17 09/11/23 12:15 70 15 09/11/23 12:00 97.4 F L 70 13 118/83 09/11/23 11:45 70 12 09/11/23 11:30 20 09/11/23 11:25 20 09/11/23 11:20 70 20 09/11/23 11:15 70 20 09/11/23 11:10 70 20 09/11/23 11:05 70 20 09/11/23 11:00 70 16 09/11/23 10:55 70 16 09/11/23 10:50 70 16 09/11/23 10:45 70 17 09/11/23 10:40 70 19 09/11/23 10:35 70 16 09/11/23 10:30 70 16 131/79 09/11/23 07:27 16 164/67 159/69 09/11/23 07:22 97.2 F L 64 16 Pulse Ox 09/11/23 13:45 98 09/11/23 13:30 98 09/11/23 13:15 98 09/11/23 13:00 97 09/11/23 12:45 97 09/11/23 12:30 97 09/11/23 12:15 99 09/11/23 12:00 98 09/11/23 11:45 98 09/11/23 11:30 98 09/11/23 11:25 99 09/11/23 11:20 99 09/11/23 11:15 99 09/11/23 11:10 98 09/11/23 11:05 99 09/11/23 11:00 99 09/11/23 10:55 99 09/11/23 10:50 99 09/11/23 10:45 99 09/11/23 10:40 99 09/11/23 10:35 100 09/11/23 10:30 100 09/11/23 07:27 96 09/11/23 07:22 96 Intake and Output 09/10/23 09/11/23 09/11/23 22:59 06:59 14:59 Intake Total 200 164 Output Total 200 Balance 200 -36 Intake: IV 200 134 .9 3cc/hr 9 Sodium Chloride 0.9% 1, 125 000 ml @ 50 mls/hr IV . Q20H [facility] Rx#:[id number] Oral 30 Output: Urine 200 Other: # Bowel Movements 0 Weight 70.9 kg 70.9 kg ABP, PAP, CO, CI - Last 8 Hours Arterial Blood Pressure 124/53 Arterial Blood Pressure 118/52 Arterial Blood Pressure 133/59 Arterial Blood Pressure 111/55 Arterial Blood Pressure 118/56 Arterial Blood Pressure 131/61 Arterial Blood Pressure 143/64 Arterial Blood Pressure 129/60 Arterial Blood Pressure 144/66 Arterial Blood Pressure 143/64 Arterial Blood Pressure 139/64 Arterial Blood Pressure 152/67 Arterial Blood Pressure 147/67 Arterial Blood Pressure 135/63 Arterial Blood Pressure 138/64 Arterial Blood Pressure 146/68 Arterial Blood Pressure 146/68 Arterial Blood Pressure 145/67 Arterial Blood Pressure 152/69 Arterial Blood Pressure 137/65 Arterial Blood Pressure 142/61 Arterial Blood Pressure 135/56 Arterial Blood Pressure 142/60 Arterial Blood Pressure 144/62 Results CBC & Chem 7: 09/11/23 11:28 09/11/23 11:28 Labs: Abnormal Lab Results - Last 24 Hours (Table) 09/11/23 09/11/23 09/11/23 Range/Units 06:29 10:24 11:19 Hgb (11.4-16.0) gm/dL Hct (34.0-46.0) % MCV (80.0-100.0) fL MCH (25.0-35.0) pg MCHC (31.0-37.0) g/dL RDW (11.5-15.5) % Lymphocytes # (1.0-4.8) k/uL Potassium (3.5-5.1) mmol/L Chloride (98-107) mmol/L Carbon Dioxide (22-30) mmol/L BUN (7-17) mg/dL Creatinine (0.52-1.04) mg/dL Glucose (74-99) mg/dL POC Glucose (mg/dL) 165 H 164 H 204 H (70-110) mg/dL 09/11/23 09/11/23 Range/Units 11:28 11:28 Hgb 9.4 L (11.4-16.0) gm/dL Hct 32.6 L (34.0-46.0) % MCV 69.5 L (80.0-100.0) fL MCH 20.0 L (25.0-35.0) pg MCHC 28.8 L (31.0-37.0) g/dL RDW 18.7 H (11.5-15.5) % Lymphocytes # 0.7 L (1.0-4.8) k/uL Potassium 3.4 L (3.5-5.1) mmol/L Chloride 109 H (98-107) mmol/L Carbon Dioxide 20 L (22-30) mmol/L BUN 26 H (7-17) mg/dL Creatinine 1.10 H (0.52-1.04) mg/dL Glucose 190 H (74-99) mg/dL POC Glucose (mg/dL) (70-110) mg/dL
[2023-09-11] MEDS: POTASSIUM CHLORIDE ER 10 MEQ TAB.ER.PRT PO STA (15:00)
[2023-09-11] MEDS: POTASSIUM CHLORIDE ER 10 MEQ TAB.ER.PRT PO SCH (16:00)
--- NOTE | 2023-09-11 16:59 | P.OP ---
Description of Procedure: Transcatheter Aoritc Valve Replacement Operative report PROCEDURE PERFORMED: 1. Percutaneous Aortic Valve Implantation using a 26 mm Evolut-FX. 2. Transesophageal echocardiography (performed by anesthesia) 3. Ultrasound guided access and repair of right femoral artery access site by Perclose closure device. 4. Placement of temporary pacemaker wire. 5. Aortic root angiography INDICATIONS: 1. 88 year-old with a history of severe symptomatic aortic valve stenosis. PERFORMING PHYSICIANS: 1. Armando Santiago, Interventional Cardiology 2. Leon Mercado MD, Cardiothoracic Surgeon. SEDATION: General anesthesia provided by anesthesia, see separate note APPROACH: Right femoral artery via percutaneous approach PROCEDURE DESCRIPTION: The patient was discussed at valve clinic with multidisciplinary approach with cardiothoracic surgeon as well as manager of sustainability and thought better treated with TAVR. Risks, benefits, and alternatives of the procedure had been explained to the patient who understood the risks and agreed to proceed. After consents were obtained, patient was brought to the transcatheter aortic valve implantation room in the cardiac mine laborer and general anesthesia was provided by the anesthesiologist (see separate report). Once full body sterile prep was performed, left femoral venous access was obtained and a 6-Marshallese sheath was placed. A temporary venous pacemaker wire was inserted through the venous sheath and placed in the right ventricle. Pacing thresholds were checked and deemed adequate. Next the left femoral artery was accessed using a modified Seldinger technique, ultrasound guidance and micropuncture technique. A 6 Marshallese Rabi sheath was placed in the left femoral artery. Next, a 6-Marshallese pigtail catheter was advanced into the aorta and positioned in the aortic root, aortic root angiography was performed to determine optimal deployment angle. The right femoral artery was accessed using modified Seldinger technique, micropuncture technique and under direct ultrasound guidance. Femoral angiogram was done showing access in the common femoral artery and a 6Fr sheath was placed. Next preclose technique was performed using 2 Perclose. Next a 0.035 Safari wire was placed in the Aorta via a pigtail catheter. Over that the arteriotomy was serially dilated and a 14 Fr [place] sheath was placed. Next a 6F- AL1 catheter was advanced over a wire to the aortic root. A straight wire was advanced through the catheter and used to cross the severely stenotic valve. The AL1 was then exchanged for a 6Fr pigtail catheter and pressure measurements were obtained. The 0.035 Safari wire was then positioned in the apex. Next a 26 mm Evolut-FX was advanced. The valve was then positioned across the aortic valve and confirmed with aortic root angiography. The valve was initially partially deployed however needed repositioning and therefore was recaptured. The valve was then deployed in proper position using slow deployment and with rapid pacing in conjuncture with aortic root angiography and HANNAH. The delivery system was withdrawn back into the arch and an aortic root injection in conjunction with HANNAH demonstrated a satisfactory result. There was trace para valvular leak. There was no evidence of any other significant abnormalities. The preclose Perclose was then deployed in the right femoral artery and hemostasis was achieved. The pigtail was then advanced to the level of the iliac bifurcation via the left femoral access. Femoral angiogram was performed that showed no contrast leak. The left femoral angiogram demonstrated an arteriotomy in the common femoral artery and this was repaired using a 6F angioseal device with complete hemostasis. Patient did develop third-degree heart block after placement of the valve. Therefore, right subclavian venous access was obtained and a temporary pacemaker was screwed in, performed by cardiothoracic surgery. Pacing threshholds were checked and deemed appropriate. The femoral temporary venous pacemaker was removed and the venous sheath was removed with hemostasis achieved. The patient was then transported to the ICU in hemodynamically stable condition, requiring no pressor support. COMPLICATIONS: Third-degree heart block CONCLUSION: 1. Implantaion of 26 mm Evolut-FX transcatheter aortic valve via right femoral approach under HANNAH and fluoro guidance with trace edgar-valvular aortic regurgitation. 2. Placement of temporary pacemaker wire 3. Aortic Root Aortogram. RECOMMENDATIONS: The patient will be monitored in the ICU for hemodynamic and electrical stability. If no improvement in heart rates, likely permanent pacemaker tomorrow
[2023-09-11] MEDS: POTASSIUM CHLORIDE ER 10 MEQ TAB.ER.PRT PO ONE (17:17)
[2023-09-11 17:47] LABS: Glucose,Whole Blood 224 mg/dL (70-110)
[2023-09-11] MEDS: INSULIN ASPART (NovoLOG) 100 UNIT/ML VIAL SQ SCH (17:51)
[2023-09-11] MEDS ORDERED: ACETAMINOPHEN TAB 500 MG TAB PO PRN (18:00)
[2023-09-11] MEDS: SYMBICORT 160-4.5 MCG INHALER INHALATION SCH (21:04)
[2023-09-11 21:05] LABS: Glucose,Whole Blood 200 mg/dL (70-110)
[2023-09-11] MEDS: PANTOPRAZOLE 40 MG/10 ML VIAL IVP SCH (21:46)
[2023-09-11] MEDS: INSULIN DETEMIR (LEVEMIR) 100 UNIT/ML SYR SQ SCH (21:46)
[2023-09-12] MEDS: HEPARIN SODIUM,PORCINE 5,000 UNIT/ML 1 ML VIAL SQ SCH ×2 (01:09→09:47)
[2023-09-12 04:31] LABS: Anisocytosis Slight; Basophils % (A) 0 %; Eosinophils % (A) 0 %; HCT 31.7 % (34.0-46.0); HGB 9.1 gm/dL (11.4-16.0); Hypochromasia Marked; Lymphocytes # (A) 1.1 k/uL (1.0-4.8); Lymphocytes % (A) 8 %; MCH 19.8 pg (25.0-35.0); MCHC 28.8 g/dL (31.0-37.0); MCV 68.9 fL (80.0-100.0); Mean Platelet Volume 7.2; Microcytosis Marked; Monocytes # (A) 0.8 k/uL (0-1.0); Monocytes % (A) 6 %; Neutrophils # (A) 11.9 k/uL (1.3-7.7); Neutrophils % (A) 85 %; Platelet Count 192 k/uL (150-450); Poikilocytosis Slight; RDW 19.1 % (11.5-15.5)
[2023-09-12 04:56] LABS: ALT 15 U/L (4-34); AST 26 U/L (14-36); African American GFR (CKD) 43 (>60 ml/min/1.73 sqM); Albumin 3.4 g/dL (3.5-5.0); Alkaline Phosphatase 82 U/L (38-126); Anion Gap 10 mmol/L; Blood Urea Nitrogen 29 mg/dL (7-17); Calcium 9.1 mg/dL (8.4-10.2); Carbon Dioxide 18 mmol/L (22-30); Chloride 113 mmol/L (98-107); Glucose 157 mg/dL (74-99); Magnesium 1.5 mg/dL (1.6-2.3); Non-African American GFR(CKD) 37 (>60 ml/min/1.73 sqM); Potassium 4.4 mmol/L (3.5-5.1); Sodium 141 mmol/L (137-145); Total Bilirubin 0.7 mg/dL (0.2-1.3); Total Protein 6.2 g/dL (6.3-8.2)
[2023-09-12 06:33] LABS: Glucose,Whole Blood 153 mg/dL (70-110)
[2023-09-12] MEDS: LEVOTHYROXINE 50 MCG TAB PO SCH (07:03)
--- NOTE | 2023-09-12 07:17 | XR ---
EXAMINATION TYPE: XR ankle complete RT DATE OF EXAM: 09/11/2023 8:54 PM CLINICAL INDICATION:Female, 88 years old with history of pain post fall; [facility] COMPARISON: None TECHNIQUE: 3 views right ankle. FINDINGS: Osseous mineralization appears slightly reduced. No acute fracture lucency or significant malalignmen t. Mild cortical irregularity along the distal fibular shaft above the ankle suggestive of remote inj ury. Ankle mortise appears preserved. Talar dome looks intact. Moderate-sized plantar and small dorsa l calcaneal spurs. Moderate degenerative changes of the imaged hindfoot and midfoot. Soft tissues are generally prominent, likely body habitus. A few calcifications likely related to phl eboliths. Some arterial calcifications are also seen. No radiopaque foreign body. IMPRESSION: No acute fracture or dislocation.
[2023-09-12] MEDS ORDERED: PANTOPRAZOLE 40 MG TABLET PO SCH (07:30)
--- NOTE | 2023-09-12 07:41 | XR ---
EXAMINATION TYPE: XR knee complete RT DATE OF EXAM: 09/11/2023 8:54 PM CLINICAL INDICATION:Female, 88 years old with history of pain post fall; [facility] COMPARISON: None. TECHNIQUE: Frontal and crosstable lateral views of the right knee. FINDINGS: Osseous mineralization appears slightly reduced. No acute fracture lucency or dislocation. Moderate t ricompartmental osteoarthropathy with narrowing of the joint spaces and marginal osteophytes. Possibl e faint chondrocalcinosis in the lateral compartment, this can be seen with CPPD. No acute soft tissu e abnormality. A sizable joint effusion is not seen, but a small effusion cannot be ruled out. IMPRESSION: 1. No acute fracture or dislocation. 2. Moderate tricompartmental osteoarthropathy.
--- NOTE | 2023-09-12 08:02 | XR ---
EXAMINATION TYPE: XR chest 1V portable DATE OF EXAM: 09/12/2023 COMPARISON: 09/11/2023 HISTORY: Postop TECHNIQUE: Single frontal view of the chest is obtained. FINDINGS: There is no focal air space opacity, pleural effusion, or pneumothorax seen. The cardiac silhouette size is within normal limits. The osseous structures are intact. Coronary artery stentin g and aortic valve replacement. Atherosclerotic change aorta. Diffuse osteopenia. Biapical pleural th ickening. Linear changes involving the lung bases most typical of scarring or atelectasis. Tiny granu caleb in the lungs are suspected in left upper lobe. IMPRESSION: No acute process.
[2023-09-12] MEDS ORDERED: bisacodyL 10 MG SUPP RECTAL PRN (09:00)
[2023-09-12] MEDS ORDERED: MAGNESIUM HYDROXIDE 2,400 MG/30 ML CUP PO PRN (09:00)
[2023-09-12] MEDS: ATORVASTATIN 40 MG TAB PO SCH (09:14)
[2023-09-12] MEDS: DAPAGLIFLOZIN PROPANEDIOL 10 MG TABLET PO SCH (09:15)
[2023-09-12] MEDS: EZETIMIBE 10 MG TAB PO SCH ×2 (09:15→09:47)
[2023-09-12] MEDS: ASPIRIN 81 MG PO SCH ×2 (09:15→09:47)
[2023-09-12] MEDS ORDERED: SODIUM CHLORIDE 0.9% 1,000 ML IV SCH ×2 (09:45)
[2023-09-12] MEDS: PATIENT'S OWN (Semaglutide [Rybelsus] 3 MG Tablet) PO SCH (09:47)
--- NOTE | 2023-09-12 09:53 | P.PN ---
Subjective Progress Note Date: 09/12/23 Principal diagnosis: Severe symptomatic aortic valve stenosis. Past medical history significant for diabetes mellitus type 2, hypertension, hyperlipidemia, TIA in 2019, lymphedema, coronary artery disease status post PCI, history of myocardial infarction, paroxysmal atrial fibrillation, bilateral internal carotid stenosis of 50 to 79%, and history of COVID-19 infection in 2021. POD #1 Percutaneous Aortic Valve Implantation using a 26 mm Evolut-FX, Transesophageal echocardiography (performed by anesthesia), Ultrasound guided access and repair of right femoral artery access site by Perclose closure device, Placement of temporary pacemaker wire, Aortic root angiography. Third-degree AV block post TAVR The patient was seen and examined in follow-up today September 12, 2023 at her bedside in the intensive care unit. She is currently laying in bed, is awake, alert, oriented x 3 and is in no acute apparent distress. Denies any complaints of pain or shortness of breath at this time. Oxygen saturations are 97% on room air. Bedside telemetry is showing a ventricular paced rhythm heart rate 70 bpm, underlying rhythm is showing third-degree AV block heart rate in the 40s. Bilateral groin sites are soft and nontender to palpate, bilateral groin sites are clean and dry. Right subclavian pacemaker lead remains in place and secured and connected to backup bedside pacemaker generator on a VVI mode of 78 bpm. The patient has been out of bed and tolerated well sitting in the chair. She is scheduled for a permanent pacemaker placement today at 3 PM. Chest x-ray and laboratory results were reviewed. Objective - Vital Signs Vital signs: Vital Signs Temp 98.2 F 09/12/23 04:00 Pulse 70 09/12/23 08:26 Resp 16 09/12/23 07:00 BP 95/52 09/12/23 07:00 Pulse Ox 96 09/12/23 07:00 FiO2 Intake & Output 09/11/23 09/12/23 09/12/23 18:59 06:59 18:59 Intake Total 505 300 0 Output Total 400 200 0 Balance 105 100 0 Weight 74 kg 73.9 kg Intake: IV 215 .9 3cc/hr 15 Sodium Chloride 0.9% 1, 200 000 ml @ 50 mls/hr IV . Q[facility]H [facility] Rx#:[id number] Oral 290 300 0 Output: Urine 400 200 0 Other: Voiding Method External Catheter External Catheter # Bowel Movements 0 0 ABP, PAP, CO, CI - Last Documented Arterial Blood Pressure 109/46 - Exam CONSTITUTIONAL: Appears comfortable, cooperative, no apparent acute distress. HEENT: Neck is supple, no JVD, no lymphadenopathy. RESPIRATORY: Lungs sounds essentially clear throughout, diminished to his bilateral bases. Respirations are symmetrical and nonlabored. Currently on room air 97% with oxygen saturations 97%. Strong cough. CARDIOVASCULAR: Regular rhythm and rate. S1 and S2 present, negative for S3, gallop or murmur. Palpable peripheral pulses bilaterally. No calf pain or tenderness noted. Knee-high SILVANO hose and sequential compression devices in place to his bilateral lower extremities. GASTROINTESTINAL: Abdomen soft, nontender, nondistended. Active bowel sounds present 4 quadrants. Tolerating diet. Passing flatus. No guarding or rigidity. GENITOURINARY: Continues to void. Surgery INTEGUMENTARY: Skin is warm and dry with no evidence of clubbing or cyanosis. Bilateral groin puncture sites clean and dry, soft and nontender to palpate. NEUROLOGIC: Cranial nerves II through XII intact. No focal deficits. MUSKULOSKELETAL: Able to move all extremities, strength equal bilaterally, generalized weakness. PSYCHIATRIC: Alert and oriented to person place and time, appropriate affect, intact judgment and insight. INVASIVE LINES AND TUBES: Right subclavian temporary pacemaker wire is secured in place, connected to bedside portable pacemaker generator on a VVI mode of 70 bpm. - Allied health notes Allied health notes reviewed: nursing - Labs CBC & Chem 7: 09/12/23 03:42 09/12/23 03:42 Labs: Abnormal Lab Results - Last 24 Hours (Table) 09/11/23 09/11/23 09/11/23 Range/Units 10:24 11:19 11:28 WBC (3.8-10.6) k/uL Hgb 9.4 L (11.4-16.0) gm/dL Hct 32.6 L (34.0-46.0) % MCV 69.5 L (80.0-100.0) fL MCH 20.0 L (25.0-35.0) pg MCHC 28.8 L (31.0-37.0) g/dL RDW 18.7 H (11.5-15.5) % Neutrophils # (1.3-7.7) k/uL Lymphocytes # 0.7 L (1.0-4.8) k/uL Potassium (3.5-5.1) mmol/L Chloride (98-107) mmol/L Carbon Dioxide (22-30) mmol/L BUN (7-17) mg/dL Creatinine (0.52-1.04) mg/dL Glucose (74-99) mg/dL POC Glucose (mg/dL) 164 H 204 H (70-110) mg/dL Magnesium (1.6-2.3) mg/dL Total Protein (6.3-8.2) g/dL Albumin (3.5-5.0) g/dL 09/11/23 09/11/23 09/11/23 Range/Units 11:28 17:45 21:02 WBC (3.8-10.6) k/uL Hgb (11.4-16.0) gm/dL Hct (34.0-46.0) % MCV (80.0-100.0) fL MCH (25.0-35.0) pg MCHC (31.0-37.0) g/dL RDW (11.5-15.5) % Neutrophils # (1.3-7.7) k/uL Lymphocytes # (1.0-4.8) k/uL Potassium 3.4 L (3.5-5.1) mmol/L Chloride 109 H (98-107) mmol/L Carbon Dioxide 20 L (22-30) mmol/L BUN 26 H (7-17) mg/dL Creatinine 1.10 H (0.52-1.04) mg/dL Glucose 190 H (74-99) mg/dL POC Glucose (mg/dL) 224 H 200 H (70-110) mg/dL Magnesium (1.6-2.3) mg/dL Total Protein (6.3-8.2) g/dL Albumin (3.5-5.0) g/dL 09/12/23 09/12/23 09/12/23 Range/Units 03:42 03:42 06:29 WBC 14.0 H (3.8-10.6) k/uL Hgb 9.1 L (11.4-16.0) gm/dL Hct 31.7 L (34.0-46.0) % MCV 68.9 L (80.0-100.0) fL MCH 19.8 L (25.0-35.0) pg MCHC 28.8 L (31.0-37.0) g/dL RDW 19.1 H (11.5-15.5) % Neutrophils # 11.9 H (1.3-7.7) k/uL Lymphocytes # (1.0-4.8) k/uL Potassium (3.5-5.1) mmol/L Chloride 113 H (98-107) mmol/L Carbon Dioxide 18 L (22-30) mmol/L BUN 29 H (7-17) mg/dL Creatinine 1.28 H (0.52-1.04) mg/dL Glucose 157 H (74-99) mg/dL POC Glucose (mg/dL) 153 H (70-110) mg/dL Magnesium 1.5 L (1.6-2.3) mg/dL Total Protein 6.2 L (6.3-8.2) g/dL Albumin 3.4 L (3.5-5.0) g/dL - Imaging and Cardiology Chest x-ray: report reviewed, image reviewed Assessment and Plan Assessment: Severe symptomatic aortic valve stenosis, status post percutaneous aortic valve implantation using a 26 mm Evolute FX Hypertension Hyperlipidemia Diabetes mellitus type 2 TIA in 2019 Lymphedema Coronary artery disease status post PCI History of myocardial infarction Paroxysmal atrial fibrillation Bilateral internal carotid artery stenosis 50 to 79% History of COVID-19 infection in 2021 Plan: Continue to hold Eliquis in anticipation for permanent pacemaker placement today. Patient remains in third-degree AV block, keep right subclavian temporary pacemaker wire in place, possible permanent pacemaker is scheduled today. Patient may eat breakfast this morning, n.p.o. after breakfast. Encourage use of incentive spirometry 10 times every hour while awake. Out of bed for all meals, increase activity as tolerated. Continue low-dose aspirin, Plavix, statin and beta-yasir. Patient reminded to hold both groins, with coughing laughing and sneezing. Transthoracic 2D echocardiogram report remains pending, continue to follow results. Medical management and other comorbidities per primary care service. No straining, including for bowel movements. Use of stool softeners if necessary. Pain control per current as needed orders. Daily weights. More recommendations to follow based on patient's clinical course. Time with Patient: Greater than 30
[2023-09-12 11:15] LABS: Glucose,Whole Blood 205 mg/dL (70-110)
[2023-09-12 11:32] VITALS: BMI 36.5
--- NOTE | 2023-09-12 12:50 | CA ---
Transthoracic Echo Report Name: Rachel Wilson Age: 88 Gender: F : 1935 Exam Date: 09/12/2023 08:21 Exam Location: [facility] Ht (in): 56 Wt (lb): 163 Ordering Physician: Rikki Dc Attending/Referring Phys: Dao BARGER Profile Stitching Machine Operator Lorena Bates RCS Procedure CPT: Indications: post op TAVR Cardiac Hx: Technical Quality: Fair Contrast 1: Total Dose (mL): Contrast 2: Total Dose (mL): MEASUREMENTS (Male / Female) Normal Values 2D ECHO LV Diastolic Diameter PLAX 3.6 cm 4.2 - 5.9 / 3.9 - 5.3 cm LV Systolic Diameter PLAX 2.0 cm IVS Diastolic Thickness 1.3 cm 0.6 - 1.0 / 0.6 - 0.9 cm LVPW Diastolic Thickness 1.0 cm 0.6 - 1.0 / 0.6 - 0.9 cm LV Relative Wall Thickness 0.6 RV Internal Dim ED PLAX 2.2 cm LVOT Diameter 1.8 cm LA Volume 66.8 cm??? 18 - 58 / 22 - 52 cm??? LA Volume Index 38.1 cm???/m??? 16 - 28 cm???/m??? Ascending Aorta Diameter 3.3 cm DOPPLER AV Peak Velocity 187.1 cm/s AV Peak Gradient 14.0 mmHg AV Mean Velocity 120.5 cm/s AV Mean Gradient 6.9 mmHg AV Velocity Time Integral 36.1 cm LVOT Peak Velocity 139.4 cm/s LVOT Peak Gradient 7.8 mmHg LVOT Velocity Time Integral 26.4 cm LVOT Stroke Volume 64.6 cm??? LVOT Stroke Volume Index 39.7 ml/m??? LVOT Cardiac Index 2579.6 cm???/min???m??? AV Area Cont Eq vti 1.8 cm??? AV Area Cont Eq pk 1.8 cm??? TR Peak Velocity 217.2 cm/s TR Peak Gradient 18.9 mmHg Right Ventricular Systolic Press 23.9 mmHg PV Peak Velocity 89.6 cm/s PV Peak Gradient 3.2 mmHg FINDINGS Left Ventricle Left ventricular ejection fraction is estimated at 65-70%. Moderately increased septal wall thickness. Small Left ventricular cavity. No obvious regional wall motion abnormalities. Mid cavitary gradient due to hyperdynamic left ventricle of 52mmHg at rest. Right Ventricle Normal right ventricular size and function. Right ventricular systolic pressure within normal limits. Right Atrium Normal right atrial size. Left Atrium Moderately increased left atrial volume. Mitral Valve Mitral valve thickened. Mitral annular calcification. No evidence for mitral valve prolapse. Mild mitral stenosis. No mitral regurgitation. Aortic Valve Normally functioning bioprosthetic aortic valve without stenosis with a peak velocity of 1.9 m/s, peak gradient 14 mmHg, mean gradient 7 mmHg, and estimated aortic valve area of 1.8 cm???. Tricuspid Valve Structurally normal tricuspid valve. No tricuspid stenosis. Trace tricuspid regurgitation. Pulmonic Valve Pulmonic valve not well visualized. No pulmonic stenosis. No pulmonic regurgitation. Pericardium No pericardial effusion. Aorta Normal size aortic root and proximal ascending aorta. CONCLUSIONS . LVEF estimated at 65-70%. Hyperdynamic Small Left ventricular cavity. Moderate concentric LVH Mitral annular calcification. Normally functioning bioprosthetic aortic valve without stenosis. No PVL Previewed by: Dr Garett Ko (Electronically Signed) Final Date: 12 September 2023 12:49
[2023-09-12 16:46] LABS: Glucose,Whole Blood 197 mg/dL (70-110)
--- NOTE | 2023-09-12 18:53 | P.PN ---
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 Mercado, she ended up with complete heart block, had a temporary transvenous pacemaker, she was admitted to the ICU, the plan is to put a permanent pacemaker tomorrow morning, we were consulted for medical management. 09/11: Patient is lying down in bed in no apparent distress, she is feeling better today, she is complaining of increased swelling in both lower extremities, she is scheduled to go for permanent pacemaker placement today at 3:00, patient is feeling better than yesterday, she was having issues with heartburn yesterday that was resolved with the Protonix 40 mg IV push every 24 hours, will continue with current treatment plan, patient will have her pacemaker later on today, and she she can restart her Eliquis hopefully tomorrow morning if everything is okay. REVIEW OF SYSTEMS: Constitutional: Reports fever, reports chills, no night sweats. No weight change. positive for weakness, fatigue no lethargy. No daytime sleepiness. HEENT: No headache. No blurred vision or double vision, no loss of vision. No loss of Hearing, no ringing in the ears, no dizziness. Reports nasal drainage or congestion. No epistaxis. No sore throat. Lungs: positive for shortness of breath, positive for cough, no sputum production. No wheezing. Reports dyspnea with activity. Cardiovascular: no chest pain, no lower extremity edema. positive for palpitations. No paroxysmal nocturnal dyspnea. No orthopnea. No lightheadedness or dizziness. No syncopal episodes. Abdominal: No abdominal pain. positive for nausea, no vomiting. No diarrhea. No constipation. No bloody or tarry stools reports loss of appetite. Genitourinary: No dysuria, increased frequency, urgency. No urinary retention. Musculoskeletal: No myalgias. no weakness, gait dysfunction, no frequent falls. No back pain. No neck pain. Integumentary: dry skin in both legs and feet, no lesions. No rash or pruritus. No unusual bruising. No change in hair or nails. Neurologic: No aphasia. No facial droop. No change in mentation. No head injury. No headache. No paralysis. No paresthesia. Psychiatric: No depression. No anxiety. No mood swings. Endocrine: No abnormal blood sugars. No weight change. PHYSICAL EXAMINATION: General: 88-year-old female who is laying down in bed in mild acute distress. HEENT: Head is atraumatic, normocephalic, pupils were equal round reactive to light and recommendation, extraocular muscle movement were intact, sclera nonicteric, conjunctivae were pale, mucous membranes of the mouth are somewhat dry. Neck: Supple, no JVP, normal carotid upstroke bilaterally, no lymphadenopathy. Chest: Decreased breath sounds at the bases, few rhonchi, no expiratory wheezes, no chest wall tenderness, no intercostal retractions. Heart: First heart sound is normal, second heart sounds normal there is mild aortic regurgitation murmur in the right second intercostal space. Abdomen: Soft, nontender, nondistended, positive bowel sounds, there is no hepatosplenomegaly. Extremities: There is no edema no calf tenderness DP +1 bilaterally, Neurologic examination: Patient is awake alert and oriented X 3, cranial nerves II-12 appear grossly intact, muscle power were 5 out of 5 in upper extremities and 5 out of 5 in bilateral lower extremities, deep tendon reflexes normal bilaterally. ASSESSMENT AND PLAN: 1. Postoperative day #1 status post TAVR with resultant complete heart block. Status post transvenous pacemaker placement patient is scheduled to go for permanent pacemaker later on today we will continue to monitor the patient very closely. 2. Third-degree AV block post transvenous pacemaker going for a Permanent pace maker today. 3. . Paroxysmal atrial fibrillation. Continue to hold Eliquis until the p atient permanent pacemaker is placed, patient is off beta-yasir as well due to complete heart block. 4. Hypertension and hypertensive cardiovascular disease. Continue to hold off metoprolol for now. 5. Hyperlipidemia. Continue patient on atorvastatin 40 mg once every day continue Ezetimibe 10 mg once every day, mitral, keep LDL 55-70 6. Hypothyroidism. Continue patient on Synthroid 25 MCG orally once every day. 7. Diabetes mellitus type 2. Continue patient on Farxiga 10 mg orally once every day start the patient on SSI, continue patient on Rybelsus 3 mg orally once every day, start the patient on Lantus 18 units at bedtime 8. Severe aortic valve stenosis status post TAVR. 9. GERD. Continue with Protonix 40 mg orally once every day. 10. history of CVA in the past. we will hold Eliquis for now continue atorvastatin 40 mg once every day as well as Zetia 10 mg once every day keep LDL 55 11. Iron deficiency anemia. We will continue to monitor the patient CBC, she will benefit from Venofer daily for the next 3 days we will start after the pacemaker placement. 11. DVT prophylaxis. patient was started on heparin 5000 units subcutaneous every 8 hours. 12. GI prophylaxis. Continue Protonix 40 mg orally once every day. 13. We will follow with you. Objective - Vital Signs Vital signs: Vital Signs Temp 97.6 F 09/12/23 08:00 Pulse 70 09/12/23 11:45 Resp 18 09/12/23 09:00 BP 99/70 09/12/23 09:00 Pulse Ox 95 09/12/23 09:00 FiO2 Intake & Output 09/11/23 09/12/23 09/12/23 18:59 06:59 18:59 Intake Total 505 300 200 Output Total 400 200 0 Balance 105 100 200 Weight 74 kg 73.9 kg 73.9 kg Intake: IV 215 .9 3cc/hr 15 Sodium Chloride 0.9% 1, 200 000 ml @ 50 mls/hr IV . Q20H [facility] Rx#:[id number] Intake, IV Titration 100 Amount ceFAZolin 2 gm In Sodium 100 Chloride 0.9% 50 ml @ 100 mls/hr IVPB ONCE PRN Rx# :[id number] Oral 290 300 100 Output: Urine 400 200 0 Other: Voiding Method External Catheter External Catheter External Catheter # Bowel Movements 0 0 ABP, PAP, CO, CI - Last Documented Arterial Blood Pressure 109/46 - Labs CBC & Chem 7: 09/12/23 03:42 09/12/23 03:42 Labs: Abnormal Lab Results - Last 24 Hours (Table) 09/11/23 09/11/23 09/12/23 Range/Units 17:45 21:02 03:42 WBC 14.0 H (3.8-10.6) k/uL Hgb 9.1 L (11.4-16.0) gm/dL Hct 31.7 L (34.0-46.0) % MCV 68.9 L (80.0-100.0) fL MCH 19.8 L (25.0-35.0) pg MCHC 28.8 L (31.0-37.0) g/dL RDW 19.1 H (11.5-15.5) % Neutrophils # 11.9 H (1.3-7.7) k/uL Chloride (98-107) mmol/L Carbon Dioxide (22-30) mmol/L BUN (7-17) mg/dL Creatinine (0.52-1.04) mg/dL Glucose (74-99) mg/dL POC Glucose (mg/dL) 224 H 200 H (70-110) mg/dL Magnesium (1.6-2.3) mg/dL Total Protein (6.3-8.2) g/dL Albumin (3.5-5.0) g/dL 09/12/23 09/12/23 09/12/23 Range/Units 03:42 06:29 11:13 WBC (3.8-10.6) k/uL Hgb (11.4-16.0) gm/dL Hct (34.0-46.0) % MCV (80.0-100.0) fL MCH (25.0-35.0) pg MCHC (31.0-37.0) g/dL RDW (11.5-15.5) % Neutrophils # (1.3-7.7) k/uL Chloride 113 H (98-107) mmol/L Carbon Dioxide 18 L (22-30) mmol/L BUN 29 H (7-17) mg/dL Creatinine 1.28 H (0.52-1.04) mg/dL Glucose 157 H (74-99) mg/dL POC Glucose (mg/dL) 153 H 205 H (70-110) mg/dL Magnesium 1.5 L (1.6-2.3) mg/dL Total Protein 6.2 L (6.3-8.2) g/dL Albumin 3.4 L (3.5-5.0) g/dL
[2023-09-12 20:06] LABS: Glucose,Whole Blood 206 mg/dL (70-110)
[2023-09-13] MEDS: SENNOSIDES-DOCUSATE SODIUM 1 EACH TAB PO SCH (01:38)
[2023-09-13 04:41] LABS: Glucose,Whole Blood 177 mg/dL (70-110)
[2023-09-13 05:04] LABS: Anisocytosis Slight; Basophils % (A) 0 %; Eosinophils % (A) 0 %; HCT 28.6 % (34.0-46.0); HGB 8.2 gm/dL (11.4-16.0); Hypochromasia Marked; Lymphocytes # (A) 2.3 k/uL (1.0-4.8); Lymphocytes % (A) 19 %; MCH 19.9 pg (25.0-35.0); MCHC 28.8 g/dL (31.0-37.0); Mean Platelet Volume 7.2; Microcytosis Marked; Monocytes # (A) 0.8 k/uL (0-1.0); Monocytes % (A) 7 %; Neutrophils # (A) 8.5 k/uL (1.3-7.7); Neutrophils % (A) 72 %; Platelet Count 127 k/uL (150-450); Poikilocytosis Slight; RBC 4.15 m/uL (3.80-5.40); RDW 19.9 % (11.5-15.5); WBC 11.9 k/uL (3.8-10.6)
[2023-09-13 05:21] LABS: African American GFR (CKD) 42 (>60 ml/min/1.73 sqM); Anion Gap 4 mmol/L; Blood Urea Nitrogen 31 mg/dL (7-17); Calcium 8.9 mg/dL (8.4-10.2); Carbon Dioxide 23 mmol/L (22-30); Chloride 112 mmol/L (98-107); Glucose 144 mg/dL (74-99); Magnesium 1.7 mg/dL (1.6-2.3); Non-African American GFR(CKD) 36 (>60 ml/min/1.73 sqM); Sodium 139 mmol/L (137-145)
[2023-09-13 05:31] LABS: Potassium 4.2 mmol/L (3.5-5.1)
[2023-09-13] MEDS: MAGNESIUM SULFATE-D5W PMX 1 GM in DEXTROSE/WATER 1 100ML.BAG IVPB ONE (06:27)
[2023-09-13 06:50] LABS: Glucose,Whole Blood 169 mg/dL (70-110)
[2023-09-13] MEDS: LEVOTHYROXINE 50 MCG TAB PO SCH (06:54)
--- NOTE | 2023-09-13 08:19 | XR ---
EXAMINATION TYPE: XR chest 1V portable DATE OF EXAM: 09/13/2023 COMPARISON: 09/12/2023 HISTORY: Postop TECHNIQUE: Single frontal view of the chest is obtained. FINDINGS: There is no focal air space opacity, pleural effusion, or pneumothorax seen. The cardiac s ilhouette size is within normal limits. The osseous structures are intact. Coronary artery stenting a nd aortic valve replacement. Atherosclerotic change aorta. Diffuse osteopenia. Biapical pleural thick ening. Linear changes involving the lung bases most typical of scarring or atelectasis. Tiny granulom a in the lungs are suspected in left upper lobe. IMPRESSION: No acute process.
--- NOTE | 2023-09-13 08:39 | P.PN ---
Subjective Progress Note Date: 09/13/23 Principal diagnosis: Severe symptomatic aortic valve stenosis. Past medical history significant for diabetes mellitus type 2, hypertension, hyperlipidemia, TIA in 2019, lymphedema, coronary artery disease status post PCI, history of myocardial infarction, paroxysmal atrial fibrillation, bilateral internal carotid stenosis of 50 to 79%, and history of COVID-19 infection in 2021. POD #2 Percutaneous Aortic Valve Implantation using a 26 mm Evolut-FX, Transesophageal echocardiography (performed by anesthesia), Ultrasound guided access and repair of right femoral artery access site by Perclose closure device, Placement of temporary pacemaker wire, Aortic root angiography. Third-degree AV block post TAVR The patient was seen and examined in follow-up today September 13, 2023 at her bedside in the intensive care unit. She is currently sitting up to the bedside chair, is awake, alert, oriented x 3 and is in no acute apparent distress. Oxygen saturations are 95% on room air and she is achieving 1500 mL on her incentive spirometry with encouragement. She denies any complaints of pain or shortness of breath at this time, and states when getting up to the bathroom she feels her breathing has improved since the TAVR procedure. She does state that she feels slightly weak since the procedure from lack of activity. Bedside telemetry is showing a ventricular paced rhythm with a heart rate of 70 bpm, underlying rhythm continues to show third-degree heart block with heart rate in the 40s. Bedside transthoracic 2D echocardiogram was completed yesterday which demonstrated a left ventricular ejection fraction estimated at 65 to 70%, a normally functioning bioprosthetic aortic valve without stenosis with a peak velocity of 1.9 m/s, a peak/mean gradient 14/7 mmHg, trace tricuspid valve regurgitation and no pericardial effusion. Subsequently due to the third-degree heart block the patient is scheduled for a permanent pacemaker placement today. Chest x-ray and laboratory results were reviewed. Objective - Vital Signs Vital signs: Vital Signs Temp 97.9 F 09/13/23 00:00 Pulse 70 09/13/23 07:00 Resp 10 L 09/13/23 07:00 BP 94/67 09/13/23 07:00 Pulse Ox 97 09/13/23 07:00 FiO2 Intake & Output 09/12/23 09/13/23 09/13/23 18:59 06:59 18:59 Intake Total 900 120 Output Total 0 400 0 Balance 900 -280 0 Weight 73.9 kg 71.3 kg Intake: Intake, IV Titration 100 Amount ceFAZolin 2 gm In Sodium 100 Chloride 0.9% 50 ml @ 100 mls/hr IVPB ONCE PRN Rx# :[id number] Oral 800 120 Output: Urine 0 400 0 Other: Voiding Method External Catheter Toilet Bedside Commode # Voids 1 1 ABP, PAP, CO, CI - Last Documented Arterial Blood Pressure 109/46 - Exam CONSTITUTIONAL: Sitting up to the bedside chair in the intensive care unit, appears comfortable, cooperative, no apparent acute distress. HEENT: Neck is supple, no JVD, no lymphadenopathy. RESPIRATORY: Lungs sounds essentially clear throughout, diminished to her bilateral bases. Respirations are symmetrical and nonlabored. Currently on room air with oxygen saturations 97%. Achieving 1500 mL on her incentive spirometry with encouragement. Strong cough. CARDIOVASCULAR: Regular rhythm and rate. S1 and S2 present, negative for S3, gallop or murmur. Palpable peripheral pulses bilaterally. No calf pain or tenderness noted. Knee-high SILVANO hose and sequential compression devices in place to his bilateral lower extremities. GASTROINTESTINAL: Abdomen soft, nontender, nondistended. Active bowel sounds p resent 4 quadrants. Tolerating diet. Passing flatus. No guarding or rigidity. GENITOURINARY: Continues to void. INTEGUMENTARY: Skin is warm and dry with no evidence of clubbing or cyanosis. Bilateral groin puncture sites clean and dry, soft and nontender to palpate. NEUROLOGIC: Cranial nerves II through XII intact. No focal deficits. MUSKULOSKELETAL: Able to move all extremities, strength equal bilaterally, generalized weakness. PSYCHIATRIC: Alert and oriented to person place and time, appropriate affect, intact judgment and insight. INVASIVE LINES AND TUBES: Right subclavian temporary pacemaker wire is secured in place, connected to bedside portable pacemaker generator on a VVI mode of 70 bpm. - Allied health notes Allied health notes reviewed: nursing - Labs CBC & Chem 7: 09/13/23 04:33 09/13/23 04:33 Labs: Abnormal Lab Results - Last 24 Hours (Table) 09/12/23 09/12/23 09/12/23 Range/Units 11:13 16:44 20:03 WBC (3.8-10.6) k/uL Hgb (11.4-16.0) gm/dL Hct (34.0-46.0) % MCV (80.0-100.0) fL MCH (25.0-35.0) pg MCHC (31.0-37.0) g/dL RDW (11.5-15.5) % Plt Count (150-450) k/uL Neutrophils # (1.3-7.7) k/uL Chloride (98-107) mmol/L BUN (7-17) mg/dL Creatinine (0.52-1.04) mg/dL Glucose (74-99) mg/dL POC Glucose (mg/dL) 205 H 197 H 206 H (70-110) mg/dL 09/13/23 09/13/23 09/13/23 Range/Units 04:27 04:33 04:33 WBC 11.9 H (3.8-10.6) k/uL Hgb 8.2 L (11.4-16.0) gm/dL Hct 28.6 L (34.0-46.0) % MCV 69.0 L (80.0-100.0) fL MCH 19.9 L (25.0-35.0) pg MCHC 28.8 L (31.0-37.0) g/dL RDW 19.9 H (11.5-15.5) % Plt Count 127 L (150-450) k/uL Neutrophils # 8.5 H (1.3-7.7) k/uL Chloride 112 H (98-107) mmol/L BUN 31 H (7-17) mg/dL Creatinine 1.31 H (0.52-1.04) mg/dL Glucose 144 H (74-99) mg/dL POC Glucose (mg/dL) 177 H (70-110) mg/dL 09/13/23 Range/Units 06:49 WBC (3.8-10.6) k/uL Hgb (11.4-16.0) gm/dL Hct (34.0-46.0) % MCV (80.0-100.0) fL MCH (25.0-35.0) pg MCHC (31.0-37.0) g/dL RDW (11.5-15.5) % Plt Count (150-450) k/uL Neutrophils # (1.3-7.7) k/uL Chloride (98-107) mmol/L BUN (7-17) mg/dL Creatinine (0.52-1.04) mg/dL Glucose (74-99) mg/dL POC Glucose (mg/dL) 169 H (70-110) mg/dL - Imaging and Cardiology Chest x-ray: report reviewed, image reviewed Assessment and Plan Assessment: Severe symptomatic aortic valve stenosis, status post percutaneous aortic valve implantation using a 26 mm Evolute FX Postoperative third-degree heart block, status post aortic valve implantation procedure, transvenous pacemaker in place Hypertension Hyperlipidemia Diabetes mellitus type 2 TIA in 2019 Lymphedema Coronary artery disease status post PCI History of myocardial infarction Paroxysmal atrial fibrillation Bilateral internal carotid artery stenosis 50 to 79% History of COVID-19 infection in 2021 Plan: Continue to hold Eliquis in anticipation for permanent pacemaker placement today. Patient remains in third-degree AV block, keep right subclavian temporary pacemaker wire in place. Patient remains n.p.o. for pacemaker placement. Encourage use of incentive spirometry 10 times every hour while awake. Out of bed for all meals, increase activity as tolerated. Continue low-dose aspirin, Plavix, statin and continue to hold beta-yasir secondary to third-degree AV heart block. Patient reminded to hold both groins, with coughing laughing and sneezing. Transthoracic 2D echocardiogram results reviewed. Medical management and other comorbidities per primary care service. No straining, including for bowel movements. Use of stool softeners if necessary. Pain control per current as needed orders. Daily weights. More recommendations to follow based on patient's clinical course. Time with Patient: Greater than 30
[2023-09-13] MEDS: MIDAZOLAM 2 MG/2 ML VIAL IVP ONE (09:35)
[2023-09-13] MEDS: fentaNYL (PF) 50 MCG/1 ML VIAL IVP ONE (09:36)
[2023-09-13] MEDS: ceFAZolin 1 GM in SODIUM CHLORIDE 0.9% IRRIG BTL 250 ML IRRIGATION PRN (09:40)
[2023-09-13 11:54] LABS: Glucose,Whole Blood 143 mg/dL (70-110)
[2023-09-13] MEDS: SODIUM FERRIC GLUCONAT-SUCROSE 125 MG in SODIUM CHLORIDE 0.9% 100 ML IVPB ONE (13:41)
[2023-09-13] MEDS ORDERED: ONDANSETRON 4 MG/2 ML VIAL IVP PRN (13:42)
[2023-09-13] MEDS: ONDANSETRON 4 MG/2 ML VIAL IVP PRN (13:47)
--- NOTE | 2023-09-13 13:52 | P.PCN ---
Description of Procedure: CARDIOLOGY PROCEDURE NOTE Mysql Database Administrator: Dr. Armadno Santiago Procedure performed: Insertion dual chamber permanent pacemaker Site: Left subclavian Indications: 3rd degree heart block Complications: None Blood Loss: Minimal Description of Procedure: After the risks, benefits, and alternatives of the above-mentioned procedure was explained in detail with the patient, informed consent was obtained. The patient was taken to the cardiac catheterization suite where the left subclavian area was sterily prepped and draped in the usual fashion. One percent lidocaine was used to anesthetize the left subclavian area. Twenty milliliters of Isoview 370 contrast was injected into the left antecubital vein to allow for direct visu alization of the left subclavian vein under fluoroscopy. A 1.5 inch incision was made utilizing a #15 blade in the left subclavian site. Hemostasis was made complete. Electrocautery along with digital blunt dissection was utilized to dissect to the level of the pectoralis muscle fascia and create a pocket large enough to accommodate the generator. A thin walled micro puncuture needle was used to cannulate the left subclavian vein. A guide-wire was inserted through the needle into the vascular lumen under fluoroscopic guidance. The needle was removed. Another thin walled micr puncture needle was used to again cannulate the left subclavian vein. A guide-wire was inserted through the needle into the vascular lumen under fluoroscopic guidance. The needle was removed and both guide-wires were attached to the field. A venous sheath and dilator were advanced over the guidewire into the vascular lumen under fluoroscopic guidance. The dilator and guidewire were then removed. A right ventricular bipolar lead was inserted into the sheath and advanced under fluoroscopic guidance into the right ventricle under fluoroscopic guidance. Adequate sensing and pacing thresholds were achieved and the lead was screwed into place in the RV apex. The sheath was then torn away. The lead collar was advanced and anchored into place utilizing #0 silk suture. Next, another venous sheath and dilator were advanced under fluoroscopic guidance into the vascular lumen over the guidewire. After removal of the dilator and guidewire, a right atrial bipolar lead was inserted into this sheath and advanced under fluoroscopic guidance into the right atrium. The lead was positioned into the right atrial appendage. Adequate sensing and pacing thresholds were then achieved with patient being in Aflutter at the time and the lead was screwed into place. The sheath was then torn away. The lead collar was advanced and anchored into place utilizing #0 silk suture. The leads were then inserted into the appropriate position into the generator. They were then secured with the setscrew provided. The leads and generator were inserted into the pocket with the leads posterior. The subcutaneous tissue was approximated utilizing #2.0 and 3.0 vicryl in an interrupted stitch fashion. The dermal layer was approximated utilizing #4.0 vicryl. The area was cleansed with sterile saline and dried. A sterile 4x4 dressing was applied and the patient was transferred to the post catheterization holding area in stable and satisfactory condition. The patient tolerated the procedure well. Generator Data Substation Maintenance Technician: [employer] Brand: [id number] [employer] XT DR MRI Model #: W1DR01 Serial#: [id number] Right Atrial Bipolar Lead Data: Type: Active fixation lead Substation Maintenance Technician: [employer] Model#: 5076-45 Serial Number: [id number] Right Ventricular Bipolar Lead Data: Type: Active fixation lead Substation Maintenance Technician: [employer] Model #: 5076-52 Serial #: [id number] Stimulation Thresholds: Right atrial bipolar lead pacing and sensing thresholds Voltage: 1.5 Impedance: 475 ohms P-wave sensin.3 mV Right Ventricular bipolar lead pacing and sensing thresholds Pulse Width: 0.4ms Voltage: 0.7 volts Impedance: 931 ohms R-wave sensin mV Parameter Setting: Pacing mode is DDD Lower rate 60 bpm Upper rate 120 bpm Impressions: 1. Successful implantation of a dual chamber permanent pacemaker in the left pectoral site. Plan: 1. Routine post procedure care will be instituted as well as outpatient follow- up surveillance.
--- NOTE | 2023-09-13 14:57 | P.PN ---
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 Mercado, she ended up with complete heart block, had a temporary transvenous pacemaker, she was admitted to the ICU, the plan is to put a permanent pacemaker tomorrow morning, we were consulted for medical management. 09/11: Patient is lying down in bed in no apparent distress, she is feeling better today, she is complaining of increased swelling in both lower extremities, she is scheduled to go for permanent pacemaker placement today at 3:00, patient is feeling better than yesterday, she was having issues with heartburn yesterday that was resolved with the Protonix 40 mg IV push every 24 hours, will continue with current treatment plan, patient will have her pacemaker later on today, and she she can restart her Eliquis hopefully tomorrow morning if everything is okay. 09/12: Patient sitting up in bed she is feeling better today, she denies any chest pain, she has no shortness of breath, she continues to be anemic, we will start the patient on Venofer ordered substitute 100 mg IV piggyback x 1 today repeat again tomorrow morning, monitor the patient very closely, continue current medication, patient did have permanent pacemaker placement today by Dr. Santiago, she appears quite nauseated, she was started on metoclopramide 5 mg IV push every 6 hours, increase her Protonix to 40 mg IV push every 12 hours, patient will be restarted back on her Eliquis 2.5 mg orally twice every day if okay with cardiology as well as cardiothoracic surgery, monitor the patient hemoglobin tomorrow morning, increase oral intake of fluid.. REVIEW OF SYSTEMS: Constitutional: Reports fever, reports chills, no night sweats. No weight change. positive for weakness, fatigue no lethargy. No daytime sleepiness. HEENT: No headache. No blurred vision or double vision, no loss of vision. No loss of Hearing, no ringing in the ears, no dizziness. Reports nasal drainage or congestion. No epistaxis. No sore throat. Lungs: positive for shortness of breath, positive for cough, no sputum production. No wheezing. Reports dyspnea with activity. Cardiovascular: no chest pain, no lower extremity edema. positive for palpitations. No paroxysmal nocturnal dyspnea. No orthopnea. No lightheadedness or dizziness. No syncopal episodes. Abdominal: No abdominal pain. positive for nausea, no vomiting. No diarrhea. No constipation. No bloody or tarry stools reports loss of appetite. Genitourinary: No dysuria, increased frequency, urgency. No urinary retention. Musculoskeletal: No myalgias. no weakness, gait dysfunction, no frequent falls. No back pain. No neck pain. Integumentary: dry skin in both legs and feet, no lesions. No rash or pruritus. No unusual bruising. No change in hair or nails. Neurologic: No aphasia. No facial droop. No change in mentation. No head injury. No headache. No paralysis. No paresthesia. Psychiatric: No depression. No anxiety. No mood swings. Endocrine: No abnormal blood sugars. No weight change. PHYSICAL EXAMINATION: General: 88-year-old female who is laying down in bed in mild acute distress. HEENT: Head is atraumatic, normocephalic, pupils were equal round reactive to light and recommendation, extraocular muscle movement were intact, sclera nonicteric, conjunctivae were pale, mucous membranes of the mouth are somewhat dry. Neck: Supple, no JVP, normal carotid upstroke bilaterally, no lymphadenopathy. Chest: Decreased breath sounds at the bases, few rhonchi, no expiratory wheezes, no chest wall tenderness, no intercostal retractions. Heart: First heart sound is normal, second heart sounds normal there is mild aortic regurgitation murmur in the right second intercostal space. Abdomen: Soft, nontender, nondistended, positive bowel sounds, there is no hepatosplenomegaly. Extremities: There is no edema no calf tenderness DP +1 bilaterally, Neurologic examination: Patient is awake alert and oriented X 3, cranial nerves II-12 appear grossly intact, muscle power were 5 out of 5 in upper extremities and 5 out of 5 in bilateral lower extremities, deep tendon reflexes normal bilaterally. ASSESSMENT AND PLAN: 1. Postoperative day #2 status post TAVR with resultant complete heart block. Status post permanent pacemaker placement patient tolerated the procedure very well. 2. 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 3. . Paroxysmal atrial fibrillation. We will resume the patient Eliquis 2.5 mg orally twice every day may be safer to restart the patient back on metoprolol 25 mg orally twice every day 4. Hypertension and hypertensive cardiovascular disease. Resume the patient metoprolol 25 mg orally twice every day if okay with cardiology. 5. Hyperlipidemia. Continue patient on atorvastatin 40 mg once every day continue Ezetimibe 10 mg once every day, mitral, keep LDL 55-70 6. Hypothyroidism. Continue patient on Synthroid 25 MCG orally once every day. 7. Diabetes mellitus type 2. Continue patient on Farxiga 10 mg orally once every day start the patient on SSI, continue patient on Rybelsus 3 mg orally o nce every day, start the patient on Lantus 18 units at bedtime 8. Severe aortic valve stenosis status post TAVR. 9. GERD. Continue with Protonix 40 mg orally once every day. 10. history of CVA in the past. we will hold Eliquis for now continue atorvastatin 40 mg once every day as well as Zetia 10 mg once every day keep LDL 55 11. Iron deficiency anemia. We will continue to monitor the patient CBC, started the patient on Venofer 100 mg IV piggyback x 1 may repeat tomorrow morning. 11. DVT prophylaxis. Patient will be started back on Eliquis 2.5 mg orally twice every day. 12. GI prophylaxis. Continue Protonix 40 mg IV push every 12 hours.. 13. Hopefully home tomorrow morning. Objective - Vital Signs Vital signs: Vital Signs Temp 97.7 F 09/13/23 12:00 Pulse 74 09/13/23 12:00 Resp 14 09/13/23 12:00 BP 138/71 09/13/23 12:00 Pulse Ox 95 09/13/23 12:00 FiO2 Intake & Output 09/12/23 09/13/23 09/13/23 18:59 06:59 18:59 Intake Total 900 120 500 Output Total 0 400 200 Balance 900 -280 300 Weight 73.9 kg 71.3 kg Intake: IV 300 Intake, IV Titration 100 100 Amount Sodium Chloride 0.9% 1, 100 000 ml @ 50 mls/hr IV . Q20H [facility] Rx#:[id number] ceFAZolin 2 gm In Sodium 100 Chloride 0.9% 50 ml @ 100 mls/hr IVPB ONCE PRN Rx# :[id number] Oral 800 120 100 Output: Urine 0 400 200 Other: Voiding Method External Catheter Toilet Toilet Bedside Commode # Voids 1 1 ABP, PAP, CO, CI - Last Documented Arterial Blood Pressure 109/46 - Labs CBC & Chem 7: 09/13/23 04:33 09/13/23 04:33 Labs: Abnormal Lab Results - Last 24 Hours (Table) 09/12/23 09/12/23 09/13/23 Range/Units 16:44 20:03 04:27 WBC (3.8-10.6) k/uL Hgb (11.4-16.0) gm/dL Hct (34.0-46.0) % MCV (80.0-100.0) fL MCH (25.0-35.0) pg MCHC (31.0-37.0) g/dL RDW (11.5-15.5) % Plt Count (150-450) k/uL Neutrophils # (1.3-7.7) k/uL Chloride (98-107) mmol/L BUN (7-17) mg/dL Creatinine (0.52-1.04) mg/dL Glucose (74-99) mg/dL POC Glucose (mg/dL) 197 H 206 H 177 H (70-110) mg/dL 09/13/23 09/13/23 09/13/23 Range/Units 04:33 04:33 06:49 WBC 11.9 H (3.8-10.6) k/uL Hgb 8.2 L (11.4-16.0) gm/dL Hct 28.6 L (34.0-46.0) % MCV 69.0 L (80.0-100.0) fL MCH 19.9 L (25.0-35.0) pg MCHC 28.8 L (31.0-37.0) g/dL RDW 19.9 H (11.5-15.5) % Plt Count 127 L (150-450) k/uL Neutrophils # 8.5 H (1.3-7.7) k/uL Chloride 112 H (98-107) mmol/L BUN 31 H (7-17) mg/dL Creatinine 1.31 H (0.52-1.04) mg/dL Glucose 144 H (74-99) mg/dL POC Glucose (mg/dL) 169 H (70-110) mg/dL 09/13/23 Range/Units 11:53 WBC (3.8-10.6) k/uL Hgb (11.4-16.0) gm/dL Hct (34.0-46.0) % MCV (80.0-100.0) fL MCH (25.0-35.0) pg MCHC (31.0-37.0) g/dL RDW (11.5-15.5) % Plt Count (150-450) k/uL Neutrophils # (1.3-7.7) k/uL Chloride (98-107) mmol/L BUN (7-17) mg/dL Creatinine (0.52-1.04) mg/dL Glucose (74-99) mg/dL POC Glucose (mg/dL) 143 H (70-110) mg/dL
--- NOTE | 2023-09-13 15:05 | CDI ---
Documentation Clarification Form Date: 09/13/2023 02:12:59 PM From: Amanda Dennis RN, CCDS Phone: [phone] Admit Date: 09/11/2023 05:50:00 AM Patient Name: Rachel Wilson Visit Number: [id number] Discharge Date: ATTENTION: The Clinical Documentation Specialists (CDI) and [facility] Coding Staff appreciate your assistance in clarifying documentation. Please respond to the clarification below the line at the bottom and electronically sign. The CDI & [facility] Coding staff will review the response and follow-up if needed. Please note: Queries are made part of the Legal Health Record. If you have any questions, please contact the author of this message via ITS. Dr. Armando Santiago Third-degree AV block post TAVR is documented in the operative report and ongoing progress notes and the patient had a Percutaneous Aortic Valve Implantation using a 26 mm Evolut-FX on 09/11/23. Additional clarification is requested regarding the relationship, if any, that exists between the diagnosis and the procedure. Patients Admitting Diagnosis: Severe symptomatic aortic valve stenosis, Post-Operative Diagnosis: Same Procedure performed: Percutaneous Aortic Valve Implantation using a 26 mm Evolut-FX. History/Risk Factors: Hypertension, Hyperlipidemia, Diabetes mellitus type 2, Paroxysmal Atrial Fibrillation, Bilateral internal carotid artery stenosis 50 to 79%, coronary artery disease Clinical Indicators: 88-year-old female present moderate to severe aortic valve stenosis. She had a TAVR. She ended up with Third-degree AV block, had a temporary transvenous pacemaker, 02/10 (10:30) 135/56 70 16 100% 2/L NC 09/10 Labs: WBC 7.9 HGB 9.4 HCT 32.6, L= 3.4 BUN 26 CR 1.10 09/11 CXR: No acute process. Treatment: ICU/Telemetry monitoring Temporary transvenous pacemaker, ASA 81 MG PO Daily Lipitor 40 MG PO Daily What relationship, if any, exists between the diagnosis of Third-degree AV block and the procedure: [ X ] Third-degree AV block is a complication of surgical procedure. [ ] Third-degree AV block is an expected outcome of the surgical procedure. [ ] Third-degree AV block is related to patients co-morbid condition(s) of [insert co-morbid dxs] & not a complication of the procedure. [ ] Other please specify ____ [ ] Unable to determine (Template Last Revised: August 2020) MTDD
[2023-09-13] MEDS: METOCLOPRAMIDE 5 MG/ML 2 ML VIAL IVP PRN (17:04)
[2023-09-13 17:09] LABS: Glucose,Whole Blood 152 mg/dL (70-110)
[2023-09-13 21:21] LABS: Glucose,Whole Blood 172 mg/dL (70-110)
[2023-09-13] MEDS: PANTOPRAZOLE 40 MG/10 ML VIAL IVP SCH (21:28)
[2023-09-14 04:39] LABS: Anisocytosis Slight; HCT 28.2 % (34.0-46.0); HGB 8.4 gm/dL (11.4-16.0); Hypochromasia Marked; MCHC 29.9 g/dL (31.0-37.0); MCV 70.2 fL (80.0-100.0); Mean Platelet Volume 8.1; Microcytosis Marked; Platelet Count 108 k/uL (150-450); Poikilocytosis Slight; RBC 4.01 m/uL (3.80-5.40); RDW 19.6 % (11.5-15.5); WBC 10.2 k/uL (3.8-10.6)
[2023-09-14 05:14] LABS: African American GFR (CKD) 56 (>60 ml/min/1.73 sqM); Anion Gap 3 mmol/L; Blood Urea Nitrogen 25 mg/dL (7-17); Calcium 8.7 mg/dL (8.4-10.2); Carbon Dioxide 24 mmol/L (22-30); Chloride 114 mmol/L (98-107); Glucose 105 mg/dL (74-99); Non-African American GFR(CKD) 48 (>60 ml/min/1.73 sqM); Potassium 4.5 mmol/L (3.5-5.1); Sodium 141 mmol/L (137-145)
--- NOTE | 2023-09-14 05:38 | XR ---
EXAMINATION TYPE: XR chest 1V portable DATE OF EXAM: 09/14/2023 CLINICAL HISTORY: Lead placement check. TECHNIQUE: Single AP portable semiupright view of the chest is obtained. COMPARISON: Chest x-ray from one day earlier FINDINGS: There is new dual-lead left-sided pacemaker with leads projecting over the right atrium an d right ventricle. No pneumothorax is evident after pacemaker placement. Persistent cardiomegaly with surgical change in the aortic root. Chronic parenchymal changes bilaterally without suspicious focal airspace opacity. Suspect tiny bilateral pleural effusions. IMPRESSION: No pneumothorax after dual-lead pacemaker insertion.
[2023-09-14 06:36] LABS: Glucose,Whole Blood 98 mg/dL (70-110)
[2023-09-14] MEDS: METOPROLOL SUCCINATE (ER) 25 MG TAB.ER.24H PO SCH (08:14)
[2023-09-14] MEDS: ATORVASTATIN 40 MG TAB PO SCH (08:14)
[2023-09-14] MEDS: APIXABAN 2.5 MG TABLET PO SCH (08:14)
[2023-09-14] MEDS: AMIODARONE 200 MG TAB PO SCH (09:35)
[2023-09-14] MEDS: FUROSEMIDE 20 MG TAB PO SCH (09:35)
[2023-09-14 11:11] LABS: Glucose,Whole Blood 122 mg/dL (70-110)
--- NOTE | 2023-09-14 11:25 | P.PN ---
Subjective Progress Note Date: 09/14/23 HISTORY OF PRESENT ILLNESS: This is an 88-year-old female one of my patient with a previous medical history significant for hypertension and hypertensive cardiovascular d isease, hyperlipidemia, diabetes mellitus type 2, osteoarthritis, coronary artery disease, history of CVA, history of the osteomyelitis of the right heel with multidrug resistant Acinetobacter that was treated in June 2020, Covid 19 infection 05/13/2021, patient was recently hospitalized and she was evaluated for moderate to severe aortic valve stenosis she ended up going for a computed tomography scan of aortic valve for possible TAVR initially that was put on hold because of her allergy to nickel, eventually the patient ended up going for TAVR today by Dr. Mercado, she ended up with complete heart block, had a temporary transvenous pacemaker, she was admitted to the ICU, the plan is to put a permanent pacemaker tomorrow morning, we were consulted for medical management. 09/11: Patient is lying down in bed in no apparent distress, she is feeling better today, she is complaining of increased swelling in both lower extremities, she is scheduled to go for permanent pacemaker placement today at 3:00, patient is feeling better than yesterday, she was having issues with heartburn yesterday that was resolved with the Protonix 40 mg IV push every 24 hours, will continue with current treatment plan, patient will have her pacemaker later on today, and she she can restart her Eliquis hopefully tomorrow morning if everything is okay. 09/12: Patient sitting up in bed she is feeling better today, she denies any chest pain, she has no shortness of breath, she continues to be anemic, we will start the patient on Venofer ordered substitute 100 mg IV piggyback x 1 today repeat again tomorrow morning, monitor the patient very closely, continue current medication, patient did have permanent pacemaker placement today by Dr. Santiago, she appears quite nauseated, she was started on metoclopramide 5 mg IV push every 6 hours, increase her Protonix to 40 mg IV push every 12 hours, patient will be restarted back on her Eliquis 2.5 mg orally twice every day if okay with cardiology as well as cardiothoracic surgery, monitor the patient hemoglobin tomorrow morning, increase oral intake of fluid.. 09/13: Patient is sitting up in bed in no apparent distress, she denies any chest pain, shortness of breath, she is feeling a lot better than yesterday, she is not nauseated anymore, she was started back on Eliquis 2.5 mg orally twice every day as well as amiodarone 100 mg orally twice every day, she was seen earlier by cardiothoracic surgery, patient is medically stable to be discharged home and follow-up with us as an outpatient in the next week or so. REVIEW OF SYSTEMS: Constitutional: Reports fever, reports chills, no night sweats. No weight change. positive for weakness, fatigue no lethargy. No daytime sleepiness. HEENT: No headache. No blurred vision or double vision, no loss of vision. No loss of Hearing, no ringing in the ears, no dizziness. Reports nasal drainage or congestion. No epistaxis. No sore throat. Lungs: positive for shortness of breath, positive for cough, no sputum production. No wheezing. Reports dyspnea with activity. Cardiovascular: no chest pain, no lower extremity edema. positive for palpitations. No paroxysmal nocturnal dyspnea. No orthopnea. No lightheadedness or dizziness. No syncopal episodes. Abdominal: No abdominal pain. positive for nausea, no vomiting. No diarrhea. No constipation. No bloody or tarry stools reports loss of appetite. Genitourinary: No dysuria, increased frequency, urgency. No urinary retention. Musculoskeletal: No myalgias. no weakness, gait dysfunction, no frequent falls. No back pain. No neck pain. Integumentary: dry skin in both legs and feet, no lesions. No rash or pruritus. No unusual bruising. No change in hair or nails. Neurologic: No aphasia. No facial droop. No change in mentation. No head injury. No headache. No paralysis. No paresthesia. Psychiatric: No depression. No anxiety. No mood swings. Endocrine: No abnormal blood sugars. No weight change. PHYSICAL EXAMINATION: General: 88-year-old female who is laying down in bed in mild acute distress. HEENT: Head is atraumatic, normocephalic, pupils were equal round reactive to light and recommendation, extraocular muscle movement were intact, sclera nonicteric, conjunctivae were pale, mucous membranes of the mouth are somewhat dry. Neck: Supple, no JVP, normal carotid upstroke bilaterally, no lymphadenopathy. Chest: Decreased breath sounds at the bases, few rhonchi, no expiratory wheezes, no chest wall tenderness, no intercostal retractions. Heart: First heart sound is normal, second heart sounds normal there is mild aortic regurgitation murmur in the right second intercostal space. Abdomen: Soft, nontender, nondistended, positive bowel sounds, there is no hepatosplenomegaly. Extremities: There is no edema no calf tenderness DP +1 bilaterally, Neurologic examination: Patient is awake alert and oriented X 3, cranial nerves II-12 appear grossly intact, muscle power were 5 out of 5 in upper extremities and 5 out of 5 in bilateral lower extremities, deep tendon reflexes normal bilaterally. ASSESSMENT AND PLAN: 1. Postoperative day #3 status post TAVR with resultant complete heart block. Status post permanent pacemaker placement patient tolerated the procedure very well. 2. 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 3. . Paroxysmal atrial fibrillation. We will resume the patient Eliquis 2.5 mg orally twice every day continue amiodarone 100 mg orally twice every day. 4. Hypertension and hypertensive cardiovascular disease. blood pressure appears to be stable at this time. Patient has been off metoprolol for now. 5. Hyperlipidemia. Continue patient on atorvastatin 40 mg once every day continue Ezetimibe 10 mg once every day, keep LDL 55-70 6. Hypothyroidism. Continue patient on Synthroid 25 MCG orally once every day. 7. Diabetes mellitus type 2. Continue patient on Farxiga 10 mg orally once every day start the patient on SSI, continue patient on Rybelsus 3 mg orally once every day, start the patient on Lantus 18 units at bedtime 8. Severe aortic valve stenosis status post TAVR. 9. GERD. Continue with Protonix 40 mg orally twice every day. 10. history of CVA in the past. we will hold Eliquis for now continue atorvastatin 40 mg once every day as well as Zetia 10 mg once every day keep LDL 55 11. Iron deficiency anemia. We will continue to monitor the patient CBC, started the patient on Venofer 100 mg IV piggyback x 1 hemoglobin is stable at this time. 11. DVT prophylaxis. Continue Eliquis 2.5 mg orally twice every day. 12. GI prophylaxis. Continue Protonix 40 mg orally twice every day. 13. Patient is medically stable to be discharged home. Objective - Vital Signs Vital signs: Vital Signs Temp 97.7 F 09/14/23 00:00 Pulse 82 09/14/23 08:02 Resp 20 09/14/23 07:00 BP 134/60 09/14/23 07:00 Pulse Ox 95 09/14/23 07:00 FiO2 Intake & Output 09/13/23 09/14/23 09/14/23 18:59 06:59 18:59 Intake Total 800 50 150 Output Total 400 300 200 Balance 400 -250 -50 Weight 75 kg Intake: IV 300 Intake, IV Titration 300 Amount Sodium Chloride 0.9% 1, 100 000 ml @ 50 mls/hr IV . Q[facility]H [facility] Rx#:[id number] Sodium Ferric Gluconat- 100 Sucrose 125 mg In Sodium Chloride 0.9% 100 ml @ 100 mls/hr IVPB ONCE ONE Rx#:[id number] ceFAZolin 2 gm In Sodium 100 Chloride 0.9% 50 ml @ 100 mls/hr IVPB Q6H [facility] Rx#: [id number] Oral 200 50 150 Output: Urine 400 300 200 Other: Voiding Method Toilet Toilet External Catheter External Catheter ABP, PAP, CO, CI - Last Documented Arterial Blood Pressure 109/46 - Labs CBC & Chem 7: 09/14/23 04:20 09/14/23 04:20 Labs: Abnormal Lab Results - Last 24 Hours (Table) 09/13/23 09/13/23 09/13/23 Range/Units 11:53 17:08 21:19 Hgb (11.4-16.0) gm/dL Hct (34.0-46.0) % MCV (80.0-100.0) fL MCH (25.0-35.0) pg MCHC (31.0-37.0) g/dL RDW (11.5-15.5) % Plt Count (150-450) k/uL Chloride (98-107) mmol/L BUN (7-17) mg/dL Glucose (74-99) mg/dL POC Glucose (mg/dL) 143 H 152 H 172 H (70-110) mg/dL 09/14/23 09/14/23 Range/Units 04:20 04:20 Hgb 8.4 L (11.4-16.0) gm/dL Hct 28.2 L (34.0-46.0) % MCV 70.2 L (80.0-100.0) fL MCH 21.0 L (25.0-35.0) pg MCHC 29.9 L (31.0-37.0) g/dL RDW 19.6 H (11.5-15.5) % Plt Count 108 L (150-450) k/uL Chloride 114 H (98-107) mmol/L BUN 25 H (7-17) mg/dL Glucose 105 H (74-99) mg/dL POC Glucose (mg/dL) (70-110) mg/dL
--- NOTE | 2023-09-14 12:19 | P.DS ---
Providers Date of admission: 09/11/23 05:50 Expected date of discharge: 09/14/23 Attending physician: Armando Santiago DO Consults: 09/09/23 09:13 Consult to Anesthesia Routine Consulting Provider: Anesthesia,Services Consult Reason/Comments: Cardiac Surgery Pre-Op 09/11/23 10:16 Consult Physician Routine Consulting Provider: Jackson Benjamin Consult Reason/Comments: Medical Management Do you want consulting provider notified?: Yes Primary care physician: Jackson Benjamin Hospital Course: MEDICAL HISTORY: Severe symptomatic aortic valve stenosis, NYHA class III symptoms, status post percutaneous aortic valve implantation using a 26 mm Evolute FX Postoperative third-degree heart block, status post aortic valve implantation procedure, transvenous pacemaker in place status post insertion dual-chamber permanent pacemaker Hypertension Hyperlipidemia Diabetes mellitus type 2 TIA in 2019 Lymphedema Coronary artery disease status post PCI History of myocardial infarction Paroxysmal atrial fibrillation Bilateral internal carotid artery stenosis 50 to 79% History of COVID-19 infection in 2021 PROCEDURE: 1. Percutaneous Aortic Valve Implantation using a 26 mm Evolut-FX. 2. Transesophageal echocardiography (performed by anesthesia) 3. Ultrasound guided access and repair of right femoral artery access site by P erclose closure device. 4. Placement of temporary pacemaker wire. 5. Aortic root angiography 6. Insertion dual chamber permanent pacemaker HISTORY OF PRESENT ILLNESS: This is an 88-year-old female patient who follows on an outpatient basis with Dr. Benjamin for her primary care and Dr. Jocelyne Payan for cardiology care. She has a known history of severe symptomatic aortic valve stenosis and has been symptomatic with increased dyspnea on exertion, NYHA class III symptoms. She had been referred to structural heart clinic for evaluation for transcatheter aortic valve replacement after heart catheterization and transesophageal echocardiogram were completed. Echocardiography demonstrated her left ventricular ejection fraction estimated at 55 to 60%, aortic valve area 0.6 cm with a peak/mean gradient 92/52 mmHg and a peak velocity of 4.8 m/s. Heart catheterization completed on May 20, 2023 showed a patent stent to her LAD and otherwise mild nonobstructive coronary artery disease. After workup was completed an STS risk score was calculated along with incremental risk score, the patient was felt to be a high risk for surgical aortic valve replacement candidate and transcatheter aortic valve replacement was recommended. The usual course of TAVR was discussed in detail the patient, risks and benefits were reviewed, shared decision making between cardiology, cardiothoracic surgery, the patient/family took place and the patient consented to proceed with the procedure. HOSPITAL COURSE: The patient was brought to the hospital on September 11, 2023, was taken to the extended stay area, prepared in the usual fashion, and subsequently taken to the cardiac catheterization laboratory where Dr. Santiago and Dr. Mercado completed TAVR procedure under general anesthesia with fluoroscopy and HANNAH. The valve was deployed under rapid ventricular pacing and proceeded without event. At the end of the procedure there was no significant gradient, hemodynamics were felt to be acceptable, and there was trace paravalvular leak. Upon completion of the procedure the patient was extubated and was transferred to the cardiovascular intensive care unit where she was recovered and monitored hemodynamically. Her oxygen was titrated down, she was tolerating oral diet, her pain was controlled, follow-up TTE demonstrated her left ventricular eje ction fraction was estimated at 65 to 70%, and a mean gradient 7 mmHg.post TAVR procedure her EKG demonstrated third-degree heart block and the patient subsequently underwent insertion of dual-chamber permanent pacemaker placed by Dr. Santiago. She was ready to be discharged to home on postoperative day #3 and has received written and verbal instruction regarding her medications, activity restrictions, signs and symptoms requiring physician notification, and her follow-up appointments. Plan - Discharge Summary Discharge Rx Participant: No New Discharge Prescriptions: New Acetaminophen Tab [Tylenol] 1,000 mg PO Q6HR PRN tab PRN Reason: Fever And/ Or Mild Pain (1-3) Continue Dapagliflozin Propanediol [Farxiga] 10 mg PO DAILY Omeprazole [PriLOSEC] 20 mg PO AC-BID Semaglutide [Rybelsus] 3 mg PO DAILY Atorvastatin Calcium [Lipitor] 40 mg PO DAILY Apixaban [Eliquis] 2.5 mg PO BID #60 tab Amiodarone HCl [Pacerone] 200 mg PO BID Metoprolol Succinate (ER) [Toprol XL] 12.5 mg PO QAM Insulin Glargine,Hum.rec.anlog [Insulin Glargine Solostar] 18 units SQ HS Furosemide [Lasix] 20 mg PO DAILY #30 tab Levothyroxine Sodium [Synthroid] 50 mcg PO QAM Ezetimibe [Zetia] 10 mg PO DAILY Meclizine HCl 25 mg PO Q8H PRN PRN Reason: Vertigo Budesonide/Glycopyr/Formoterol [Breztri Aerosphere Inhaler] 2 puff INHALATION RT-BID Discharge Medication List Furosemide [Lasix] 20 mg PO DAILY #30 tab 03/23/21 [Rx] Dapagliflozin Propanediol [Farxiga] 10 mg PO DAILY 10/01/21 [History] Omeprazole [PriLOSEC] 20 mg PO AC-BID 02/03/22 [History] Atorvastatin Calcium [Lipitor] 40 mg PO DAILY 01/03/23 [History] Ezetimibe [Zetia] 10 mg PO DAILY 01/03/23 [History] Levothyroxine Sodium [Synthroid] 50 mcg PO QAM 01/03/23 [History] Semaglutide [Rybelsus] 3 mg PO DAILY 01/03/23 [History] Meclizine HCl 25 mg PO Q8H PRN 05/18/23 [History] Apixaban [Eliquis] 2.5 mg PO BID #60 tab 05/22/23 [Rx] Budesonide/Glycopyr/Formoterol [Breztri Aerosphere Inhaler] 2 puff INHALATION RT-BID 07/11/23 [History] Amiodarone HCl [Pacerone] 200 mg PO BID 08/02/23 [History] Insulin Glargine,Hum.rec.anlog [Insulin Glargine Solostar] 18 units SQ HS 08/02/23 [History] Metoprolol Succinate (ER) [Toprol XL] 12.5 mg PO QAM 08/02/23 [History] Acetaminophen Tab [Tylenol] 1,000 mg PO Q6HR PRN tab 09/14/23 [Rx] Follow up Appointment(s)/Referral(s): Jackson Benjamin MD [Primary Care Provider] - As Needed Giles Payan MD [STAFF PHYSICIAN] - 09/19/23 3:15 pm (Your appointment next week is for groin check on September 19, 2023 at 3 PM, you will also have a pacemaker device check during this appointment. You also have a 30 day post TAV R echo and appointment with Dr. Payan 09/26/23 @ 1:45 pm, and a 1 year post TAVR echo and appointment with Dr. Payan 07/09/24 @1:45 pm) Clinic,[facility] [NON-STAFF] - 09/26/23 1:15 pm (Your appointment 09/26/23 is for 30 day follow up at the TAVR clinic before your appt with Dr. Payan. You also have a 1 year TAVR clinic follow up 07/09/24 @ 1:15 pm before your appointment with Dr. Payan) Ambulatory/Diagnostic Orders: Basic Metabolic Panel [LAB.AMB] Location: None Selected Basic Metabolic Panel [LAB.AMB] Location: None Selected Complete Blood Count w/diff [LAB.AMB] Location: None Selected Complete Blood Count w/diff [LAB.AMB] Location: None Selected Activity/Diet/Wound Care/Special Instructions: DISCHARGE INSTRUCTIONS: 1. No driving for 1 week, or until physician gives their ok. 2. No lifting, pushing, or pulling more than 5-10 pounds for 1 week. 3. Hold both groins when you cough or sneeze for the next 2 weeks. Bruising is common, but report increased swelling, pain or fever >101F 4. Shower daily. No pool, hot tub, or bathtub for 1 week 5. No powders, lotions, ointments on incisions. 6. No straining, including for bowel movements. Use stool softner if necessary 7. Stairs are not an issue. Go slowly, using handrail and take 1 step at a time. Ambulate several times daily 8. Continue pain control per as needed orders. 9. Take only the medications listed on your discharge form 10. Eat low salt (limited to 2 grams or 2000 milligrams) daily, avoid adding salt, avoid canned/processed foods 11. Take your weight daily in the morning and record, bring with you to your follow up appointments 12. Keep all follow up appointments. You will need a valve clinic appointment at 30 days and 1 year post procedure for follow up 13. You have been referred to and are expected to begin Cardiac Rehab in approximately 4 weeks. 14. You will need antibiotics prior to any dental work, including cleanings, and any surgeries to prevent Endocarditis (bacterial infection in your heart) For any questions or concerns please call your valve coordinators: Theresa or Jasen @ Instructions following a heart rhythm device implant. 1. Keep dressing DRY for 5 DAYS. You may cover the area with Saran or Cling Wrap, prior to a shower. 2. The dressing will be removed in the Device Clinic at [facility], on September 19, 2023 at 3:15 PM. Absorbable sutures were used to close the wound. 3. Avoid raising the left arm above the shoulder level. 4 week restriction 4. Avoid arm movements, like backscratching, rubbing the head, or pulling on a cord. 4 weeks restriction 5. Gentle range of motion movements of the shoulder, closest to the incision should be performed to avoid a frozen shoulder. (Pendulum exercises of the shoulder) 6. The opposite arm may be used freely. 7. Avoid driving for 7 days. 8. Avoid activities such as golfing, swimming, weed whacking, lifting more than 10 pounds weight, bowling, gymnastics and weight training/lifting. (6 weeks restriction) 9. Activities such as wood chopping with an axe, pull-ups in the gymnasium, power lifting, arc-welding, being close to home induction cooktops will always be a problem. 10. Arm sling is only a reminder not to raise the arm above the head. You do not need to keep the arm completely immobilized. Your free to move the arm and use it and for normal activities. In case of any problems, please call [facility] [place], @ [phone], Attention: Device Clinic Discharge Disposition: HOME SELF-CARE
[2023-09-14 16:12] VITALS: PULSE 80
[2023-09-14 17:17] VITALS: BP 115/70; RESP 14; TEMP 98.8
[2023-09-14] MEDS ORDERED: PANTOPRAZOLE 40 MG TABLET PO SCH (17:30)
[2023-09-14] MEDS ORDERED: AMIODARONE 200 MG TAB PO SCH (21:00)
--- NOTE | 2023-09-16 14:52 | CDI ---
Documentation Clarification Form Date: 09/16/2023 02:38:06 PM From: Sera Carl Phone: Admit Date: 09/11/2023 05:50:00 AM Patient Name: Rachel Wilson Visit Number: [id number] Discharge Date: 09/14/2023 04:45:00 PM ATTENTION: The Clinical Documentation Specialists (CDI) and [facility] Coding Staff appreciate your assistance in clarifying documentation. Please respond to the clarification below the line at the bottom and electronically sign. The CDI & [facility] Coding staff will review the response and follow-up if needed. Please note: Queries are made part of the Legal Health Record. If you have any questions, please contact the author of this message via ITS. Dr. Jackson Benjamin Your patient has glucose of 204 per Consult 09/10. Please clarify if there is an additional diagnosis and/or clinical significance related to this result. History/Risk Factors: 88yo F, AVS/AR, PO 3heart block,HTN, HLD, DMII, Hx TIA, CAD, Hx SD, PAF, Lymphedema, BICA stenosis Clinical indicators: Glucose 09/10 164-204 09/11 153-224 09/12 143-206 Treatment: IP- Novolog, Levemir .18ml Home Medication: Insulin Glargine, Hum. rec. anlog 18 units SQ HS Semaglutide [Rybelsus] 3 mg PO DAILY; Dapagliflozin Propanediol [Farxiga] 10 mg PO DAILY Is there an additional diagnosis and/or clinical significance related to the above result? [ x] Diabetes Mellitus II with hyperglycemia [ ] Hyperglycemia due to [ ] Result is not clinically significant (no additional diagnosis) [ ] Other, please specify [ ] Unable to determine (Template Last Reviewed: July 2020) MTDD
== END 2023-09-14 16:45 | disposition home or self-care (01) | DRG 266 ==
LOC: 2ORMAIN 05:50 → 2SICU 10:01
PROVIDERS: ADMIT Internal Medicine; ATTEND Internal Medicine
PROC: B310ZZZ Fluoroscopy of Thoracic Aorta (ICD-10-PCS; 2023-09-11)
PROC: 5A1223Z Performance of Cardiac Pacing, Continuous (ICD-10-PCS; 2023-09-11)
PROC: 02RF38Z Replacement of Aortic Valve with Zooplastic Tissue, Percutaneous Approach (ICD-10-PCS; principal; 2023-09-11 08:30)
PROC: B24BZZ4 Ultrasonography of Heart with Aorta, Transesophageal (ICD-10-PCS; 2023-09-11 08:30)
PROC: 02H63JZ Insertion of Pacemaker Lead into Right Atrium, Percutaneous Approach (ICD-10-PCS; 2023-09-13)
PROC: 0JH606Z Insertion of Pacemaker, Dual Chamber into Chest Subcutaneous Tissue and Fascia, Open Approach (ICD-10-PCS; 2023-09-13)
PROC: 02HK3JZ Insertion of Pacemaker Lead into Right Ventricle, Percutaneous Approach (ICD-10-PCS; 2023-09-13)
DX: I35.2 Nonrheumatic aortic (valve) stenosis with insufficiency (principal); Z00.6 Encounter for examination for normal comparison and control in clinical research program; S75.012A Minor laceration of femoral artery, left leg, initial encounter; I44.2 Atrioventricular block, complete; I97.190 Other postprocedural cardiac functional disturbances following cardiac surgery; I50.32 Chronic diastolic (congestive) heart failure; I97.51 Accidental puncture and laceration of a circulatory system organ or structure during a circulatory system procedure; I11.0 Hypertensive heart disease with heart failure; E11.65 Type 2 diabetes mellitus with hyperglycemia; I48.0 Paroxysmal atrial fibrillation; E03.9 Hypothyroidism, unspecified; I65.23 Occlusion and stenosis of bilateral carotid arteries; D50.9 Iron deficiency anemia, unspecified; E78.5 Hyperlipidemia, unspecified; I89.0 Lymphedema, not elsewhere classified; I25.10 Atherosclerotic heart disease of native coronary artery without angina pectoris; S80.11XA Contusion of right lower leg, initial encounter; K21.9 Gastro-esophageal reflux disease without esophagitis; R29.6 Repeated falls; W19.XXXA Unspecified fall, initial encounter; Y83.2 Surgical operation with anastomosis, bypass or graft as the cause of abnormal reaction of the patient, or of later complication, without mention of misadventure at the time of the procedure; Z87.891 Personal history of nicotine dependence; Z79.890 Hormone replacement therapy; Z79.84 Long term (current) use of oral hypoglycemic drugs; Z79.01 Long term (current) use of anticoagulants; Z86.73 Personal history of transient ischemic attack (TIA), and cerebral infarction without residual deficits; Z95.5 Presence of coronary angioplasty implant and graft; Z86.19 Personal history of other infectious and parasitic diseases; I25.2 Old myocardial infarction; Z86.16 Personal history of COVID-19; Z82.49 Family history of ischemic heart disease and other diseases of the circulatory system; Z91.048 Other nonmedicinal substance allergy status; Z87.39 Personal history of other diseases of the musculoskeletal system and connective tissue; Z79.899 Other long term (current) drug therapy; Z91.81 History of falling; Z91.041 Radiographic dye allergy status; Z88.0 Allergy status to penicillin; Z88.8 Allergy status to other drugs, medicaments and biological substances; Z88.6 Allergy status to analgesic agent; Z91.040 Latex allergy status; Z88.3 Allergy status to other anti-infective agents; Z79.51 Long term (current) use of inhaled steroids
CPT/HCPCS: 33208; 33210; 33361; 71045; 80048; 80053; 82330; 83735; 84132; 85025; 85027; 86850; 86900; 86901; 93306; 93312; 93320; 93325; 94640

== ENCOUNTER 2023-09-26 21:35 | Emergency (ER) | payer MEDICARE, BC ==
--- NOTE | 2023-09-26 22:03 | ED ---
Chest Pain HPI - General Chief Complaint: Chest Pain Stated Complaint: Chest Pain Time Seen by Provider: 09/26/23 21:44 Source: patient, EMS Mode of arrival: EMS Limitations: no limitations - History of Present Illness Initial Comments: Rachel is a pleasant 88-year-old female presents the ER today for evaluation of chest pain and pain in her jaw. Patient underwent TAVR and pacemaker placement on September 03, she has been recovering well. She had an outpatient follow-up today but was told she could not have her echo done yet. Patient states she did have a lot of exertion today getting in and out of the car for multiple appointments. She came home and took a nap and was resting at home when she developed some pain in her bilateral jaw she then felt pain in her chest radiating to her back. Given her recent history this is concerning for her family and she was brought to the ER for evaluation. Patient states that upon arrival she is feeling much better. Patient states that she has had no worsening shortness of breath she had no diaphoresis or lightheadedness with this pain. No nausea or vomiting. - Related Data Home Medications Medication Instructions Recorded Confirmed Dapagliflozin Propanediol [Farxiga] 10 mg PO DAILY 10/01/21 09/11/23 Omeprazole [PriLOSEC] 20 mg PO AC-BID 02/03/22 09/11/23 Atorvastatin Calcium [Lipitor] 40 mg PO DAILY 01/03/23 09/10/23 Ezetimibe [Zetia] 10 mg PO DAILY 01/03/23 09/10/23 Levothyroxine Sodium [Synthroid] 50 mcg PO QAM 01/03/23 09/11/23 Semaglutide [Rybelsus] 3 mg PO DAILY 01/03/23 09/11/23 Meclizine HCl 25 mg PO Q8H PRN 05/18/23 09/11/23 Budesonide/Glycopyr/Formoterol 2 puff INHALATION RT-BID 07/11/23 09/11/23 [Breztri Aerosphere Inhaler] Amiodarone HCl [Pacerone] 200 mg PO BID 08/02/23 09/11/23 Insulin Glargine,Hum.rec.anlog 18 units SQ HS 08/02/23 09/11/23 [Insulin Glargine Solostar] Metoprolol Succinate (ER) [Toprol 12.5 mg PO QAM 08/02/23 09/11/23 XL] Previous Rx's Medication Instructions Recorded Furosemide [Lasix] 20 mg PO DAILY #30 tab 03/23/21 Apixaban [Eliquis] 2.5 mg PO BID #60 tab 05/22/23 Acetaminophen Tab [Tylenol] 1,000 mg PO Q6HR PRN tab 09/14/23 Allergies Allergy/AdvReac Type Severity Reaction Status Date / Time Iodinated Contrast Media Allergy Severe Rash/Hives Verified 09/11/23 06:44 hydrocortisone Allergy Intermediate Rash/Hives Verified 09/11/23 06:44 ampicillin [From Polycillin] Allergy Mild Rash/Hives Verified 09/11/23 06:44 cefaclor [From Ceclor] Allergy Mild Rash/Hives Verified 09/11/23 06:44 nitroglycerin Allergy Mild Unknown Verified 09/11/23 06:44 NSAIDS (Non-Steroidal Allergy Mild Unknown Verified 09/11/23 06:44 Anti-Inflamma sulfur dioxide Allergy Mild Unknown Verified 09/11/23 06:44 latex Allergy Itching Verified 09/11/23 06:44 nickel Allergy Rash/Hives Verified 09/11/23 06:44 nitrofurantoin Allergy Unknown Verified 09/11/23 06:44 [From Macrodantin] quinedex Allergy Unknown Uncoded 09/11/23 06:44 Review of Systems ROS Statement: Those systems with pertinent positive or pertinent negative responses have been documented in the HPI. ROS Other: All systems not noted in ROS Statement are negative. EKG Findings - EKG Comments: EKG Findings:: EKG interpreted by me, EKG obtained at 2200 EKG with a rate of 68 rhythm is with no acute ST elevations or depressions no evidence of ischemia or infarction. Past Medical History Past Medical History: Atrial Fibrillation, Coronary Artery Disease (CAD), Heart Failure, Diabetes Mellitus, Hyperlipidemia, Hypertension, Pneumonia Additional Past Medical History / Comment(s): Very sob, Dr Benjamin watch small hematoma over brunner rt leg,rt leg aching, fell 08-29-23 and 09-03-23-rt leg gave out-seen in ER 09-03-23,LYMPHEDEMA-qasim legs,pneumonia infection Jun 2023 History of Any Multi-Drug Resistant Organisms: MRSA Date of last positivie culture/infection: 07/14/20 MDRO Source:: RIGHT FOOT Past Surgical History: Heart Catheterization With Stent Additional Past Surgical History / Comment(s): Heart cath x3 stents, pacemaker 09/13/23 Past Anesthesia/Blood Transfusion Reactions: No Reported Reaction Additional Past Anesthesia/Blood Transfusion Reaction / Comment(s): PATIENT STATES THAT LAST HEART CATH SHE HAD A REACTION-SWOLLEN FACE-RED FACE-ITCHY SKIN W/ first heart cath. no hx blood transfusion. dtr has PONV Date of Last Stent Placement:: 03/2021 Past Psychological History: No Psychological Hx Reported Smoking Status: Former smoker Past Alcohol Use History: None Reported Past Drug Use History: None Reported - Past Family History Father Family Medical History: Myocardial Infarction ([place]) Additional Family Medical History / Comment(s): AT 46 OF HEART ATTACK Mother Family Medical History: Congestive Heart Failure (CHF) Additional Family Medical History / Comment(s): heart problems. hemodialysis,lymphedema General Exam - General Exam Comments Initial Comments: Physical Exam GENERAL: Patient is well-developed and well-nourished. Patient is nontoxic and well-hydrated and is in no distress. HENT: Normocephalic, Atraumatic. EYES: PERRL, EOMI PULMONARY: Unlabored respirations. CARDIOVASCULAR: RRR Warm and well perfused extremities Systolic murmur ABDOMEN: Non-distended SKIN: No rashes or bruising : Deferred NEUROLOGIC: Alert and oriented Normal speech Normal gait MUSCULOSKELETAL: Moving all extremities with no apparent injury PSYCHIATRIC: No SI/HI Limitations: no limitations Course Vital Signs 09/26/23 09/26/23 09/26/23 21:39 21:44 22:00 Temperature 98.5 F Pulse Rate 61 60 66 Respiratory 20 20 16 Rate Blood Pressure 154/112 149/75 149/75 O2 Sat by Pulse Oximetry 09/26/23 09/27/23 09/27/23 23:00 02:42 06:59 Temperature Pulse Rate 60 60 63 Respiratory 18 18 18 Rate Blood Pressure 134/69 136/69 162/74 O2 Sat by Pulse 96 98 Oximetry Chest Pain MDM - MDM Was pt. sent in by a medical professional or institution (, [place], [facility], urgent care, hospital, or halfway...) When possible be specific @ -No Did you speak to anyone other than the patient for history (EMS, parent, family, police, friend...)? What history was obtained from this source @ -Daughter Did you review nursing and triage notes (agree or disagree)? Why? @ -I reviewed and agree with nursing and triage notes Were old charts reviewed (outside hosp., previous admission, EMS record, old EKG, old radiological studies, urgent care reports/EKG's, halfway records)? Report findings @ -Previous cardiac evaluation and labs were reviewed Differential Diagnosis (chest pain, altered mental status, abdominal pain women, abdominal pain men, vaginal bleeding, weakness, fever, dyspnea, syncope, headache, dizziness, GI bleed, back pain, seizure, CVA, palpatations, mental health)? @ -Differential Chest Pain: Stable Angina, Unstable Angina, STEMI, NSTEMI Aortic Dissection, Pneumothorax, Musculoskeletal, Esophageal Spasm GERD, Cholecystitis, Pancreatitis, Zoster, this is not meant to be an all-inclusive list. EKG interpreted by me (3pts min.). @ -As above X-rays interpreted by me (1pt min.). @ -No acute cardiopulmonary process CT interpreted by me (1pt min.). @ -None done U/S interpreted by me (1pt. min.). @ -None done What testing was considered but not performed or refused? (CT, X-rays, U/S, labs)? Why? @ -None What meds were considered but not given or refused? Why? @ -None Did you discuss the management of the patient with other professionals (professionals i.e. , PA, [facility], lab, RT, psych nurse, school social worker, medical office secretary, teacher, human resource officer, porter sample case)? Give summary @ -No Was smoking cessation discussed for >3mins.? @ -No Was critical care preformed (if so, how long)? @ -No Were there social determinants of health that impacted care today? How? (Homelessness, low income, unemployed, alcoholism, drug addiction, transportation, low edu. Level, literacy, decrease access to med. care, senior care, rehab)? @ -No Was there de-escalation of care discussed even if they declined (Discuss DNR or withdrawal of care, Hospice)? DNR status @ -No What co-morbidities impacted this encounter? (DM, HTN, Smoking, COPD, CAD, Cancer, CVA, ARF, Chemo, Hep., AIDS, mental health diagnosis, sleep apnea, morbid obesity)? @ -None Was patient admitted / discharged? Hospital course, mention meds given and route, prescriptions, significant lab abnormalities, going to OR and other pertinent info. @ -The patient was seen and evaluated, history was obtained from the patient. Patient reports she overexerted herself today had some chest tightness no diaphoresis or lightheadedness. Patient asymptomatic upon arrival in the ER. Patient remained in the ER remained asymptomatic 2 tropes were negative and unchanged. I did offer the patient observation for evaluation by cardiology but she would prefer discharge home, placed the patient up for discharge and her daughter was able to come get her for transport home. Undiagnosed new problem with uncertain prognosis? @ -No Drug Therapy requiring intensive monitoring for toxicity (Heparin, Nitro, Insulin, Cardizem)? @ -No Were any procedures done? @ -No Diagnosis/symptom? @ -Atypical chest pain Acute, or Chronic, or Acute on Chronic? @ -Default Uncomplicated (without systemic symptoms) or Complicated (systemic symptoms)? @ -Default Side effects of treatment? @ -No Exacerbation, Progression, or Severe Exacerbation? @ -No Poses a threat to life or bodily function? How? (Chest pain, [place], [place], pneumonia, PE, COPD, DKA, ARF, appy, cholecystitis, CVA, Diverticulitis, Homicidal, Suicidal, threat to staff... and all critical care pts) @ -No Disposition Clinical Impression: Atypical chest pain Disposition: HOME SELF-CARE Condition: Stable Instructions (If sedation given, give patient instructions): Chest Pain (ED) Is patient prescribed a controlled substance at d/c from ED?: No Referrals: Jackson Benjamin MD [Primary Care Provider] - 1-2 days
[2023-09-26 22:20] VITALS: TEMP 98.5
[2023-09-26 22:31] LABS: Anisocytosis Moderate; Basophils % (A) 1 %; Eosinophils # (A) 0.1 k/uL (0-0.7); Eosinophils % (A) 1 %; HCT 31.5 % (34.0-46.0); HGB 9.1 gm/dL (11.4-16.0); Hypochromasia Marked; Lymphocytes # (A) 1.5 k/uL (1.0-4.8); Lymphocytes % (A) 21 %; MCH 20.5 pg (25.0-35.0); MCHC 28.9 g/dL (31.0-37.0); MCV 70.9 fL (80.0-100.0); Mean Platelet Volume 6.9; Microcytosis Marked; Monocytes # (A) 0.4 k/uL (0-1.0); Monocytes % (A) 5 %; Neutrophils % (A) 70 %; Poikilocytosis Slight; RBC 4.44 m/uL (3.80-5.40); RDW 22.7 % (11.5-15.5); WBC 7.1 k/uL (3.8-10.6)
[2023-09-26 22:45] LABS: Platelet Count 255 k/uL (150-450)
[2023-09-26 22:46] LABS: ALT 17 U/L (4-34); AST 27 U/L (14-36); African American GFR (CKD) 50 (>60 ml/min/1.73 sqM); Albumin 3.5 g/dL (3.5-5.0); Alkaline Phosphatase 104 U/L (38-126); Anion Gap 7 mmol/L; Blood Urea Nitrogen 23 mg/dL (7-17); Calcium 9.4 mg/dL (8.4-10.2); Carbon Dioxide 26 mmol/L (22-30); Chloride 109 mmol/L (98-107); Glucose 162 mg/dL (74-99); Magnesium 1.5 mg/dL (1.6-2.3); Non-African American GFR(CKD) 43 (>60 ml/min/1.73 sqM); Potassium 3.8 mmol/L (3.5-5.1); Sodium 142 mmol/L (137-145); Total Bilirubin 0.8 mg/dL (0.2-1.3); Total Protein 6.7 g/dL (6.3-8.2)
[2023-09-26 22:53] LABS: Partial Thromboplastin Time 25.1 sec (22.0-30.0); Prothrombin Time 11.1 sec (10.0-12.5)
[2023-09-26 22:54] LABS: NT-Pro-B-Type Natriuretic Pept 314 pg/mL
--- NOTE | 2023-09-26 23:19 | XR ---
EXAM: XR Chest, 2 Views CLINICAL HISTORY: ITS.REASON XR Reason: Chest Pain TECHNIQUE: Frontal and lateral views of the chest. COMPARISON: CXR September 14, 2023. FINDINGS: Lungs: Unremarkable. No consolidation. Pleural space: Unremarkable. No pneumothorax. Heart: Prosthetic aortic valve. No cardiomegaly. Mediastinum: Unremarkable. Normal mediastinal contour. Bones/joints: Unremarkable. No acute fracture. Tubes, lines and devices: Pacemaker leads. IMPRESSION: No acute findings in the chest.
[2023-09-26 23:30] VITALS: RESP 18
[2023-09-27] MEDS: MAGNESIUM SULFATE-D5W PMX 1 GM in DEXTROSE/WATER 1 100ML.BAG IVPB ONE (05:27)
[2023-09-27 07:14] VITALS: BP 162/74; PULSE 63
== END 2023-09-27 07:28 | disposition home or self-care (01) ==
LOC: EC 21:35
DX: R07.89 Other chest pain (principal); Z87.891 Personal history of nicotine dependence; Z88.0 Allergy status to penicillin; Z88.1 Allergy status to other antibiotic agents; Z88.6 Allergy status to analgesic agent; Z91.040 Latex allergy status; Z91.041 Radiographic dye allergy status; Z95.0 Presence of cardiac pacemaker
CPT/HCPCS: 36415 ×2; 93005; 83880; 80053; 83735; 84484 ×2; 85025; 85610; 85730; 71046; 99285; 96365; J3475